=== PATIENT | female | born 1970 | race Caucasian/White ===

== ENCOUNTER 2018-12-03 08:07 | Outpatient (CLI) | payer MEDICAID, SELFPAY ==
[2018-12-03 08:45] LABS: Abs Immature Grans 0.01 k/cumm (0.0-0.09); Absolute Basophil Count 0.02 k/cumm (0.0-0.2); Absolute Eosinophil Count 0.15 k/cumm (0.0-0.7); Absolute Lymphocyte Count 1.22 k/cumm (1.2-3.4); Absolute Monocyte Count 0.31 k/cumm (0.11-0.7); Basophils % 0.5; Eosinophils % 3.8; HCT 41.6 % (36.0-46.0); HGB 13.4 g/dL (12.0-15.5); Immature Grans % 0.3; Lymphocytes % 30.5; Mean Corp. HGB Concentration 32.2 g/dL (32.0-36.0); Mean Corpuscular Hemoglobin 28.6 pg (27.0-33.0); Mean Corpuscular Volume 88.7 fL (80-95); Mean Platelet Volume 10.2 fL (8.0-11.0); Monocytes % 7.8; Neutrophils % 57.1; Platelet Count 193 x1000/uL (130-400); RBC 4.69 m/cumm (4.00-5.20); RBC Distribution Width 12.3 % (11.7-14.6)
[2018-12-03 08:47] LABS: Absolute Neutrophil Count 2.28 k/cumm (1.2-6.7)
[2018-12-03 09:58] LABS: Iron 59 ug/dL (50-175); Total Iron Binding Capacity 349 ug/dL (250-450); Transferrin Sat 17 % (15-50)
[2018-12-03 10:24] LABS: Vitamin D 25 Total 14.1 ng/ml (30-100)
[2018-12-03 10:34] LABS: ALT 23 U/L (12-78); AST 21 U/L (15-37); Albumin 3.4 g/dL (3.4-5.0); Alkaline Phosphatase 92 U/L (46-116); Anion Gap 9.9 mmol/L (3-11); BUN 10 mg/dL (7-18); Bilirubin, Total 0.4 mg/dL (0.2-1.0); CO2 28.1 mmol/L (21.0-32.0); CREATININE 0.84 mg/dL (0.55-1.02); Calcium 8.9 mg/dL (8.5-10.1); Chloride 103 mmol/L (98-107); Cholesterol 125 mg/dL (50-200); Ferritin 31 ng/mL (8-388); Folate 18.7 ng/mL (8.6-20.0); Glucose 95 mg/dL (70-100); HDL Cholesterol 38 mg/dL (40-60); LDL CHOLESTEROL 75 mg/dL (<100); Potassium 3.7 mmol/L (3.5-5.1); Sodium 141 mmol/L (136-145); TSH (W/Ref FT4) 5.68 uIU/mL (0.358-3.74); Total Protein 7.6 g/dL (6.4-8.2); Triglyceride 63 mg/dL (30-150); Vitamin B12 271 pg/mL (193-986)
[2018-12-03 10:52] LABS: FREE T4 1.04 ng/dL (0.76-1.46)
[2018-12-04 10:04] LABS: Parathyroid Hormone,Intact 129 pg/ml (19-88)
[2018-12-07 10:19] LABS: Thiamine (Vitamin B1), WB 113 nmol/L (70-180)
[2018-12-08 08:56] LABS: Free Retinol (Vitamin A) 25.3 mcg/dL (32.5-78.0)
== END 2018-12-03 08:27 ==
PROVIDERS: PCP Nurse Practitioner Family; Visit Provider Nurse Practitioner Family
DX: Z98.84 Bariatric surgery status (principal); K90.9 Intestinal malabsorption, unspecified; Z00.00 Encounter for general adult medical examination without abnormal findings
CPT/HCPCS: 36415; 80053; 80061; 82306; 83721; 82607; 82728; 82746; 83540; 83550; 83970; 84425; 84439; 84443; 84590; 85025

== ENCOUNTER 2019-04-16 02:50 | Outpatient (CLI) | payer MEDICAID, SELFPAY ==
--- NOTE | 2019-04-16 | PFT_ITS ---
PULMONARY FUNCTION TEST REPORT Patient - Betzaida Clement DATE OF SERVICE April 16, 2019 REQUESTING PROVIDER Hardeep Oropeza NP INTERPRETATION OF STUDY Spirometry shows no evidence of obstructive airways disease. There is some, but not significant bronchodilator response. LUNG VOLUMES Incomplete testing, the patient decline plethysmography maneuver. DIFFUSION CAPACITY- Normal. AIRWAY RESISTANCE - Not measured. IMPRESSION No evidence of obstructive airways disease, underlying restrictive pattern cannot be excluded without total lung capacity measurement. Clinical correlation recommended. China Duvall M.D. WALTER/ T- 04/22/2019
[2019-04-16] MEDS: Inhaler, Assist Device 1 EACH MC (15:32)
[2019-04-16] MEDS: Albuterol HFA 18 GM 200 PUFF INH IH (15:32)
== END 2019-04-16 03:10 ==
PROVIDERS: PCP Nurse Practitioner Family; Visit Provider Nurse Practitioner Family
DX: J45.901 Unspecified asthma with (acute) exacerbation (principal); F17.200 Nicotine dependence, unspecified, uncomplicated
CPT/HCPCS: 94060; 94729

== ENCOUNTER 2019-05-06 11:33 | Emergency (ER) | payer MEDICAID, SELFPAY ==
[2019-05-06 11:35] VITALS: BP 133/70; PULSE 94; RESP 20; TEMP 37; O2SAT 97
--- NOTE | 2019-05-06 11:55 | ED.GENADUL_ITS ---
Discharge Plan Discharge Details Chief Complaint: RespSymp Primary Care Provider: Hardeep Oropeza ED Provider: Tomás Reynolds Medical Decision Making 49-year-old female smoker with history of reactive airway disease presents with cough, congestion, production of green sputum over days time with associated mi ld sinus discomfort. She is well-appearing and oxygenating normally. She has a persistent cough with scant end expiratory wheeze on exam. Given DuoNeb updraft, oral prednisone. As she is oxygenating normally, do not feel that she requires chest x-ray. Consistent with acute bronchitis, will treat with doxycycline as well as a burst of prednisone for her bronchospasm. HPI General Mode of arrival: ambulatory . Date/Time Provider Initiated Documentation: 05/06/19 11:41 . Limitations to Documentation: no limitations . Information obtained by: patient . History of Present Illness 49 year old F presents to the emergency department with the chief complaint of Cough and congestion worsening over 1 week's time with production of sputum, described as moderate and similar to prior episodes, Quality is described as dull, and is localized to the chest. Patient reports no radiation. Patient started experiencing this day(s) and it has been constant. No relieving factors improve symptom(s), No exacerbating factors reported . Patient notes fever/chills; denies chest pain, nausea/vomiting and shortness of breath. Patient did receive the following treatments prior to arrival, none General Stated Complaint: RespSymp RUTH ANN: 3 Review of Systems Review of Systems Narrative: 6 systems reviewed and otherwise negative Exam Narrative Exam Narrative: GEN: awake, alert, oriented 3. Pleasant, well groomed, interactive. HEAD: Normocephalic, atraumatic ENT: Mucous membranes moist, oropharynx unremarkable, External ear exam unremarkable EYES: PERRL, EOMI NECK: Full ROM, no EDWIN, no menigismus CHEST/RESP: Nontender, predominantly clear to auscultation bilateral, with persistent cough and scant end expiratory wheeze CARDIOVASCULAR: RRR, no murmur, rub harshal. 2+ Rad pulse bilateral ABDOMEN: Soft, nontender, no mass. +Bowel sounds EXT: Full ROM, no edema, no rash Neuro: Grossly normal neurologic exam, conversant, interactive. Psych: Speech fluent, thoughts congruent, affect normal Course Vital Signs Vital signs: Vital Signs Temperature 37 C 05/06/19 11:35 Pulse 94 H 05/06/19 11:35 Respiratory Rate 20 09/19/19 11:35 Blood Pressure 133/70 05/06/19 11:35 Pulse Oximetry 97 05/06/19 11:35 Temperature 37 C 05/06/19 11:35 Temperature Source Skin 05/06/19 11:35 Pulse 94 H 05/06/19 11:35 Respiratory Rate 20 05/06/19 11:35 Blood Pressure 133/70 05/06/19 11:35 Blood Pressure Position Sitting 05/06/19 11:35 Pulse Oximetry 97 05/06/19 11:35 Oxygen Delivery Method Room Air 05/06/19 11:35 Oxygen Flow Rate 0 05/06/19 11:35 Pain Level 4 05/06/19 11:35
[2019-05-06 12:01] VITALS: PULSE 94; RESP 20; O2SAT 97
[2019-05-06] MEDS: predniSONE 40 MG, predniSONE 10 MG 50 MG PO (12:01)
[2019-05-06] MEDS: Doxycycline Hyclate 100 MG CAP PO (12:01)
[2019-05-06] MEDS: Albuterol/Ipratropium 3 ML UPD VIAL UPD (12:01)
== END 2019-05-06 13:30 | disposition home or self-care (01) ==
PROVIDERS: Emergency Provider Emergency Medicine; PCP Nurse Practitioner Family
DX: J44.0 Chronic obstructive pulmonary disease with (acute) lower respiratory infection (principal); J20.9 Acute bronchitis, unspecified; J45.901 Unspecified asthma with (acute) exacerbation
CPT/HCPCS: 94640; 99283; J7512; J7620

== ENCOUNTER 2019-05-14 13:40 | Outpatient (REF) | payer MEDICAID, SELFPAY ==
--- NOTE | 2019-05-14 13:15 | PAPFT_PTH ---
PATIENT: Betzaida Clement LOC: [facility] U#:[id number] AGE/SX: 49/F ROOM: RE05/14/[address]: Hardeep Oropeza : 1970 BED: DIS: 05/14/2019 SPEC #: [id number] RECD: 05/17/19 13:06 STATUS: [place] REQ #: [id number] MEHNAZ: 05/14/19 13:[address]: Hardeep Oropeza DEPT: [facility] Cytology RECD BY: Lisbeth Aguilar Tissues: 1 - CX/ENDOCX FOR PAP SMEARS Procedures: PAP THIN PREP/[facility] Screening HPV DNA PROBE Comments: [id number]
== END 2019-05-14 14:00 ==
LOC: NCHCN 13:40
PROVIDERS: PCP Nurse Practitioner Family; Visit Provider Nurse Practitioner Family
DX: Z12.4 Encounter for screening for malignant neoplasm of cervix (principal); Z11.51 Encounter for screening for human papillomavirus (HPV)
CPT/HCPCS: 88142; 87624

== ENCOUNTER 2019-05-24 15:17 | Outpatient (CLI) | payer MEDICAID, SELFPAY ==
--- NOTE | 2019-05-24 15:15 | DI.RAD_ITS ---
EXAM: XR CHEST 2V PA LATERAL INDICATION: FEVER, COUGH, DYSPNEA, R50.9, R05, R06.00. COMPARISON: No exams were available for comparison TECHNIQUE: 2D digital imaging was performed. FINDINGS: Two views of the chest were obtained. The heart is not enlarged. There are diffuse bilateral pulmon nakita interstitial infiltrates. No focal consolidation seen. No pleural effusion seen. The findings as described are nonspecific and could represent infectious versus inflammatory process. Alternatively the findings could all be due to pulmonary fibrosis, clinical correlation requested r egarding history of fibrotic changes in the lungs. No prior studies available for comparison. IMPRESSION: Bilateral interstitial pulmonary infiltrates of uncertain etiology. Infectious versus inflammatory process, fibrotic change also possible. Clinical correlation requested. Appropriate follow-up chest radiographs requested and chest CT may be considered for further evaluation.
== END 2019-05-24 15:37 ==
PROVIDERS: PCP Nurse Practitioner Family; Visit Provider Nurse Practitioner Family
DX: R50.9 Fever, unspecified (principal); R05 Cough; R06.00 Dyspnea, unspecified; R91.8 Other nonspecific abnormal finding of lung field
CPT/HCPCS: 71046

== ENCOUNTER 2020-03-23 07:22 | Outpatient (CLI) | payer MEDICAID, SELFPAY ==
--- NOTE | 2020-03-23 12:03 | DI.MAMMO_ITS ---
EXAM: MAMMO SCREENING CLINICAL HISTORY: SCREENING, [facility],Z00.00,Z12.39 TECHNIQUE: Mammograms were interpreted according to the usual protocol including computer analysis w amcure CAD system, tomosynthesis and C-view imaging. COMPARISON: 2017 from [facility] in [place] FINDINGS: The breasts are composed of heterogeneously dense fibroglandular densities, Breast Density category C . No suspicious masses or suspicious microcalcifications are seen. Previously noted bilateral areas of nodularity are less prominent the current exam. No skin thickening or abnormal axillary lymph nodes are seen. IMPRESSION: BI-RADS Category 1: Negative mammogram Yearly screening mammography is recommended. Breast Density - Category C, heterogeneously dense tissue which decreases the sensitivity of the mamm ogram. The mammogram demonstrates the patient's breast tissue is dense. Dense breast tissue is very common a nd is not abnormal but dense breast tissue can make it harder to find cancer on a mammogram. Also, de nse breast tissue may increase breast cancer risk. This information about the result of the mammogram report was provided to the patient to raise their awareness. Use this report when you speak with the patient about their risks for breast cancer, which includes their family history. At that time, you may recommend additional screening tests (Ultrasound or MRI) as they might be useful based on their r isk. A negative radiographic report should not delay biopsy if a dominant or clinically suspicious mass is present. Up to ten percent of cancers are not identified on mammography. A negative report may reinforce clinical impression. Adenosis and dense breasts may obscure an underlying neoplasm. False positive reports average 6 to 10%.
== END 2020-03-23 07:42 ==
PROVIDERS: PCP Nurse Practitioner Family; Visit Provider Nurse Practitioner Family
DX: Z12.31 Encounter for screening mammogram for malignant neoplasm of breast (principal); R92.2 Inconclusive mammogram; Z00.00 Encounter for general adult medical examination without abnormal findings
CPT/HCPCS: 77063; 77067

== ENCOUNTER 2020-08-15 19:10 | Outpatient (REF) | payer MEDICAID, SELFPAY ==
[2020-08-15 18:10] LABS: Abs Immature Grans 0.01 10^3/uL (0.0-0.06); Absolute Basophil Count 0.04 10^3/uL (0.0-0.2); Absolute Eosinophil Count 0.13 10^3/uL (0.0-0.7); Absolute Lymphocyte Count 1.19 10^3/uL (1.2-3.4); Absolute Monocyte Count 0.31 10^3/uL (0.1-0.8); Absolute Neutrophil Count 2.67 10^3/uL (1.2-6.7); Basophils % 0.9; HGB 14.3 g/dL (11.2-15.7); Immature Grans % 0.2; Lymphocytes % 27.4; MCH 30.4 pg (27.0-33.0); MCHC 33.3 % (32.0-36.0); MCV 91.3 fL (80-95); MPV 10.2 fL (8.0-11.0); Monocytes % 7.1; Neutrophils % 61.4; Nucleated RBC 0 %; Platelet Count 219 10^3/uL (130-400); RBC 4.71 10^6/uL (3.93-5.22); RDW 14.1 % (11.7-14.6); RDW-SD 47.1 fL; WBC 4.35 10^3/uL (4.4-10.8)
[2020-08-15 18:19] LABS: Iron 51 ug/dL (50-170); Total Iron Binding Capacity 358 ug/dL (250-450); Transferrin Sat 14 % (15-50)
[2020-08-15 18:46] LABS: Calculated LDL 81 mg/dL (<100); Cholesterol 161 mg/dL (<200); Ferritin 55 ng/mL (8-252); Folate 10.7 ng/mL (8.6-20.0); HDL Cholesterol 64 mg/dL (40-60); Triglyceride 81 mg/dL (<150); Vitamin B12 268 pg/mL (193-986)
[2020-08-15 19:00] LABS: ALT 88 U/L (14-59); AST 108 U/L (15-37); Albumin 3.2 g/dL (3.4-5.0); Alkaline Phosphatase 104 U/L (46-116); Anion Gap 7.4 mmol/L (3-11); BUN 7 mg/dL (7-18); Bilirubin, Total 0.3 mg/dL (0.2-1.0); CO2 27.6 mmol/L (21.0-32.0); CREATININE 0.81 mg/dL (0.55-1.02); Calcium 8.9 mg/dL (8.5-10.1); Chloride 104 mmol/L (98-107); Glucose 93 mg/dL (74-106); Potassium 4.5 mmol/L (3.5-5.1); Sodium 139 mmol/L (136-145); Total Protein 7.7 g/dL (6.4-8.2)
[2020-08-17 04:46] LABS: Vitamin D 25 Total 18.8 ng/ml (30-100)
[2020-08-17 11:52] LABS: Parathyroid Hormone,Intact 117 pg/mL (19-88)
[2020-08-18 12:18] LABS: Free Retinol (Vitamin A) 28.8 mcg/dL (32.5-78.0)
[2020-08-22 07:17] LABS: Thiamine (Vitamin B1), WB 112 nmol/L (70-180)
== END 2020-08-15 19:30 ==
LOC: NCHCN 19:10
PROVIDERS: PCP Nurse Practitioner Family; Visit Provider Nurse Practitioner Family
DX: E03.9 Hypothyroidism, unspecified (principal); E21.3 Hyperparathyroidism, unspecified; K90.9 Intestinal malabsorption, unspecified; Z98.84 Bariatric surgery status
CPT/HCPCS: 80053; 80061; 82306; 82607; 82728; 82746; 83540; 83550; 83970; 84425; 84590; 85025

== ENCOUNTER 2020-10-04 19:17 | Outpatient (CLI) | payer MEDICAID, SELFPAY ==
--- NOTE | 2020-09-29 | DI.RAD_ITS ---
EXAM: XR HAND RT COMPLETE CLINICAL HISTORY: RT HAND PAIN, M79.641. TECHNIQUE: 2D digital imaging was performed. COMPARISON: No exams were available for comparison FINDINGS: BONES: No acute fracture is present. No bony destructive lesion is seen. JOINTS: No dislocation present. There are mild degenerative changes at the 1st carpal metacarpal ramakrishna nt and interphalangeal joints of the fingers. SOFT TISSUE: Normal. IMPRESSION: Minimal degenerative changes. DATA REPOSITORY: RADIATION DOSE DELIVERED:
== END 2020-10-04 19:18 ==
PROVIDERS: PCP Nurse Practitioner Family; Visit Provider Nurse Practitioner Family
DX: M79.641 Pain in right hand (principal); M18.11 Unilateral primary osteoarthritis of first carpometacarpal joint, right hand
CPT/HCPCS: 73130

== ENCOUNTER 2020-11-14 01:58 | Outpatient (CLI) | payer MEDICAID, SELFPAY ==
--- NOTE | 2020-11-14 13:00 | DI.CT_ITS ---
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 TECHNIQUE: Imaging protocol: Axial computed tomography images were obtained and coronal and sagittal reformatted images were created and reviewed. 1 millimeter heart really resolution images were perf ormed in inspiration and expiration. COMPARISON: CR XR CHEST 2V PA LATERAL from 05/24/2019 FINDINGS: Tracheobronchial tree: Patent where visualized. Mediastinum and Juliana: No dominant adenopathy or fluid collection. Pulmonary parenchyma: No consolidation or dominant measurable mass. There are abnormal interstitial c hanges with honeycomb appearance in both upper lobes, greater anteriorly. Similar findings are also seen at the right middle lobe and lingula as well as left lower lobe.. Pleura: No effusion or pneumothorax. Heart: The heart is not dilated. Minimal coronary artery calcifications. Aorta: Thoracic aorta non-dilated. No calcification. Upper abdomen: Gastric bypass. Cholecystectomy. Lymph nodes: Within normal limits. Bones: Mild degenerative disc changes in the mid thoracic spine. IMPRESSION: Bilateral interstitial changes, with honeycombing, greatest in both upper lobes. RADIATION DOSE DELIVERED: 738.61mGy.cm Total DLP DATA REPOSITORY: All CT scans at this facility are submitted to the National Radiology Data Registry (NRDR) Dose Index Registry (DIR) with the [employer] ([employer]). RADIATION OPTIMIZATION: All CT scans at this facility use at least one of these dose optimization te chniques: automated exposure control; mA and/or kV adjustment per patient size (includes targeted exa ms where dose is matched to clinical indication); or iterative reconstruction.
== END 2020-11-14 02:18 ==
PROVIDERS: PCP Nurse Practitioner Family; Visit Provider Nurse Practitioner Family
DX: J84.9 Interstitial pulmonary disease, unspecified (principal); J98.4 Other disorders of lung
CPT/HCPCS: 71250

== ENCOUNTER 2021-01-31 16:46 | Inpatient (IN) | payer MEDICAID, SELFPAY ==
[2021-01-31] VITALS (70 sets, daily range): BP systolic 135–169; BP diastolic 55–147; PULSE 93–126; RESP 4–39; TEMP 31–36.6; O2SAT 78–100
--- NOTE | 2021-01-31 16:30 | RT.EKG_ITS ---
APPROVED REPORT Exam: Resting ECG Reason for Exam: shortness of breath Patient Location: E HR:113 bpm ECG Measurements Heart Rate 113 AXIS HI 187 P 30 QRSd 87 QRS 15 QT 344 T 9 QTc 472 Conclusion Sinus tachycardia...rate> 99 Probable left atrial enlargement...P >50mS, <-0.10mV V1 Nonspecific T abnrm, anterolateral leads...T <-0.10mV, I aVL V2-V6. No STEMI. I have reviewed and interpreted ECG and agree with software generated interpretation.
--- NOTE | 2021-01-31 16:51 | W.ED.GENAD ---
Discharge Plan Discharge Details Chief Complaint: SOB Primary Care Provider: Hardeep Oropeza ED Provider: Kaylene Stevens Home Meds and New Rx's Prescriptions: No Action levothyroxine 25 mcg capsule 25 mcg PO DAILY RF: 0 doxycycline hyclate 100 mg capsule 100 mg PO BID RF: 0 nicotine [Nicoderm CQ] 21 mg/24 hr patch 24 hour 1 patch TD DAILY RF: 0 cholecalciferol (vitamin D3) [Vitamin D3] 1,000 unit Capsule 1,000 unit PO DAILY RF: 0 Supervitamin 1 ea PO DAILY RF: 0 Flovent HFA 110 mcg/actuation Hfa Aerosol Inhaler 2 puff INHALATION DAILY RF: 0 hydrochlorothiazide 12.5 mg Tablet 12.5 mg PO DAILY RF: 0 amitriptyline 50 mg Tablet 50 mg PO HS RF: 0 albuterol sulfate [ProAir HFA] 90 mcg/actuation Hfa Aerosol Inhaler 2 puff INHALATION PRN PRNRF: 0 HPI General Date/Time Provider Initiated Documentation: 01/31/21 16:51. Related Data Home Medications Medication Instructions Recorded Confirmed Supervitamin 1 ea PO DAILY 05/06/19 06/21/19 albuterol sulfate [ProAir HFA] 2 puff INHALATION PRN PRN 05/06/19 01/31/21 amitriptyline 50 mg PO HS 05/06/19 06/21/19 cholecalciferol (vitamin D3) 1,000 unit PO DAILY 05/06/19 06/21/19 [Vitamin D3] fluticasone propionate [Flovent 2 puff INHALATION DAILY 05/06/19 01/31/21 HFA] hydrochlorothiazide 12.5 mg PO DAILY 05/06/19 01/31/21 doxycycline hyclate 100 mg capsule 100 mg PO BID 06/21/19 06/21/19 levothyroxine 25 mcg capsule 25 mcg PO DAILY 06/21/19 06/21/19 nicotine 21 mg/24 hr daily 1 patch TD DAILY 06/21/19 06/21/19 transdermal patch Allergies Allergy/AdvReac Type Severity Reaction Status Date / Time environmental AdvReac Mild Uncoded 01/31/21 17:02 PENDING SALE TO [facility] Medical History (Updated 06/21/19 @ 09:12 by Radha Smith RN) Cervical cancer Surgical History (Updated 06/21/19 @ 09:12 by Radha Smith RN) History of gastric bypass Social History Smoking/Tobacco Use Status: Current every day Smoking risk assessment performed?: Yes Alcohol Intake: current Alcohol Intake frequency: a few times a week Drug use: Never Do you feel safe at home: Yes Do you feel safe in your relationship?: Yes
--- NOTE | 2021-01-31 17:06 | ED.GENADUL_ITS ---
Discharge Plan Disposition Patient Disposition: [facility] INPATIENT Condition: Poor Discharge Details Chief Complaint: SOB Clinical Impression: Pneumonia, Hypoxemia, Asthma, Elevated troponin Primary Care Provider: Hardeep Oropeza ED Provider: Kaylene Stevens Home Meds and New Rx's Prescriptions: No Action levothyroxine 25 mcg capsule 25 mcg PO DAILY RF: 0 nicotine [Nicoderm CQ] 21 mg/24 hr patch 24 hour 1 patch TD DAILY RF: 0 cholecalciferol (vitamin D3) [Vitamin D3] 1,000 unit Capsule 1,000 unit PO DAILY RF: 0 Supervitamin 1 ea PO DAILY RF: 0 Flovent HFA 110 mcg/actuation Hfa Aerosol Inhaler 2 puff INHALATION DAILY RF: 0 hydrochlorothiazide 12.5 mg Tablet 12.5 mg PO DAILY RF: 0 amitriptyline 50 mg Tablet 50 mg PO HS RF: 0 albuterol sulfate [ProAir HFA] 90 mcg/actuation Hfa Aerosol Inhaler 2 puff INHALATION PRN PRNRF: 0 fluticasone propion-salmeterol [Advair Diskus] 250-50 mcg/dose blister with device 1 inh INHALATION BID RF: 0 albuterol sulfate 2.5 mg /3 mL (0.083 %) solution for nebulization 2.5 mg inhalation Q4H PRN PRNRF: 0 lorazepam 1 mg tablet 2 mg PO DIRECTED RF: 0 pantoprazole 40 mg tablet,delayed release (DR/EC) 40 mg PO DAILY RF: 0 ondansetron 4 mg tablet,disintegrating 4 mg PO Q6H PRNRF: 0 Chantix Continuing Month Box 1 mg tablet 1 mg PO BID RF: 0 citalopram 20 mg tablet 20 mg PO DAILY RF: 0 Medical Decision Making Patient is a pleasant 50-year-old female presenting today with chief complaint of shortness of breath. Patient was initially seen in urgent care and found to be hypoxic. Brought in via EMS. She reports that 3 days ago, she began noting shortness of breath, difficulty breathing and cough. States that she has been bringing up green sputum since then. Denies any fevers or chills. Denies any chest pain. However, she states difficulty with exertion she can experience tightness. However, she feels that this is similar to when she had asthma historically. She denies any pain in her back. No nausea or vomiting. Patient does have a history of asthma. States that she stopped smoking 1 day prior to the onset of symptoms. Prior to that, she has been smoking 1 pack/day x 30 years. On exam, patient appears acutely ill. She is on 4 L nasal cannula and appears to be responding well to this. Is in a tripoding position and speaking in shortened sentences. Patient sounds very tight and has a high-pitched bruit inspiratory wheeze. Patient is tachycardic. No lower extremity edema or calf tenderness. Patient denies any recent travel. She denies any history either personal or familial of DVT. No personal history of ACS. Mother has a history of ACS. However, she does not know her father's medical history. Primarily concern at this time for the patient's hypoxia. Based on exam, this appears to be primarily driven from the asthma exacerbation, possible COPD. Patient also has history concerning for infection with green sputum production and cough. Respiratory therapy is at bedside. Will give the patient 3 duo n ebulizers, methylprednisolone and magnesium. Patient remains on nasal cannula. Patient maintaining oxygen. However, she does appear to have unusual breathing pattern is holding her breath. Does appear more fatigued. Patient was started on high flow nasal cannula and did respond well to this. Patient accidentally removed from while oxygen dropped down to 78%. Came back as well once on nasal cannula once again. EKG was reviewed by Dr. Felipe. Patient is in a sinus tach with a rate of 113. Nonspecific T wave abnormality, no STEMI or acute ischemic changes noted. FINDINGS: There is cardiomegaly. Mediastinum not widened. Bilateral interstitial disease is increased when compared to May 2019 although please note that we are comparing a portable AP film to prior non portable upright PA view. Nevertheless, in addition to chronic interstitial disease (as also seen on CT scan October 2020) there are now appears to be some confluent infiltrate in the lower right lung field. No pleural effusions. IMPRESSION: Increasing interstitial disease. There is a chronic component but probably superimposed additional disease and possible also some developing confluent infiltrate in the right lung base.No pleural effusions. lactate returned at 3.3. We will begin the patient on ceftriaxone and azithromycin. We will begin hydrating the patient. Patient currently on high flow nasal cannula, respiratory therapy at bedside. Remaining labs are returning. White count within normal limits. Patient not anemic. D-dimer is elevated 2104. Coags are normal. Patient does have an elevated creatinine at 1.1. This does appear to be new for the patient. AST elevated at 76, this is chronic for the patient. Alk phos 284, this is apparently new. Patient's troponin is elevated at 1.71. Patient appears to be demand ischemia or strain associate with pulmonary embolism. Will give aspirin and plan to follow-up with the the PE protocol. Discussed this plan with the patient and her . Patient much, more comfortable with the high flow nasal cannula in place. FINDINGS: Pulmonary arteries: The pulmonary arteries enhance appropriately with no evidence of pulmonary embolism. Mild dilatation of the central pulmonary arteries suggesting an element of pulmonary arterial hypertension. Aorta: The aorta enhances appropriately without evidence dissection. Borderline mild aneurysmal dilatation of the ascending aortic segment measuring 4.0 cm diameter, unchanged. No mediastinal hematoma. Thyroid: The visualized thyroid gland demonstrates no gross abnormality. Lungs: No acute tracheobronchial abnormalities. The previously identified moderate peripheral interstitial fibrosis is again noted. There is superimposed new generalized ground-glass alveolar attenuation present throughout both lungs. The question of focal airspace disease in the right basilar distribution seen on the recent x-ray is not confirmed on the CT, and the pattern is more generalized in nature. The appearance could be related to generalized pulmonary edema, bilateral pulmonary infection/pneumonia, or possibly non infectious alveolitis related to the chronic interstitial lung disease. No pulmonary mass lesions are identified. Pleural spaces: No pleural effusion. No pneumothorax. Heart: Mild cardiomegaly. No pericardial effusion. Mediastinal space: Mediastinal chelsey enlargement in the pretracheal retrocaval distribution measuring up to 13 mm short axis, prevascular distribution measuring up to 9 mm short axis, precarinal distribution measuring 10 mm short axis, subcarinal distribution measuring 12 mm short axis, and bilateral hilar distributions measuring up to 6 mm short axis on the right and 12 mm on the left. This is increased from 11/14/2020. Small hiatal hernia. Postsurgical changes in the stomach suggesting prior gastric bypass without gross anastomotic complication within the scan range. Lymph nodes: No supraclavicular or axillary adenopathy. Bones/joints: No acute osseous abnormalities are identified. Soft tissues: The soft tissues of the chest wall demonstrate no acute abnormality. Other findings: Visualized upper abdominal structures are otherwise unremarkable. IMPRESSION: 1. No evidence of pulmonary embolism or aortic dissection. 2. Chronic interstitial lung disease with superimposed new generalized bilateral ground-glass alveolar densities which may relate to edema, non infectious alveolitis, or pulmonary infection/pneumonia. 3. Borderline mild aneurysmal dilatation of the ascending aorta at 4 cm diameter is unchanged. 4. Mild dilatation of the central pulmonary arteries suggesting an element of chronic pulmonary arterial hypertension unchanged. 5. Nonspecific enlarged mediastinal and bilateral hilar nodes, moderately increased in size since 11/14/2020. 6. Additional non-emergent findings detailed above. Discussed these findings with the patient and her . She was not aware of her aortic aneurysm. Patient is much more comfortable. Moving air much better although she does have crackles no noted at the bilateral bases, more pronounced on the right than the left. She continues to deny any chest pain. States that the tightness that she has been experiencing has resolved with her shortness of breath has been improving. Repeat troponin is downtrending at 1.47. I discussed this with the patient. Her COVID-19 testing was negative. Concern at this time patient had demand ischemia associated with the tachycardia from her hypoxia and shortness of breath. Plan to admit the patient for continued monitoring. Consulted with Dr. Alatorre who agrees to admit to ICU for continued monitoring and treatment. At the time of admission, patient in stable condition, resting comfortably. HPI General Mode of arrival: EMS . Date/Time Provider Initiated Documentation: 01/31/21 16:51 . Limitations to Documentation: no limitations . Information obtained by: patient, EMS and RN notes reviewed . History of Present Illness 50 year old F presents to the emergency department with the chief complaint of SOB, described as moderate, Quality is described as other (tight), and is localized to the chest. Patient reports no radiation. Patient started experiencing this day(s) (3) and it has been constant. No relieving factors improve symptom(s), Movement worsens symptoms . Patient notes chest pain (tight), cough (bringing up green gunk) and shortness of breath; denies diaphoresis, fever/chills, loss of appetite, nausea/vomiting and syncope. Patient did receive the following treatments prior to arrival, other (albuterol inhaler and nebulizer) Related Data Home Medications Medication Instructions Recorded Confirmed Supervitamin 1 ea PO DAILY 05/06/19 01/31/21 albuterol sulfate [ProAir HFA] 2 puff INHALATION PRN PRN 05/06/19 01/31/21 amitriptyline 50 mg PO HS 05/06/19 01/31/21 cholecalciferol (vitamin D3) 1,000 unit PO DAILY 05/06/19 01/31/21 [Vitamin D3] fluticasone propionate [Flovent 2 puff INHALATION DAILY 05/06/19 01/31/21 HFA] hydrochlorothiazide 12.5 mg PO DAILY 05/06/19 01/31/21 levothyroxine 25 mcg capsule 25 mcg PO DAILY 06/21/19 06/21/19 nicotine 21 mg/24 hr daily 1 patch TD DAILY 06/21/19 06/21/19 transdermal patch albuterol sulfate 2.5 mg INHALATION Q4H PRN PRN 01/31/21 01/31/21 citalopram 20 mg PO DAILY 01/31/21 01/31/21 fluticasone propion-salmeterol 1 inh INHALATION BID 01/31/21 01/31/21 [Advair Diskus] lorazepam 2 mg PO DIRECTED 01/31/21 01/31/21 ondansetron 4 mg PO Q6H PRN 01/31/21 01/31/21 pantoprazole 40 mg PO DAILY 01/31/21 01/31/21 varenicline [Chantix Continuing 1 mg PO BID 01/31/21 01/31/21 Month Box] Allergies Allergy/AdvReac Type Severity Reaction Status Date / Time environmental AdvReac Mild Uncoded 01/31/21 17:02 General Stated Complaint: SOB RUTH ANN: 2 Review of Systems Constitutional Constitutional: Reports as per HPI, Denies chills, Denies fever(s) and Denies headache(s) Eyes Eyes: Denies change in vision ENT Ears, Nose, Mouth, and Throat: Denies dizziness and Denies headache(s) Cardiovascular Cardiovascular: Reports as per HPI, Reports dyspnea and Reports dyspnea on exertion Respiratory Respiratory: Reports as per HPI, Reports chest congestion, Reports cough, Denies hemoptysis, Reports excessive phlegm production, Denies pain on inspiration, Denies pain with cough, Reports dyspnea, Reports dyspnea on exertion and Reports wheezing Gastrointestinal Gastrointestinal: Reports as per HPI, Denies abdominal pain, Denies diarrhea, Denies nausea and Denies vomiting Musculoskeletal Musculoskeletal: Reports as per HPI and Denies back pain Integumentary/Breasts Skin/Breast: Reports as per HPI and Denies rash Neurologic Neurologic: Reports as per HPI, Denies dizziness and Denies headache(s) Allergic/Immunologic Allergic/Immunologic: Reports wheezing FOR[facility], [facility] Medical History Cervical cancer Surgical History History of gastric bypass Social History Smoking/Tobacco Use Status: Former Tobacco Use Quit Date: 01/26/21 Smoking risk assessment performed?: Yes Alcohol Intake: current Alcohol Intake frequency: a few times a week Drug use: Never Do you feel safe at home: Yes Do you feel safe in your relationship?: Yes Exam Const General: cooperative, not healthy appearing, uncomfortable, no acute distress, well developed, acute distress moderate and respiratory, anxious and ill appearing acutely Nutritional Appearance: well nourished and overweight Orientation: alert, awake and oriented x3 HENMT Head: normal to inspection Ears: hearing grossly normal bilaterally Mouth: moist mucous membranes Chest Chest: normal inspection of the chest, normal palpation of entire chest wall and no crepitus Resp Effort & Inspection: abnormal respiratory effort, not able to speak in complete sentences, cough, no nasal flaring, no stridor, tachypneic, no tracheal deviation and tripod positioning Auscultation: clear to auscultation bilaterally, no rales, no rhonchi and wheezes (high pitched end inspiratory wheeze) Cardio Rate: tachycardic Rhythm: regular rhythm Heart Sounds: S1 normal and S2 normal GI Inspection: normal to inspection, no edema and non-distended Palpation: soft, no hepatosplenomegaly, not firm, no guarding, not rigid and nontender Auscultation: normal bowel sounds Back/Spine/Pelvis Thoracic/Lumbar Spine: thoracic and lumbar spine normal to inspection Skin General skin exam: no rashes or lesions noted Trauma: no lacerations or abrasions Neuro General: patient alert, patient awake and patient oriented x3 Cognition: normal cognition Speech: speech abnormal (not able to speak in complete sentences secondary to SOB) Extrem General: normal to inspection, capillary refill normal, no pedal edema and no calf tenderness Psych Appearance: grossly normal and well kempt Mental Status: mental status grossly normal Speech and Movement: speech and movement normal Course Vital Signs Vital signs: Vital Signs Temperature 36.6 C 01/31/21 16:51 Pulse 114 H 01/31/21 16:51 Respiratory Rate 18 01/31/21 16:51 Blood Pressure 139/75 01/31/21 16:51 Pulse Oximetry 96 01/31/21 16:51 Temperature 36.6 C 01/31/21 16:51 Temperature Source Skin 01/31/21 16:51 Pulse 114 H 01/31/21 16:51 Respiratory Rate 18 01/31/21 16:51 Blood Pressure 139/75 01/31/21 16:51 Blood Pressure Position Sitting 01/31/21 16:51 Pulse Oximetry 96 01/31/21 16:51 Oxygen Delivery Method Nasal Cannula 01/31/21 16:51 Oxygen Flow Rate 4 01/31/21 16:51 Pain Level 0 01/31/21 16:51
[2021-01-31] MEDS: Albuterol/Ipratropium 3 ML UPD VIAL (17:20)
[2021-01-31] MEDS: methylPREDNISolone SUCC 125 MG VIAL IVP (17:37)
[2021-01-31 17:38] LABS: Source Nasal/Nares
[2021-01-31] MEDS: MAGNESIUM SULFATE 2 GM/50 ML BAG IVPB (17:38)
--- NOTE | 2021-01-31 17:42 | DI.RAD_ITS ---
Exam(s) XR PORTABLE CHEST AP EXAM: XR PORTABLE CHEST AP CLINICAL HISTORY: SOB. TECHNIQUE: 2D digital imaging was performed. COMPARISON: CR XR CHEST 2V PA LATERAL from 05/24/[address] CHEST HIGH RESOLUTION from 11/14/2020 FINDINGS: There is cardiomegaly. Mediastinum not widened. Bilateral interstitial disease is increased when compared to May 2019 although please note that w e are comparing a portable AP film to prior non portable upright PA view. Nevertheless, in addition to chronic interstitial disease (as also seen on CT scan October 2020) there are now appears to be some confluent infiltrate in the lower right lung field. No pleural effusions. IMPRESSION: Increasing interstitial disease. There is a chronic component but probably superimposed additional d isease and possible also some developing confluent infiltrate in the right lung base.No pleural effus ions. DATA REPOSITORY: RADIATION DOSE DELIVERED: All CT scans at this facility use at least one of these dose optimization techniques: automated exposure control; mA and/or kV adjustment per patient size (includes targeted e xams where dose is matched to clinical indication); or iterative reconstruction.
[2021-01-31 17:43] LABS: Abs Immature Grans 0.07 10^3/uL (0.0-0.06); Absolute Basophil Count 0.05 10^3/uL (0.0-0.2); Absolute Eosinophil Count 0.02 10^3/uL (0.0-0.7); Absolute Monocyte Count 0.41 10^3/uL (0.1-0.8); Absolute Neutrophil Count 8.08 10^3/uL (1.2-6.7); Basophils % 0.5; Eosinophils % 0.2; HCT 42.3 % (36.0-46.0); HGB 13.5 g/dL (11.2-15.7); Immature Grans % 0.7; Lymphocytes % 9.4; MCHC 31.9 % (32.0-36.0); MPV 9.4 fL (8.0-11.0); Monocytes % 4.3; Neutrophils % 84.9; Nucleated RBC 0 %; Platelet Count 343 10^3/uL (130-400); RBC 4.65 10^6/uL (3.93-5.22); RDW 13.8 % (11.7-14.6); RDW-SD 46.3 fL; WBC 9.53 10^3/uL (4.4-10.8)
[2021-01-31 18:09] LABS: Lactate 3.3 mmol/L (0.9-1.7)
[2021-01-31 18:11] LABS: PTT Activated 25.9 sec (21.0-27.5); Prothrombin Time 10.2 sec (9.3-11.0)
--- NOTE | 2021-01-31 18:17 | DI.VRAD_ITS ---
PROCEDURE INFORMATION: Exam: XR Chest Exam date and time: 01/31/2021 5:05 PM Age: 50 years old Clinical indication: Shortness of breath TECHNIQUE: Imaging protocol: XR of the chest. Views: 1 view. Total images: 1 COMPARISON: CT CHEST HIGH RESOLUTION 11/14/2020 1:00 PM FINDINGS: Lungs: Low lung volumes. Bilateral interstitial fibrosis again noted, with moderate reticular densities. There is new alveolar density in the right lung base concerning for superimposed pneumonia or edema. Pleural spaces: No pleural effusion. No pneumothorax. Heart/Mediastinum: Question mild cardiomegaly and vascular congestion although probably accentuated by AP portable technique and low lung volumes. Bones/joints: No acute osseous abnormalities are identified. IMPRESSION: 1. Chronic interstitial fibrosis with superimposed new alveolar density in the right lung base concerning for superimposed pneumonia or edema. 2. Question cardiomegaly and vascular congestive changes although likely accentuated by portable AP technique and low lung volumes. Dictated and Authenticated by: Max Horne MD. Ordering:KIM Maruice MD
[2021-01-31 18:24] LABS: ALT 49 U/L (14-59); AST 76 U/L (15-37); Albumin 2.8 g/dL (3.4-5.0); Alkaline Phosphatase 284 U/L (46-116); Anion Gap 11.5 mmol/L (3-11); BUN 13 mg/dL (7-18); Bilirubin, Total 0.4 mg/dL (0.2-1.0); CO2 25.5 mmol/L (21.0-32.0); CREATININE 1.1 mg/dL (0.55-1.02); Chloride 101 mmol/L (98-107); Estimated GFR 52.16 (mL/min/1.73m2); Glucose 119 mg/dL (74-106); Potassium 3.7 mmol/L (3.5-5.1); Sodium 138 mmol/L (136-145); Total Protein 8.7 g/dL (6.4-8.2)
[2021-01-31] MEDS: cefTRIAXone 1 GM/50 ML BAG IVPB (18:28)
[2021-01-31] MEDS: Normal Saline 1,000 ML 500 ML IV (18:28)
[2021-01-31 18:30] LABS: Troponin I 1.71 ng/mL (<0.06)
[2021-01-31 18:41] LABS: COVID-19 PCR Negative (Negative)
[2021-01-31 18:43] LABS: D-Dimer 2164 ng/mlFEU (<500)
--- NOTE | 2021-01-31 18:45 | DI.CT_ITS ---
Exam(s) CT CHEST PE CTA EXAM: CT CHEST PE CTA CLINICAL HISTORY: SOB, +d-dimer. TECHNIQUE: Imaging Protocol: CT angiography of the chest was performed using pulmonary embolus lilia col. Multi planar reconstructions were performed. CONTRAST MATERIAL: Intravenous: Omnipaque 350 Contrast volume: 84 cc COMPARISON: CT CT CHEST HIGH RESOLUTION from 11/14/2020 CR,XR XR PORTABLE CHEST AP from 01/31/2021 FINDINGS: CHEST: PULMONARY ARTERIES: There are no intraluminal filling defects to suggest acute pulmonary emboli.Promi nent pulmonary arteries indicate an element of pulmonary artery hypertension. LUNGS: Previously described bilateral interstitial fibrotic disease is again noted but in addition th ere are now extensive bilateral ground-glass infiltrates throughout both lung lo involving all lo bes, not previously present.. There are no pleural effusions. No distinct nodules in the lung field s. No focal findings in trachea and mainstem bronchi. MEDIASTINUM: There is bilateral hilar adenopathy noted as well as an element of subcarinal adenopathy , more evident than on the prior noninfused study. Slightly increased mediastinal nodes noted. Visu alized thyroid unremarkable.No axillary adenopathy. CARDIAC: Cardiomegaly. No pericardial effusion.Caliber of the thoracic aorta is minimally prominent measuring 3.9 cm. There is no significant shift of the interventricular septum. PARTIALLY VISUALIZED UPPERMOST ABDOMEN: Evidence of previous gastric surgery difficult to determine b ecause of the field of view but possibly bariatric. There is a hepatic steatosis. No obvious adrena l masses. OSSEOUS: No significant osseous lesions.. IMPRESSION: 1. Compared to the CT scan of 11/14/2020 there is again noted bilateral fibrotic interstitial disease ..However, the main new findings extensive bilateral grossman lobar ground-glass infiltrates which were no t evident 3 months ago and are not associated with pleural effusions. There is some hilar adenopathy bilaterally. Also some mediastinal adenopathy. First consideration is for infectious etiology incl uding Covid-19. Appropriate testing recommended. 2. No evidence of pulmonary emboli. Enlarged pulmonary arteries are noted indicating an element of p ulmonary hypertension in this patient has fibrotic pulmonary disease. 3. Other findings as above. RADIATION DOSE DELIVERED: 481.42mGy.cm Total DLP DATA REPOSITORY: All CT scans at this facility are submitted to the National Radiology Data Registry (NRDR) Dose Index Registry (DIR) with the [employer] ([employer]). RADIATION OPTIMIZATION: All CT scans at this facility use at least one of these dose optimization te chniques: automated exposure control; mA and/or kV adjustment per patient size (includes targeted exa ms where dose is matched to clinical indication); or iterative reconstruction.
[2021-01-31] MEDS: AZITHROMYCIN 500 MG in Normal Saline 250 ML 250 MG IVPB (19:01)
[2021-01-31] MEDS: Aspirin 81 MG CHEW 324 MG CH (19:01)
[2021-01-31] MEDS: LORazepam 2 MG/ML VIAL 0.5 MG IVP (19:23)
[2021-01-31] MEDS: Omnipaque 350 MG/ML 100 ML BTL IV (20:02)
--- NOTE | 2021-01-31 20:21 | DI.VRAD_ITS ---
PROCEDURE INFORMATION: Exam: CTA Chest With Contrast Exam date and time: 01/31/2021 6:48 PM Age: 50 years old Clinical indication: Other: SOB, + d dimer TECHNIQUE: Imaging protocol: Computed tomographic angiography of the chest with contrast. 3D rendering (Not supervised by radiologist): MIP and/or 3D reconstructed images were created by the technologist. Total images: 1462 Radiation optimization: All CT scans at this facility use at least one of these dose optimization techniques: automated exposure control; mA and/or kV adjustment per patient size (includes targeted exams where dose is matched to clinical indication); or iterative reconstruction. Contrast material: OMNIPAQUE 350; Contrast volume: 84 ml; Contrast route: INTRAVENOUS (IV); COMPARISON: CT CHEST HIGH RESOLUTION 11/14/2020 1:00 PM FINDINGS: Pulmonary arteries: The pulmonary arteries enhance appropriately with no evidence of pulmonary embolism. Mild dilatation of the central pulmonary arteries suggesting an element of pulmonary arterial hypertension. Aorta: The aorta enhances appropriately without evidence dissection. Borderline mild aneurysmal dilatation of the ascending aortic segment measuring 4.0 cm diameter, unchanged. No mediastinal hematoma. Thyroid: The visualized thyroid gland demonstrates no gross abnormality. Lungs: No acute tracheobronchial abnormalities. The previously identified moderate peripheral interstitial fibrosis is again noted. There is superimposed new generalized ground-glass alveolar attenuation present throughout both lungs. The question of focal airspace disease in the right basilar distribution seen on the recent x-ray is not confirmed on the CT, and the pattern is more generalized in nature. The appearance could be related to generalized pulmonary edema, bilateral pulmonary infection/pneumonia, or possibly non infectious alveolitis related to the chronic interstitial lung disease. No pulmonary mass lesions are identified. Pleural spaces: No pleural effusion. No pneumothorax. Heart: Mild cardiomegaly. No pericardial effusion. Mediastinal space: Mediastinal chelsey enlargement in the pretracheal retrocaval distribution measuring up to 13 mm short axis, prevascular distribution measuring up to 9 mm short axis, precarinal distribution measuring 10 mm short axis, subcarinal distribution measuring 12 mm short axis, and bilateral hilar distributions measuring up to 6 mm short axis on the right and 12 mm on the left. This is increased from 11/14/2020. Small hiatal hernia. Postsurgical changes in the stomach suggesting prior gastric bypass without gross anastomotic complication within the scan range. Lymph nodes: No supraclavicular or axillary adenopathy. Bones/joints: No acute osseous abnormalities are identified. Soft tissues: The soft tissues of the chest wall demonstrate no acute abnormality. Other findings: Visualized upper abdominal structures are otherwise unremarkable. IMPRESSION: 1. No evidence of pulmonary embolism or aortic dissection. 2. Chronic interstitial lung disease with superimposed new generalized bilateral ground-glass alveolar densities which may relate to edema, non infectious alveolitis, or pulmonary infection/pneumonia. 3. Borderline mild aneurysmal dilatation of the ascending aorta at 4 cm diameter is unchanged. 4. Mild dilatation of the central pulmonary arteries suggesting an element of chronic pulmonary arterial hypertension unchanged. 5. Nonspecific enlarged mediastinal and bilateral hilar nodes, moderately increased in size since 11/14/2020. 6. Additional non-emergent findings detailed above. Dictated and Authenticated by: Max Horne MD. Ordering:KIM Maurice MD
[2021-01-31 20:49] LABS: Troponin I 1.47 ng/mL (<0.06)
[2021-02-01] VITALS (39 sets, daily range): BP systolic 150–186; BP diastolic 76–109; PULSE 74–115; RESP 2–41; TEMP 31–36.6; O2SAT 86–100
--- NOTE | 2021-02-01 01:18 | HPE_ITS ---
Date of service: 02/01/21 Time of Service: 01:19 Assessment and Plan Assessment and plan (1) Pneumonia: Status: Suspected Assessment and plan: patient presents w/ acute dyspnea, cough productive of purulent sputum but w/out fever or rigors however she has had chest tightness along w/ the dyspnea. She has hx of asthma and long smoking hx. CT scan demonstrated diffuse bilateral ground glass opacifications c/w ILD. DDx includes diffuse interstitial pneumonitis, atypical pneumonia, either superimposed on chronic lung disease from her smoking. The rapid onset of her sx over the past week suggests an acute infection or pulmonary edema. Her RV appears enlarged on POCUS and her IV septum has D shaped deformity consistent w/ RV pressure overload and/or volume overload. Her LV function appears overall normal on multiple images on POCUS. A formal echo will be done tomorrow. She will have serial troponin levels. We will try to get sputum for culture and gram stain and for mycoplasma studies. I will request urine for Strep and will get Legionella studies. She will remain on Ceftriaxone but at high dose i.e. 2 gm daily along w/ Azithromycin 500 mg iv daily. She will receive iv steroids and aerosolized bronchodilators Qualifiers: Pneumonia type: due to unspecified organism Laterality: bilateral Lung location: unspecified part of lung Qualified Code(s): J18.9 - Pneumonia, unspecified organism (2) Elevated troponin: Status: Acute Assessment and plan: I suspect type 2 NSTEMI from her acute pulmonary process; will check formal echo in the a.m. and request cardiology consult. Will recheck EKG and monitor serial troponin I levels. Will begin on low dose ASA; patient will be placed on lovenox SC. I do not think this is an acute ACS and therefore I have not given systemic heparin as this is probably not a plaque rupture. (3) Asthma: Status: Chronic Assessment and plan: cont. aerosolized bronchodilators and iv corticosteroids, supplemental oxygen. History of Present Illness History of Present Illness Chief Complaint: dyspnea and chest tightness, cough Narrative: 50 yr old female smoker 1ppd x 30+ yrs, quit last Friday when she developed severe dyspnea, wheezing and cough. Patient recently dx w/ COPD. She has hx of asthma and tried her nebulizer at home and her Advair. No fevers but cough productive of greenish purulent sputum. Symptoms progressed over the past 5 days and she went to [facility] where she was found to be hypoxemic w/ SPO2 75% and EMS was called and she was put on oxygen. On arrival to the ER her SPO2 95%. She had been in acute respiratory distress on arrival to the ER w/ tripod position and accessory respiratory muscle use. She was given high flow nasal cannula at 30 LPM when her SPO2 had dropped to 78%. She was treated w/ solumedrol 125 mg IVP, DuoNeb updrafts, and magnesium sulfate 2 gm IVP. Blood cultures were obtained and patient was put on Ceftriaxone 1 gm and Azithromycin 500 mg IVPB. Workup in the ER included routine labs including: CBC (normal), CMP (AST 76, alk. phosphatase 284), troponin I (1.71 @ 17:03, 1.47 @ 20:23), d-dimer 2164. EKG sinus tachycardia @ 113 bpm w/ diffuse anterolateral ST-T abnormalities across precordial leads (T wave inversions V2-V6), CTA (no PE but diffuse bilateral ground glass abnormalities, mild 4 cm aneurysmal enlargement of ascending aorta, mild bilateral central pulmonary arteries enlargement c/w PHTN, and nonspecific mediastinal and hilar adenopathy). Patient states that she had her J&J Covid-19 vaccine 3 weeks prior and denies any exposure to COVID-19 patients. She lives w/ her whom she says is healthy. She has never been hospitalized for pneumonia nor for asthma nor COPD. Review of Systems Constitutional Constitutional: Denies chills, Reports excessive sweating, Denies fever(s), Reports headache(s) and Reports night sweats Eyes Eyes: Reports system reviewed and no additional complaints, except as documented ENT Ears, Nose, Mouth, and Throat: Reports system reviewed and no additional complaints, except as documented and Reports headache(s) Cardiovascular Cardiovascular: Reports chest pain at rest, Reports dyspnea, Reports dyspnea on exertion and Reports orthopnea Respiratory Respiratory: Reports as per HPI, Reports chest congestion, Reports cough, Denies hemoptysis, Reports excessive phlegm production, Reports dyspnea, Reports dyspnea on exertion and Reports wheezing Gastrointestinal Gastrointestinal: Reports system reviewed and no additional complaints, except as documented Genitourinary Genitourinary: Reports system reviewed and no additional complaints, except as documented Musculoskeletal Musculoskeletal: Reports system reviewed and no additional complaints, except as documented Integumentary/Breasts Skin/Breast: Reports system reviewed and no additional complaints, except as documented Neurologic Neurologic: Reports system reviewed and no additional complaints, except as documented and Reports headache(s) Psychiatric Psychiatric: Reports irritability and Reports mood swings Endocrine Endocrine: Reports system reviewed and no additional complaints, except as documented and Reports excessive sweating Hematologic/Lymphatic Hematologic/Lymphatic: Reports system reviewed and no additional complaints, exc ept as documented Allergic/Immunologic Allergic/Immunologic: Reports system reviewed and no additional complaints, except as documented and Reports wheezing PFSH Medical History (Updated 02/01/21 @ 02:53 by Don Coronado) Adjustment disorder Asthma Cervical cancer Hyperparathyroidism Hypothyroid Surgical History History of gastric bypass Social History Smoking/Tobacco Use Status: Former Tobacco Use Quit Date: 01/26/21 Smoking risk assessment performed?: Yes Alcohol Intake: current Alcohol Intake frequency: a few times a week Drug use: Never Do you feel safe at home: Yes Do you feel safe in your relationship?: Yes Meds Allergies and Home Medications Allergies Allergy/AdvReac Type Severity Reaction Status Date / Time environmental AdvReac Mild Uncoded 01/31/21 17:02 Home Medications Medication Instructions Recorded Confirmed Type Supervitamin 1 ea PO DAILY 05/06/19 01/31/21 History albuterol sulfate [ProAir HFA] 2 puff INHALATION PRN PRN 05/06/19 01/31/21 History amitriptyline 50 mg PO HS 05/06/19 01/31/21 History cholecalciferol (vitamin D3) 1,000 unit PO DAILY 05/06/19 01/31/21 History [Vitamin D3] fluticasone propionate [Flovent 2 puff INHALATION DAILY 05/06/19 01/31/21 History HFA] hydrochlorothiazide 12.5 mg PO DAILY 05/06/19 01/31/21 History levothyroxine 25 mcg capsule 25 mcg PO DAILY 06/21/19 06/21/19 History nicotine 21 mg/24 hr daily 1 patch TD DAILY 06/21/19 06/21/19 History transdermal patch albuterol sulfate 2.5 mg INHALATION Q4H PRN PRN 01/31/21 01/31/21 History citalopram 20 mg PO DAILY 01/31/21 01/31/21 History fluticasone propion-salmeterol 1 inh INHALATION BID 01/31/21 01/31/21 History [Advair Diskus] lorazepam 2 mg PO DIRECTED 01/31/21 01/31/21 History ondansetron 4 mg PO Q6H PRN 01/31/21 01/31/21 History pantoprazole 40 mg PO DAILY 01/31/21 01/31/21 History varenicline [Chantix Continuing 1 mg PO BID 01/31/21 01/31/21 History Month Box] Exam Const General: cooperative, acute distress mild and ill appearing Nutritional Appearance: obese Orientation: alert, awake and oriented x3 HENMT Head: normal to inspection and no palpable skull fracture Ears: hearing grossly normal bilaterally General nose exam: external nose normal Face and sinus: normal facial exam Mouth: oral mucosae normal Eyes General: appearance normal, both eyes and all related structures Alignment and Position: alignment normal Periorbital: periorbital findings normal Eyelids: eyelids normal Conjunctivae: conjunctivae normal Sclera: sclerae normal Cornea: corneas normal Pupils: PERRL EOM: EOM intact bilaterally Neck Neck: normal visual inspection, full ROM, no lymphadenopathy, no meningeal signs, trachea midline and supple Carotids: normal carotid upstroke Lymphatic: no lymphadenopathy noted Resp Effort & Inspection: able to speak in complete sentences, audible wheezes, cough and respiratory distress (dyspneic w/ prolonged conversation or when lying recumbent) Auscultation: rales bilaterally throughout and wheezes expiratory wheezes and scattered wheezes Percussion: percussion normal Cardio Palpation: normal PMI Rate: tachycardic Rhythm: regular rhythm Heart Sounds: S1 normal, S2 normal, no click, no gallops, no murmurs and no rubs Pulses: normal peripheral pulses GI Inspection: normal to inspection and obesity Palpation: soft and no hepatosplenomegaly Percussion: normal to percussion Auscultation: normal bowel sounds Back/Spine/Pelvis Back: no CVA tenderness Cervical Spine: normal cervical lordosis Thoracic/Lumbar Spine: thoracic and lumbar spine normal to inspection Skin General skin exam: no rashes or lesions noted, elasticity normal and turgor n ormal Neuro General: patient alert, patient awake and patient oriented x3 Cranial Nerves: CN's II-XI intact bilaterally Cognition: normal cognition Speech: speech normal Motor: muscle tone normal throughout Sensory Exam: no sensory deficits noted Extrem General: normal to inspection, full ROM and capillary refill normal Psych Appearance: grossly normal and well kempt Mental Status: mental status grossly normal Speech and Movement: speech and movement normal Mood: congruent mood Affect: normal affect Attitude: cooperative Thought Process: normal Thought Content: normal Insight: insight good Judgment: judgment good Results Labs Result diagrams: 01/31/21 17:03 01/31/21 17:03 Labs: Laboratory Results - last 24 hr 01/31/21 01/31/21 01/31/21 17:03 17:03 17:03 WBC 9.53 RBC 4.65 Hgb 13.5 Hct 42.3 MCV 91.0 MCH 29.0 MCHC 31.9 L RDW 13.8 Plt Count 343 MPV 9.4 Immature Gran % 0.7 Neutrophils % 84.9 Lymphocytes % 9.4 Monocytes % 4.3 Eosinophils % 0.2 Basophils % 0.5 Nucleated RBC % 0 Absolute Neutrophils 8.08 H Absolute Lymphocytes 0.90 L Absolute Monocytes 0.41 Absolute Eosinophils 0.02 Absolute Basophils 0.05 PT 10.2 INR 1.0 APTT 25.9 D-Dimer 2164 H VBG Lactate Sodium 138 Potassium 3.7 Chloride 101 Carbon Dioxide 25.5 Anion Gap 11.5 H BUN 13 Creatinine 1.1 H Estimated GFR/1.73 m2 52.16 Glucose 119 H Calcium 9.0 Magnesium 2.0 Total Bilirubin 0.4 AST 76 H ALT 49 Alkaline Phosphatase 284 H Troponin I 1.71 H* Total Protein 8.7 H Albumin 2.8 L COVID-19 Source SARS-CoV-2 (PCR) 01/31/21 01/31/21 01/31/21 17:05 17:07 17:50 WBC RBC Hgb Hct MCV MCH MCHC RDW Plt Count MPV Immature Gran % Neutrophils % Lymphocytes % Monocytes % Eosinophils % Basophils % Nucleated RBC % Absolute Neutrophils Absolute Lymphocytes Absolute Monocytes Absolute Eosinophils Absolute Basophils PT INR APTT D-Dimer VBG Lactate Cancelled 3.3 H* Sodium Potassium Chloride Carbon Dioxide Anion Gap BUN Creatinine Estimated GFR/1.73 m2 Glucose Calcium Magnesium Total Bilirubin AST ALT Alkaline Phosphatase Troponin I Total Protein Albumin COVID-19 Source Nasal/nares SARS-CoV-2 (PCR) Negative 01/31/21 20:23 WBC RBC Hgb Hct MCV MCH MCHC RDW Plt Count MPV Immature Gran % Neutrophils % Lymphocytes % Monocytes % Eosinophils % Basophils % Nucleated RBC % Absolute Neutrophils Absolute Lymphocytes Absolute Monocytes Absolute Eosinophils Absolute Basophils PT INR APTT D-Dimer VBG Lactate Sodium Potassium Chloride Carbon Dioxide Anion Gap BUN Creatinine Estimated GFR/1.73 m2 Glucose Calcium Magnesium Total Bilirubin AST ALT Alkaline Phosphatase Troponin I 1.47 H* Total Protein Albumin COVID-19 Source SARS-CoV-2 (PCR) Last Vital Signs Temp 36 C L 02/01/21 00:18 Pulse 100 H 02/01/21 00:01 Resp 19 02/01/21 00:10 BP 156/84 H 02/01/21 00:01 Pulse Ox 97 02/01/21 00:10
[2021-02-01] MEDS: Acetaminophen 325 MG TAB PO ×4 (01:57→18:04)
[2021-02-01] MEDS: Enoxaparin 40 MG/0.4 ML SYR SC (01:58)
[2021-02-01] MEDS: cefTRIAXone 1,000 MG in Normal Saline 50 ML 100 MG IVPB (01:58)
[2021-02-01] MEDS: Levalbuterol 0.63 MG/3 ML UPD VIAL UPD (02:16)
[2021-02-01] MEDS: Normal Saline Flush 10 ML SYR IVP ×4 (02:37→20:50)
[2021-02-01 03:05] LABS: NT-proBNP 8040 pg/mL (<300)
[2021-02-01] MEDS: Furosemide 40 MG/4 ML VIAL IVP ×3 (03:42→18:05)
[2021-02-01] MEDS: methylPREDNISolone SUCC 125 MG VIAL 80 MG IVP (05:18)
[2021-02-01] MEDS: Levothyroxine 25 MCG TAB PO (05:18)
[2021-02-01] MEDS: Ipratropium 0.5 MG/2.5 ML UPD VIAL UPD ×3 (05:18→18:01)
[2021-02-01 06:13] LABS: Lactate 1.5 mmol/L (0.6-1.4)
[2021-02-01 06:15] LABS: Abs Immature Grans 0.03 10^3/uL (0.0-0.06); Absolute Basophil Count 0.01 10^3/uL (0.0-0.2); Absolute Lymphocyte Count 0.59 10^3/uL (1.2-3.4); Absolute Monocyte Count 0.35 10^3/uL (0.1-0.8); Basophils % 0.1; HGB 12.4 g/dL (11.2-15.7); Immature Grans % 0.3; Lymphocytes % 6.9; MCH 29.4 pg (27.0-33.0); MCHC 32.6 % (32.0-36.0); MPV 9.4 fL (8.0-11.0); Monocytes % 4.1; Neutrophils % 88.6; Nucleated RBC 0 %; Platelet Count 287 10^3/uL (130-400); RBC 4.22 10^6/uL (3.93-5.22); RDW 13.6 % (11.7-14.6); RDW-SD 44.5 fL; WBC 8.58 10^3/uL (4.4-10.8)
[2021-02-01 06:30] LABS: Calculated LDL 77 mg/dL (<100); Cholesterol 133 mg/dL (<200); HDL Cholesterol 40 mg/dL (40-60); Triglyceride 84 mg/dL (<150)
[2021-02-01 06:31] LABS: ALT 36 U/L (14-59); AST 47 U/L (15-37); Albumin 2.6 g/dL (3.4-5.0); Alkaline Phosphatase 226 U/L (46-116); Anion Gap 11.7 mmol/L (3-11); BUN 11 mg/dL (7-18); Bilirubin, Total 0.2 mg/dL (0.2-1.0); CO2 24.3 mmol/L (21.0-32.0); CREATININE 0.8 mg/dL (0.55-1.02); Calcium 8.9 mg/dL (8.5-10.1); Chloride 100 mmol/L (98-107); Glucose 151 mg/dL (74-106); Potassium 3.9 mmol/L (3.5-5.1); Sodium 136 mmol/L (136-145); Total Protein 8.3 g/dL (6.4-8.2)
[2021-02-01 06:37] LABS: NT-proBNP 5970 pg/mL (<300)
[2021-02-01 06:38] LABS: Troponin I 0.91 ng/mL (<0.06)
--- NOTE | 2021-02-01 07:20 | PDOC.CMIN ---
- If Service Date Differs Date of service: 02/01/21 Time of Service: 07:20 Care Management Initial Assess REASON FOR HOSPITALIZATION:: Pneumonia PAST MEDICAL HISTORY/PAST SURGICAL HISTORY:: Medical History (Updated 02/01/21 @ 02:53 by Don Coronado). Adjustment disorder. Asthma. Cervical cancer. Hyperparathyroidism. Hypothyroid. Surgical History . History of gastric bypass PREVIOUS FUNCTIONAL STATUS/SOCIAL/FAMILY SUPPORTS:: Marian lives in an apartmernt in [place], [place] with her Veot Callahan. She has 3 children and 4 grandchildrenwho live in [facility]. Marian relocated from [place] to [place] 3 years ago when she remarried. She is currently employed at [employer] and is independent at baseline. CURRENT FUNCTIONAL STATUS:: Marian was sitting up in bed when CM met with her. She was pleasant and agreeable to conversation. Marian shared that she has only been living in [place] for a few years. She was admitted because of difficulty breathing from pneumonia and also had elevated troponins. Marian expressed that she would like to go home as soon as possible, but does want to get better first. ADVANCE DIRECTIVES:: none on file but was provided with a copy of the [place] AD forms at her request. Has patient been provided with info about the portal/API?: Yes Did the patient sign up for the portal?: No CODE STATUS:: Full Code INSURANCE COVERAGE / FINANCIAL ISSUES:: Medicaid CURRENT HOME/COMMUNITY SERVICES/EQUIPMENT:: none PRIMARY CARE PHYSICIAN:: Hardeep Oropeza POTENTIAL DISCHARGE NEEDS:: Follow up with PCP and plan of care PATIENT/FAMILY EDUCATION NEEDS:: Review of dischargte instructions, medications, activity, limitations, follow up plan, Ask Me Three. TRANSPORTATION:: via [employer] vehicle with family PLAN:: Tim will likely discharge home with no new services. She will follow up with her PCP and plan of care and transport with her . CM will continue to support Marian and assess for discharge planning concerns.
[2021-02-01] MEDS: Budesonide/Formoterol 160/4.5 6 GM 60 PUFF INH IH ×2 (07:55→20:47)
--- NOTE | 2021-02-01 08:00 | DI.US_ITS ---
APPROVED REPORT EXAM: Comprehensive 2D, Doppler, and color-flow Echocardiogram Patient Location: In-Patient Room/Bed: [id number] [place] Supervisor: Stacy Harrell RDCS (AE) Indications: NSTEMI, SOB, SMOKER, Chest pain Other Information Study Quality: Adequate Conclusion Normal left ventricular wall thickness and chamber size. Estimated ejection fraction is 55 to 60%. Wall motion is normal Normal right ventricular size and systolic function Both atria are normal in size Aortic valve is trileaflet and moderately sclerotic. There is no aortic stenosis. There is moderate aortic regurgitation Thickened mitral leaflets, trace to mild mitral regurgitation Normal tricuspid valve with moderate regurgitation. Estimated right ventricular systolic pressure is 42 mmHg Normal pulmonic valve, moderate pulmonic regurgitation Mildly dilated ascending aorta Wall motion Left Ventricle Left ventricle is mildly dilated. The left ventricular systolic function is normal. The left ventricu lar ejection fraction is within the normal range. There is normal left ventricular wall thickness. Th ere is normal LV segmental wall motion. There is no ventricular septal defect visualized. LVEF is 55- 60%. Right Ventricle Right ventricle is grossly normal in size. Right ventricular systolic function is grossly normal. The RVSP is 41.8mmHg. Atria The left atrium size is normal. The right atrium size is normal. The interatrial septum is intact wit h no evidence for an atrial septal defect. Aortic Valve The Aortic valve is sclerotic. Aortic valve is trileaflet. The aortic valve is not well visualized. A ortic valve is calcified. The Aortic valve is sclerotic. Aortic valve is thickened but has adequate e xcursion. Aortic valve is grossly normal in structure. There is no aortic valvular stenosis. Moderate aortic regurgitation. Mitral Valve Mitral valve leaflets are mildly thickened. No evidence of mitral valve stenosis. Trace to mild betzaida l regurgitation. Tricuspid Valve The tricuspid valve is normal in structure. There is no tricuspid valve stenosis. Moderate tricuspid regurgitation. RVSP 42 mmHg Pulmonic Valve The pulmonary valve is normal in structure. There is no pulmonic valvular stenosis. moderate pulmonic regurgitation. Great Vessels The aortic root is normal in size. The ascending aorta is mildly dilated. Aortic arch is not well vis ualized. The IVC collapses <50% with inspiration. Pericardium There is no pericardial effusion. 2D Dimensions IVSD d PLAX 1.03 cm F: 0.6-1.0 LV Vol A2C d MOD 122.1 mL LVPW d PLAX 1.03 cm F: 0.6 - 1.0 LV Vol A4C d MOD 114.9 mL LVID d PLAX 5.35 cm F: 3.8 - 5.2 LA vol/ BSA A2C s A-L 22.1 mL/m2 LVDs 3.90 cm F: 2.2 - 3.5 LA vol/ BSA A4C s A-L 22.1 mL/m2 Ao Root d 3.23 cm F: 2.7 - 3.3 LA Vol/ BSA Biplane s A-L 22.4 mL/m2 RA Area A4C 20.14 cm2 LA Area A4C s MOD 17.54 cm2 RA Vol/ BSA A4C s A-L 29.5 mL/m2 LA Area A2C s MOD 17.36 cm2 Ao Asc Diam d 3.76 cm F: 2.3 - 3.1 LV EF A4C MOD 55.7 % LV EF Teichholz 51.9 % LV EF A2C MOD 50.9 % LVEF (Kincaid's) 52.14 % F: 54 - 74 LV EF Biplane MOD 52.1 % LV Volume 88.24 mL F: 46 - 106 SV 62.31 mL LV Volume Index 42.22 mL/m2 F: 29 - 61 SV Index 29.70 mL/m2 LV Vol Biplane MOD 119.5 mL FS 26.80 % M-Mode TAPSE 1.57 cm (M/F) >1.7 LV Diastology MV E' medial 0.045 (>0.07 m/s) E/A Ratio 0.6 LV E/e MED 10.25 (<14) MV E Vmax 0.46 (0.4-1.3 m/s) MV E' lateral 0.082 (>0.1 m/s) MV A Vmax 0.80 (0.4-1.3 m/s) LV E/e LAT 5.65 (<14) MV E/A Ratio 0.58 MV E/E' medial 10.27 MV E/E' lateral 5.67 Aortic Valve LVOT Area 3.13 cm2 AoV Area Vmax 2.66 cm2 LVOT Vmax 1.42 m/s AoV Area/ BSA (Vmax) 1.27 cm2/m2 LVOT Mean Rafael. 0.89 m/s TEMI Mean Rafael. 2.32 cm2 LVOT Peak Grad 8.1 mmHg TEMI Mean Rafael. Index 1.11 cm2/m2 LVOT Mean Grad 3.8 mmHg AR DT 2027 msec LVOT VTI 0.255 m AR PHT 588 msec LVOT Diam s 1.95 cm AoV Vmax 1.67 m/s Velocity Ratio 0.85 AoV Mean Rafael. 1.20 m/s AoV Peak Grad 11.2 mmHg LVOT SV 79.74 mL AoV Mean Grad 6.3 mmHg AoV VTI 0.290 m AoV Area VTI 2.75 cm2 AoV Area/ BSA (VTI) 1.31 cm/m2 Mitral Valve MV DT 287 (160-240 msec) MV PHT 83 msec MV Area PHT 2.65 cm2 Pulmonary Valve PV Vmax 0.90 (0.5-1.5 m/s) RVOT Peak Gr. 0.98 mmHg PV Peak Grad 3.2 mmHg RVOT Mean Gr. 0.50 mmHg PV Mean Grad 1.3 mmHg RVOT VTI 0.099 m PV VTI 0.144 m RVOT Vmax 0.50 m/s Tricuspid Valve TR Peak Grad 33.8 mmHg TR Vmax 2.91 m/s RA Pressure 8.00 mmHg RVSP (TR) 41.8 mmHg
--- NOTE | 2021-02-01 08:00 | RT.EKG_ITS ---
APPROVED REPORT Exam: Resting ECG Reason for Exam: NSTEMI Patient Location: I HR:89 bpm ECG Measurements Heart Rate 89 AXIS ND 153 P 18 QRSd 95 QRS -7 QT 416 T -29 QTc 507 Conclusion Sinus rhythm...normal P axis, V-rate 60- 99 Probable left ventricular hypertrophy...(RaVL+SV3)xQRSd >300 Abnormal T, consider ischemia, anterior leads...T <-0.20mV, V2-V4
--- NOTE | 2021-02-01 08:55 | W.CARDCONSUL ---
Date of service: 02/01/21 Time of Service: 08:55 Assessment and Plan Assessment and plan (1) Elevated troponin: Status: Acute Assessment and plan: I believe the patient's elevated troponin is on the basis of demand ischemia due to her respiratory status. The patient has evidence of pre-existing lung disease dating back at least to 2019, as well as prior tobacco use. Her current presentation is primarily pulmonary I will interpret the planned echocardiogram when it becomes available After the patient's medical status has been optimized, she should have an ischemic evaluation. This may need to be a dobutamine stress echocardiogram given her lung issues I would not pursue the ischemic evaluation acutely unless new symptoms occur (2) Interstitial lung disease: Status: Acute History of Present Illness History of Present Illness Chief Complaint: difficulty breathing Narrative: Cardiac evaluation is requested in this 50-year-old woman who presented to the hospital with difficulty breathing. She reports that she was in her usual state of health until she received the [employer] Covid vaccine several weeks ago. A few days later she was wiped out and then she began to be short of breath. The shortness of breath progressed to the point where she could not even walk in her house to the bathroom so she sought medical attention. She has a history of asthma for which she has an inhaler, nebulizer rescue inhaler and Advair. She smokes cigarettes 1 pack daily until her current presentation. She was told recently that she had COPD and it is anticipated that she will have pulmonary evaluation at some point As part of routine admission studies, she was found to have a mildly elevated troponin which has gradually been downtrending. Initial EKG showed nondiagnostic ST-T abnormalities. More recent EKG shows more prominent anterior T inversions I reviewed some imaging studies dating back to 2018. At that time a chest x-ray was reported to show interstitial lung disease. A chest x-ray repeated at the time of this admission shows worsening interstitial infiltrates bilaterally. She had CT scans of the lungs done in late October and again on admission. The one from October described interstitial fibrosis. She now has superimposed worsening bilaterally with groundglass infiltrates Patient has no past history of cardiac disease. She denies hypertension or diabetes. She has a family history of coronary disease in her grandmother who is still alive at age 97 I was not able to elicit any symptoms of angina prior to her acute presentation, though I suspect overall she is not an active individual She is currently complaining of difficulty breathing and a sensation of tightness in her chest Consults Consult date: 02/01/21 Requesting physician: Don Coronado Review of Systems Cardiovascular Cardiovascular: Reports dyspnea, Reports dyspnea on exertion and Reports orthopnea Comments: Chest tightness, persistent, not worse with activity Respiratory Respiratory: Reports dyspnea and Reports dyspnea on exertion [facility] Medical History (Updated 02/01/21 @ 09:12 by Letty James MD) Adjustment disorder Asthma Cervical cancer Hyperparathyroidism Hypothyroid Interstitial lung disease Surgical History History of gastric bypass Social History Smoking/Tobacco Use Status: Former Tobacco Use Quit Date: 01/26/21 Smoking risk assessment performed?: Yes Alcohol Intake: current Alcohol Intake frequency: a few times a week Drug use: Never Do you feel safe at home: Yes Do you feel safe in your relationship?: Yes Exam Narrative Exam Narrative: Morbidly obese woman, appears stated age, mildly tachypneic Eyes EOM: EOM intact bilaterally Neck Other: Neck is relatively short and thick carotid pulsations are grossly normal I hear no bruits Resp Other: Markedly decreased breath sounds throughout no wheezes or crackles Cardio Other: Apical impulse nonpalpable. Unable to assess JVP heart is regular no murmur gallop appreciated Skin Other: Warm and dry Extrem Other: No significant edema Results Last Vital Signs Temp 36.2 C L 02/01/21 04:22 Pulse 89 02/01/21 06:01 Resp 31 H 02/01/21 06:01 BP 166/103 H 02/01/21 06:01 Pulse Ox 96 02/01/21 06:01 Labs Result diagrams: 02/01/21 06:03 02/01/21 06:03 Labs: Laboratory Results - last 24 hr 01/31/21 01/31/21 01/31/21 17:03 17:03 17:03 WBC 9.53 RBC 4.65 Hgb 13.5 Hct 42.3 MCV 91.0 MCH 29.0 MCHC 31.9 L RDW 13.8 Plt Count 343 MPV 9.4 Immature Gran % 0.7 Neutrophils % 84.9 Lymphocytes % 9.4 Monocytes % 4.3 Eosinophils % 0.2 Basophils % 0.5 Nucleated RBC % 0 Absolute Neutrophils 8.08 H Absolute Lymphocytes 0.90 L Absolute Monocytes 0.41 Absolute Eosinophils 0.02 Absolute Basophils 0.05 PT 10.2 INR 1.0 APTT 25.9 D-Dimer 2164 H VBG Lactate Sodium 138 Potassium 3.7 Chloride 101 Carbon Dioxide 25.5 Anion Gap 11.5 H BUN 13 Creatinine 1.1 H Estimated GFR/1.73 m2 52.16 Glucose 119 H Calcium 9.0 Magnesium 2.0 Total Bilirubin 0.4 AST 76 H ALT 49 Alkaline Phosphatase 284 H Troponin I 1.71 H* NT-Pro-B Natriuret Pep 8040 H Total Protein 8.7 H Albumin 2.8 L Triglycerides Total Cholesterol LDL Cholesterol, Calc HDL Cholesterol COVID-19 Source SARS-CoV-2 (PCR) 01/31/21 01/31/21 01/31/21 17:05 17:07 17:50 WBC RBC Hgb Hct MCV MCH MCHC RDW Plt Count MPV Immature Gran % Neutrophils % Lymphocytes % Monocytes % Eosinophils % Basophils % Nucleated RBC % Absolute Neutrophils Absolute Lymphocytes Absolute Monocytes Absolute Eosinophils Absolute Basophils PT INR APTT D-Dimer VBG Lactate Cancelled 3.3 H* Sodium Potassium Chloride Carbon Dioxide Anion Gap BUN Creatinine Estimated GFR/1.73 m2 Glucose Calcium Magnesium Total Bilirubin AST ALT Alkaline Phosphatase Troponin I NT-Pro-B Natriuret Pep Total Protein Albumin Triglycerides Total Cholesterol LDL Cholesterol, Calc HDL Cholesterol COVID-19 Source Nasal/nares SARS-CoV-2 (PCR) Negative 01/31/21 02/01/21 02/01/21 20:23 06:03 06:03 WBC RBC Hgb Hct MCV MCH MCHC RDW Plt Count MPV Immature Gran % Neutrophils % Lymphocytes % Monocytes % Eosinophils % Basophils % Nucleated RBC % Absolute Neutrophils Absolute Lymphocytes Absolute Monocytes Absolute Eosinophils Absolute Basophils PT INR APTT D-Dimer VBG Lactate Sodium 136 Potassium 3.9 Chloride 100 Carbon Dioxide 24.3 Anion Gap 11.7 H BUN 11 Creatinine 0.8 Estimated GFR/1.73 m2 >= 60.00 Glucose 151 H Calcium 8.9 Magnesium Total Bilirubin 0.2 AST 47 H ALT 36 Alkaline Phosphatase 226 H Troponin I 1.47 H* 0.91 H* NT-Pro-B Natriuret Pep 5970 H Total Protein 8.3 H Albumin 2.6 L Triglycerides Total Cholesterol LDL Cholesterol, Calc HDL Cholesterol COVID-19 Source SARS-CoV-2 (PCR) 02/01/21 02/01/21 02/01/21 06:03 06:03 06:03 WBC 8.58 RBC 4.22 Hgb 12.4 Hct 38.0 MCV 90.0 MCH 29.4 MCHC 32.6 RDW 13.6 Plt Count 287 MPV 9.4 Immature Gran % 0.3 Neutrophils % 88.6 Lymphocytes % 6.9 Monocytes % 4.1 Eosinophils % 0.0 Basophils % 0.1 Nucleated RBC % 0 Absolute Neutrophils 7.60 H Absolute Lymphocytes 0.59 L Absolute Monocytes 0.35 Absolute Eosinophils 0.00 Absolute Basophils 0.01 PT INR APTT D-Dimer VBG Lactate 1.5 H Sodium Potassium Chloride Carbon Dioxide Anion Gap BUN Creatinine Estimated GFR/1.73 m2 Glucose Calcium Magnesium Total Bilirubin AST ALT Alkaline Phosphatase Troponin I NT-Pro-B Natriuret Pep Total Protein Albumin Triglycerides 84 Total Cholesterol 133 LDL Cholesterol, Calc 77 HDL Cholesterol 40 COVID-19 Source SARS-CoV-2 (PCR)
[2021-02-01] MEDS: Pantoprazole 40 MG TABCR PO (09:33)
[2021-02-01] MEDS: predniSONE 20 MG TAB 60 MG PO (09:33)
[2021-02-01] MEDS: Citalopram 20 MG TAB PO (09:33)
[2021-02-01] MEDS: Cholecalciferol (Vitamin D3) 1,000 UNIT TAB 1000 UNITS PO (09:34)
[2021-02-01] MEDS: Azithromycin 250 MG TAB PO (09:34)
[2021-02-01] MEDS: Aspirin E.C. 81 MG TABEC PO (09:34)
--- NOTE | 2021-02-01 11:37 | PHA.REVIEW ---
Pharmacy Admission Review - Admission Clinical Review (Last Updated 02/01/21 @ 09:12 by Letty James MD) Interstitial lung disease (Acute) Hypoxemia (Acute) Elevated troponin (Acute) environmental Adverse Reaction (Mild, Uncoded 01/31/21 17:02) Resuscitation Status Full Code Height 5 ft 2 in Weight 113.2 kg - Renal Dosing Renal Dosing: BUN 11 mg/dL (7-18) 02/01/21 06:03 Creatinine 0.8 mg/dL (0.55-1.02) 02/01/21 06:03 Medications needing adjustments: Reviewed List of meds needing interventions: eCrCl using adjusted body weight is 97 ml/min - Anticoagulation Anticoagulation: Hgb 12.4 g/dL (11.2-15.7) 02/01/21 06:03 Hct 38.0 % (36.0-46.0) 02/01/21 06:03 Plt Count 287 10^3/uL (130-400) 02/01/21 06:03 INR 1.0 (0.9-1.1) 01/31/21 17:03 Creatinine 0.8 mg/dL (0.55-1.02) 02/01/21 06:03 DVT Prohphylaxis: Reviewed Medications: Enoxaparin Therapeutic Anticoagulation: Reviewed Medications: Aspirin - Opiate Usage Evaluate Pain Scale/Pains Meds: N/A Scheduled Bowel Reg ordered if on Opiates?: Yes (PRN) - Relevant Labs Sodium 136 mmol/L (136-145) 02/01/21 06:03 Potassium 3.9 mmol/L (3.5-5.1) 02/01/21 06:03 Chloride 100 mmol/L (98-107) 02/01/21 06:03 Magnesium 2.0 mg/dL (1.8-2.4) 01/31/21 17:03 Electrolytes, C-Reactive P, ESR: Reviewed - DM Control DM Control: Glucose 151 mg/dL (74-106) H 02/01/21 06:03 Insulin Dosing: Reviewed - Heart Failure/ME Heart Failure/ME: Troponin I 0.91 ng/mL (<0.06) H* 02/01/21 06:03 NT-Pro-B Natriuret Pep 5970 pg/mL (<300) H 02/01/21 06:03 EF%, KIM's, B-Blockers, Diuretics: Reviewed (lisinopril started today; HCTZ on home med list) - BP Control BP Control: Blood Pressure 176/90 Blood Pressure 186/94 Blood Pressure 177/94 Blood Pressure 166/103 Blood Pressure 169/88 Blood Pressure 178/99 Blood Pressure 168/98 Blood Pressure 158/88 Blood Pressure 166/97 Blood Pressure 156/84 Blood Pressure 156/93 If elevated: Reviewed List meds needing interventions: HCTZ on home med list (last rx fill was 08/16/20) - Qtc Review If Elevated: Reviewed List meds needing interventions: QTc 507 -- current orders with known risk of QT prolongation = citalopram, azithromycin; will monitor for addition of more QT prolonging meds - IV to PO Switch IV Medications: Reviewed - Home Meds Home Med List reviewed: Intervened Relevent Home Meds Not ordered & why?: Not ordered: hctz, varenicline; took flovent (ICS) off home med list as Advair (LABA+ICS) was recently filled x 90 day supply - Current meds Current Medication Order Review: Reviewed (azithromycin (250mg PO) and ceftriaxone (2gm IV) for PNA)
[2021-02-01] MEDS: Lisinopril 5 MG TAB 10 MG PO (13:18)
--- NOTE | 2021-02-01 15:50 | CHAPLAIN ---
Marian was sitting up in bed when I visited. Her was with her. She said she is feeling better. She was looking forward to her son and his fiance visiting from [place] this afternoon. Marian said she and her are born-again Christians. They are not connected to a yarsanism in this area, but her is part of the [employer] in the [facility].
--- NOTE | 2021-02-01 17:45 | NUR.NOTE ---
Nursing Note: 02/01/21 3045 Pt transferred from icu room 219 to ms room 225 via bed. BP 169/88, hr 85, spo2 92% on 2 l via nc rr 23. Patient has tight musical ls with wheezes. Hr is regular. BS present. Pt able to hold conversation. Pt denies chest pain/ nausea/ SOB at rest. Pulses x 4. Pt denies skin issues.
[2021-02-01] MEDS: Normal Saline 500 ML 30 ML IV (20:49)
[2021-02-01] MEDS: cefTRIAXone 2 GM/50 ML BAG IVPB (20:50)
[2021-02-01] MEDS: Amitriptyline 50 MG TAB PO (21:13)
[2021-02-01 21:14] LABS: Legionella Ag Detection Urine Negative (Negative)
[2021-02-02] MEDS: Enoxaparin 40 MG/0.4 ML SYR SC (01:17)
[2021-02-02] MEDS: Ipratropium 0.5 MG/2.5 ML UPD VIAL UPD ×4 (01:17→20:28)
[2021-02-02 01:31] VITALS: O2SAT 93
[2021-02-02] MEDS: Levothyroxine 25 MCG TAB PO (05:41)
[2021-02-02] MEDS: predniSONE 20 MG TAB 60 MG PO (07:42)
[2021-02-02] MEDS: Citalopram 20 MG TAB PO (07:42)
[2021-02-02] MEDS: Lisinopril 5 MG TAB PO (07:42)
[2021-02-02] MEDS: Cholecalciferol (Vitamin D3) 1,000 UNIT TAB 1000 UNITS PO (07:43)
[2021-02-02] MEDS: Acetaminophen 325 MG TAB PO ×2 (07:43→11:34)
[2021-02-02] MEDS: Pantoprazole 40 MG TABCR PO (07:43)
[2021-02-02] MEDS: Azithromycin 250 MG TAB PO (07:43)
[2021-02-02] MEDS: Aspirin E.C. 81 MG TABEC PO (07:43)
[2021-02-02 08:35] VITALS: BP 165/108; PULSE 90; RESP 18; TEMP 36.6; O2SAT 90
[2021-02-02] MEDS: Furosemide 40 MG/4 ML VIAL IVP (09:48)
[2021-02-02] MEDS: Budesonide/Formoterol 160/4.5 6 GM 60 PUFF INH IH ×2 (09:49→20:30)
[2021-02-02] MEDS: Normal Saline Flush 10 ML SYR IVP ×2 (09:49→20:29)
--- NOTE | 2021-02-02 12:00 | CMPROGNOTE_ITS ---
Care Management Progress Note S/O: Roseanne continues to be closely monitored and treated. She remains on scheduled updrafts and is currently utilizing 2L O2. She remains pleasant in interaction and hopeful she can return home soon. CM continues to follow. A: 50 year old female admitted to [facility] 01/31/21 for Pneumonia, Hypoxia, Elevated troponin P: Betzaida will return home when ready per MD. She will follow up with her PCP and plan of care as prescribed including outpatient follow up with cardiology. No additional services anticipated at this time, unless RT recommends home O2 upon discharge. She will transport via private vehicle
[2021-02-02 13:00] VITALS: PULSE 105; RESP 16; RESP 2; O2SAT 94
--- NOTE | 2021-02-02 14:47 | W.PM.PROGNOT ---
Date of Service Date of service: 02/02/21 Time of Service: 14:47 Assessment and Plan Assessment and plan (1) Pneumonia: Status: Suspected Assessment and plan: Presented with dyspnea, productive cough. No fevers. Cont ceftriaxone and oral azithromycin. Improving. Still has bibasilar rales but no wheezing heard today. WBC count is normal. Qualifiers: Pneumonia type: due to unspecified organism Laterality: bilateral Lung location: unspecified part of lung Qualified Code(s): J18.9 - Pneumonia, unspecified organism (2) Demand ischemia: Status: Acute Assessment and plan: Secondary to PNA, acute resp failure. Cardiology evaluation appreciated. ASA 81mg daily (3) Tobacco dependence: Status: Acute Assessment and plan: States she has stopped recently. Encourage cessation. Potentially has COPD; will recommend outpt PFTs which she had performed 2 yrs ago. (4) Asthma: Status: Chronic Assessment and plan: Cont bronchodilators. Now on oral prednisone. Requiring supplemental O2. Attempt to wean. Subjective Subjective Patient reports: no new complaints, tolerating a regular diet and afebrile Interval history since last seen: Continues to have ALVARADO + cough;improved. No CP or palpitations. Exam Const General: cooperative and no acute distress Nutritional Appearance: obese Orientation: alert and oriented to person Resp Effort & Inspection: normal respiratory effort Auscultation: diminished lung sounds, rales bilaterally at the base and no wheezes Cardio Rate: regular rate Rhythm: regular rhythm Heart Sounds: S1 normal and S2 normal GI Palpation: soft and nontender Auscultation: normal bowel sounds Extrem General: no pedal edema and no calf tenderness Psych Appearance: grossly normal Speech and Movement: speech and movement normal Mood: congruent mood Affect: normal affect Objective Last Vital Signs Temp 36.6 C 02/02/21 08:35 Pulse 90 02/02/21 08:35 Resp 18 02/02/21 08:35 BP 165/108 H 02/02/21 08:35 Pulse Ox 90 L 02/02/21 08:35 Laboratory Results - last 24 hr 02/01/21 09:55 Urine Legionella Ag Negative
[2021-02-02 15:00] LABS: Streptococcus Pneumoniae Ag, U Negative (Negative)
--- NOTE | 2021-02-02 15:09 | CHAPLAIN ---
I checked in with Marian today, after she was moved to Med/Surg from ICU. She said she is feeling better. Her son and his fiance drove up form [place] yesterday afternoon to visit her, but have already returned to [place] to work. Marian's visited her yesterday when she was in the ICU.
[2021-02-02 15:45] VITALS: BP 144/100; BP 152/100; PULSE 101; RESP 16; TEMP 36.3; O2SAT 95
[2021-02-02 17:00] VITALS: BP 163/94; PULSE 99
[2021-02-02] MEDS: Lisinopril 10 MG TAB PO (17:16)
[2021-02-02 20:28] VITALS: RESP 19; RESP 2; RESP 4
[2021-02-02] MEDS: cefTRIAXone 2 GM/50 ML BAG IVPB (20:28)
[2021-02-02] MEDS: Amitriptyline 50 MG TAB PO (21:45)
[2021-02-02 21:52] LABS: Mycoplasma Pneumoniae PCR Negative; Specimen source SPUTUM
[2021-02-03] VITALS (10 sets, daily range): BP systolic 150–158; BP diastolic 90–103; PULSE 87–126; RESP 2–26; TEMP 36.8–36.9; O2SAT 84–95
[2021-02-03] MEDS: Acetaminophen 325 MG TAB PO (00:44)
[2021-02-03] MEDS: Ipratropium 0.5 MG/2.5 ML UPD VIAL UPD ×4 (00:44→18:23)
[2021-02-03] MEDS: Enoxaparin 40 MG/0.4 ML SYR SC (01:44)
[2021-02-03] MEDS: Levothyroxine 25 MCG TAB PO (06:18)
[2021-02-03 07:47] LABS: Anion Gap 12.2 mmol/L (3-11); CO2 24.8 mmol/L (21.0-32.0); CREATININE 0.9 mg/dL (0.55-1.02); Chloride 104 mmol/L (98-107); Magnesium 2.2 mg/dL (1.8-2.4); Potassium 3.4 mmol/L (3.5-5.1); Sodium 141 mmol/L (136-145)
[2021-02-03 07:53] LABS: BUN 23 mg/dL (7-18); Glucose 87 mg/dL (74-106)
[2021-02-03] MEDS: Azithromycin 250 MG TAB PO (07:59)
[2021-02-03] MEDS: Cholecalciferol (Vitamin D3) 1,000 UNIT TAB 1000 UNITS PO (07:59)
[2021-02-03] MEDS: predniSONE 20 MG TAB 60 MG PO (07:59)
[2021-02-03] MEDS: Furosemide 40 MG TAB PO ×2 (08:00→16:00)
[2021-02-03] MEDS: Citalopram 20 MG TAB PO (08:00)
[2021-02-03] MEDS: Pantoprazole 40 MG TABCR PO (08:00)
[2021-02-03] MEDS: Aspirin E.C. 81 MG TABEC PO (08:00)
[2021-02-03] MEDS: Lisinopril 20 MG TAB PO (08:00)
[2021-02-03] MEDS: Furosemide 20 MG/2 ML VIAL IVP (10:04)
[2021-02-03] MEDS: Potassium Chloride 20 MEQ TABCR 40 MEQ PO (10:04)
[2021-02-03] MEDS: Normal Saline Flush 10 ML SYR IVP ×2 (10:04→18:30)
[2021-02-03] MEDS: Budesonide/Formoterol 160/4.5 6 GM 60 PUFF INH IH ×2 (10:12→20:15)
[2021-02-03] MEDS: Levalbuterol 0.63 MG/3 ML UPD VIAL UPD ×2 (14:00→18:25)
--- NOTE | 2021-02-03 18:04 | PGE_ITS ---
Date of Service Date of service: 02/03/21 Time of Service: 16:45 Assessment and Plan Assessment and plan (1) Acute respiratory failure with hypoxia: Status: Acute Assessment and plan: Due to pneumonia and acute asthma exacerbation as well as due to what appears to be underlying interstitial lung disease. The patient is requiring 6L of O2 on ambulation. PE ruled out. Covid-19 ruled out. Increase steroids, diuresis, and consider pulmonlogy consult. Wean O2 as tolerated. Add IS. Will need to follow up with [facility] as outpatient. (2) Pneumonia: Status: Suspected Assessment and plan: Interstitial. COVID-19 negative on this admission and the patient is vaccinated. Consider pulmonology consult. Obtain repeat CXR. Continue ceftriaxone and oral azithromycin. Increase steroids. Continue diuresis. Qualifiers: Pneumonia type: due to unspecified organism Laterality: bilateral Lung location: unspecified part of lung Qualified Code(s): J18.9 - Pneumonia, unspecified organism (3) Asthma: Status: Acute Assessment and plan: In acute exacerbation. The patient reports having allergic symptoms this time of year. Add antihistamines, fluticasone nasal spray, monteleukast. Continue bronchodilators, symbicort. INcrease dose of steroids. (4) Demand ischemia: Status: Acute Assessment and plan: In setting of pneumonia and acute respiratory failure. When better, the patient would benefit from an outpatient stress echo. Continue ASA 81mg daily (5) Tobacco dependence: Status: Resolved Assessment and plan: Continue to encourage cessation. Will need outpt PFTs (6) DVT prophylaxis: Status: Acute Assessment and plan: Sc enoxaparin (7) Discharge planning issues: Status: Acute Assessment and plan: Full code Continues to require hospitalization Subjective Subjective Interval history since last seen: Continues to feel short of breath. Coughing. Reports sx of allergies - nasal congestion, post-nasal drip. Denies n/v. With ambulatory pulse ox required 6 L of O2. Exam Narrative Exam Narrative: General: A&Ox3, NAD HEENT: EOMI, MMM Heart: RRR< no m/r/g Lungs: crackles at B bases, otherwise coarse breath sounds B Abdomen: soft, nontender, nondistended Extremities: Nonpitting BLE edema Objective Last Vital Signs Temp 36.9 C 02/03/21 16:00 Pulse 96 H 02/03/21 16:00 Resp 18 02/03/21 16:00 BP 155/103 H 02/03/21 16:00 Pulse Ox 93 02/03/21 16:00 Laboratory Results - last 24 hr 02/01/21 02/03/21 04:20 06:25 Sodium 141 Potassium 3.4 L Chloride 104 Carbon Dioxide 24.8 Anion Gap 12.2 H BUN 23 H D Creatinine 0.9 Estimated GFR/1.73 m2 >= 60.00 Glucose 87 D Calcium 9.0 Magnesium 2.2 M. pneumoniae Source Sputum M. pneumoniae (PCR) Negative
[2021-02-03] MEDS: methylPREDNISolone SUCC 125 MG VIAL IVP (18:25)
[2021-02-03] MEDS: Montelukast 10 MG TAB PO (20:14)
[2021-02-03] MEDS: cefTRIAXone 2 GM/50 ML BAG IVPB (20:14)
[2021-02-03] MEDS: Fluticasone NASAL SPRAY 16 GM BTL NS (20:15)
--- NOTE | 2021-02-03 20:46 | CMPROGNOTE_ITS ---
- If Service Date Differs Date of service: 02/03/21 Time of Service: 20:47 Care Management Progress Note S/O: Betzaida was in the shower when CM attempted to visit with her. Per report, she continues to require 6L O2 due to pneumonia and acute asthma exacerbation, and possible underlying lung disease. CM will continue to follow. A: 50 year old female admitted to [facility] 01/31/21 for Pneumonia, Hypoxia, Elevated troponin P: Betzaida will return home when ready per MD. She will follow up with her PCP and plan of care as prescribed including outpatient follow up with cardiology. No additional services anticipated at this time, unless RT recommends home O2 upon discharge. She will transport via private vehicle
[2021-02-03] MEDS: Amitriptyline 50 MG TAB PO (22:09)
[2021-02-03] MEDS: Cetirizine 10 MG TAB PO (22:09)
[2021-02-04] VITALS (7 sets, daily range): BP systolic 142–165; BP diastolic 97–108; PULSE 90–95; RESP 2–19; TEMP 36.4–36.8; O2SAT 91–98
[2021-02-04] MEDS: Ipratropium 0.5 MG/2.5 ML UPD VIAL UPD ×5 (00:33→23:52)
[2021-02-04] MEDS: methylPREDNISolone SUCC 125 MG VIAL 60 MG IVP ×3 (02:48→18:17)
[2021-02-04] MEDS: Enoxaparin 40 MG/0.4 ML SYR SC (02:48)
[2021-02-04] MEDS: Levothyroxine 25 MCG TAB PO (06:11)
[2021-02-04 07:36] LABS: Platelet Count 451 10^3/uL (130-400)
[2021-02-04 07:54] LABS: BUN 26 mg/dL (7-18); CREATININE 0.9 mg/dL (0.55-1.02); Calcium 9.3 mg/dL (8.5-10.1); Chloride 103 mmol/L (98-107); Glucose 169 mg/dL (74-106); Magnesium 2.3 mg/dL (1.8-2.4); Potassium 4.2 mmol/L (3.5-5.1); Sodium 139 mmol/L (136-145)
--- NOTE | 2021-02-04 08:00 | DI.RAD_ITS ---
Exam(s) XR CHEST 2V PA LATERAL EXAM: XR CHEST 2V PA LATERAL CLINICAL HISTORY: Follow up pneumonia. TECHNIQUE: 2D digital imaging was performed. COMPARISON: CR,XR XR PORTABLE CHEST AP from 01/31/2021 FINDINGS: Cardiomegaly again noted. Mediastinum not widened. Extensive interstitial disease throughout both lung lo is again noted less confluent is noted tow ards right lung base, as described on the study 4 days ago. No pleural effusions. No pneumothorax. IMPRESSION: Cardiomegaly. Extensive bilateral diffuse interstitial disease again noted. No associated pleural e ffusions. DATA REPOSITORY: RADIATION DOSE DELIVERED:
[2021-02-04] MEDS: Fluticasone NASAL SPRAY 16 GM BTL NS (08:01)
[2021-02-04] MEDS: Azithromycin 250 MG TAB PO (08:02)
[2021-02-04] MEDS: Pantoprazole 40 MG TABCR PO (08:02)
[2021-02-04] MEDS: Aspirin E.C. 81 MG TABEC PO (08:02)
[2021-02-04] MEDS: Citalopram 20 MG TAB PO (08:02)
[2021-02-04] MEDS: Cholecalciferol (Vitamin D3) 1,000 UNIT TAB 1000 UNITS PO (08:02)
[2021-02-04] MEDS: Furosemide 40 MG TAB PO (08:02)
[2021-02-04] MEDS: Lisinopril 20 MG TAB PO (08:02)
[2021-02-04] MEDS: Budesonide/Formoterol 160/4.5 6 GM 60 PUFF INH IH ×2 (08:33→21:11)
[2021-02-04] MEDS: Normal Saline Flush 10 ML SYR IVP ×4 (09:52→21:11)
[2021-02-04 10:01] LABS: Source Nasal/Nares
[2021-02-04 10:54] LABS: COVID-19 PCR Negative (Negative)
[2021-02-04] MEDS: Levalbuterol 0.63 MG/3 ML UPD VIAL UPD (12:24)
--- NOTE | 2021-02-04 13:23 | CMPROGNOTE_ITS ---
- If Service Date Differs Date of service: 02/04/21 Time of Service: 13:24 Care Management Progress Note S/O: Marian was sitting up in bed when CM met with her. She reported that she is not happy that she has to remain at [facility], although she is very happy with the care she is receiving. 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 Her and service dog arrived while CM was in the room. Marian remains oxygen dependent, and is currently on 3L O2. She may require oxygen at home upon discharge. CM will continue to follow. A: 50 year old female admitted to [facility] 01/31/21 for Pneumonia, Hypoxia, Elevated troponin P: Betzaida will return home when ready per MD. She will follow up with her PCP and plan of care as prescribed including outpatient follow up with cardiology. No additional services anticipated at this time, unless RT nikia mmends home O2 upon discharge. She will transport via private vehicle.
[2021-02-04 14:08] LABS: Abs Immature Grans 0.08 10^3/uL (0.0-0.06); Absolute Basophil Count 0.01 10^3/uL (0.0-0.2); Absolute Lymphocyte Count 0.68 10^3/uL (1.2-3.4); Absolute Monocyte Count 0.21 10^3/uL (0.1-0.8); Absolute Neutrophil Count 8.93 10^3/uL (1.2-6.7); Basophils % 0.1; HGB 14.1 g/dL (11.2-15.7); Immature Grans % 0.8; Lymphocytes % 6.9; MCH 28.8 pg (27.0-33.0); MCHC 31.3 % (32.0-36.0); MCV 91.8 fL (80-95); MPV 9.8 fL (8.0-11.0); Monocytes % 2.1; Neutrophils % 90.1; Nucleated RBC 0 %; Platelet Count 466 10^3/uL (130-400); RDW 13.4 % (11.7-14.6); RDW-SD 45.6 fL; WBC 9.91 10^3/uL (4.4-10.8)
[2021-02-04 14:16] LABS: NT-proBNP 2606 pg/mL (<300)
[2021-02-04] MEDS: Furosemide 40 MG/4 ML VIAL IVP (14:25)
[2021-02-04 14:40] LABS: Procalcitonin < 0.1 ng/mL
--- NOTE | 2021-02-04 14:44 | DI.VRAD_ITS ---
PROCEDURE INFORMATION: Exam: XR Chest Exam date and time: 02/04/2021 12:00 AM Age: 50 years old Clinical indication: Shortness of breath; Patient HX: SOB TECHNIQUE: Imaging protocol: XR of the chest. Views: 2 views. COMPARISON: 1. CR XR PORTABLE CHEST AP 01/31/2021 5:[address] CHEST PE CTA 01/31/2021 7:52:49 PM FINDINGS: Lungs: Diffuse bilateral interstitial reticular opacities are again seen with hazy opacification nearly throughout the lung lo. Pleural spaces: No pleural effusion. No pneumothorax. Heart/Mediastinum: Unchanged mild cardiomegaly. Likely vascular congestion persists. Bones/joints: Unchanged. IMPRESSION: Diffuse bilateral interstitial reticular opacities are again seen with hazy opacification nearly throughout the lung lo, not significantly changed in interval. Dictated and Authenticated by: Max Hassan MD. Ordering:MILAN Ruelas MD
--- NOTE | 2021-02-04 15:22 | W.PM.PROGNOT ---
Date of Service Date of service: 02/04/21 Time of Service: 15:22 Assessment and Plan Assessment and plan (1) Acute respiratory failure with hypoxia: Status: Acute Assessment and plan: Due to pneumonia and acute asthma exacerbation as well as due to what appears to be underlying interstitial lung disease, cor pulmonale, pulmonary hypertension. Not improving despite increase in steroid dose, addition of antihistamines, flonase, continuation of abx, nebs and initiation of lasix infusion. PE ruled out. Covid-19 ruled out for the 2nd time today. [place] [facility] [place]. Wean O2 as tolerated. Encourage IS. (2) Pneumonia: Status: Suspected Assessment and plan: Interstitial. COVID-19 negative x2 on this admission; the patient is vaccinated. Await pulmonary recommendations. Continue ceftriaxone and oral azithromycin. Continue current dose of steroids. Continue diuresis. Qualifiers: Pneumonia type: due to unspecified organism Laterality: bilateral Lung location: unspecified part of lung Qualified Code(s): J18.9 - Pneumonia, unspecified organism (3) Asthma: Status: Acute Assessment and plan: In acute exacerbation. The patient reports having allergic symptoms this time of year. Continue antihistamines, fluticasone nasal spray, monteleukast. Continue bronchodilators, symbicort, current dose of steroids (4) Demand ischemia: Status: Acute Assessment and plan: NSTEMI In setting of pneumonia and acute respiratory failure with hypoxia. When better, the patient would benefit from an outpatient stress echo. Continue ASA 81mg daily (5) Tobacco dependence: Status: Resolved Assessment and plan: Continue to encourage cessation. Will need outpt PFTs (6) DVT prophylaxis: Status: Acute Assessment and plan: Sc enoxaparin (7) Discharge planning issues: Status: Acute Assessment and plan: Full code Continues to require hospitalization and may require [place] [facility] [place]y recommendations Subjective Subjective Interval history since last seen: Feels better, but requires more O2 today at rest than she did yesterday (3L now vs 2L yesterday). Desats to low 80s when ambulating to commode which is two steps away from her bed. Denies dizziness, chest pain, shortness of breath, nausea. States flonase nasal spray was helpful. Initiated on lasix gtt. Exam Narrative Exam Narrative: General: A&Ox3, NAD HEENT: EOMI, MMM Heart: RRR, no m/r/g Lungs: rales at B bases with an expiratory squeek Abdomen: soft, nontender, nondistended Extremities: Nonpitting BLE edema, unchanged Objective Last Vital Signs Temp 36.8 C 02/04/21 14:30 Pulse 95 H 02/04/21 14:30 Resp 19 02/04/21 14:30 BP 142/97 H 02/04/21 14:30 Pulse Ox 93 02/04/21 14:30 Laboratory Results - last 24 hr 02/04/21 02/04/21 02/04/21 06:23 06:23 06:23 WBC RBC Hgb Hct MCV MCH MCHC RDW Plt Count 451 H MPV Immature Gran % Neutrophils % Lymphocytes % Monocytes % Eosinophils % Basophils % Nucleated RBC % Absolute Neutrophils Absolute Lymphocytes Absolute Monocytes Absolute Eosinophils Absolute Basophils Sodium 139 Potassium 4.2 D Chloride 103 Carbon Dioxide 26.0 Anion Gap 10.0 BUN 26 H Creatinine 0.9 Estimated GFR/1.73 m2 >= 60.00 Glucose 169 H D Calcium 9.3 Magnesium 2.3 NT-Pro-B Natriuret Pep Procalcitonin < 0.1 COVID-19 Source SARS-CoV-2 (PCR) 02/04/21 02/04/21 02/04/21 06:23 06:23 09:57 WBC 9.91 RBC 4.90 Hgb 14.1 Hct 45.0 MCV 91.8 MCH 28.8 MCHC 31.3 L RDW 13.4 Plt Count 466 H MPV 9.8 Immature Gran % 0.8 Neutrophils % 90.1 Lymphocytes % 6.9 Monocytes % 2.1 Eosinophils % 0.0 Basophils % 0.1 Nucleated RBC % 0 Absolute Neutrophils 8.93 H Absolute Lymphocytes 0.68 L Absolute Monocytes 0.21 Absolute Eosinophils 0.00 Absolute Basophils 0.01 Sodium Potassium Chloride Carbon Dioxide Anion Gap BUN Creatinine Estimated GFR/1.73 m2 Glucose Calcium Magnesium NT-Pro-B Natriuret Pep 2606 H Procalcitonin COVID-19 Source Nasal/nares SARS-CoV-2 (PCR) Negative
[2021-02-04] MEDS: Acetaminophen 325 MG TAB PO ×2 (16:45→21:12)
[2021-02-04 16:54] LABS: C-Reactive Protein 5.99 mg/dL (0.0-0.3); FREE T4 1.04 ng/dL (0.76-1.46); TSH 1.41 uIU/mL (0.36-3.74)
--- NOTE | 2021-02-04 19:02 | NUR.NOTE ---
Nursing Note: patient did not want adames catheter at the time it was ordered. patient stated she may want it during the night if she is unable to sleep.
[2021-02-04] MEDS: cefTRIAXone 2 GM/50 ML BAG IVPB (21:11)
[2021-02-04] MEDS: Montelukast 10 MG TAB PO (21:12)
[2021-02-04] MEDS: Normal Saline 500 ML 30 ML IV (21:12)
[2021-02-04] MEDS: Melatonin 3 MG TAB 9 MG PO (23:52)
[2021-02-04] MEDS: Cetirizine 10 MG TAB PO (23:52)
[2021-02-04] MEDS: Amitriptyline 50 MG TAB PO (23:52)
[2021-02-05] VITALS (7 sets, daily range): BP systolic 108–163; BP diastolic 73–89; PULSE 79–102; RESP 8–20; TEMP 35.9–36.6; O2SAT 92–100
[2021-02-05] MEDS: methylPREDNISolone SUCC 125 MG VIAL 60 MG IVP ×2 (02:28→09:59)
[2021-02-05] MEDS: Enoxaparin 40 MG/0.4 ML SYR SC (02:28)
[2021-02-05] MEDS: Normal Saline Flush 10 ML SYR IVP ×2 (02:29→20:08)
[2021-02-05] MEDS: Ipratropium 0.5 MG/2.5 ML UPD VIAL UPD ×4 (06:20→23:19)
[2021-02-05] MEDS: Levothyroxine 25 MCG TAB PO (06:20)
[2021-02-05 07:47] LABS: Abs Immature Grans 0.09 10^3/uL (0.0-0.06); Absolute Basophil Count 0.01 10^3/uL (0.0-0.2); Absolute Eosinophil Count 0.01 10^3/uL (0.0-0.7); Absolute Lymphocyte Count 0.54 10^3/uL (1.2-3.4); Absolute Monocyte Count 0.47 10^3/uL (0.1-0.8); Absolute Neutrophil Count 12.81 10^3/uL (1.2-6.7); Basophils % 0.1; Eosinophils % 0.1; HCT 44.7 % (36.0-46.0); HGB 14.4 g/dL (11.2-15.7); Immature Grans % 0.6; Lymphocytes % 3.9; MCH 28.8 pg (27.0-33.0); MCHC 32.2 % (32.0-36.0); MCV 89.4 fL (80-95); MPV 9.6 fL (8.0-11.0); Monocytes % 3.4; Neutrophils % 91.9; Nucleated RBC 0 %; Platelet Count 484 10^3/uL (130-400); RDW 13.5 % (11.7-14.6); RDW-SD 44.2 fL; WBC 13.94 10^3/uL (4.4-10.8)
[2021-02-05 08:00] LABS: Anion Gap 7.7 mmol/L (3-11); BUN 37 mg/dL (7-18); CO2 29.3 mmol/L (21.0-32.0); CREATININE 0.9 mg/dL (0.55-1.02); Calcium 9.2 mg/dL (8.5-10.1); Chloride 102 mmol/L (98-107); Glucose 133 mg/dL (74-106); Potassium 4.2 mmol/L (3.5-5.1); Sodium 139 mmol/L (136-145)
[2021-02-05] MEDS: Fluticasone NASAL SPRAY 16 GM BTL NS (08:05)
[2021-02-05 08:06] LABS: C-Reactive Protein 2.34 mg/dL (0.0-0.3); Creatine Kinase 19 U/L (26-192); Magnesium 2.2 mg/dL (1.8-2.4)
[2021-02-05] MEDS: Lisinopril 20 MG TAB PO (08:06)
[2021-02-05] MEDS: Citalopram 20 MG TAB PO (08:06)
[2021-02-05] MEDS: Pantoprazole 40 MG TABCR PO (08:06)
[2021-02-05] MEDS: Aspirin E.C. 81 MG TABEC PO (08:06)
[2021-02-05] MEDS: Azithromycin 250 MG TAB PO (08:07)
[2021-02-05] MEDS: Cholecalciferol (Vitamin D3) 1,000 UNIT TAB 1000 UNITS PO (08:07)
[2021-02-05] MEDS: Budesonide/Formoterol 160/4.5 6 GM 60 PUFF INH IH ×2 (08:09→20:08)
--- NOTE | 2021-02-05 13:59 | W.PM.PROGNOT ---
Date of Service Date of service: 02/05/21 Time of Service: 13:59 Assessment and Plan Assessment and plan (1) Acute respiratory failure with hypoxia: Status: Acute Assessment and plan: Due to underlying interstitial lung disease, cor pulmonale, pulmonary hypertension as well as possible pneumonia and acute asthma exacerbation. Much better today. Continue lasix drip. Start to taper steroids. Await auto-immune w/u and viral respiratory panel. PE ruled out. Covid-19 ruled out x2 on this admission. Will need follow up with [facility] [place] pul[place]ology. Wean O2 as tolerated. Encourage IS. (2) Pneumonia: Status: Suspected Assessment and plan: Interstitial lung disease +/- bacterial pneumonia. Sputum sample contaminated on this admission. COVID-19 negative x2 on this admission; the patient is vaccinated. Respiratory viral panel is pending. [facility] pulmnology recommends completing 5-7 days of abx (today is day 5/7) though procalcitonin on this admission was negative. The patient reports a transiently greenish sputum. Continue ceftriaxone and oral azithromycin. Start to taper steroids. Continue diuresis. Qualifiers: Pneumonia type: due to unspecified organism Laterality: bilateral Lung location: unspecified part of lung Qualified Code(s): J18.9 - Pneumonia, unspecified organism (3) Asthma: Status: Acute Assessment and plan: In acute exacerbation. The patient reports having allergic symptoms this time of year. Continue antihistamines, fluticasone nasal spray, monteleukast. Continue bronchodilators, symbicort, systemic steroids. (4) Demand ischemia: Status: Acute Assessment and plan: NSTEMI In setting of pneumonia and acute respiratory failure with hypoxia. When better, the patient would benefit from an outpatient stress echo. Continue ASA 81mg daily (5) Tobacco dependence: Status: Resolved Assessment and plan: Continue to encourage cessation. Will need outpt PFTs (6) DVT prophylaxis: Status: Acute Assessment and plan: Sc enoxaparin (7) Discharge planning issues: Status: Acute Assessment and plan: Full code Continues to require hospitalization. Anticipate discharge home in 48 hrs. Subjective Subjective Interval history since last seen: Ms Clement states she is feeling better. Cough is nonproductive and decreased. She feels less swollen. NO dizziness, chest pain, nausea. She is on 1L of O2, saturating 99%. She is excited. Exam Narrative Exam Narrative: General: A&Ox3, NAD HEENT: EOMI, MMM Heart: RRR, no m/r/g Lungs: crackles at B bases, slight expiratory squeek, no wheezing Abdomen: soft, nontender, nondistended Extremities: +1 pitting edema BLE's, different (less impressive) than yesterday. Objective Last Vital Signs Temp 36.6 C 02/05/21 11:25 Pulse 82 02/05/21 11:25 Resp 18 02/05/21 11:25 BP 163/82 H 02/05/21 11:25 Pulse Ox 99 02/05/21 11:25 Laboratory Results - last 24 hr 02/04/21 02/04/21 02/04/21 06:23 06:23 06:23 WBC 9.91 RBC 4.90 Hgb 14.1 Hct 45.0 MCV 91.8 MCH 28.8 MCHC 31.3 L RDW 13.4 Plt Count 466 H MPV 9.8 Immature Gran % 0.8 Neutrophils % 90.1 Lymphocytes % 6.9 Monocytes % 2.1 Eosinophils % 0.0 Basophils % 0.1 Nucleated RBC % 0 Absolute Neutrophils 8.93 H Absolute Lymphocytes 0.68 L Absolute Monocytes 0.21 Absolute Eosinophils 0.00 Absolute Basophils 0.01 Sodium Potassium Chloride Carbon Dioxide Anion Gap BUN Creatinine Estimated GFR/1.73 m2 Glucose Calcium Magnesium Creatine Kinase C-Reactive Protein NT-Pro-B Natriuret Pep 2606 H Procalcitonin < 0.1 TSH Free T4 02/04/21 02/05/21 02/05/21 06:23 07:00 07:00 WBC RBC Hgb Hct MCV MCH MCHC RDW Plt Count MPV Immature Gran % Neutrophils % Lymphocytes % Monocytes % Eosinophils % Basophils % Nucleated RBC % Absolute Neutrophils Absolute Lymphocytes Absolute Monocytes Absolute Eosinophils Absolute Basophils Sodium 139 Potassium 4.2 Chloride 102 Carbon Dioxide 29.3 Anion Gap 7.7 BUN 37 H D Creatinine 0.9 Estimated GFR/1.73 m2 >= 60.00 Glucose 133 H Calcium 9.2 Magnesium 2.2 Creatine Kinase 19 L C-Reactive Protein 5.99 H 2.34 H NT-Pro-B Natriuret Pep Procalcitonin TSH 1.41 Free T4 1.04 02/05/21 07:00 WBC 13.94 H D RBC 5.00 Hgb 14.4 Hct 44.7 MCV 89.4 MCH 28.8 MCHC 32.2 RDW 13.5 Plt Count 484 H MPV 9.6 Immature Gran % 0.6 Neutrophils % 91.9 Lymphocytes % 3.9 Monocytes % 3.4 Eosinophils % 0.1 Basophils % 0.1 Nucleated RBC % 0 Absolute Neutrophils 12.81 H Absolute Lymphocytes 0.54 L Absolute Monocytes 0.47 Absolute Eosinophils 0.01 Absolute Basophils 0.01 Sodium Potassium Chloride Carbon Dioxide Anion Gap BUN Creatinine Estimated GFR/1.73 m2 Glucose Calcium Magnesium Creatine Kinase C-Reactive Protein NT-Pro-B Natriuret Pep Procalcitonin TSH Free T4
--- NOTE | 2021-02-05 17:47 | CMPROGNOTE_ITS ---
Care Management Progress Note S/O: Marian continues to look forward to returning home as her stay continues to be extended due to acute status. 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 Marian remains oxygen dependent, and is currently on 3L O2, as well as lasix drip. Steroids are being tapered per MD. She may require oxygen at home upon discharge. CM will continue to follow. A: 50 year old female admitted to [facility] 01/31/21 for Pneumonia, Hypoxia, Elevated troponin P: Betzaida will return home when ready per MD. She will follow up with her PCP and plan of care as prescribed including outpatient follow up with cardiology and [facility] [place] pulmonology. Awaiting RT recommendations re: home O2 upon discharge. She will transport via private vehicle.
[2021-02-05] MEDS: methylPREDNISolone SUCC 40 MG VIAL IVP (18:04)
--- NOTE | 2021-02-05 18:51 | RESPIRATORY ---
Pt requiring 1L nc at rest. Spo2 dropped to 85 when she got up to go to walk to the door to 85%. Pt has acrylic nails and needs the ear probe used for accurate spo2
[2021-02-05] MEDS: Montelukast 10 MG TAB PO (20:06)
[2021-02-05] MEDS: Acetaminophen 325 MG TAB PO (20:07)
[2021-02-05] MEDS: cefTRIAXone 2 GM/50 ML BAG IVPB (20:07)
[2021-02-05] MEDS: Cetirizine 10 MG TAB PO (23:18)
[2021-02-05] MEDS: Amitriptyline 50 MG TAB PO (23:18)
[2021-02-05] MEDS: Melatonin 3 MG TAB 9 MG PO (23:19)
[2021-02-06] VITALS (8 sets, daily range): BP systolic 119–126; BP diastolic 77–88; PULSE 70–79; RESP 2–17; TEMP 36.3–36.7; O2SAT 91–96
[2021-02-06] MEDS: Enoxaparin 40 MG/0.4 ML SYR SC (02:35)
[2021-02-06] MEDS: methylPREDNISolone SUCC 40 MG VIAL IVP ×2 (02:35→10:42)
[2021-02-06] MEDS: Normal Saline Flush 10 ML SYR IVP ×3 (02:36→20:06)
[2021-02-06] MEDS: Ipratropium 0.5 MG/2.5 ML UPD VIAL UPD ×3 (06:16→17:53)
[2021-02-06] MEDS: Levothyroxine 25 MCG TAB PO (06:16)
[2021-02-06 07:06] LABS: Abs Immature Grans 0.07 10^3/uL (0.0-0.06); Absolute Monocyte Count 0.43 10^3/uL (0.1-0.8); Basophils % 0.1; HCT 47.3 % (36.0-46.0); HGB 14.8 g/dL (11.2-15.7); Immature Grans % 0.5; Lymphocytes % 4.4; MCH 28.3 pg (27.0-33.0); MCHC 31.3 % (32.0-36.0); MCV 90.4 fL (80-95); MPV 9.6 fL (8.0-11.0); Monocytes % 3.2; Neutrophils % 91.8; Nucleated RBC 0 %; Platelet Count 469 10^3/uL (130-400); RBC 5.23 10^6/uL (3.93-5.22); RDW 13.2 % (11.7-14.6); RDW-SD 43.6 fL; WBC 13.59 10^3/uL (4.4-10.8)
[2021-02-06 07:15] LABS: Absolute Basophil Count 0.01 10^3/uL (0.0-0.2); Absolute Neutrophil Count 12.48 10^3/uL (1.2-6.7)
[2021-02-06 07:20] LABS: BUN 41 mg/dL (7-18); Calcium 8.9 mg/dL (8.5-10.1); Chloride 102 mmol/L (98-107); Estimated GFR 58.22 (mL/min/1.73m2); Glucose 151 mg/dL (74-106); Magnesium 2.3 mg/dL (1.8-2.4); Potassium 4.1 mmol/L (3.5-5.1); Sodium 140 mmol/L (136-145)
[2021-02-06] MEDS: Pantoprazole 40 MG TABCR PO (07:45)
[2021-02-06] MEDS: Azithromycin 250 MG TAB PO (08:41)
[2021-02-06] MEDS: Lisinopril 20 MG TAB PO (08:41)
[2021-02-06] MEDS: Cholecalciferol (Vitamin D3) 1,000 UNIT TAB 1000 UNITS PO (08:41)
[2021-02-06] MEDS: Aspirin E.C. 81 MG TABEC PO (08:41)
[2021-02-06] MEDS: Citalopram 20 MG TAB PO (08:41)
[2021-02-06] MEDS: Fluticasone NASAL SPRAY 16 GM BTL NS (08:44)
[2021-02-06] MEDS: Budesonide/Formoterol 160/4.5 6 GM 60 PUFF INH IH ×2 (08:53→20:05)
[2021-02-06] MEDS: FUROSEMIDE 40 MG, FUROSEMIDE 20 MG 60 MG PO (10:41)
[2021-02-06 12:34] LABS: SS-A Antibody 56.6 Units (<20.0)
[2021-02-06 15:23] LABS: ANA Interpretation Positive (Negative); ANA Titer Pattern 1:640 Speckled
--- NOTE | 2021-02-06 15:29 | W.PM.PROGNOT ---
Date of Service Date of service: 02/06/21 Time of Service: 15:32 Assessment and Plan Assessment and plan (1) Acute respiratory failure with hypoxia: Status: Acute Assessment and plan: Due to underlying interstitial lung disease, cor pulmonale, pulmonary hypertension as well as possible pneumonia and acute asthma exacerbation. Continue to improve. Transition to PO lasix and steroids. Await auto-immune w/u and viral respiratory panel. PE ruled out. Covid-19 ruled out x2 on this admission. Will need follow up with [facility] [place] pul[place]. Wean O2 as tolerated - check exercise oximetry again tomorrow am. Encourage IS. (2) Pneumonia: Status: Suspected Assessment and plan: Interstitial lung disease +/- bacterial pneumonia. Sputum sample contaminated on this admission. COVID-19 negative x2 on this admission; the patient is vaccinated. Respiratory viral panel is pending. [facility] [place] pulmnology recommends completing 5-7 days of abx (today is day 6/7) though procalcitonin on this admission was negative. The patient reports a transiently greenish sputum. Continue ceftriaxone and oral azithromycin through tomorrow. Transition steroids to PO. Continue diuresis. Qualifiers: Pneumonia type: due to unspecified organism Laterality: bilateral Lung location: unspecified part of lung Qualified Code(s): J18.9 - Pneumonia, unspecified organism (3) Asthma: Status: Acute Assessment and plan: In acute exacerbation. The patient reports having allergic symptoms this time of year. Continue antihistamines, fluticasone nasal spray, monteleukast. Continue bronchodilators, symbicort, systemic steroids. (4) Demand ischemia: Status: Acute Assessment and plan: NSTEMI In setting of pneumonia and acute respiratory failure with hypoxia. When better, the patient would benefit from an outpatient stress echo. Continue ASA 81mg daily (5) Tobacco dependence: Status: Resolved Assessment and plan: Continue to encourage cessation. Will need outpt PFTs (6) DVT prophylaxis: Status: Acute Assessment and plan: Sc enoxaparin (7) Discharge planning issues: Status: Acute Assessment and plan: Full code Anticipate discharge home tomorrow. Subjective Subjective Interval history since last seen: I'm doing fantastic! Took a shower without oxygen on. Has been on 1L since. Denies dizziness, chest pain, shortness of breath, nausea. Excited about going home tomorrow. Exam Narrative Exam Narrative: General: A&Ox3, NAD HEENT: EOMI, MMM Heart: RRR, no m/r/g Lungs: crackles at B bases, slight expiratory squeek, no wheezing, overall sounds better than yesterday Abdomen: soft, nontender, nondistended Extremities: trace pitting edema BLE's, improved from yesterday. Objective Last Vital Signs Temp 36.4 C L 02/06/21 15:24 Pulse 75 02/06/21 15:24 Resp 16 02/06/21 15:24 BP 123/80 02/06/21 15:24 Pulse Ox 96 02/06/21 15:24 Laboratory Results - last 24 hr 02/05/21 02/05/21 02/06/21 07:00 07:00 06:30 WBC RBC Hgb Hct MCV MCH MCHC RDW Plt Count MPV Immature Gran % Neutrophils % Lymphocytes % Monocytes % Eosinophils % Basophils % Nucleated RBC % Absolute Neutrophils Absolute Lymphocytes Absolute Monocytes Absolute Eosinophils Absolute Basophils Sodium 140 Potassium 4.1 Chloride 102 Carbon Dioxide 31.0 Anion Gap 7.0 BUN 41 H Creatinine 1.0 Estimated GFR/1.73 m2 58.22 Glucose 151 H Calcium 8.9 Magnesium 2.3 JAISON Titer 1:640 Speckled JAISON Titer 2 Not Applicable JAISON Titer 3 Not Applicable JAISON Interpretation Positive A SS-A Antibody 56.6 H SS-B Antibody 7.0 Double Strand DNA Ab 30.0 H 02/06/21 06:30 WBC 13.59 H RBC 5.23 H Hgb 14.8 Hct 47.3 H MCV 90.4 MCH 28.3 MCHC 31.3 L RDW 13.2 Plt Count 469 H MPV 9.6 Immature Gran % 0.5 Neutrophils % 91.8 Lymphocytes % 4.4 Monocytes % 3.2 Eosinophils % 0.0 Basophils % 0.1 Nucleated RBC % 0 Absolute Neutrophils 12.48 H Absolute Lymphocytes 0.60 L Absolute Monocytes 0.43 Absolute Eosinophils 0.00 Absolute Basophils 0.01 Sodium Potassium Chloride Carbon Dioxide Anion Gap BUN Creatinine Estimated GFR/1.73 m2 Glucose Calcium Magnesium JAISON Titer JAISON Titer 2 JAISON Titer 3 JAISON Interpretation SS-A Antibody SS-B Antibody Double Strand DNA Ab
[2021-02-06] MEDS: FUROSEMIDE 20 MG, FUROSEMIDE 40 MG 60 MG PO (16:17)
--- NOTE | 2021-02-06 18:01 | PDOC.CMPRO ---
Care Management Progress Note S/O: Marian was sitting up on her bed, she shared excitement at being able to return home tomorrow. She was on room air, and reported being able to shower without feeling SOB. CM will continue to follow. A: 50 year old female admitted to [facility] 01/31/21 for Pneumonia, Hypoxia, Elevated troponin P: Betzaida will return home when ready per MD. She will follow up with her PCP and plan of care as prescribed including outpatient follow up with cardiology and [facility] [place] pul[place]ology. She has requested a commode; CM will attempt to support coordination on day of discharge tomorrow. She will transport via private vehicle.
[2021-02-06 18:26] LABS: Scl 70 Antibodies, IgG 0.3 U
[2021-02-06] MEDS: cefTRIAXone 2 GM/50 ML BAG IVPB (20:05)
[2021-02-06] MEDS: Normal Saline 500 ML 30 ML IV (20:05)
[2021-02-06] MEDS: predniSONE 20 MG TAB 40 MG PO (20:06)
[2021-02-06] MEDS: Montelukast 10 MG TAB PO (20:06)
[2021-02-06] MEDS: Acetaminophen 325 MG TAB PO (20:06)
[2021-02-06] MEDS: Melatonin 3 MG TAB 9 MG PO (22:51)
[2021-02-06] MEDS: Cetirizine 10 MG TAB PO (22:51)
[2021-02-06] MEDS: Amitriptyline 50 MG TAB PO (22:51)
[2021-02-07] MEDS: Enoxaparin 40 MG/0.4 ML SYR SC (01:01)
[2021-02-07] MEDS: Ipratropium 0.5 MG/2.5 ML UPD VIAL UPD ×3 (01:01→14:21)
[2021-02-07] MEDS: Levothyroxine 25 MCG TAB PO (06:13)
[2021-02-07 07:29] LABS: BUN 40 mg/dL (7-18); CREATININE 0.8 mg/dL (0.55-1.02); Calcium 9.2 mg/dL (8.5-10.1); Chloride 103 mmol/L (98-107); Glucose 121 mg/dL (74-106); Magnesium 2.6 mg/dL (1.8-2.4); Sodium 140 mmol/L (136-145)
[2021-02-07 08:04] VITALS: BP 117/79; PULSE 76; RESP 20; TEMP 36; O2SAT 94
[2021-02-07] MEDS: Fluticasone NASAL SPRAY 16 GM BTL NS (08:43)
[2021-02-07] MEDS: Citalopram 20 MG TAB PO (08:44)
[2021-02-07] MEDS: Azithromycin 250 MG TAB PO (08:44)
[2021-02-07] MEDS: Lisinopril 20 MG TAB PO (08:44)
[2021-02-07] MEDS: Aspirin E.C. 81 MG TABEC PO (08:44)
[2021-02-07] MEDS: predniSONE 20 MG TAB 40 MG PO (08:44)
[2021-02-07] MEDS: Cholecalciferol (Vitamin D3) 1,000 UNIT TAB 1000 UNITS PO (08:44)
[2021-02-07] MEDS: Acetaminophen 325 MG TAB PO (08:44)
[2021-02-07] MEDS: Pantoprazole 40 MG TABCR PO (08:44)
[2021-02-07] MEDS: Furosemide 80 MG TAB PO (09:02)
[2021-02-07] MEDS: Budesonide/Formoterol 160/4.5 6 GM 60 PUFF INH IH (09:43)
--- NOTE | 2021-02-07 13:28 | PDOC.CMDIS ---
- If Service Date Differs Date of service: 02/07/21 Time of Service: 16:45 LACE Index Scoring Tool - Questions: Length of Stay (in days): 7 - 13 Acuity (Admit via E.D.?): Yes Comorbidities: Chronic Pulmonary Disease E.D. Visits: 1 - Answers: Total Score: 11 Risk of Readmission: High Risk Care Management Discharge Reason for Hospitalization: Pneumonia Discharge Plan: Betzaida will return home when ready per MD. She will follow up with her PCP and plan of care as prescribed including outpatient follow up with cardiology and [facility] [place] pul[place]ology. Dayna recommended; [facility] faxed signed physician orders to [facility] and received confirmation that equipment will be covered-[facility] will outreach to Marian directly to coordinate pick-up. Marian will transport via private vehicle with family. Patient/Family Education Needs: Review discharge instructions, discuss Ask Me Three. Services Needed at Discharge: DME Agency ([employer])
--- NOTE | 2021-02-07 13:35 | PDOC.CMPRO ---
Care Management Progress Note [employer] is recommended due to Marian's oxygen needs and de-stating with activity. Her bathroom is upstairs, so a commode will help limit strenuous activity which could result in increased oxygen needs.
[2021-02-07 14:21] VITALS: RESP 2
--- NOTE | 2021-02-07 14:22 | DSE_ITS ---
Date of service: 02/07/21 Time of Service: 14:22 DS: Diagnosis Discharge Diagnosis (1) Acute respiratory failure with hypoxia: Status: Resolved Asessment and Plan: Ambulatory pulse ox 91% on RA. (2) NSTEMI (non-ST elevated myocardial infarction): Status: Acute Asessment and Plan: In setting of acute hypoxia, felt to be a type 2 NSTEMI. Outpatient stress echo ordered on discharge [place] Cardiology referral. (3) Cor pulmonale: Status: Acute (4) Pulmonary hypertension: Status: Chronic (5) Interstitial lung disease: Status: Chronic Asessment and Plan: [facility] pulmonology referral (6) Pneumonia: Status: Resolved (7) Asthma: Status: Suspected Asessment and Plan: Possible asthma exacerbation on this admission. (8) Tricuspid regurgitation: Status: Acute (9) Moderate aortic regurgitation: Status: Acute (10) Tobacco dependence: Status: Chronic (11) Hypokalemia: Status: Resolved (12) Obesity, morbid, BMI 40.0-49.9: Status: Chronic (13) COVID-19 ruled out by laboratory testing: Status: Ruled-out Discharge Plan Disposition Patient Disposition: HOME Condition: Improving Discharge Details Reason For Visit: Pneumonia,Hypoxia,Elevated Troponin Admit Date/Time: 01/31/21 22:38 Admit Provider: Don Coronado Attending Provider: Don Coronado Primary Care Provider: Hardeep Oropeza Hospital Course Hospital Course: Ms Clement is a 50 year old female with PMHx of interstitial lung disease of unknown etiology, not previously on oxygen, as well as asthma, GERD, tobacco abuse, who was admitted to [facility] ICU under hospitalist service on 02/01/21 for a Type 2 NSTEMI in setting of hypoxia due to acute exacerbation of her chronic interstitial lung disease complicated by cor pulmonale. COVID-19 was ruled out twice on this admission. PE was ruled out with a negative CTA. The patient was treated with diuretics, steroids, empiric antibiotics (7 days of ceftriaxone/azithromycin) though she was never proven to have a bacterial process, oxygen therapy, and updraft treatments. She was evaluated by cardiology who felt that the patient's type 2 NSTEMI was due to her hypoxia, but that she would necessitate outpatient stress echocardiogram to ensure that there is not also underlying coronary artery disease, though this is felt to be less likely. The patient was initiated on aspirin 81 mg PO daily. As far as her respiratory status, we did seek phone consultation with [facility] pulmonology. Aggressive diuresis was recommended, as long as higher dose steroids and further workup of her interstitial lung disease. Additionally, the patient's respiratory viral panel is still pending. Her JAISON and anti-SSA came back positive (JAISON titer 1:640). Her anti-DS DNA was borderline positive. Anti-SM and Anti-J[employer]ITOR[employer] MAINTENANCE WORKER as well as Rheumatoid factor are pending at the time of discharge and should be followed up. SLE is a strong possibility and need sto be ruled out. The patient is now off of Oxygen, including on ambulation, saturating 90-91% on room air. She was transitioned to PO lasix and steroids. She is going home with a lengthy steroid taper. She will need to follow up with [facility] pulmonology clinic as well as with cardiology. She needs an outpatient stress echo. She needs to see her PCP in 1-2 weeks. Care for patient as well as completion of her discharge summary on day of discharge took 80 minutes. Home Meds and New Rx's Prescriptions: New aspirin 81 mg Tablet,Delayed Release (Dr/Ec) 81 mg PO DAILY Qty: 30 RF: 0 cetirizine 10 mg Tablet 10 mg PO HS Qty: 30 RF: 0 fluticasone propionate 50 mcg/actuation [place],Suspension 1 spray NS DAILY Qty: 16 RF: 0 furosemide 80 mg Tablet 80 mg PO BID@0830,1600 Qty: 28 RF: 0 levalbuterol HCl 0.63 mg/3 mL Solution For Nebulization 0.63 mg UPD Q4H PRN PRN (Reason: dyspnea, wheezing) Qty: 90 RF: 2 lisinopril 20 mg Tablet 20 mg PO DAILY Qty: 30 RF: 0 montelukast 10 mg Tablet 10 mg PO QPM Qty: 30 RF: 0 Nicotrol 10 mg Cartridge 1 inh inhalation Q2H PRN PRNQty: 168 RF: 0 prednisone 20 mg Tablet See Rx Instructions .ROUTE .COMPLEX Qty: 26 RF: 0 melatonin 10 mg capsule 10 mg PO HS PRNQty: 30 RF: 0 Continued levothyroxine 25 mcg capsule 25 mcg PO DAILY RF: 0 nicotine [Nicoderm CQ] 21 mg/24 hr patch 24 hour 1 patch TD DAILY RF: 0 cholecalciferol (vitamin D3) [Vitamin D3] 1,000 unit Capsule 1,000 unit PO DAILY RF: 0 Supervitamin 1 ea PO DAILY RF: 0 amitriptyline 50 mg Tablet 50 mg PO HS RF: 0 fluticasone propion-salmeterol [Advair Diskus] 250-50 mcg/dose blister with device 1 inh INHALATION BID RF: 0 pantoprazole 40 mg tablet,delayed release (DR/EC) 40 mg PO DAILY RF: 0 ondansetron 4 mg tablet,disintegrating 4 mg PO Q6H PRNRF: 0 Chantix Continuing Month Box 1 mg tablet 1 mg PO BID RF: 0 citalopram 20 mg tablet 20 mg PO DAILY RF: 0 Discontinued hydrochlorothiazide 12.5 mg Tablet 12.5 mg PO DAILY RF: 0 albuterol sulfate [ProAir HFA] 90 mcg/actuation Hfa Aerosol Inhaler 2 puff INHALATION PRN PRNRF: 0 albuterol sulfate 2.5 mg /3 mL (0.083 %) solution for nebulization 2.5 mg inhalation Q4H PRN PRNRF: 0 lorazepam 1 mg tablet 2 mg PO DIRECTED RF: 0 Discharge Instructions Instructions: Furosemide (By mouth), Prednisone (By mouth), Cor Pulmonale (DC), How to Stop Smoking (DC), Lupus Erythematosus (DC), Pulmonary Arterial Hypertension (DC), How Your Lungs Work (DC) Additional Instructions: You must stop smoking! Follow a low sodium diet. Weigh yourself daily. Call your PCP if you are noticing that you have gained 3 or more lbs in 3 days - you will need an increased dose of lasix. Finish your prednisone taper as prescribed. Return to the hospital with any fever, bleeding, chest pain, shortness of breath. Follow up with your PCP, [facility] pulmonology as scheduled and with cardiology. follow up for stress echocardiogram at [facility]. Blood work in 1 week. Use your pulse oximeter (works best if you are do not have gel nails or nail zimbabwean) to monitor your oxygen saturation at home. Come to the ED if you are noticing O2 saturations of 88% or less. Stand Alone Forms: Nursing Discharge Form Referrals: Hardeep Oropeza NP [Primary Care Provider] - Lloyd Lilly MD [ CONSULTING PHYSICIAN] - 03/01/21 10:40 am Activity:: Activity as Tolerated Equipment/Supplies:: pulse oximeter Diet:: Low Sodium Discharge Orders Discharge Orders: Discharge Order (Routine); Ordered 02/07/21 Ordered By: Jessenia Keen Other Ambulatory Orders: Basic Metabolic Panel (Routine) Timeframe: 1 Week Facility: [facility] - Location: Laboratory Outpatient Ordered By: Jessenia Keen echocardiogram stress (Routine) Timeframe: 2 Weeks Location: [facility] Ordered By: Jessenia Keen DS: Summary Time Spent with Patient providing and/or coordinating discharge services: Greater than 30 minutes Status at Discharge Functional status at discharge: independent ambulation Overall status at discharge: patient is progressing back to baseline Mental Status: mental status grossly normal Speech and Movement: speech and movement normal Mood: congruent mood Affect: normal affect Exam Narrative Exam Narrative: General: A&Ox3, NAD HEENT: EOMI, MMM Heart: RRR, no m/r/g Lungs: crackles at B bases, slight expiratory squeek, no wheezing, overall sounds better than yesterday Abdomen: soft, nontender, nondistended Extremities: trace pitting edema BLE's, improved from yesterday. Psych Mental Status: mental status grossly normal Speech and Movement: speech and movement normal Mood: congruent mood Affect: normal affect DS: Data Vitals/I&O Vitals and I&O: Vital Signs Temperature 36.0 C L 02/07/21 08:04 Temperature Source Tympanic 02/07/21 08:04 Pulse 76 02/07/21 08:04 Pulse Rhythm Regular 02/07/21 08:42 Pulse 85 02/01/21 14:01 Respiratory Rate 20 02/07/21 08:04 Respiratory Effort Non-Labored 02/07/21 08:42 Respiratory Depth Normal 02/07/21 08:42 Respiratory Pattern Normal 02/07/21 08:42 Blood Pressure 117/79 02/07/21 08:04 Blood Pressure Mean 113 02/01/21 14:01 Blood Pressure Position Sitting 02/01/21 09:38 Pulse Oximetry 94 02/07/21 08:04 Oxygen Delivery Method Nasal Cannula 02/07/21 08:04 Oxygen Flow Rate 1 02/07/21 08:04 Fraction of Inspired Oxygen (FIO2) 35 02/01/21 15:05 Pain Level 0 02/07/21 12:15 Comment 02/07/21 12:15 Intake & Output 02/06/21 02/07/21 02/07/21 23:59 11:59 23:59 Intake Total 503.5 / 963.5 1030 / 1580 550 / 1580 Output Total 1500 / 2300 Balance -996.5 / -1336.5 1030 / 1580 550 / 1580 Weight 106.7 kg Intake: IV 133.5 / 233.5 Oral 370 / 730 1030 / 1580 550 / 1580 Output: Urine 1500 / 2300 Other: Urine Color Yellow Urine Appearance Clear Clear Urine Odor Normal Comment Per pt. report, void x1 in the toilet. Stool Size Large Voiding Methods Toilet Toilet Data Completed and Pending Completed studies during hospitalization [Text1]: CXR 01/31/21: Increasing interstitial disease. There is a chronic component but probably superimposed additional disease and possible also some developing confluent infiltrate in the right lung base.No pleural effusions. CTA chest 01/31/21:1. Compared to the CT scan of 11/14/2020 there is again noted bilateral fibrotic interstitial disease..However, the main new findings extensive bilateral grossman lobar ground-glass infiltrates which were not evident 3 months ago and are not associated with pleural effusions. There is some hilar adenopathy bilaterally. Also some mediastinal adenopathy. First consideration is for infectious etiology including Covid-19. Appropriate testing recommended. 2. No evidence of pulmonary emboli. Enlarged pulmonary arteries are noted indicating an element of pulmonary hypertension in this patient has fibrotic pulmonary disease. 3. Other findings as above. Echo: Normal left ventricular wall thickness and chamber size. Estimated ejection fraction is 55 to 60%. Wall motion is normal Normal right ventricular size and systolic function Both atria are normal in size Aortic valve is trileaflet and moderately sclerotic. There is no aortic stenosis. There is moderate aortic regurgitation Thickened mitral leaflets, trace to mild mitral regurgitation Normal tricuspid valve with moderate regurgitation. Estimated right ventricular systolic pressure is 42 mmHg Normal pulmonic valve, moderate pulmonic regurgitation Mildly dilated ascending aorta CXR: Cardiomegaly. Extensive bilateral diffuse interstitial disease again noted. No associated pleural effusions. Pending studies at discharge: Anti-SM, Anti-J[employer]IT[employer] MAINTENANCE WORKER, RA factor Labs on day of discharge: Labs from last 24 hours 02/07/21 02/05/21 02/05/21 06:45 07:00 07:00 Sodium 140 Potassium 4.0 Chloride 103 Carbon Dioxide 30.0 Anion Gap 7.0 BUN 40 H Creatinine 0.8 Estimated GFR/1.73 m2 >= 60.00 Glucose 121 H Calcium 9.2 Magnesium 2.6 H JAISON Titer 1:640 Speckled JAISON Titer 2 Not Applicable JAISON Titer 3 Not Applicable JAISON Interpretation Positive A Scl-70 IgG Ab 0.3 PFSH Medical History (Updated 02/07/21 @ 14:32 by Jessenia Keen MD) Adjustment disorder Asthma Cervical cancer Hyperparathyroidism Hypothyroid Interstitial lung disease Surgical History History of gastric bypass Social History Smoking/Tobacco Use Status: Former Tobacco Use Quit Date: 01/26/21 Smoking risk assessment performed?: Yes Alcohol Intake: current Alcohol Intake frequency: a few times a week Drug use: Never Do you feel safe at home: Yes Do you feel safe in your relationship?: Yes
[2021-02-07 14:55] VITALS: PULSE 115; PULSE 82; PULSE 87; RESP 20; RESP 24; O2SAT 90; O2SAT 94
[2021-02-07 15:30] VITALS: BP 109/72; PULSE 82; RESP 17; TEMP 36.5; O2SAT 91
[2021-02-07 21:26] LABS: Rheumatoid Factor <8.6 IU/mL (<12.0)
[2021-02-08 12:15] LABS: RNP Ab, IgG 35.7 Units (<20.0)
[2021-02-08 12:25] LABS: Sm (Smith) Ab, IgG 10.5 Units (<20.0)
== END 2021-02-07 16:37 | disposition home or self-care (01) | DRG 280 ==
LOC: ER 23:21 → ICU 23:57 → MS 02-01 17:41
PROVIDERS: Family Medicine; Internal Medicine; Admitting Provider Internal Medicine; Emergency Provider Physician Assistant; PCP Nurse Practitioner Family; Visit Provider Internal Medicine
DX: I21.A1 Myocardial infarction type 2 (principal); J18.9 Pneumonia, unspecified organism; J96.01 Acute respiratory failure with hypoxia; J84.9 Interstitial pulmonary disease, unspecified; J44.0 Chronic obstructive pulmonary disease with (acute) lower respiratory infection; J45.901 Unspecified asthma with (acute) exacerbation; Z68.41 Body mass index [BMI] 40.0-44.9, adult; F17.210 Nicotine dependence, cigarettes, uncomplicated; E03.9 Hypothyroidism, unspecified; E21.3 Hyperparathyroidism, unspecified; Z98.84 Bariatric surgery status; Z20.822 Contact with and (suspected) exposure to COVID-19; I27.29 Other secondary pulmonary hypertension; I08.2 Rheumatic disorders of both aortic and tricuspid valves; E87.6 Hypokalemia; E66.01 Morbid (severe) obesity due to excess calories; K21.9 Gastro-esophageal reflux disease without esophagitis
CPT/HCPCS: 36415; 71275; 80048; 80053; 80061; 82550; 84145; 87081; 87449; 87635; 93005; 94618; 94640; 96361; 96365; 96366; 96368; 96375; 99285; J1650; 71045; 71046; 83605; 83735; 83880; 84439; 84443; 84484; 85025; 85049; 85379; 85610; 85730; 86038; 86140; 86225; 86235; 86431; 87070; 87205; 87581; 87899; 93010; 93306; 99223; 99232; 99233; 99239; J0456; J0696; J1940; J1941; J2060; J2930; J3490; J7512; J7614; J7620; J7644

== ENCOUNTER 2021-02-13 12:33 | Outpatient (REF) | payer MEDICAID, SELFPAY ==
[2021-02-13 19:56] LABS: Anion Gap 9.3 mmol/L (3-11); BUN 26 mg/dL (7-18); CO2 30.7 mmol/L (21.0-32.0); CREATININE 1.1 mg/dL (0.55-1.02); Calcium 9.3 mg/dL (8.5-10.1); Chloride 102 mmol/L (98-107); Estimated GFR 52.16 (mL/min/1.73m2); Glucose 112 mg/dL (74-106); Sodium 142 mmol/L (136-145)
== END 2021-02-13 12:34 | disposition home or self-care (01) ==
LOC: NCHCN 12:33
PROVIDERS: PCP Nurse Practitioner Family; Visit Provider Nurse Practitioner Family
DX: Z51.81 Encounter for therapeutic drug level monitoring (principal)
CPT/HCPCS: 80048

== ENCOUNTER 2021-02-23 12:11 | Observation (INO) | payer MEDICAID, SELFPAY ==
[2021-02-23] VITALS (29 sets, daily range): BP systolic 103–129; BP diastolic 69–89; PULSE 71–123; RESP 1–38; TEMP 36–36.5; O2SAT 81–100
--- NOTE | 2021-02-23 12:00 | RT.EKG_ITS ---
APPROVED REPORT Exam: Resting ECG Reason for Exam: COPD Patient Location: E HR:93 bpm ECG Measurements Heart Rate 93 AXIS AK 136 P 33 QRSd 96 QRS -8 QT 334 T 9 QTc 415 Conclusion Sinus rhythm...normal P axis, V-rate 60- 99 Probable left ventricular hypertrophy...(RaVL+SV3)xQRSd >300
[2021-02-23] MEDS: Albuterol/Ipratropium 3 ML UPD VIAL (12:32)
[2021-02-23 12:44] LABS: Abs Immature Grans 0.05 10^3/uL (0.0-0.06); Absolute Basophil Count 0.02 10^3/uL (0.0-0.2); Absolute Eosinophil Count 0.34 10^3/uL (0.0-0.7); Absolute Monocyte Count 0.93 10^3/uL (0.1-0.8); Absolute Neutrophil Count 5.86 10^3/uL (1.2-6.7); Basophils % 0.2; Eosinophils % 3.8; HCT 40.8 % (36.0-46.0); HGB 13.2 g/dL (11.2-15.7); Immature Grans % 0.6; Lymphocytes % 19.1; MCH 29.1 pg (27.0-33.0); MCHC 32.4 % (32.0-36.0); MCV 89.9 fL (80-95); MPV 10.1 fL (8.0-11.0); Monocytes % 10.4; Neutrophils % 65.9; Nucleated RBC 0 %; RBC 4.54 10^6/uL (3.93-5.22); RDW-SD 42.7 fL
[2021-02-23 12:58] LABS: Diff Comment Diff Reviewed; RBC Morphology Normal
--- NOTE | 2021-02-23 13:00 | DI.RAD_ITS ---
Exam(s) XR CHEST 2V PA LATERAL EXAM: XR CHEST 2V PA LATERAL CLINICAL HISTORY: shortness of breath TECHNIQUE: 2D digital imaging was performed. COMPARISON: CT CT CHEST HIGH RESOLUTION from 11/14/[address] CHEST HIGH RESOLUTION from 11/14/2020 CR,XR XR PORTABLE CHEST AP from 01/31/2021 CR,XR XR PORTABLE CHEST AP from 01/31/2021 CR,XR XR CHEST 2V PA LATERAL from 02/04/2021 FINDINGS: There are low lung volumes. Extensive pulmonary fibrosis is noted. No superimposed infiltrate is vi sible. No effusion is present. The heart size is unchanged. There is no pneumothorax. IMPRESSION: Fibrotic changes. No acute abnormality. DATA REPOSITORY: RADIATION DOSE DELIVERED:
[2021-02-23 13:01] LABS: ALT 33 U/L (14-59); AST 16 U/L (15-37); Albumin 2.8 g/dL (3.4-5.0); Alkaline Phosphatase 84 U/L (46-116); Anion Gap 10.3 mmol/L (3-11); BUN 20 mg/dL (7-18); Bilirubin, Total 0.3 mg/dL (0.2-1.0); CO2 27.7 mmol/L (21.0-32.0); CREATININE 1.1 mg/dL (0.55-1.02); Calcium 8.8 mg/dL (8.5-10.1); Chloride 103 mmol/L (98-107); Estimated GFR 52.16 (mL/min/1.73m2); Glucose 102 mg/dL (74-106); Magnesium 1.9 mg/dL (1.8-2.4); NT-proBNP 85 pg/mL (<300); Potassium 4.3 mmol/L (3.5-5.1); Sodium 141 mmol/L (136-145); Total Protein 7.1 g/dL (6.4-8.2); Troponin I < 0.05 ng/mL (<0.06)
--- NOTE | 2021-02-23 14:48 | ED.GENADUL_ITS ---
Discharge Plan Disposition Condition: Improving Discharge Details Chief Complaint: SOB Admit Date/Time: 02/23/21 15:31 Admit Provider: Shola Hsieh Attending Provider: Shola Hsieh Primary Care Provider: Hardeep Oropeza ED Provider: Lisbeth Guadalupe Discharge Instructions Activity:: Activity as Tolerated Equipment/Supplies:: Oxygen (L/min Below) Diet:: Low Sodium Discharge Orders Discharge Orders: Discharge Order (Routine); Ordered 02/24/21 Ordered By: Shyla Ray Discharge Data Discharge Date/Time-TO BE ENTERED AT DEPARTURE: 02/23/21 16:01 Medical Decision Making <KEON Patterson - Last Filed: 02/24/21 20:33> Patient is tachypneic with crackles throughout although no evidence of infectious etiology of patient's symptoms on her chest x-ray She does exhibit mild improvement after DuoNeb EMS had a administer DuoNeb and Solu-Medrol prior to arrival with symptomatic improvement Unfortunately patient is markedly tachypneic?max with any sort of exertion I did ambulate her around the emergency room and she was very symptomatic She has been tachycardic in the 120s with exertion Patient is scheduled for pulmonology appointment, however not until 27 February and they are concerned that she is not able to ambulate around their home She became very symptomatic in terms of symptoms consistent with presyncope and think she benefit from admission and IV steroids and nebs Did order D-dimer which was still pending at this time given her persistent tachycardia, however this was secondary to breathing Respiratory did also evaluate the patient initially her presentation was likely more consistent with CHF, however she has a normal BNP without evidence of obvious volume overload on her chest x-ray and relatively benign echocardiogram with ejection fraction of 55 to 60% on 04 February She also had a CTA at this time it was negative for acute abnormality Should not needed oxygen therapy and at rest she actually have a oxygen saturation of 94% She was given two DuoNeb's in the emergency room She has received Solu-Medrol I did discuss with Sierra Escobedo, admitting hospitalist who is agreeable to admission at this time D-dimer was slightly elevated, 600, discussed with admitting hospitalist and will hold per Sierra on CTA at this time, later suspicion for pulmonary embolism clinically Covid pending and ddimer pending Chest x-ray today per radiology interpretations of pulmonary fibrosis without evidence of overt infectious etiology therefore no antibiotics were initiated time Medical Records Medical records reviewed: Yes I reviewed the patient's medical records. Lab Data Lab results reviewed: Yes I reviewed the patient's lab results. ECG Data Prior ECG tracings: available for review <Fabrice Parra MD - Last Filed: 02/25/21 10:38> Patient seen, examined, and discussed with KEON Gee. Chest x-ray concerning for pulmonary fibrosis. Plan to admit for further treatment. I agree with treatment plan as discussed/documented. HPI <KEON Patterson - Last Filed: 02/24/21 20:33> General Mode of arrival: ambulatory . Date/Time Provider Initiated Documentation: 02/23/21 12:17 . Limitations to Documentation: no limitations . Information obtained by: patient . HPI Narrative: 50-year-old female with history of COPD, non-ST elevation [place], pulmonary hypertension, cor pulmonale, tricuspid regurgitation, moderate aortic regurgitation presents with report of worsening shortness of breath. Patient states she had recent admission to the hospital with COPD. She states she been using Advair twice a day and her rescue inhaler as needed. She states that she became worse this week. Has been patient states she is unable to take 1-2 steps without being very short of breath. Been no fever or chills. Patient denies any new cough. She denies any known sick contacts. She is up-to-date on her Covid vaccine. She denies prior history of coagulopathy and is not anticoagulated. Her symptoms are exacerbated with any sort of exertion. She stopped smoking approximately a month ago. She denies any discomfort. She states that nebs are helping her symptoms. Related Data Home Medications Medication Instructions Recorded Confirmed amitriptyline 50 mg PO HS 05/06/19 02/23/21 cholecalciferol (vitamin D3) 1,000 unit PO DAILY 05/06/19 02/23/21 [Vitamin D3] levothyroxine 25 mcg capsule 25 mcg PO DAILY 06/21/19 06/21/19 nicotine 21 mg/24 hr daily 1 patch TD DAILY 06/21/19 06/21/19 transdermal patch Chantix Continuing Month Box 1 mg PO BID 01/31/21 01/31/21 citalopram 20 mg PO DAILY 01/31/21 02/23/21 ondansetron 4 mg PO Q6H PRN 01/31/21 01/31/21 pantoprazole 40 mg PO DAILY 01/31/21 02/23/21 Nicotrol 1 inh INHALATION Q2H PRN PRN #168 02/07/21 ea aspirin 81 mg PO DAILY #30 tab 02/07/21 cetirizine 10 mg PO HS #30 tab 02/07/21 furosemide 80 mg PO BID@0830,1600 #28 tab 02/07/21 02/23/21 levalbuterol HCl 0.63 mg UPD Q4H PRN PRN #90 ml 02/07/21 lisinopril 20 mg PO DAILY #30 tab 02/07/21 melatonin 10 mg PO HS PRN #30 cap 02/07/21 montelukast 10 mg PO QPM #30 tab 02/07/21 Bariatric Multivitamins 1 cap PO DAILY 02/23/21 02/23/21 albuterol sulfate [ProAir HFA] 2 inh INHALATION Q4-5H PRN 02/23/21 02/23/21 fluticasone propion-salmeterol 1 inh INHALATION BID 02/23/21 02/23/21 [Advair Diskus] fluticasone propionate 1 spray NS BID 02/23/21 02/23/21 levalbuterol HCl [Xopenex] 0.63 mg INHALATION Q4H PRN PRN #72 02/24/21 ml Previous Rx's Medication Instructions Recorded Nicotrol 1 inh INHALATION Q2H PRN PRN #168 02/07/21 ea aspirin 81 mg PO DAILY #30 tab 02/07/21 cetirizine 10 mg PO HS #30 tab 02/07/21 furosemide 80 mg PO BID@0830,1600 #28 tab 02/07/21 levalbuterol HCl 0.63 mg UPD Q4H PRN PRN #90 ml 02/07/21 lisinopril 20 mg PO DAILY #30 tab 02/07/21 melatonin 10 mg PO HS PRN #30 cap 02/07/21 montelukast 10 mg PO QPM #30 tab 02/07/21 levalbuterol HCl [Xopenex] 0.63 mg INHALATION Q4H PRN PRN #72 02/24/21 ml Allergies Allergy/AdvReac Type Severity Reaction Status Date / Time environmental AdvReac Mild Uncoded 02/23/21 12:17 General Stated Complaint: SOB RUTH ANN: 2 Review of Systems <KEON Patterson - Last Filed: 02/24/21 20:33> All systems reviewed & are unremarkable except as noted in HPI and below PFSH <KEON Patterson - Last Filed: 02/24/21 20:33> Medical History Adjustment disorder Asthma Cervical cancer Hyperparathyroidism Hypothyroid Interstitial lung disease Surgical History History of gastric bypass Social History Smoking/Tobacco Use Status: Former Tobacco Use Quit Date: 01/26/21 Smoking risk assessment performed?: Yes Alcohol Intake: current Alcohol Intake frequency: a few times a week Drug use: Never Substance use type: does not use Do you feel safe at home: Yes Do you feel safe in your relationship?: Yes Exam <KEON Patterson - Last Filed: 02/24/21 20:33> Const General: acute distress Eyes Sclera: sclerae normal Neck Neck: no JVD Chest Chest: normal inspection of the chest Resp Effort & Inspection: able to speak in complete sentences Auscultation: crackles Cardio Rate: regular rate Rhythm: regular rhythm Skin General skin exam: no rashes or lesions noted Neuro General: patient alert and patient oriented x3 Cranial Nerves: CN's II-XI intact bilaterally Extrem Other: no peripheral edema Distal pulses intact Course <KEON Patterson - Last Filed: 02/24/21 20:33> Vital Signs Vital signs: Vital Signs Temperature 36.4 C L 02/23/21 12:10 Pulse 101 H 02/23/21 12:10 Respiratory Rate 02/23/21 12:10 Blood Pressure 104/89 02/23/21 12:10 Pulse Oximetry 95 02/23/21 12:10 Temperature 36.4 C L 02/23/21 12:10 Temperature Source Skin 02/23/21 12:10 Pulse 107 H 02/23/21 13:04 Pulse 104 H 02/23/21 14:20 Respiratory Rate 22 02/23/21 14:20 Respiratory Effort Incrsd Work of Breathing 02/23/21 12:19 Respiratory Depth Normal 02/23/21 12:19 Respiratory Pattern Tachypnea 02/23/21 12:19 Blood Pressure 104/89 02/23/21 12:16 Blood Pressure Mean 25 02/23/21 13:04 Blood Pressure Position Sitting 02/23/21 12:10 Pulse Oximetry 93 02/23/21 14:20 Oxygen Delivery Method Room Air 02/23/21 12:32 Oxygen Flow Rate 0 02/23/21 12:32 Pain Level 0 02/23/21 12:10 Lab/Test Results Lab/Test Results: Laboratory Tests Range/Units 02/23/21 02/23/21 12:30 12:30 WBC (4.4-10.8) 10^3/uL 8.90 RBC (3.93-5.22) 10^6/uL 4.54 Hgb (11.2-15.7) g/dL 13.2 Hct (36.0-46.0) % 40.8 MCV (80-95) fL 89.9 MCH (27.0-33.0) pg 29.1 MCHC (32.0-36.0) % 32.4 RDW (11.7-14.6) % 13.0 Plt Count (130-400) 10^3/uL MPV (8.0-11.0) fL 10.1 Immature Gran % 0.6 Neutrophils % 65.9 Lymphocytes % 19.1 Monocytes % 10.4 Eosinophils % 3.8 Basophils % 0.2 Nucleated RBC % % 0 Absolute Neutrophils (1.2-6.7) 10^3/uL 5.86 Absolute Lymphocytes (1.2-3.4) 10^3/uL 1.70 Absolute Monocytes (0.1-0.8) 10^3/uL 0.93 H Absolute Eosinophils (0.0-0.7) 10^3/uL 0.34 Absolute Basophils (0.0-0.2) 10^3/uL 0.02 RBC Morphology Normal Sodium (136-145) mmol/L 141 Potassium (3.5-5.1) mmol/L 4.3 Chloride (98-107) mmol/L 103 Carbon Dioxide (21.0-32.0) mmol/L 27.7 Anion Gap (3-11) mmol/L 10.3 BUN (7-18) mg/dL 20 H Creatinine (0.55-1.02) mg/dL 1.1 H Estimated GFR/1.73 m2 (mL/min/1.73m2) 52.16 Glucose (74-106) mg/dL 102 Calcium (8.5-10.1) mg/dL 8.8 Magnesium (1.8-2.4) mg/dL 1.9 Total Bilirubin (0.2-1.0) mg/dL 0.3 AST (15-37) U/L 16 ALT (14-59) U/L 33 Alkaline Phosphatase (46-116) U/L 84 Troponin I (<0.06) ng/mL < 0.05 NT-Pro-B Natriuret Pep (<300) pg/mL 85 Total Protein (6.4-8.2) g/dL 7.1 Albumin (3.4-5.0) g/dL 2.8 L
[2021-02-23] MEDS: Albuterol/Ipratropium 3 ML UPD VIAL UPD (15:02)
--- NOTE | 2021-02-23 15:28 | HPE_ITS ---
Date of service: 02/23/21 Time of Service: 15:29 Assessment and Plan Assessment and plan (1) Cor pulmonale: Status: Acute Assessment and plan: admit to med/surg unit. continue diuretics bid. monitor I&O, daily weights. Her BNP 85, troponin negative, repeat pending. no evidence of failure on CXR last echo in January Conclusion Normal left ventricular wall thickness and chamber size. Estimated ejection fraction is 55 to 60%. Wall motion is normal Normal right ventricular size and systolic function Both atria are normal in size Aortic valve is trileaflet and moderately sclerotic. There is no aortic stenosis. There is moderate aortic regurgitation Thickened mitral leaflets, trace to mild mitral regurgitation Normal tricuspid valve with moderate regurgitation. Estimated right ventricular systolic pressure is 42 mmHg Normal pulmonic valve, moderate pulmonic regurgitation Mildly dilated ascending aorta (2) Interstitial lung disease: Status: Chronic Assessment and plan: continue high dose steroids. oxygen for comfort to keep sats 90-92% awaiting pulmonology consultation, has an appointment and PFT scheduled at [facility] on March 06, 2021 (3) Obesity, morbid, BMI 40.0-49.9: Status: Chronic Assessment and plan: heart healthy diet (4) TSH (thyroid-stimulating hormone deficiency): Status: Acute Assessment and plan: TSH in January 16. continue home synthroid (5) DVT prophylaxis: Status: Acute Assessment and plan: enoxaparin, teds scds (6) Discharge planning issues: Status: Acute Assessment and plan: home when medically stable case management will be following discussed with Dr Hsieh History of Present Illness History of Present Illness Chief Complaint: shortness of breath Narrative: patient states she has ongoing sob with activity, no worsened since discharge, just ongoing. she called 911 and was given updrafts and iv steroids en route. she had no oxygen requirements, labs and chest xray unremarkable. she and her refused discharge and stated they would return by 911 if discharged. on exam she is resting comfortably in bed, talking in full sentences, no dyspnea or tachypnea. she is admitted under hospitalist services for further management and monitoring. Review of Systems All systems reviewed & are unremarkable except as noted in HPI and below Cardiovascular Cardiovascular: Reports dyspnea on exertion Respiratory Respiratory: Reports cough and Reports dyspnea on exertion [facility] Medical History (Updated 02/23/21 @ 16:12 by Sierra Escobedo NP) Adjustment disorder Asthma Cervical cancer Hyperparathyroidism Hypothyroid Interstitial lung disease Surgical History History of gastric bypass Social History Smoking/Tobacco Use Status: Former Tobacco Use Quit Date: 01/26/21 Smoking risk assessment performed?: Yes Alcohol Intake: current Alcohol Intake frequency: a few times a week Drug use: Never Substance use type: does not use Do you feel safe at home: Yes Do you feel safe in your relationship?: Yes Meds Allergies and Home Medications Allergies Allergy/AdvReac Type Severity Reaction Status Date / Time environmental AdvReac Mild Uncoded 02/23/21 12:17 Home Medications Medication Instructions Recorded Confirmed Type amitriptyline 50 mg PO HS 05/06/19 02/23/21 History cholecalciferol (vitamin D3) 1,000 unit PO DAILY 05/06/19 02/23/21 History [Vitamin D3] levothyroxine 25 mcg capsule 25 mcg PO DAILY 06/21/19 06/21/19 History nicotine 21 mg/24 hr daily 1 patch TD DAILY 06/21/19 06/21/19 History transdermal patch Chantix Continuing Month Box 1 mg PO BID 01/31/21 01/31/21 History citalopram 20 mg PO DAILY 01/31/21 02/23/21 History ondansetron 4 mg PO Q6H PRN 01/31/21 01/31/21 History pantoprazole 40 mg PO DAILY 01/31/21 02/23/21 History aspirin 81 mg PO DAILY #30 tab 02/07/21 Rx cetirizine 10 mg PO HS #30 tab 02/07/21 Rx furosemide 80 mg PO BID@0830,1600 #28 tab 02/07/21 02/23/21 Rx levalbuterol HCl 0.63 mg UPD Q4H PRN PRN #90 ml 02/07/21 Rx lisinopril 20 mg PO DAILY #30 tab 02/07/21 Rx melatonin 10 mg PO HS PRN #30 cap 02/07/21 Rx montelukast 10 mg PO QPM #30 tab 02/07/21 Rx nicotine [Nicotrol] 1 inh INHALATION Q2H PRN PRN #168 02/07/21 Rx ea albuterol sulfate 2.5 mg INHALATION Q4-5H PRN 02/23/21 02/23/21 History albuterol sulfate [ProAir HFA] 2 inh INHALATION Q4-5H PRN 02/23/21 02/23/21 History fluticasone propion-salmeterol 1 inh INHALATION BID 02/23/21 02/23/21 History [Advair Diskus] fluticasone propionate 1 spray NS BID 02/23/21 02/23/21 History [id number]-FA-vit K 1 cap PO DAILY 02/23/21 02/23/21 History [Bariatric Multivitamins] Exam Const General: no acute distress, disheveled and ill appearing chronically Nutritional Appearance: obese Orientation: alert, awake and oriented x3 HENMT Head: normal to inspection, normocephalic and atraumatic Mouth: oral mucosae normal Teeth and gingiva: poor dentition (many missing teeth) Resp Effort & Inspection: normal respiratory effort and able to speak in complete sentences Auscultation: rales bilaterally at the base Cardio Rate: regular rate Rhythm: regular rhythm Skin General skin exam: no rashes or lesions noted Neuro General: patient alert, patient awake and patient oriented x3 Extrem General: normal to inspection and full ROM Psych Mood: irritable mood (easily agitated) Results Labs Result diagrams: 02/23/21 12:30 02/23/21 12:30 Labs: Laboratory Results - last 24 hr 02/23/21 02/23/21 12:30 12:30 WBC 8.90 RBC 4.54 Hgb 13.2 Hct 40.8 MCV 89.9 MCH 29.1 MCHC 32.4 RDW 13.0 Plt Count MPV 10.1 Immature Gran % 0.6 Neutrophils % 65.9 Lymphocytes % 19.1 Monocytes % 10.4 Eosinophils % 3.8 Basophils % 0.2 Nucleated RBC % 0 Absolute Neutrophils 5.86 Absolute Lymphocytes 1.70 Absolute Monocytes 0.93 H Absolute Eosinophils 0.34 Absolute Basophils 0.02 RBC Morphology Normal Sodium 141 Potassium 4.3 Chloride 103 Carbon Dioxide 27.7 Anion Gap 10.3 BUN 20 H Creatinine 1.1 H Estimated GFR/1.73 m2 52.16 Glucose 102 Calcium 8.8 Magnesium 1.9 Total Bilirubin 0.3 AST 16 ALT 33 Alkaline Phosphatase 84 Troponin I < 0.05 NT-Pro-B Natriuret Pep 85 Total Protein 7.1 Albumin 2.8 L Last Vital Signs Temp 36.4 C L 02/23/21 12:10 Pulse 107 H 02/23/21 13:04 Resp 17 02/23/21 15:20 BP 104/89 02/23/21 12:16 Pulse Ox 96 02/23/21 14:50
[2021-02-23 15:35] LABS: Source Nasal/Nares
[2021-02-23 15:49] LABS: D-Dimer 614 ng/mlFEU (<500)
[2021-02-23 16:09] LABS: Troponin I < 0.05 ng/mL (<0.06)
[2021-02-23 16:32] LABS: COVID-19 PCR Negative (Negative)
[2021-02-23] MEDS: methylPREDNISolone SUCC 125 MG VIAL 80 MG IVP ×2 (18:02→23:44)
[2021-02-23] MEDS: Melatonin 3 MG TAB 9 MG PO (21:33)
[2021-02-23] MEDS: Acetaminophen 325 MG TAB 650 MG PO (21:34)
[2021-02-23] MEDS: Amitriptyline 50 MG TAB PO (21:34)
[2021-02-23] MEDS: Cetirizine 10 MG TAB PO (21:34)
[2021-02-23] MEDS: Budesonide/Formoterol 160/4.5 6 GM 60 PUFF INH IH (21:37)
[2021-02-23] MEDS: Montelukast 10 MG TAB PO (21:37)
[2021-02-23] MEDS: Fluticasone NASAL SPRAY 16 GM BTL NS (21:37)
[2021-02-23] MEDS: Furosemide 80 MG TAB PO (23:44)
[2021-02-24] MEDS: Levalbuterol 0.63 MG/3 ML UPD VIAL UPD ×2 (05:07→09:05)
[2021-02-24] MEDS: Levothyroxine 25 MCG TAB PO (05:41)
[2021-02-24 07:00] LABS: Abs Immature Grans 0.07 10^3/uL (0.0-0.06); Absolute Basophil Count 0.01 10^3/uL (0.0-0.2); Absolute Lymphocyte Count 0.59 10^3/uL (1.2-3.4); Absolute Monocyte Count 0.14 10^3/uL (0.1-0.8); Absolute Neutrophil Count 8.75 10^3/uL (1.2-6.7); Basophils % 0.1; HCT 40.1 % (36.0-46.0); HGB 12.8 g/dL (11.2-15.7); Immature Grans % 0.7; Lymphocytes % 6.2; MCH 28.6 pg (27.0-33.0); MCHC 31.9 % (32.0-36.0); MCV 89.5 fL (80-95); MPV 10.1 fL (8.0-11.0); Monocytes % 1.5; Neutrophils % 91.5; Nucleated RBC 0 %; Platelet Count 192 10^3/uL (130-400); RBC 4.48 10^6/uL (3.93-5.22); RDW-SD 42.7 fL; WBC 9.56 10^3/uL (4.4-10.8)
[2021-02-24 07:18] LABS: Anion Gap 9.2 mmol/L (3-11); BUN 25 mg/dL (7-18); CO2 27.8 mmol/L (21.0-32.0); Calcium 9.6 mg/dL (8.5-10.1); Chloride 104 mmol/L (98-107); Estimated GFR 58.22 (mL/min/1.73m2); Glucose 163 mg/dL (74-106); Potassium 4.3 mmol/L (3.5-5.1); Sodium 141 mmol/L (136-145)
[2021-02-24 07:53] VITALS: BP 118/65; PULSE 67; RESP 17; TEMP 36.1; O2SAT 94
[2021-02-24] MEDS: Lisinopril 20 MG TAB PO (08:01)
[2021-02-24] MEDS: Multivitamin w/Minerals TAB 1 TAB PO (08:01)
[2021-02-24] MEDS: Furosemide 80 MG TAB PO (08:01)
[2021-02-24] MEDS: Acetaminophen 325 MG TAB 650 MG PO ×2 (08:01→12:39)
[2021-02-24] MEDS: Pantoprazole 40 MG TABCR PO (08:01)
[2021-02-24] MEDS: Cholecalciferol (Vitamin D3) 1,000 UNIT TAB 1000 UNITS PO (08:01)
[2021-02-24] MEDS: Aspirin E.C. 81 MG TABEC PO (08:01)
[2021-02-24] MEDS: Citalopram 20 MG TAB PO (08:01)
[2021-02-24] MEDS: methylPREDNISolone SUCC 125 MG VIAL 80 MG IVP (08:02)
[2021-02-24] MEDS: Normal Saline Flush 10 ML SYR IVP (08:02)
[2021-02-24] MEDS: Enoxaparin 40 MG/0.4 ML SYR SC (08:02)
[2021-02-24] MEDS: Fluticasone NASAL SPRAY 16 GM BTL NS (08:30)
[2021-02-24 09:05] VITALS: PULSE 68; RESP 1; RESP 18; RESP 8; O2SAT 94
[2021-02-24] MEDS: Budesonide/Formoterol 160/4.5 6 GM 60 PUFF INH IH (09:34)
[2021-02-24 10:39] VITALS: PULSE 110; PULSE 65; PULSE 70; PULSE 75; PULSE 95; RESP 16; RESP 18; RESP 20; O2SAT 84; O2SAT 89; O2SAT 90; O2SAT 92; O2SAT 94
--- NOTE | 2021-02-24 10:56 | W.PM.DS.N ---
Date of service: 02/24/21 Time of Service: 10:56 DS: Diagnosis Discharge Diagnosis (1) Cor pulmonale: Start date: 02/24/21 Start time: 11:01 Status: Chronic Asessment and Plan: Continue diuretics BID, she is requiring oxygen as ambulatory pulse ox reveals oxygen level of 85% on RA. She recovers with 2 L. She Should wear 2 Liters at all times when ambulating. Will have home oxygen set up through respiratory therapy. No evidence on failure this admission. (2) Interstitial lung disease: Start date: 02/24/21 Start time: 11:03 Status: Chronic Asessment and Plan: Just finished steroid taper. She does have nebulizer machine at home but dose prefer xoponex over albuterol, will switch her to this. Though her COPD is stable. She appears comfortable at rest, no change in sputum color, no wheezing or dyspnea Recommend f/u with Pulmonolgy (3) Obesity, morbid, BMI 40.0-49.9: Start date: 02/24/21 Start time: 11:06 Status: Chronic Asessment and Plan: With better breathing she will be able to work on trying to lose at least 10% her body wt. (4) TSH (thyroid-stimulating hormone deficiency): Start date: 02/24/21 Start time: 11:07 Status: Chronic Asessment and Plan: Continue home regimen above discussed with Dr. pardo. Discharge Plan Disposition Patient Disposition: HOME Condition: Improving Discharge Details Reason For Visit: Respiratory Failure Admit Date/Time: 02/23/21 15:31 Admit Provider: Shola Hsieh Attending Provider: Shola Hsieh Primary Care Provider: Hardeep Oropeza Hospital Course Hospital Course: 50 y.o female with PMH of TSH, Cor pulmonale, NSTEMI, Pulmonary HTN, ILD, COPD, asthma who presented to [facility] with c/o SOB with activity. Today ambulatory pulse ox revealed oxygen level of 85 when ambulating on RA. She required 2 L of oxygen getting her back up to 92%. She will require 2 L of oxygen at all times with ambulation. Recommend f/u with [employer]. Recommend f/u with PCP in 1-2 weeks. At this time she is stable. Her COPD is stable she has no wheezing, dyspnea or SOB with sitting still, no sputum changes. She is agreeable to discharge home with oxygen. She would like to be switched to xoponex from albuterol for her nebulizer. Home Meds and New Rx's Prescriptions: New levalbuterol HCl [Xopenex] 0.63 mg/3 mL solution for nebulization 0.63 mg inhalation Q4H PRN PRNQty: 72 RF: 0 Continued levothyroxine 25 mcg capsule 25 mcg PO DAILY RF: 0 nicotine [Nicoderm CQ] 21 mg/24 hr patch 24 hour 1 patch TD DAILY RF: 0 cholecalciferol (vitamin D3) [Vitamin D3] 1,000 unit Capsule 1,000 unit PO DAILY RF: 0 amitriptyline 50 mg Tablet 50 mg PO HS RF: 0 fluticasone propion-salmeterol [Advair Diskus] 250-50 mcg/dose blister with device 1 inh INHALATION BID RF: 0 albuterol sulfate [ProAir HFA] 90 mcg/actuation HFA aerosol inhaler 2 inh INHALATION Q4-5H PRNRF: 0 Bariatric Multivitamins 45 mg iron- 800 mcg-120 mcg Capsule 1 cap PO DAILY RF: 0 fluticasone propionate 50 mcg/actuation spray,suspension 1 spray NS BID RF: 0 pantoprazole 40 mg tablet,delayed release (DR/EC) 40 mg PO DAILY RF: 0 ondansetron 4 mg tablet,disintegrating 4 mg PO Q6H PRNRF: 0 citalopram 20 mg tablet 20 mg PO DAILY RF: 0 aspirin 81 mg Tablet,Delayed Release (Dr/Ec) 81 mg PO DAILY Qty: 30 RF: 0 cetirizine 10 mg Tablet 10 mg PO HS Qty: 30 RF: 0 furosemide 80 mg Tablet 80 mg PO BID@0830,1600 Qty: 28 RF: 0 levalbuterol HCl 0.63 mg/3 mL Solution For Nebulization 0.63 mg UPD Q4H PRN PRN (Reason: dyspnea, wheezing) Qty: 90 RF: 2 lisinopril 20 mg Tablet 20 mg PO DAILY Qty: 30 RF: 0 montelukast 10 mg Tablet 10 mg PO QPM Qty: 30 RF: 0 Nicotrol 10 mg Cartridge 1 inh inhalation Q2H PRN PRNQty: 168 RF: 0 melatonin 10 mg capsule 10 mg PO HS PRNQty: 30 RF: 0 Discontinued albuterol sulfate 2.5 mg /3 mL (0.083 %) solution for nebulization 2.5 mg inhalation Q4-5H PRNRF: 0 No Action Chantix Continuing Month Box 1 mg tablet 1 mg PO BID RF: 0 Discharge Instructions Instructions: Using Oxygen at Home (DC), Hypoxia (GEN) Additional Instructions: Use oxygen at all times when ambulating to keep oxygen level above 89% Follow up with your pcp in 1-2 weeks Recommend follow up with Pulmonology Activity:: Activity as Tolerated Equipment/Supplies:: Oxygen (L/min Below) Diet:: Low Sodium Discharge Orders Discharge Orders: Discharge Order (Routine); Ordered 02/24/21 Ordered By: Shyla Ray DS: Summary Time Spent with Patient providing and/or coordinating discharge services: Less than 30 minutes Status at Discharge Functional status at discharge: independent ambulation Overall status at discharge: patient is back to baseline Mental Status: mental status grossly normal Speech and Movement: speech and movement normal Mood: congruent mood Affect: normal affect Exam Const General: no acute distress, acute distress, disheveled and ill appearing chronically Nutritional Appearance: obese Orientation: alert, awake and oriented x3 HENMT Head: normal to inspection, normocephalic and atraumatic Mouth: oral mucosae normal Teeth and gingiva: poor dentition (many missing teeth) Eyes Sclera: sclerae normal Neck Neck: no JVD Chest Chest: normal inspection of the chest Resp Effort & Inspection: normal respiratory effort and able to speak in complete sentences Auscultation: crackles and rales bilaterally at the base Cardio Rate: regular rate Rhythm: regular rhythm Skin General skin exam: no rashes or lesions noted Neuro General: patient alert, patient awake and patient oriented x3 Cranial Nerves: CN's II-XI intact bilaterally Extrem General: normal to inspection and full ROM Psych Appearance: grossly normal Mental Status: mental status grossly normal Speech and Movement: speech and movement normal Mood: congruent mood Affect: normal affect DS: Data Vitals/I&O Vitals and I&O: Vital Signs Temperature 36.1 C L 02/24/21 07:53 Temperature Source Tympanic 02/24/21 07:53 Pulse 68 02/24/21 09:05 Pulse Rhythm Regular 02/24/21 06:27 Pulse 106 H 02/23/21 15:20 Respiratory Rate 18 02/24/21 09:05 Respiratory Effort Incrsd Work of Breathing 02/24/21 06:27 Respiratory Depth Normal 02/24/21 06:27 Respiratory Pattern Normal 02/24/21 06:27 Blood Pressure 118/65 02/24/21 07:53 Blood Pressure Mean 25 02/23/21 13:04 Blood Pressure Position Sitting 02/23/21 12:10 Pulse Oximetry 94 02/24/21 09:05 Oxygen Delivery Method Room Air 02/24/21 09:05 Oxygen Flow Rate 0 02/24/21 09:05 Pain Level 7 02/24/21 09:01 Intake & Output 02/23/21 02/23/21 02/24/21 11:59 23:59 11:59 Intake Total 620 / 620 Output Total 975 / 975 525 / 525 Balance -355 / -355 -525 / -525 Weight 107.048 kg 108.2 kg Intake: IV Oral 600 / 600 Output: Urine 975 / 975 525 / 525 Other: Urine Color Yellow Yellow Urine Appearance Clear Clear Urine Odor Normal Normal Comment Void x1 in the toilet. Voiding Methods Bedside Commode Toilet Data Completed and Pending Completed studies during hospitalization [Text1]: FINDINGS: There are low lung volumes. Extensive pulmonary fibrosis is noted. No superimposed infiltrate is visible. No effusion is present. The heart size is unchanged. There is no pneumothorax. IMPRESSION: Fibrotic changes. No acute abnormality. Labs on day of discharge: Labs from last 24 hours 02/24/21 02/24/21 02/23/21 06:20 06:20 15:45 WBC 9.56 RBC 4.48 Hgb 12.8 Hct 40.1 MCV 89.5 MCH 28.6 MCHC 31.9 L RDW 13.0 Plt Count 192 D MPV 10.1 Immature Gran % 0.7 Neutrophils % 91.5 Lymphocytes % 6.2 Monocytes % 1.5 Eosinophils % 0.0 Basophils % 0.1 Nucleated RBC % 0 Absolute Neutrophils 8.75 H Absolute Lymphocytes 0.59 L Absolute Monocytes 0.14 Absolute Eosinophils 0.00 Absolute Basophils 0.01 RBC Morphology D-Dimer Sodium 141 Potassium 4.3 Chloride 104 Carbon Dioxide 27.8 Anion Gap 9.2 BUN 25 H Creatinine 1.0 Estimated GFR/1.73 m2 58.22 Glucose 163 H Calcium 9.6 Magnesium Total Bilirubin AST ALT Alkaline Phosphatase Troponin I < 0.05 NT-Pro-B Natriuret Pep Total Protein Albumin COVID-19 Source SARS-CoV-2 (PCR) 02/23/21 02/23/21 02/23/21 15:30 15:00 12:30 WBC 8.90 RBC 4.54 Hgb 13.2 Hct 40.8 MCV 89.9 MCH 29.1 MCHC 32.4 RDW 13.0 Plt Count MPV 10.1 Immature Gran % 0.6 Neutrophils % 65.9 Lymphocytes % 19.1 Monocytes % 10.4 Eosinophils % 3.8 Basophils % 0.2 Nucleated RBC % 0 Absolute Neutrophils 5.86 Absolute Lymphocytes 1.70 Absolute Monocytes 0.93 H Absolute Eosinophils 0.34 Absolute Basophils 0.02 RBC Morphology Normal D-Dimer 614 H Sodium Potassium Chloride Carbon Dioxide Anion Gap BUN Creatinine Estimated GFR/1.73 m2 Glucose Calcium Magnesium Total Bilirubin AST ALT Alkaline Phosphatase Troponin I NT-Pro-B Natriuret Pep Total Protein Albumin COVID-19 Source Nasal/Nares SARS-CoV-2 (PCR) Negative 02/23/21 12:30 WBC RBC Hgb Hct MCV MCH MCHC RDW Plt Count MPV Immature Gran % Neutrophils % Lymphocytes % Monocytes % Eosinophils % Basophils % Nucleated RBC % Absolute Neutrophils Absolute Lymphocytes Absolute Monocytes Absolute Eosinophils Absolute Basophils RBC Morphology D-Dimer Sodium 141 Potassium 4.3 Chloride 103 Carbon Dioxide 27.7 Anion Gap 10.3 BUN 20 H Creatinine 1.1 H Estimated GFR/1.73 m2 52.16 Glucose 102 Calcium 8.8 Magnesium 1.9 Total Bilirubin 0.3 AST 16 ALT 33 Alkaline Phosphatase 84 Troponin I < 0.05 NT-Pro-B Natriuret Pep 85 Total Protein 7.1 Albumin 2.8 L COVID-19 Source SARS-CoV-2 (PCR) [facility] Medical History Adjustment disorder Asthma Cervical cancer Hyperparathyroidism Hypothyroid Interstitial lung disease Surgical History History of gastric bypass Social History Smoking/Tobacco Use Status: Former Tobacco Use Quit Date: 01/26/21 Smoking risk assessment performed?: Yes Alcohol Intake: current Alcohol Intake frequency: a few times a week Drug use: Never Substance use type: does not use Do you feel safe at home: Yes Do you feel safe in your relationship?: Yes
--- NOTE | 2021-02-25 07:32 | RESPIRATORY ---
Pt was set up with [facility] for home O2 and required 2L nc with ambulation.
== END 2021-02-24 14:41 | disposition home or self-care (01) | DRG 315 ==
LOC: ER 13:55 → MS 02-24 09:19
PROVIDERS: Nurse Practitioner Acute Care; Admitting Provider Family Medicine; Emergency Provider Physician Assistant; PCP Nurse Practitioner Family; Visit Provider Family Medicine
DX: I27.81 Cor pulmonale (chronic) (principal); J84.9 Interstitial pulmonary disease, unspecified; Z68.41 Body mass index [BMI] 40.0-44.9, adult; E66.01 Morbid (severe) obesity due to excess calories; E03.8 Other specified hypothyroidism; J45.909 Unspecified asthma, uncomplicated; Z87.891 Personal history of nicotine dependence; Z98.84 Bariatric surgery status; E21.3 Hyperparathyroidism, unspecified; F43.20 Adjustment disorder, unspecified; Z20.822 Contact with and (suspected) exposure to COVID-19
CPT/HCPCS: 36415; 80048; 80053; 87635; 93005; 94618; 94640; 99285; J1650; 71046; 83735; 83880; 84484; 85025; 85379; 93010; 99217; 99220; G0378; J2930; J7614; J7620

== ENCOUNTER 2021-02-28 20:49 | Observation (INO) | payer MEDICAID, SELFPAY ==
[2021-02-28] VITALS (12 sets, daily range): BP systolic 84–108; BP diastolic 39–58; PULSE 76–112; RESP 20–26; TEMP 36.7; O2SAT 90–100
--- NOTE | 2021-02-28 20:30 | RT.EKG_ITS ---
APPROVED REPORT Exam: Resting ECG Reason for Exam: chest tightness Patient Location: E HR:105 bpm ECG Measurements Heart Rate 105 AXIS TN 143 P 16 QRSd 99 QRS -12 QT 315 T -12 QTc 416 Conclusion Sinus tachycardia...rate> 99 Left ventricular hypertrophy...multiple voltage criteria Inferior infarct, old...Q >35mS, II III aVF Physician: Rate 105, sinus tachycardia, intervals unremarkable. Inverted T waves in V1, as well as l ead III and aVF. Q wave in lead III and aVF. No STEMI. Relatively unchanged from EKG on 02/23/2021
--- NOTE | 2021-02-28 20:45 | DI.CT_ITS ---
Exam(s) CT HEAD CERVICAL SPINE WO EXAM: CT HEAD CERVICAL SPINE WO CLINICAL HISTORY: syncope, hit head, midline c6 neck pain. TECHNIQUE: Imaging Protocol: Axial computed tomography images with coronal and sagittal reformatted images were created and reviewed COMPARISON: No exams were available for comparison FINDINGS: BRAIN: There are no skull fractures nor fluid in the visualized paranasal sinuses. However, there is some f ocal mucosal thickening posteriorly in the right maxillary sinus. There is no evidence of intracranial hemorrhage, mass effect, or shift of midline structures. There are no extra-axial fluid collections. The ventricles are not enlarged or shifted and there is no blo od within the ventricular system nor within the basal cisterns. CERVICAL SPINE: There is no evidence of fracture nor listhesis. No significant prevertebral soft tissue swelling. There is evidence of degenerative disc disease at multiple levels with moderate disc space narrowing evident multiple levels. Also bilateral Luschka joint osteophytes evident at C5-6 level. There is no significant facet joint malalignment. No significant osseous lesions evident. IMPRESSION: No acute intracranial findings on this noninfused CT scan of the brain. No evidence of cervical spine fracture, malalignment, nor acute compromise of the cervical spinal can al. RADIATION DOSE DELIVERED: 1,946.62mGy.cm Total DLP DATA REPOSITORY: All CT scans at this facility are submitted to the National Radiology Data Registry (NRDR) Dose Index Registry (DIR) with the [employer] ([employer]). RADIATION OPTIMIZATION: All CT scans at this facility use at least one of these dose optimization te chniques: automated exposure control; mA and/or kV adjustment per patient size (includes targeted exa ms where dose is matched to clinical indication); or iterative reconstruction.
--- NOTE | 2021-02-28 20:55 | ED.GENADUL_ITS ---
Discharge Plan Disposition Patient Disposition: [facility] INPATIENT Condition: Improving Discharge Details Clinical Impression: Syncope and collapse, ANNALISE (acute kidney injury) Admit Date/Time: 03/01/21 00:01 Admit Provider: Jessenia Keen Attending Provider: Jessenia Keen Primary Care Provider: Hardeep Oropeza ED Provider: Tomás Reynolds Discharge Data Discharge Date/Time-TO BE ENTERED AT DEPARTURE: 03/01/21 00:47 Medical Decision Making <Willy Dimas DO - Last Filed: 02/28/21 23:25> This is a 50-year-old female with a past medical history of Cor pulmonale, previous NSTEMI, lupus, pulmonary HTN, interstitial lung disease, COPD, obesity, who presents today for evaluation of syncope. Patient was recently admitted about 4 or 5 days ago for mild shortness of breath. She was maintained on home oxygen 2 L. Tonight she presents for passing out when standing. She states that for the past month she has passed out about 4 or 5 times. Sometimes it is when she stands up quickly, sometimes it is when she is just ambulating. This evening she was sitting and had just finished eating dinner when she stood up and immediately passed out. She did not have any presyncopal symptoms. She does not recall the event. When she fell back she hit her head and neck on the cast iron stove. She did wake up a few minutes later. No seizure activity per EMS. Patient denies any vision changes, numbness or tingling. She admits to a small amount of chest pain, and mild shortness of breath, both of which she states is slightly worse than normal. She denies any long trips surgeries or procedures. She denies any history of blood clots. She does have a history of a mild aortic aneurysm. Currently she denies any other complaints. She exertional chest pain. No other complaints at this time. No other modifying factors. Physical exam demonstrates mild tachycardia, mild hypotension. She does admit to mild chest pain. Differential is broad, but includes PE, less likely dissection or ACS. Review of her recent echo from a month ago demonstrates normal ejection fractions, mild elevated RVSP. Additionally the patient does have midline cervical spine pain and thoracic pain from her fall. We will get a CT scan of the affected areas, get a CT scan of the head and evaluate for PE. Will monitor closely gently rehydrate and reassess. 10:16 PM Laboratory work-up is returned, CBC unremarkable. Chemistries demonstrate notably elevated BUN at 59, creatinine of 2.5 and a GFR of 20, these are markedly worsened compared to 4 days ago when she was discharged. Patient states that she has not changed her furosemide dose for the last month, or taken any extra at all. She denies any medication changes since she was discharged. She denies any dietary changes since discharge. Unfortunately this certainly makes getting a CTA out of the question at this time. Review of her previous records and last ED visit did demonstrate that she had a D-dimer of 614, however her CTA was held at that time as PE was unlikely. We will get a D-dimer again as comparison. 11:[address] scans have returned, no acute process of the head neck chest abdomen pelvis. There is evidence of notable pulmonary fibrosis, moderate multichamber cardiomegaly, appears to be relatively unchanged. C-collar was removed, patient states her neck pain is notably improved/resolved. Minimal achiness/tenderness. No neurologic deficits. Troponin normal, proBNP unremarkable. Thyroid function normal. Bedside limited echo demonstrates no pericardial effusion, ejection fraction actually appears to be reasonable although there appears to be generalized dilatation throughout. With the patient's acute kidney injury, I do feel that admission is indicated for continued observation and gentle rehydration. Uncertain as to why she has the sudden acute kidney injury even though her labs are very unremarkable just 4 days ago. She reiterates that she has not changed the dose at all. Perhaps there is just a mild to moderate dehydration component that is causing both her syncope and the acute kidney injury. I did discuss the case with Dr. Keen, she will come to evaluate the patient the patient. We will give an additional 500 cc bolus and reassess blood pressure. Of note orthostatics were performed, patient's blood pressure seated and standing remained in the 90s systolic. Heart rate is unchanged. Case will be signed out to my colleague Dr. Tomás Reynolds for reassessment and final disposition in conjunction with the hospitalist after repeat 500 cc fluid bolus. EKG 20: 57 Rate 105, sinus tachycardia, intervals unremarkable. Inverted T waves in V1, as well as lead III and aVF. Q wave in lead III and aVF. No STEMI. Relatively unchanged from EKG on 02/23/2021 FINDINGS: Brain: Normal. No hemorrhage. Unremarkable white matter. No mass effect. Cerebral ventricles: No ventriculomegaly. Paranasal sinuses: There is a 1 cm mucous retention cyst in the right maxillary antrum. The remainder of the visualized paranasal sinuses are clear. Mastoid air cells: Visualized mastoid air cells are well aerated. Bones/joints: Unremarkable. No acute fracture. Soft tissues: Unremarkable. IMPRESSION: No acute intracranial abnormality. FINDINGS: Bones/joints: No acute fracture. Normal alignment. Discs/Spinal canal/Neural foramina: No significant disc protrusion. No severe spinal canal stenosis. No significant neural foraminal narrowing. Lungs: Lung apices are normal. Soft tissues: Unremarkable. IMPRESSION: No acute finding FINDINGS: Lungs: There is mild bronchiectasis with peripheral honeycombing and coarse interstitial lung markings suggesting pulmonary fibrosis. The central airway is grossly clear and I do not see endobronchial lesions. Pleural spaces: Unremarkable. No pneumothorax. No pleural effusion. Heart: The cardiac chambers are moderately enlarged but there is no overt failure. Aorta: No aortic aneurysm. Lymph nodes: No pathologic lymphadenopathy identified. Gallbladder and bile ducts: Cholecystectomy clips are incidentally noted. Stomach and bowel: There is a moderate hiatal hernia and there are postoperative findings consistent with a gastric bypass procedure. Bones/joints: Osseous structures are demineralized with mild spondylosis of the thoracic spine. No acute osseous abnormality is seen. Soft tissues: The paraspinous and extracorporeal soft tissues are unremarkable. IMPRESSION: 1. Moderate multichamber cardiomegaly. 2. Bronchiectasis with peripheral honeycombing and coarse interstitial lung markings suggesting pulmonary fibrosis. 3. Moderate hiatal hernia. 4. Status post gastric bypass procedure and cholecystectomy. Thank you for allowing us to participate in the care of your patient. Dictated and Authenticated by: Jake Mares MD 02/28/2021 10:49 PM Eastern Time ([place] & [place]) IMPRESSION: 1. No acute fracture or dislocation of the thoracic spine identified. 2. Pulmonary fibrosis. 3. Moderate multichamber cardiomegaly. 4. Moderate hiatal hernia status post gastric bypass procedure. 5. Status post cholecystectomy. Thank you for allowing us to participate in the care of your patient. Dictated and Authenticated by: Jake Mares MD 02/28/2021 10:46 PM Eastern Time ([place] & [place]) HPI <Willy Dimas DO - Last Filed: 02/28/21 23:25> General Date/Time Provider Initiated Documentation: 02/28/21 20:57 . HPI Narrative: This is a 50-year-old female with a past medical history of Cor pulmonale, previous NSTEMI, lupus, pulmonary HTN, interstitial lung disease, COPD, obesity, who presents today for evaluation of syncope. Patient was recently admitted about 4 or 5 days ago for mild shortness of breath. She was maintained on home oxygen 2 L. Tonight she presents for passing out when standing. She states that for the past month she has passed out about 4 or 5 times. Sometimes it is when she stands up quickly, sometimes it is when she is just ambulating. This evening she was sitting and had just finished eating dinner when she stood up and immediately passed out. She did not have any presyncopal symptoms. She does not recall the event. When she fell back she hit her head and neck on the cast iron stove. She did wake up a few minutes later. No seizure activity per EMS. Patient denies any vision changes, numbness or tingling. She admits to a small amount of chest pain, and mild shortness of breath, both of which she states is slightly worse than normal. She denies any long trips surgeries or procedures. She denies any history of blood clots. She does have a history of a mild aortic aneurysm. Currently she denies any other complaints. She exertional chest pain. No other complaints at this time. No other modifying factors. Related Data Home Medications Medication Instructions Recorded Confirmed amitriptyline 50 mg PO HS 05/06/19 02/28/21 cholecalciferol (vitamin D3) 1,000 unit PO DAILY 05/06/19 02/28/21 [Vitamin D3] levothyroxine 25 mcg capsule 25 mcg PO DAILY 06/21/19 02/28/21 nicotine 21 mg/24 hr daily 1 patch TD DAILY 06/21/19 06/21/19 transdermal patch Chantix Continuing Month Box 1 mg PO BID 01/31/21 01/31/21 citalopram 20 mg PO DAILY 01/31/21 02/28/21 ondansetron 4 mg PO Q6H PRN 01/31/21 01/31/21 pantoprazole 40 mg PO DAILY 01/31/21 02/28/21 Nicotrol 1 inh INHALATION Q2H PRN PRN #168 02/07/21 02/28/21 ea aspirin 81 mg PO DAILY #30 tab 02/07/21 02/28/21 cetirizine 10 mg PO HS #30 tab 02/07/21 02/28/21 levalbuterol HCl 0.63 mg UPD Q4H PRN PRN #90 ml 02/07/21 02/28/21 melatonin 10 mg PO HS PRN #30 cap 02/07/21 02/28/21 montelukast 10 mg PO QPM #30 tab 02/07/21 Bariatric Multivitamins 1 cap PO DAILY 02/23/21 02/28/21 albuterol sulfate [ProAir HFA] 2 inh INHALATION Q4-5H PRN 02/23/21 02/28/21 fluticasone propion-salmeterol 1 inh INHALATION BID 02/23/21 02/28/21 [Advair Diskus] fluticasone propionate 1 spray NS BID 02/23/21 02/23/21 levalbuterol HCl [Xopenex] 0.63 mg INHALATION Q4H PRN PRN #72 02/24/21 ml amlodipine 5 mg PO DAILY #30 tab 03/02/21 prednisone 20 mg PO DAILY #30 tab 03/02/21 sulfamethoxazole-trimethoprim 1 tab PO DAILY #30 tab 03/02/21 Previous Rx's Medication Instructions Recorded Nicotrol 1 inh INHALATION Q2H PRN PRN #168 02/07/21 ea aspirin 81 mg PO DAILY #30 tab 02/07/21 cetirizine 10 mg PO HS #30 tab 02/07/21 levalbuterol HCl 0.63 mg UPD Q4H PRN PRN #90 ml 02/07/21 melatonin 10 mg PO HS PRN #30 cap 02/07/21 montelukast 10 mg PO QPM #30 tab 02/07/21 levalbuterol HCl [Xopenex] 0.63 mg INHALATION Q4H PRN PRN #72 02/24/21 ml amlodipine 5 mg PO DAILY #30 tab 03/02/21 prednisone 20 mg PO DAILY #30 tab 03/02/21 sulfamethoxazole-trimethoprim 1 tab PO DAILY #30 tab 03/02/21 Allergies Allergy/AdvReac Type Severity Reaction Status Date / Time environmental AdvReac Mild Uncoded 02/23/21 12:17 General Stated Complaint: Dizzy/Sync RUTH ANN: 3 Review of Systems <Willy Dimas DO - Last Filed: 02/28/21 23:25> All systems reviewed & are unremarkable except as noted in HPI and below PFSH <Willy Dimas - Last Filed: 02/28/21 23:25> Medical History Adjustment disorder Asthma Cervical cancer Hyperparathyroidism Hypothyroid Interstitial lung disease Surgical History History of gastric bypass Social History Smoking/Tobacco Use Status: Former Tobacco Use Quit Date: 01/26/21 Smoking risk assessment performed?: Yes Alcohol Intake: current Alcohol Intake frequency: a few times a week Drug use: Rarely Substance use type: marijuana Do you feel safe at home: Yes Do you feel safe in your relationship?: Yes Exam <Willy Dimas DO - Last Filed: 02/28/21 23:25> Narrative Exam Narrative: 1.Const: Well-nourished, Well-developed, appearing stated age 2.Eyes: PERRL, no conjunctival injection, and symmetrical lids. 3.ENT: Atraumatic external nose and ears. Moist MM. Neck: Symmetric, trachea midline, No thyromegaly. There is no evidence of raccoon eyes, chahal sign, CSF rhinorrhea, mastoid tenderness, cranial crepitus, hemotympanum, exophthalmos, or hyphema. Patient demonstrates intact dentition with no signs of tooth avulsion or fracture, no signs of jaw deformity, no evidence of a LeFort's fracture, with an intact palate, nose and orbital region. There is no evidence of a nasal septal hematoma. No proptosis. Jaw closes symmetrically. Airway is clear. 4.CVS: +S1/S2, No murmurs or gallops. Peripheral pulses 2+ and equal in all extremities. Brisk capillary refill in all extremities. 5.RESP: Unlabored respiratory effort. Clear to auscultation bilaterally. No wheezes rales or rhonchi 6.GI: Soft, Nontender/Nondistended, No hepatosplenomegaly. No guarding or rebound. 7.MSK: Normocephalic/Atraumatic, Extremities w/o deformity or ttp No cyanosis or clubbing, Normal movement of all extremities. No calf tenderness. No pitting edema. 8.Skin: Warm, Dry. No rashes or lesions. 9.Neuro: voice writing reporter II-XII grossly intact. Sensation grossly intact, no focal neurologic deficits. All 6 cardinal planes of vision are fully intact. No evidence of rotatory or vertical nystagmus. The patient demonstrated a normal sgrqka-zptq-rhipyn, good dexterity. There was no evidence of dysdiadochokinesia. Patient was able to ambulate without difficulty. There was no wide-based gait. Cazw-op-yzac testing was normal. Sensation was intact bilaterally as well as muscle strength bilaterally for all extremities. Patient was able to verbalize butter cup with no slurring, or miss pronunciation. 10.Psych: (AAO) x3. Appropriate mood and affect Course <Willy Dimas, DO - Last Filed: 02/28/21 23:25> Vital Signs Vital signs: Vital Signs Temperature 36.7 C 02/28/21 20:41 Pulse 112 H 02/28/21 20:41 Respiratory Rate 22 02/28/21 20:41 Blood Pressure 84/53 L 02/28/21 20:41 Pulse Oximetry 90 L 02/28/21 20:41 Temperature 36.7 C 02/28/21 20:41 Temperature Source Temporal Artery Scan 02/28/21 20:41 Pulse 112 H 02/28/21 20:41 Respiratory Rate 22 02/28/21 20:41 Respiratory Effort Short of Breath 02/28/21 20:49 Blood Pressure 84/53 L 02/28/21 20:41 Pulse Oximetry 90 L 02/28/21 20:41 Oxygen Delivery Method Nasal Cannula 02/28/21 20:41 Oxygen Flow Rate 2 02/28/21 20:41 Pain Level 8 02/28/21 20:41 Sign Out <Willy Dimas DO - Last Filed: 02/28/21 23:25> Sign Out Data: Sign Out Comment: Pending repeat assessment after 500 cc fluid bolus Last updated by Willy Dimas DO at 02/28/21 23:41
--- NOTE | 2021-02-28 20:56 | DI.CT_ITS ---
Exam(s) CT THORACIC SPINE RECONS EXAM: CT THORACIC SPINE RECONS CLINICAL HISTORY: midline t 6 pain after fall on cast-iron stove. TECHNIQUE: Imaging Protocol: Axial computed tomography images with coronal and sagittal reformatted images were created and reviewed. CONTRAST MATERIAL: Intravenous: Omnipaque 350 Contrast volume:structured data in ml Contrast route:I V - Oral: yes / no COMPARISON: CT CT CHEST PE CTA from 01/31/2021 FINDINGS: OSSEOUS: There are no fractures of the thoracic vertebral bodies. No listhesis. No facet malalignme nt evident. SOFT TISSUES: As discussed on other dictations from this patient today. No large disk herniations ar e identified. IMPRESSION: No evidence of fracture of the thoracic vertebrae. RADIATION DOSE DELIVERED: Total DLP DATA REPOSITORY: All CT scans at this facility are submitted to the National Radiology Data Registry (NRDR) Dose Index Registry (DIR) with the [employer] (ACR). RADIATION OPTIMIZATION: All CT scans at this facility use at least one of these dose optimization te chniques: automated exposure control; mA and/or kV adjustment per patient size (includes targeted exa ms where dose is matched to clinical indication); or iterative reconstruction.
[2021-02-28 21:02] LABS: Abs Immature Grans 0.29 10^3/uL (0.0-0.06); Absolute Basophil Count 0.04 10^3/uL (0.0-0.2); Absolute Eosinophil Count 0.15 10^3/uL (0.0-0.7); Absolute Lymphocyte Count 1.26 10^3/uL (1.2-3.4); Absolute Neutrophil Count 6.17 10^3/uL (1.2-6.7); Basophils % 0.5; Eosinophils % 1.8; HCT 38.6 % (36.0-46.0); HGB 12.3 g/dL (11.2-15.7); Immature Grans % 3.4; MCH 28.7 pg (27.0-33.0); MCHC 31.9 % (32.0-36.0); MCV 90.2 fL (80-95); MPV 9.7 fL (8.0-11.0); Monocytes % 5.9; Neutrophils % 73.4; Nucleated RBC 0 %; Platelet Count 210 10^3/uL (130-400); RBC 4.28 10^6/uL (3.93-5.22); WBC 8.41 10^3/uL (4.4-10.8)
[2021-02-28 21:25] LABS: ALT 26 U/L (14-59); AST 20 U/L (15-37); Albumin 2.6 g/dL (3.4-5.0); Alkaline Phosphatase 81 U/L (46-116); Anion Gap 12.6 mmol/L (3-11); BUN 59 mg/dL (7-18); Bilirubin, Total 0.2 mg/dL (0.2-1.0); CO2 20.4 mmol/L (21.0-32.0); CREATININE 2.5 mg/dL (0.55-1.02); Calcium 8.5 mg/dL (8.5-10.1); Chloride 98 mmol/L (98-107); Estimated GFR 20.22 (mL/min/1.73m2); Glucose 104 mg/dL (74-106); NT-proBNP 98 pg/mL (<300); Potassium 3.8 mmol/L (3.5-5.1); Sodium 131 mmol/L (136-145); TSH (W/Ref FT4) 2.51 uIU/mL (0.36-3.74); Total Protein 6.8 g/dL (6.4-8.2)
[2021-02-28 21:26] LABS: Troponin I < 0.05 ng/mL (<0.06)
--- NOTE | 2021-02-28 21:30 | DI.CT_ITS ---
Exam(s) CT CHEST WO EXAM: CT CHEST WO CLINICAL HISTORY: CP, SOB, syncope 3 days, acute renal failure. TECHNIQUE: Multi planar reconstructions were performed. CONTRAST MATERIAL: None COMPARISON: CT CT CHEST PE CTA from 01/31/2021 FINDINGS: CHEST: LUNGS: There is extensive bilateral chronic appearing interstitial disease, probably interstitial pul monary fibrosis. There are presently no distinct confluent infiltrates nor pleural effusions. No ob vious ominous pulmonary nodules. No significant focal findings in the trachea and mainstem bronchi. MEDIASTINUM: There is no obvious hilar nor mediastinal adenopathy. Visualized thyroid unremarkable.No obvious axillary adenopathy CARDIAC: Cardiomegaly. Minimal pericardial thickening. No large pericardial effusion. Caliber of t he thoracic aorta is upper normal. There is prominence of the pulmonary arteries consistent with pul monary artery hypertension. VISUALIZED UPPER ABDOMEN:There is evidence prior bariatric surgery. The visualized pre colic Joseph li mb is not dilated. The excluded [place] stomach is not distended, however, there is prominence of the gastric pouch and this has position of and hiatal hernia measuring 4.5 x 4 cm. The gallbladder is n oted to be surgically absent. No significant adrenal masses. No splenomegaly. OSSEOUS: No significant osseous lesions.. IMPRESSION: 1. Extensive bilateral pulmonary fibrosis, however, the previously present extensive bilateral ground -glass infiltrates seen on the CT scan of 01/31/2021 appear to have mostly resolved. There are no pl eural effusions. It is difficult to delineate presence of hilar adenopathy in the absence of IV cont rast. The prior contrast infused study did reveal some adenopathy. 2. Enlarged pulmonary arteries, most probably consistent with pulmonary artery hypertension and comme nsurate with the bilateral lung findings of interstitial fibrosis. 3. Previous bariatric surgery as described above. However, on the present study the gastric pouch is in position as a hiatal hernia measuring 4.5 x 4 cm, this not previously the case on the prior 01/31 CT scan. RADIATION DOSE DELIVERED: Total DLP DATA REPOSITORY: All CT scans at this facility are submitted to the National Radiology Data Registry (NRDR) Dose Index Registry (DIR) with the [employer] (ACR). RADIATION OPTIMIZATION: All CT scans at this facility use at least one of these dose optimization te chniques: automated exposure control; mA and/or kV adjustment per patient size (includes targeted exa ms where dose is matched to clinical indication); or iterative reconstruction.
[2021-02-28] MEDS: ACETAMINOPHEN 1,000 MG/100 ML BTL 400 MG IVPB (22:16)
[2021-02-28] MEDS: Normal Saline 1,000 ML 1000 ML IV (22:21)
--- NOTE | 2021-02-28 22:46 | DI.VRAD_ITS ---
PROCEDURE INFORMATION: Exam: CT Thoracic Spine Without Contrast Exam date and time: 02/28/2021 10:06 PM Age: 50 years old Clinical indication: Other: Midline t 6 pain after fall on cast-iron stove TECHNIQUE: Imaging protocol: Computed tomography images of the thoracic spine without contrast. Radiation optimization: All CT scans at this facility use at least one of these dose optimization techniques: automated exposure control; mA and/or kV adjustment per patient size (includes targeted exams where dose is matched to clinical indication); or iterative reconstruction. COMPARISON: CT HEAD CERVICAL SPINE WO 02/28/2021 10:00 PM FINDINGS: Vertebrae: The thoracic spinal alignment, vertebral body heights and posterior elements appear intact without an acute fracture or dislocation. Discs/Spinal canal/Neural foramina: No significant disc protrusion. No severe spinal canal stenosis. No significant neural foraminal narrowing. There is mild spondylosis of the mid and lower thoracic spine Epidural space: There is no definite paraspinous swelling or epidural hematoma. Other bones/joints: The visualized ribs are intact as well. Soft tissues: Unremarkable. Lungs: There is bronchiectasis, peripheral honeycombing and coarse interstitial lung markings within both lungs suggesting pulmonary fibrosis. Heart: The cardiac chambers are moderately enlarged. Gallbladder and bile ducts: Cholecystectomy clips are incidentally noted. Stomach and bowel: There is a moderate hiatal hernia and there are postoperative findings consistent with a gastric bypass procedure. IMPRESSION: 1. No acute fracture or dislocation of the thoracic spine identified. 2. Pulmonary fibrosis. 3. Moderate multichamber cardiomegaly. 4. Moderate hiatal hernia status post gastric bypass procedure. 5. Status post cholecystectomy. Dictated and Authenticated by: Jake Mares MD. Ordering:ALEXANDR Aguilera MD
--- NOTE | 2021-02-28 22:48 | DI.VRAD_ITS ---
PROCEDURE INFORMATION: Exam: CT Head Without Contrast Exam date and time: 02/28/2021 8:52 PM Age: 50 years old Clinical indication: Other: Syncope, hit head, midline c6 neck pain TECHNIQUE: Imaging protocol: Computed tomography of the head without contrast. Total images: 2019 Radiation optimization: All CT scans at this facility use at least one of these dose optimization techniques: automated exposure control; mA and/or kV adjustment per patient size (includes targeted exams where dose is matched to clinical indication); or iterative reconstruction. COMPARISON: No relevant prior studies available. FINDINGS: Brain: Normal. No hemorrhage. Unremarkable white matter. No mass effect. Cerebral ventricles: No ventriculomegaly. Paranasal sinuses: There is a 1 cm mucous retention cyst in the right maxillary antrum. The remainder of the visualized paranasal sinuses are clear. Mastoid air cells: Visualized mastoid air cells are well aerated. Bones/joints: Unremarkable. No acute fracture. Soft tissues: Unremarkable. IMPRESSION: No acute intracranial abnormality. PROCEDURE INFORMATION: Exam: CT Cervical Spine Without Contrast Exam date and time: 02/28/2021 8:52 PM Age: 50 years old Clinical indication: Other: Syncope, hit head, midline c6 neck pain TECHNIQUE: Imaging protocol: Computed tomography images of the cervical spine without contrast. Radiation optimization: All CT scans at this facility use at least one of these dose optimization techniques: automated exposure control; mA and/or kV adjustment per patient size (includes targeted exams where dose is matched to clinical indication); or iterative reconstruction. COMPARISON: No relevant prior studies available. FINDINGS: Bones/joints: No acute fracture. Normal alignment. Discs/Spinal canal/Neural foramina: No significant disc protrusion. No severe spinal canal stenosis. No significant neural foraminal narrowing. Lungs: Lung apices are normal. Soft tissues: Unremarkable. IMPRESSION: No acute findings. Dictated and Authenticated by: Chinyere Sanz MD. Ordering:ALEXANDR Aguilera MD
--- NOTE | 2021-02-28 22:49 | DI.VRAD_ITS ---
PROCEDURE INFORMATION: Exam: CT Chest Without Contrast; Diagnostic Exam date and time: 02/28/2021 10:06 PM Age: 50 years old Clinical indication: Other: Cp, SOB, syncope 3 days, acute renal failure TECHNIQUE: Imaging protocol: Diagnostic computed tomography of the chest without contrast. 3D rendering (Not supervised by radiologist): MIP and/or 3D reconstructed images were created by the technologist. Radiation optimization: All CT scans at this facility use at least one of these dose optimization techniques: automated exposure control; mA and/or kV adjustment per patient size (includes targeted exams where dose is matched to clinical indication); or iterative reconstruction. COMPARISON: CT CHEST HIGH RESOLUTION 11/14/2020 1:00 PM FINDINGS: Lungs: There is mild bronchiectasis with peripheral honeycombing and coarse interstitial lung markings suggesting pulmonary fibrosis. The central airway is grossly clear and I do not see endobronchial lesions. Pleural spaces: Unremarkable. No pneumothorax. No pleural effusion. Heart: The cardiac chambers are moderately enlarged but there is no overt failure. Aorta: No aortic aneurysm. Lymph nodes: No pathologic lymphadenopathy identified. Gallbladder and bile ducts: Cholecystectomy clips are incidentally noted. Stomach and bowel: There is a moderate hiatal hernia and there are postoperative findings consistent with a gastric bypass procedure. Bones/joints: Osseous structures are demineralized with mild spondylosis of the thoracic spine. No acute osseous abnormality is seen. Soft tissues: The paraspinous and extracorporeal soft tissues are unremarkable. IMPRESSION: 1. Moderate multichamber cardiomegaly. 2. Bronchiectasis with peripheral honeycombing and coarse interstitial lung markings suggesting pulmonary fibrosis. 3. Moderate hiatal hernia. 4. Status post gastric bypass procedure and cholecystectomy. Dictated and Authenticated by: Jake Mares MD. Ordering:ALEXANDR Aguilera MD
[2021-02-28 23:01] LABS: D-Dimer 502 ng/mlFEU (<500)
[2021-03-01] VITALS (12 sets, daily range): BP systolic 78–122; BP diastolic 48–78; PULSE 60–86; RESP 18–26; TEMP 36–36.8; O2SAT 95–100
--- NOTE | 2021-03-01 00:05 | HPE_ITS ---
Date of service: 03/01/21 Time of Service: 00:05 Assessment and Plan Assessment and plan (1) Syncope and collapse: Status: Acute Assessment and plan: In setting of dehydration and hypotension, likely al so component of orthostasis. The patient admits to decreased PO fluid intake in the last few days. However, she is also on an SSRI and has a h/o gastric bypass, both of which are associated with possible autonomic dysfunction. We will gently hydrate and assess orthostatic VS. Monitor on tele. Trend troponins. Repeat EKG in am. The patient had an echo on 02/01/21 - I do not think she needs a repeat. The study in January showed LVEF of 55-60%, nml wall motion, nml RV and systolic function, moderate aortic regurgitation, mild mitral regurgitation, moderate tricuspid regurgitation and pulmonary hypertension with RVSP of 42 mmHg. She does still need a stress echocardiogram and has a cardiology appointment today which may have to be made on inpatient basis. (2) Closed head injury: Status: Acute Assessment and plan: Due to above. Monitor vitals, neurochecks. CT head/neck negative. Avoid chemical DVT ppx at this time. (3) Hypotension: Status: Acute Assessment and plan: As above, most likely due to dehydration, though autonomic dysfunction is a possibility. Gently hydrate and monitor manual BP's - machine BPs have been inaccurate in this patient. (4) ANNALISE (acute kidney injury): Status: Acute Assessment and plan: Likely due to overdiuresis/dehydration - however, the patient was also on an davy-i, which we will hold. (5) Dehydration: Status: Acute Assessment and plan: As above (6) Pulmonary hypertension: Status: Chronic Assessment and plan: Hold lasix. gentle IVF (NS @ 75 cc/hr x 1 L). Needs follow up with [facility] pulmonology. Monitor respiratory status as the patient can get fluid overloaded quite quickly. (7) Interstitial lung disease: Status: Chronic Assessment and plan: Appears to be at baseline. As above - has a follow up appointment with [facility] pulmonology on 03/06. (8) DVT prophylaxis: Status: Acute Assessment and plan: TEDs/SCDs. (9) Discharge planning issues: Status: Acute Assessment and plan: Full code Place is observation status. History of Present Illness History of Present Illness Chief Complaint: fainting and hitting her head Narrative: Ms Clement is a 50 year old female with PMHx of prior episodes of syncope, interstitial lung disease, pulmonary hypertension, chronic hypoxic respiratory failure on 2L of O2 by ND who had a syncopal episode when getting up from the table after dinner. The patient had hit the back of her head and neck on a cast iron stove. She does not recall any warning signs, but does recall feeling chest tightness (from the breathing) in the course of the night. She did not have any witnessed convulsive activity and is back to her baseline mental status. She does report head and neck pain post fall. She was taken to [facility] ED by EMS, who noted her SBPs to be in the 80s and HRs in 110s. The patient is responding to IVF with latest manual BP being 108/58 and HR 84. Marian states that over the last few days she has not been drinking as much water as she should have been and has noticed her UOP decrease. She is did not see any changes on her scale as she does weigh herself daily. She denies CP now. This is her 2nd or 3rd episode of syncope in the last month. She also states she had probably two of these episodes prior to ever been started on lasix. Her legs have been more swollen than her normal, she states. She does endorse discomfort laying flat but not orthopnea - this is more musculoskeletal. She has been wearing 2L of O2 at all times. In the ED, her blood work revealed an ANNALISE with Cr of 2.5, up from baseline of 1.0 checked just 4 days prior. Because of this, CTA of the chest could not be obtained to r/o a PE on this admission, but her d-dimer was normal. Observation on hospitalist service for continued hydration was requested. The patient has an outpatient cardiology appointment tomorrow. She has not yet had her stress echo (and it does not appear that the referral has been received by [facility] cardiology). Review of Systems All systems reviewed & are unremarkable except as noted in HPI and below PFSH Medical History Adjustment disorder Asthma Cervical cancer Hyperparathyroidism Hypothyroid Interstitial lung disease Surgical History History of gastric bypass Social History (Reviewed 07/14/21 @ 21:08 by BIRGIT Muro Smoking/Tobacco Use Status: Former Tobacco Use Quit Date: 01/26/21 Smoking risk assessment performed?: Yes Alcohol Intake: current Alcohol Intake frequency: a few times a week Drug use: Rarely Substance use type: marijuana Do you feel safe at home: Yes Do you feel safe in your relationship?: Yes Meds Allergies and Home Medications Allergies Allergy/AdvReac Type Severity Reaction Status Date / Time environmental AdvReac Mild Uncoded 02/23/21 12:17 Home Medications Medication Instructions Recorded Confirmed Type amitriptyline 50 mg PO HS 05/06/19 02/28/21 History cholecalciferol (vitamin D3) 1,000 unit PO DAILY 05/06/19 02/28/21 History [Vitamin D3] levothyroxine 25 mcg capsule 25 mcg PO DAILY 06/21/19 02/28/21 History nicotine 21 mg/24 hr daily 1 patch TD DAILY 06/21/19 06/21/19 History transdermal patch Chantix Continuing Month Box 1 mg PO BID 01/31/21 01/31/21 History citalopram 20 mg PO DAILY 01/31/21 02/28/21 History ondansetron 4 mg PO Q6H PRN 01/31/21 01/31/21 History pantoprazole 40 mg PO DAILY 01/31/21 02/28/21 History Nicotrol 1 inh INHALATION Q2H PRN PRN #168 02/07/21 02/28/21 Rx ea aspirin 81 mg PO DAILY #30 tab 02/07/21 02/28/21 Rx cetirizine 10 mg PO HS #30 tab 02/07/21 02/28/21 Rx furosemide 80 mg PO BID@0830,1600 #28 tab 02/07/21 02/28/21 Rx levalbuterol HCl 0.63 mg UPD Q4H PRN PRN #90 ml 02/07/21 02/28/21 Rx lisinopril 20 mg PO DAILY #30 tab 02/07/21 02/28/21 Rx melatonin 10 mg PO HS PRN #30 cap 02/07/21 02/28/21 Rx montelukast 10 mg PO QPM #30 tab 02/07/21 Rx Bariatric Multivitamins 1 cap PO DAILY 02/23/21 02/28/21 History albuterol sulfate [ProAir HFA] 2 inh INHALATION Q4-5H PRN 02/23/21 02/28/21 History fluticasone propion-salmeterol 1 inh INHALATION BID 02/23/21 02/28/21 History [Advair Diskus] fluticasone propionate 1 spray NS BID 02/23/21 02/23/21 History levalbuterol HCl [Xopenex] 0.63 mg INHALATION Q4H PRN PRN #72 02/24/21 Rx ml Exam Narrative Exam Narrative: General: Pleasant middle-aged female who is not short of breath and not in acute distress, speaking in full sentences Neurological: A&Ox3, no focal deficits Psychiatric: Appropriate speech pattern/content Skin: Visible skin intact HEENT: Normocephalic, EOMI, dry MM, clear oropharynx, no submandibular or cervical lymphadenopathy, no goiter or JVD Cardiovascular: RRR, no m/r/g Lungs: Crackles at B bases Gastrointestinal: soft, nontender, nondistended Genitourinary: deferred Extremities: nonpitting edema BLE's Results Imaging Additional studies: CT head w/o contrast :No acute intracranial abnormality. CT c-spine: No acute findings. CT thoracic spine: 1. No acute fracture or dislocation of the thoracic spine identified. 2. Pulmonary fibrosis. 3. Moderate multichamber cardiomegaly. 4. Moderate hiatal hernia status post gastric bypass procedure. 5. Status post cholecystectomy. CT chest w/o contrast: 1. Moderate multichamber cardiomegaly. 2. Bronchiectasis with peripheral honeycombing and coarse interstitial lung markings suggesting pulmonary fibrosis. 3. Moderate hiatal hernia. 4. Status post gastric bypass procedure and cholecystectomy. EKG: Sinus tach, HR 105, nonspecific ST-T changes in addition to q waves in inferior lead, LVH, unchanged Labs Result diagrams: 02/28/21 20:57 02/28/21 20:57 Labs: Laboratory Results - last 24 hr 02/28/21 02/28/21 02/28/21 20:57 20:57 22:25 WBC 8.41 RBC 4.28 Hgb 12.3 Hct 38.6 MCV 90.2 MCH 28.7 MCHC 31.9 L RDW 13.0 Plt Count 210 MPV 9.7 Immature Gran % 3.4 Neutrophils % 73.4 Lymphocytes % 15.0 Monocytes % 5.9 Eosinophils % 1.8 Basophils % 0.5 Nucleated RBC % 0 Absolute Neutrophils 6.17 Absolute Lymphocytes 1.26 Absolute Monocytes 0.50 Absolute Eosinophils 0.15 Absolute Basophils 0.04 D-Dimer 502 H Sodium 131 L Potassium 3.8 Chloride 98 Carbon Dioxide 20.4 L Anion Gap 12.6 H BUN 59 H Creatinine 2.5 H Estimated GFR/1.73 m2 20.22 Glucose 104 Calcium 8.5 Total Bilirubin 0.2 AST 20 ALT 26 Alkaline Phosphatase 81 Troponin I < 0.05 NT-Pro-B Natriuret Pep 98 Total Protein 6.8 Albumin 2.6 L TSH 2.51 Last Vital Signs Temp 36.7 C 02/28/21 20:41 Pulse 84 02/28/21 23:54 Resp 26 H 02/28/21 23:54 BP 108/58 L 02/28/21 23:54 Pulse Ox 100 02/28/21 23:54
[2021-03-01 00:20] LABS: Source Nasal/Nares
[2021-03-01 00:40] LABS: Troponin I < 0.05 ng/mL (<0.06)
[2021-03-01 01:06] LABS: COVID-19 PCR Negative (Negative)
[2021-03-01] MEDS: Normal Saline 1,000 ML 75 ML IV (01:50)
[2021-03-01] MEDS: Levothyroxine 25 MCG TAB PO (05:55)
[2021-03-01] MEDS: Acetaminophen 325 MG TAB PO (06:08)
[2021-03-01 07:35] LABS: Anion Gap 6.7 mmol/L (3-11); BUN 50 mg/dL (7-18); CO2 25.3 mmol/L (21.0-32.0); CREATININE 1.5 mg/dL (0.55-1.02); Calcium 8.6 mg/dL (8.5-10.1); Chloride 107 mmol/L (98-107); Estimated GFR 36.47 (mL/min/1.73m2); Glucose 105 mg/dL (74-106); Magnesium 2.4 mg/dL (1.8-2.4); Potassium 3.9 mmol/L (3.5-5.1); Sodium 139 mmol/L (136-145)
[2021-03-01 07:37] LABS: Troponin I < 0.05 ng/mL (<0.06)
[2021-03-01] MEDS: Fluticasone NASAL SPRAY 16 GM BTL NS ×2 (08:41→20:26)
[2021-03-01] MEDS: Pantoprazole 40 MG TABCR PO (08:41)
[2021-03-01] MEDS: Multivitamin w/Minerals TAB 1 TAB PO (08:41)
[2021-03-01] MEDS: Normal Saline Flush 10 ML SYR IVP (08:41)
[2021-03-01] MEDS: Cholecalciferol (Vitamin D3) 1,000 UNIT TAB 1000 UNITS PO (08:41)
[2021-03-01] MEDS: Aspirin E.C. 81 MG TABEC PO (08:41)
[2021-03-01] MEDS: Budesonide/Formoterol 160/4.5 6 GM 60 PUFF INH IH ×2 (08:49→20:26)
--- NOTE | 2021-03-01 10:29 | PDOC.CMIN ---
- If Service Date Differs Date of service: 03/01/21 Time of Service: 10:31 Care Management Initial Assess REASON FOR HOSPITALIZATION:: Syncope, dehydration, ANNALISE PAST MEDICAL HISTORY/PAST SURGICAL HISTORY:: Adjustment disorder. Asthma. Cervical cancer. Hyperparathyroidism. Hypothyroid. Interstitial lung disease. History of gastric bypass PREVIOUS FUNCTIONAL STATUS/SOCIAL/FAMILY SUPPORTS:: Marian lives in an apartmernt in [place], [place] with her Veto Callahan. She has 3 children and 4 grandchildren who live in [place]. Marian relocated from [place] to [place] 3 years ago when she remarried. She is currently employed at [employer] and is independent at baseline. CURRENT FUNCTIONAL STATUS:: Betzaida was sitting up in bed when CM met with her, she was pleasant and engaged in conversation. She verbalized that she is feeling much better, her appetite is good and her fluid intake is much better. She is anticipating being discharged home tomorrow. ADVANCE DIRECTIVES:: None on file Has patient been provided with info about the portal/API?: Yes Did the patient sign up for the portal?: No CODE STATUS:: Full Code INSURANCE COVERAGE / FINANCIAL ISSUES:: Medicaid CURRENT HOME/COMMUNITY SERVICES/EQUIPMENT:: Has a commode at home and uses home oxygen, 2L [place] which she gets through [facility] [place]. PRIMARY CARE PHYSICIAN:: Hardeep Oropeza POTENTIAL DISCHARGE NEEDS:: Follow up with PCP, [facility] pulmonology, [facility] cardiology (plus needs a dobutamine echo) and plan of care. PATIENT/FAMILY EDUCATION NEEDS:: Review of discharge instructions, medications, activity, limitations, follow up plan, Ask Me Three. TRANSPORTATION:: via private vehicle with her PLAN:: Betzaida will likely be discharged home tomorrow with no new services. She will follow up with [facility] pulmonology, has PFT appointment on 03/06/21 arrival time 0915, directly followed by appointment with pulmonology at 0945. She will also follow up with Cardiology and have an echo, has appointment at [facility] in March. CM will continue to support discharge needs.
--- NOTE | 2021-03-01 12:05 | W.PM.PROGNOT ---
Date of Service Date of service: 03/01/21 Time of Service: 12:05 Assessment and Plan Assessment and plan (1) Syncope and collapse: Status: Acute Assessment and plan: In setting of dehydration and hypotension, likely also component of orthostasis. Monitor on tele, Trend troponins. Repeat EKG unremarkable The patient had an echo on 02/01/21 - no repeat needed at this time The study in January showed LVEF of 55-60%, nml wall motion, nml RV and systolic function, moderate aortic regurgitation, mild mitral regurgitation, moderate tricuspid regurgitation and pulmonary hypertension with RVSP of 42 mmHg. She still needs stress echocardiogram and cardiology appointment that is now rescheduled to the end of march. (2) Closed head injury: Status: Acute Assessment and plan: Due to above. Monitor vitals, neurochecks. CT head/neck negative. Avoid chemical DVT ppx at this time. can use acetaminophen or ibuprofen if needed for pain (3) Hypotension: Status: Acute Assessment and plan: As above, most likely due to dehydration, though autonomic dysfunction is a possibility. Gently hydrate and monitor manual BP's - machine BPs have been inaccurate in this patient. (4) ANNALISE (acute kidney injury): Status: Acute Assessment and plan: Likely due to overdiuresis/dehydration - however, the patient was also on an davy-i, which we will hold. (5) Dehydration: Status: Acute Assessment and plan: As above (6) Pulmonary hypertension: Status: Chronic Assessment and plan: Hold lasix. continue gentle IVF (NS @ 75 cc/hr x 1 L). Follow up with [facility] pulmonology scheduled on March 06, 2021 Monitor respiratory status as the patient can get fluid overloaded quite quickly. (7) Interstitial lung disease: Status: Chronic Assessment and plan: Appears to be at baseline. As above - has a follow up appointment with [facility] pulmonology on 03/06. (8) DVT prophylaxis: Status: Acute Assessment and plan: TEDs/SCDs. (9) Discharge planning issues: Status: Acute Assessment and plan: Full code Place is observation status. discussed with Dr Coronado Subjective Subjective Patient reports: tolerating liquids well, tolerating a regular diet and afebrile Interval history since last seen: c/o headache. no visual disturbances, nausea or vomiting. area tender where she struck her head. Exam Const General: cooperative, no acute distress, disheveled (older appearing than stated age) and ill appearing chronically Nutritional Appearance: obese Orientation: alert, awake and oriented x3 HENMT Head: hematoma left occipital Face and sinus: normal facial exam Mouth: oral mucosae normal Teeth and gingiva: poor dentition (missing teeth) Chest Chest: normal inspection of the chest Resp Effort & Inspection: normal respiratory effort Auscultation: clear to auscultation bilaterally Cardio Rate: regular rate Rhythm: regular rhythm GI Inspection: normal to inspection Palpation: soft Auscultation: normal bowel sounds Skin General skin exam: no rashes or lesions noted Extrem General: normal to inspection and full ROM Psych Appearance: grossly normal Mental Status: mental status grossly normal Speech and Movement: speech and movement normal Mood: congruent mood Affect: normal affect Attitude: cooperative Objective Last Vital Signs Temp 36.2 C L 03/01/21 11:26 Pulse 63 03/01/21 11:26 Resp 20 03/01/21 11:26 BP 78/48 L 03/01/21 11:26 Pulse Ox 99 03/01/21 11:26 Laboratory Results - last 24 hr 02/28/21 02/28/21 02/28/21 20:57 20:57 22:25 WBC 8.41 RBC 4.28 Hgb 12.3 Hct 38.6 MCV 90.2 MCH 28.7 MCHC 31.9 L RDW 13.0 Plt Count 210 MPV 9.7 Immature Gran % 3.4 Neutrophils % 73.4 Lymphocytes % 15.0 Monocytes % 5.9 Eosinophils % 1.8 Basophils % 0.5 Nucleated RBC % 0 Absolute Neutrophils 6.17 Absolute Lymphocytes 1.26 Absolute Monocytes 0.50 Absolute Eosinophils 0.15 Absolute Basophils 0.04 D-Dimer 502 H Sodium 131 L Potassium 3.8 Chloride 98 Carbon Dioxide 20.4 L Anion Gap 12.6 H BUN 59 H Creatinine 2.5 H Estimated GFR/1.73 m2 20.22 Glucose 104 Calcium 8.5 Magnesium Total Bilirubin 0.2 AST 20 ALT 26 Alkaline Phosphatase 81 Troponin I < 0.05 NT-Pro-B Natriuret Pep 98 Total Protein 6.8 Albumin 2.6 L TSH 2.51 COVID-19 Source SARS-CoV-2 (PCR) 02/28/21 02/28/21 03/01/21 23:45 23:59 06:55 WBC RBC Hgb Hct MCV MCH MCHC RDW Plt Count MPV Immature Gran % Neutrophils % Lymphocytes % Monocytes % Eosinophils % Basophils % Nucleated RBC % Absolute Neutrophils Absolute Lymphocytes Absolute Monocytes Absolute Eosinophils Absolute Basophils D-Dimer Sodium 139 Potassium 3.9 Chloride 107 Carbon Dioxide 25.3 Anion Gap 6.7 BUN 50 H D Creatinine 1.5 H D Estimated GFR/1.73 m2 36.47 Glucose 105 Calcium 8.6 Magnesium 2.4 Total Bilirubin AST ALT Alkaline Phosphatase Troponin I < 0.05 < 0.05 NT-Pro-B Natriuret Pep Total Protein Albumin TSH COVID-19 Source Nasal/Nares SARS-CoV-2 (PCR) Negative
[2021-03-01] MEDS: Ibuprofen 600 MG TAB PO ×2 (12:23→15:41)
[2021-03-01] MEDS: Normal Saline 1,000 ML 100 ML IV (15:41)
[2021-03-01] MEDS: Cetirizine 10 MG TAB PO (21:09)
[2021-03-01] MEDS: Amitriptyline 50 MG TAB PO (21:09)
[2021-03-02 03:30] VITALS: BP 123/64; PULSE 69; RESP 18; TEMP 35.9; O2SAT 100
[2021-03-02] MEDS: Levothyroxine 25 MCG TAB PO (05:23)
[2021-03-02] MEDS: Ibuprofen 600 MG TAB PO (05:24)
[2021-03-02 06:49] LABS: HCT 38.3 % (36.0-46.0); HGB 12.1 g/dL (11.2-15.7); MCH 28.6 pg (27.0-33.0); MCHC 31.6 % (32.0-36.0); MCV 90.5 fL (80-95); MPV 9.3 fL (8.0-11.0); Platelet Count 200 10^3/uL (130-400); RBC 4.23 10^6/uL (3.93-5.22); RDW 12.9 % (11.7-14.6); RDW-SD 42.6 fL; WBC 4.12 10^3/uL (4.4-10.8)
[2021-03-02 07:00] VITALS: PULSE 56
[2021-03-02 07:10] LABS: Anion Gap 7.1 mmol/L (3-11); BUN 24 mg/dL (7-18); CO2 25.9 mmol/L (21.0-32.0); CREATININE 0.8 mg/dL (0.55-1.02); Calcium 8.9 mg/dL (8.5-10.1); Chloride 111 mmol/L (98-107); Glucose 99 mg/dL (74-106); Potassium 4.5 mmol/L (3.5-5.1); Sodium 144 mmol/L (136-145)
[2021-03-02] MEDS: Budesonide/Formoterol 160/4.5 6 GM 60 PUFF INH IH (07:38)
[2021-03-02 07:40] VITALS: BP 140/80; PULSE 63; RESP 18; TEMP 36.4; O2SAT 99
[2021-03-02] MEDS: Pantoprazole 40 MG TABCR PO (08:00)
[2021-03-02] MEDS: Multivitamin w/Minerals TAB 1 TAB PO (08:00)
[2021-03-02] MEDS: Aspirin E.C. 81 MG TABEC PO (08:00)
[2021-03-02] MEDS: Cholecalciferol (Vitamin D3) 1,000 UNIT TAB 1000 UNITS PO (08:00)
[2021-03-02] MEDS: Fluticasone NASAL SPRAY 16 GM BTL NS (08:01)
--- NOTE | 2021-03-02 08:34 | DSE_ITS ---
Documented by User: Sierra Escobedo NP 03/02/21 09:15 Date of service: 03/02/21 Time of Service: 08:34 DS: Diagnosis Discharge Diagnosis (1) Syncope and collapse: Status: Acute (2) Closed head injury: Status: Acute (3) Hypotension: Status: Acute (4) ANNALISE (acute kidney injury): Status: Acute (5) Dehydration: Status: Acute (6) Pulmonary hypertension: Status: Chronic (7) Interstitial lung disease: Status: Chronic Discharge Plan Disposition Patient Disposition: HOME Condition: Improving Discharge Details Reason For Visit: Syncope,Dehydration, ANNALISE Admit Date/Time: 03/01/21 00:01 Admit Provider: Jessenia Keen Attending Provider: Jessenia Keen Primary Care Provider: Hardeep Oropeza Hospital Course Hospital Course: This is a 50 year old with interstitial lung disease, recently admitted here for pneumonia, hospital course complicated with demand ischemia, who was discharged home with outpatient follow up with cardiology for stress echo and pulmonology for further work up, who presented to the ED after a syncopal episode getting up from a chair. she fell back striking her head. She was transported to the ED where she was found to be in acute kidney injury, likely dehydrated. the rest of her work up was unremarkable. and she was admitted to hospitalist services for IV hydration and further management. Her respiratory status remained stable. Her lisinopril and lasix discontinued. Her blood pressure improved with IV hydration off the medication. Her kidney function returned to normal. she was eating and drinking and now hemodynamically stable. she had no c/o lightheadedness or dizziness with ambulation and position changes. orthostatic vital signs stable. We were able to consult pulmonology inpatient and medication recommendations given. she will be discharged to home on prednisone 20 mg daily and bactrim DS 1 tab daily. Her lasix and lisinopril discontinued and she will be started on amlodipine 5 mg daily for hypertension. further adjustment of blood pressure medication per outpatient team. she will follow up with pulmonology next week and cardiology in march as scheduled. she will return sooner for new or worsening symptoms. discharge discussed with Dr Coronado. Home Meds and New Rx's Prescriptions: New amlodipine 5 mg Tablet 5 mg PO DAILY Qty: 30 RF: 0 sulfamethoxazole-trimethoprim 800-160 mg Tablet 1 tab PO DAILY Qty: 30 RF: 0 prednisone 20 mg Tablet 20 mg PO DAILY Qty: 30 RF: 0 Continued levothyroxine 25 mcg capsule 25 mcg PO DAILY RF: 0 nicotine [Nicoderm CQ] 21 mg/24 hr patch 24 hour 1 patch TD DAILY RF: 0 cholecalciferol (vitamin D3) [Vitamin D3] 1,000 unit Capsule 1,000 unit PO DAILY RF: 0 amitriptyline 50 mg Tablet 50 mg PO HS RF: 0 fluticasone propion-salmeterol [Advair Diskus] 250-50 mcg/dose blister with device 1 inh INHALATION BID RF: 0 albuterol sulfate [ProAir HFA] 90 mcg/actuation HFA aerosol inhaler 2 inh INHALATION Q4-5H PRNRF: 0 Bariatric Multivitamins 45 mg iron- 800 mcg-120 mcg Capsule 1 cap PO DAILY RF: 0 fluticasone propionate 50 mcg/actuation spray,suspension 1 spray NS BID RF: 0 levalbuterol HCl [Xopenex] 0.63 mg/3 mL solution for nebulization 0.63 mg inhalation Q4H PRN PRNQty: 72 RF: 0 pantoprazole 40 mg tablet,delayed release (DR/EC) 40 mg PO DAILY RF: 0 ondansetron 4 mg tablet,disintegrating 4 mg PO Q6H PRNRF: 0 Chantix Continuing Month Box 1 mg tablet 1 mg PO BID RF: 0 citalopram 20 mg tablet 20 mg PO DAILY RF: 0 aspirin 81 mg Tablet,Delayed Release (Dr/Ec) 81 mg PO DAILY Qty: 30 RF: 0 cetirizine 10 mg Tablet 10 mg PO HS Qty: 30 RF: 0 levalbuterol HCl 0.63 mg/3 mL Solution For Nebulization 0.63 mg UPD Q4H PRN PRN (Reason: dyspnea, wheezing) Qty: 90 RF: 2 montelukast 10 mg Tablet 10 mg PO QPM Qty: 30 RF: 0 Nicotrol 10 mg Cartridge 1 inh inhalation Q2H PRN PRNQty: 168 RF: 0 melatonin 10 mg capsule 10 mg PO HS PRNQty: 30 RF: 0 Discontinued furosemide 80 mg Tablet 80 mg PO BID@0830,1600 Qty: 28 RF: 0 lisinopril 20 mg Tablet 20 mg PO DAILY Qty: 30 RF: 0 Discharge Instructions Instructions: Acute Kidney Injury (DC) Additional Instructions: take medications as prescribed. your kidney function has returned to normal please change positions slowly to avoid lightheadedness. drink 6-8 glasses of water daily to stay well hydrated. Stand Alone Forms: Nursing Discharge Form Referrals: Jena Saunders MD [ [facility] STAFF PHYSICIAN] - 03/07/21 2:40 pm Lloyd Lilly MD [ CONSULTING PHYSICIAN] - 04/17/21 1:00 pm Activity:: Activity as Tolerated Equipment/Supplies:: No Equipment Needed Diet:: As Tolerated Discharge Orders Discharge Orders: Discharge Order (Routine); Ordered 03/02/21 Ordered By: Sierra Escobedo Discharge Data Discharge Date/Time-TO BE ENTERED AT DEPARTURE: 03/02/21 11:12 DS: Summary Time Spent with Patient providing and/or coordinating discharge services: Less than 30 minutes Status at Discharge Functional status at discharge: independent ambulation Overall status at discharge: patient is back to baseline Mental Status: mental status grossly normal Speech and Movement: speech and movement normal Mood: congruent mood Affect: normal affect Exam Const General: cooperative, no acute distress, disheveled (older appearing than stated age) and ill appearing chronically Nutritional Appearance: obese Orientation: alert, awake and oriented x3 HENMT Head: hematoma left occipital Face and sinus: normal facial exam Mouth: oral mucosae normal Teeth and gingiva: poor dentition (missing teeth) Chest Chest: normal inspection of the chest Resp Effort & Inspection: normal respiratory effort Auscultation: clear to auscultation bilaterally Cardio Rate: regular rate Rhythm: regular rhythm GI Inspection: normal to inspection Palpation: soft Auscultation: normal bowel sounds Skin General skin exam: no rashes or lesions noted Extrem General: normal to inspection and full ROM Psych Appearance: grossly normal Mental Status: mental status grossly normal Speech and Movement: speech and movement normal Mood: congruent mood Affect: normal affect Attitude: cooperative DS: Data Vitals/I&O Vitals and I&O: Vital Signs Temperature 36.4 C L 03/02/21 07:40 Temperature Source Temporal Artery Scan 03/02/21 07:40 Pulse 63 03/02/21 07:40 Pulse Rhythm Regular 03/02/21 05:01 Pulse 90 02/28/21 23:01 Respiratory Rate 18 03/02/21 07:40 Respiratory Effort Non-Labored 03/02/21 05:01 Respiratory Depth Normal 03/02/21 05:01 Respiratory Pattern Normal 03/02/21 05:01 Blood Pressure 140/80 03/02/21 07:40 Blood Pressure Mean 60 02/28/21 23:01 Pulse Oximetry 99 03/02/21 07:40 Oxygen Delivery Method Nasal Cannula 03/02/21 07:40 Oxygen Flow Rate 2 03/02/21 07:40 Pain Level 0 03/02/21 07:40 Intake & Output 03/01/21 03/01/21 03/02/21 11:59 23:59 11:59 Intake Total 240 / 680 440 / 680 Output Total 1200 / 1950 750 / 1950 1900 / 1900 Balance -960 / -1270 -310 / -1270 -1900 / -1900 Weight 109.2 kg 109.8 kg Intake: Oral 240 / 680 440 / 680 Output: Urine 1200 / 1950 750 / 1950 1900 / 1900 Other: Urine Color Yellow Yellow Yellow Urine Appearance Clear Clear Clear Urine Odor Normal None None Comment Unable to measure Voiding Methods Toilet Toilet Toilet Data Completed and Pending Labs on day of discharge: Labs from last 24 hours 03/02/21 03/02/21 06:39 06:39 WBC 4.12 L RBC 4.23 Hgb 12.1 Hct 38.3 MCV 90.5 MCH 28.6 MCHC 31.6 L RDW 12.9 Plt Count 200 MPV 9.3 Sodium 144 Potassium 4.5 Chloride 111 H Carbon Dioxide 25.9 Anion Gap 7.1 BUN 24 H D Creatinine 0.8 D Estimated GFR/1.73 m2 >= 60.00 Glucose 99 Calcium 8.9 PFSH Medical History Adjustment disorder Asthma Cervical cancer Hyperparathyroidism Hypothyroid Interstitial lung disease Surgical History History of gastric bypass Social History Smoking/Tobacco Use Status: Former Tobacco Use Quit Date: 01/26/21 Smoking risk assessment performed?: Yes Alcohol Intake: current Alcohol Intake frequency: a few times a week Drug use: Rarely Substance use type: marijuana Do you feel safe at home: Yes Do you feel safe in your relationship?: Yes Documented by User: Don Coronado 03/02/21 14:27 Discharge Plan Disposition Patient Disposition: HOME Condition: Improving Discharge Details Reason For Visit: Syncope,Dehydration, ANNALISE Admit Date/Time: 03/01/21 00:01 Admit Provider: Jessenia Keen Attending Provider: Jessenia Keen Primary Care Provider: Hardeep Oropeza Hospital Course Hospital Course: This is a 50 year old with interstitial lung disease, recently admitted here for pneumonia, hospital course complicated with demand ischemia, who was discharged home with outpatient follow up with cardiology for stress echo and pulmonology for further work up, who presented to the ED after a syncopal episode getting up from a chair. she fell back striking her head. She was transported to the ED where she was found to be in acute kidney injury, likely dehydrated. the rest of her work up was unremarkable. and she was admitted to hospitalist services for IV hydration and further management. Her respiratory status remained stable. Her lisinopril and lasix discontinued. Her blood pressure improved with IV hydration off the medication. Her kidney function returned to normal. she was eating and drinking and now hemodynamically stable. she had no c/o lightheadedness or dizziness with ambulation and position changes. orthostatic vital signs stable. We were able to consult pulmonology inpatient and medication recommendations given. she will be discharged to home on prednisone 20 mg daily and bactrim DS 1 tab daily. Her lasix and lisinopril discontinued and she will be started on amlodipine 5 mg daily for hypertension. further adjustment of blood pressure medication per outpatient team. she will follow up with pulmonology next week and cardiology in march as scheduled. she will return sooner for new or worsening symptoms. discharge discussed with Dr Coronado. Home Meds and New Rx's Prescriptions: New amlodipine 5 mg Tablet 5 mg PO DAILY Qty: 30 RF: 0 sulfamethoxazole-trimethoprim 800-160 mg Tablet 1 tab PO DAILY Qty: 30 RF: 0 prednisone 20 mg Tablet 20 mg PO DAILY Qty: 30 RF: 0 Continued levothyroxine 25 mcg capsule 25 mcg PO DAILY RF: 0 nicotine [Nicoderm CQ] 21 mg/24 hr patch 24 hour 1 patch TD DAILY RF: 0 cholecalciferol (vitamin D3) [Vitamin D3] 1,000 unit Capsule 1,000 unit PO DAILY RF: 0 amitriptyline 50 mg Tablet 50 mg PO HS RF: 0 fluticasone propion-salmeterol [Advair Diskus] 250-50 mcg/dose blister with device 1 inh INHALATION BID RF: 0 albuterol sulfate [ProAir HFA] 90 mcg/actuation HFA aerosol inhaler 2 inh INHALATION Q4-5H PRNRF: 0 Bariatric Multivitamins 45 mg iron- 800 mcg-120 mcg Capsule 1 cap PO DAILY RF: 0 fluticasone propionate 50 mcg/actuation spray,suspension 1 spray NS BID RF: 0 levalbuterol HCl [Xopenex] 0.63 mg/3 mL solution for nebulization 0.63 mg inhalation Q4H PRN PRNQty: 72 RF: 0 pantoprazole 40 mg tablet,delayed release (DR/EC) 40 mg PO DAILY RF: 0 ondansetron 4 mg tablet,disintegrating 4 mg PO Q6H PRNRF: 0 Chantix Continuing Month Box 1 mg tablet 1 mg PO BID RF: 0 citalopram 20 mg tablet 20 mg PO DAILY RF: 0 aspirin 81 mg Tablet,Delayed Release (Dr/Ec) 81 mg PO DAILY Qty: 30 RF: 0 cetirizine 10 mg Tablet 10 mg PO HS Qty: 30 RF: 0 levalbuterol HCl 0.63 mg/3 mL Solution For Nebulization 0.63 mg UPD Q4H PRN PRN (Reason: dyspnea, wheezing) Qty: 90 RF: 2 montelukast 10 mg Tablet 10 mg PO QPM Qty: 30 RF: 0 Nicotrol 10 mg Cartridge 1 inh inhalation Q2H PRN PRNQty: 168 RF: 0 melatonin 10 mg capsule 10 mg PO HS PRNQty: 30 RF: 0 Discontinued furosemide 80 mg Tablet 80 mg PO BID@0830,1600 Qty: 28 RF: 0 lisinopril 20 mg Tablet 20 mg PO DAILY Qty: 30 RF: 0 Discharge Instructions Instructions: Acute Kidney Injury (DC) Additional Instructions: take medications as prescribed. your kidney function has returned to normal please change positions slowly to avoid lightheadedness. drink 6-8 glasses of water daily to stay well hydrated. Stand Alone Forms: Nursing Discharge Form Referrals: Jena Saunders MD [ [facility] STAFF PHYSICIAN] - 03/07/21 2:40 pm Lloyd Lilly MD [ CONSULTING PHYSICIAN] - 04/17/21 1:00 pm Activity:: Activity as Tolerated Equipment/Supplies:: No Equipment Needed Diet:: As Tolerated Discharge Orders Discharge Orders: Discharge Order (Routine); Ordered 03/02/21 Ordered By: Sierra Escobedo Discharge Data Discharge Date/Time-TO BE ENTERED AT DEPARTURE: 03/02/21 11:12 [facility] Medical History Adjustment disorder Asthma Cervical cancer Hyperparathyroidism Hypothyroid Interstitial lung disease Surgical History History of gastric bypass Social History Smoking/Tobacco Use Status: Former Tobacco Use Quit Date: 01/26/21 Smoking risk assessment performed?: Yes Alcohol Intake: current Alcohol Intake frequency: a few times a week Drug use: Rarely Substance use type: marijuana Do you feel safe at home: Yes Do you feel safe in your relationship?: Yes
[2021-03-02 09:00] VITALS: PULSE 56
[2021-03-02] MEDS: Sulfameth/Trimeth DS TAB 1 TAB PO (09:51)
[2021-03-02] MEDS: amLODIPine 5 MG TAB PO (09:51)
[2021-03-02] MEDS: predniSONE 20 MG TAB PO (09:51)
--- NOTE | 2021-03-02 09:52 | PDOC.CMDIS ---
- If Service Date Differs Date of service: 03/02/21 Time of Service: 09:52 LACE Index Scoring Tool - Questions: Length of Stay (in days): 2 Acuity (Admit via E.D.?): Yes Comorbidities: Previous M.I., Chronic Pulmonary Disease, Mild Liver/Renal Disease E.D. Visits: 3 - Answers: Total Score: 13 Risk of Readmission: High Risk Care Management Discharge Reason for Hospitalization: Syncope, dehydration, ANNALISE Discharge Plan: Betzaida will discharge home via private vehicle with , with no new services at this time/ She will need to cancel her [facility] pulmonology appointment as she has decided to schedule with [facility] pulmonolgy instead. She will also have outpatient follow up with her PCP, Cardiology and have an echo, currently her cardiology appointment is at [facility] in March. Patient/Family Education Needs: Review discharge instructions and plan to follow up with pulmonology and cardiology. Ask Me Three.
--- NOTE | 2021-03-02 11:27 | PUCON_ITS ---
General Date Of Service Date of service: 03/02/21 Time of Service: 08:30 Requesting physician: Sierra Escobedo Reason for Consult: Pulmonary Fibrosis Assessment and Plan Assessment and plan (1) Interstitial lung disease: Status: Chronic (2) Pulmonary hypertension: Status: Chronic (3) Asthma: Status: Suspected Assessment and plan: This is a 50-year-old female with past medical history of asthma and smoking who was admitted for the third time in 2 months for shortness of breath. She has radiologic evidence of ILD since May 2019 with 3 more recent chest CTs this year demonstrating subpleural predominance reticular infiltrates with traction bronchiectasis and honeycombing predominantly in bilateral upper lobes. The general appearance seems consistent with UIP with the exception of the apical predominance. Upper lobe predominant pulmonary fibrosis is associated with a number of pathologies including sarcoidosis, Langerhans' cell histiocytosis, certain pneumoconioses, chronic HP, histoplasmosis etc, however in most of these cases there is not such severe fibrosis as to cause the degree of honeycomb abnormality is that she has on her CAT scan. She has had a relatively thorough immunologic work-up thus far with a positive JAISON, slightly positive dsDNA, positive SSA and positive JEWELRY JOBBER. Clinically she did not appear to me as to have a rheumatologic diagnosis, although this would certainly change our treatment strategy for her pulmonary fibrosis. At this moment the main to differential diagnoses for her ILD are idiopathic pulmonary fibrosis or a connective tissue disease associated ILD. In either case she needs further work-up to determine the etiology as well as pulmonary follow-up. Interstitial Lung Disease -I have added on an anti-CCP, urine blasto and histo antigens, and a myomarker 3 panel -Would recommend discharging the patient on 20 mg of prednisone daily until she sees me in clinic -She is already on a PPI -Recommend starting Bactrim prophylaxis given the dose of prednisone -Have set her up to be seen in my clinic on Sunday March 07, 2021 at which point we will do basic spirometry (patient had issues previously when attempting to get in the body box for lung volumes) -She may require bronchoscopy in the future with transbronchial biopsies in order to make her diagnosis -She may also require rheumatology consultation given the array of positive lab findings, however this will be reassessed during her clinic visit next week. Pulmonary Hypertension, likely group 3 -We will work on optimizing her pulmonary disease Asthma -Continue with home inhaler regimen History of Present Illness History of Present Illness Chief Complaint: Pulmonary Fibrosis Narrative: Is a 50-year-old female with prior medical history of asthma who has been admitted to the medical service 3 times since the beginning of January. On February 01 she was admitted to the medical service with a primary diagnosis of pneumonia. At that time she received oxygen antibiotics and steroids and ultimately improved and was discharged home. She then returned to the hospital February 23 with primary complaint of shortness of breath was treated again with oxygen and steroids and the addition of a diuretic. She improved and was discharged home on home oxygen. She returns on March 01 after having a syncopal episode in addition to shortness of breath. She states that each time she got steroids her breathing did improve as did her cough however she noticed that when she completed her steroid taper her breathing began to worsen. The earliest chest imaging I can see is a chest x-ray from May 2019 that does show abnormalities consistent with an interstitial process. Her high- resolution CT scan from October 2020 shows a subpleural predominance of reticular infiltrates with traction bronchiectasis and honeycombing present in predominantly bilateral upper lobes. She tells me she believes her breathing started worsening approximately a year ago however did not seek medical attention at that time as it was during the pandemic and since she did not have any fevers she did not think she had Covid or pneumonia. She does have a [id number] smoking history however has not smoked since prior to her admission in January. 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 She does state that her workplace does contain a significant amount of dust. At her home there is no mold or specialist present she has not noticed anything at her house that makes her breathing worse. She does have a cat as a pet however has had the animal for 19 years and has never had an issue and does not believe the cat makes her breathing worse. There is no drug use. She believes her grandparents on her mother side did have a lung issue however she is unsure of what it is. There is no family history of autoimmune disease in herself or her family. She does s cohen that she has joint pains specifically in her hands that she believes is due to overuse with her job as well as some ankle and knee pains. She denies any muscle aches or muscle weakness. She denies any rash. Labs: 02/07/21 RF <8.6 Anti-Cunningham AB 10.5 (neg) Anti-JEWELRY JOBBER 35.7 (neg) 02/05/21 JAISON 1:640, speckled dsDNA 30 (<30) SS-A: 56.6 (<20) SS-B: 7.0 (<20) Scl-70: 0.3 (neg) Imaging: Chest CT 02/28/21 IMPRESSION: 1. Extensive bilateral pulmonary fibrosis, however, the previously present extensive bilateral ground-glass infiltrates seen on the CT scan of 01/31/2021 appear to have mostly resolved. There are no pleural effusions. It is diffic ult to delineate presence of hilar adenopathy in the absence of IV contrast. The prior contrast infused study did reveal some adenopathy. 2. Enlarged pulmonary arteries, most probably consistent with pulmonary artery hypertension and commensurate with the bilateral lung findings of interstitial fibrosis. 3. Previous bariatric surgery as described above. However, on the present study the gastric pouch is in position as a hiatal hernia measuring 4.5 x 4 cm, this not previously the case on the prior 01/31/2021 CT scan. TTE 02/01/21 Conclusion Normal left ventricular wall thickness and chamber size. Estimated ejection fraction is 55 to 60%. Wall motion is normal Normal right ventricular size and systolic function Both atria are normal in size Aortic valve is trileaflet and moderately sclerotic. There is no aortic stenosis. There is moderate aortic regurgitation Thickened mitral leaflets, trace to mild mitral regurgitation Normal tricuspid valve with moderate regurgitation. Estimated right ventricular systolic pressure is 42 mmHg Normal pulmonic valve, moderate pulmonic regurgitation Mildly dilated ascending aorta CTPE 01/31/21 IMPRESSION: 1. Compared to the CT scan of 11/14/2020 there is again noted bilateral fibrotic interstitial disease..However, the main new findings extensive bilateral grossman lobar ground-glass infiltrates which were not evident 3 months ago and are not associated with pleural effusions. There is some hilar adenopathy bilaterally. Also some mediastinal adenopathy. First consideration is for infectious etiology including Covid-19. Appropriate testing recommended. 2. No evidence of pulmonary emboli. Enlarged pulmonary arteries are noted indicating an element of pulmonary hypertension in this patient has fibrotic pulmonary disease. 3. Other findings as above. Chest CT 11/14/20 IMPRESSION: Bilateral interstitial changes, with honeycombing, greatest in both upper lobes. Chest Xray 05/24/19 IMPRESSION: Bilateral interstitial pulmonary infiltrates of uncertain etiology. Infectious versus inflammatory process, fibrotic change also possible. Clinical correlation requested. Appropriate follow-up chest radiographs requested and chest CT may be considered for further evaluation. Consults Consult date: 03/02/21 Review of Systems All systems reviewed & are unremarkable except as noted in HPI and below Constitutional Constitutional: Reports as per HPI Eyes Eyes: Reports as per HPI ENT Ears, Nose, Mouth, and Throat: Reports system reviewed and no additional complaints, except as documented Cardiovascular Cardiovascular: Reports syncope, Reports dyspnea and Reports dyspnea on exertion Respiratory Respiratory: Reports cough (Improved with prednisone), Reports dyspnea and Reports dyspnea on exertion Gastrointestinal Gastrointestinal: Reports as per HPI Integumentary/Breasts Skin/Breast: Denies rash Neurologic Neurologic: Reports syncope Psychiatric Psychiatric: Reports as per HPI Endocrine Endocrine: Reports as per HPI Hematologic/Lymphatic Hematologic/Lymphatic: Reports as per HPI Allergic/Immunologic Allergic/Immunologic: Reports as per HPI [facility] Medical History Adjustment disorder Asthma Cervical cancer Hyperparathyroidism Hypothyroid Interstitial lung disease Surgical History History of gastric bypass Social History Smoking/Tobacco Use Status: Former Tobacco Use Quit Date: 01/26/21 Smoking risk assessment performed?: Yes Alcohol Intake: current Alcohol Intake frequency: a few times a week Drug use: Rarely Substance use type: marijuana Do you feel safe at home: Yes Do you feel safe in your relationship?: Yes Visit Medication and Allergies Allergies environmental Adverse Reaction (Mild, Uncoded 02/23/21 12:17) Exam Const General: no acute distress Nutritional Appearance: well nourished [facility] Head: normocephalic Ears: external ears normal and no periauricular adenopathy General nose exam: nasal mucous membranes and turbinates normal Face and sinus: sinuses nontender Mouth: oropharynx normal and moist mucous membranes Teeth and gingiva: other (Teeth missing) Eyes General: appearance normal, both eyes and all related structures Pupils: PERRL Neck Neck: normal visual inspection and no lymphadenopathy Chest Chest: normal inspection of the chest Resp Effort & Inspection: normal respiratory effort and other (On nasal cannula) Auscultation: rales (Present throughout all lung lo) bilaterally, no rhonchi and no wheezes Cardio Rate: regular rate Rhythm: regular rhythm Heart Sounds: S1 normal, S2 normal and no murmurs Pulses: radial pulses present bilaterally GI Inspection: normal to inspection Palpation: soft Skin General skin exam: no rashes or lesions noted Neuro General: patient alert, patient awake and patient oriented x3 Extrem General: no clubbing, cyanosis or edema Psych Mental Status: mental status grossly normal Affect: normal affect Attitude: cooperative Results Last Vital Signs Temp 36.4 C L 03/02/21 07:40 Pulse 63 03/02/21 07:40 Resp 18 03/02/21 07:40 BP 140/80 03/02/21 07:40 Pulse Ox 99 03/02/21 07:40 Labs Result diagrams: 03/02/21 06:39 03/02/21 06:39 Labs: Laboratory Results - last 24 hr 03/02/21 03/02/21 06:39 06:39 WBC 4.12 L RBC 4.23 Hgb 12.1 Hct 38.3 MCV 90.5 MCH 28.6 MCHC 31.6 L RDW 12.9 Plt Count 200 MPV 9.3 Sodium 144 Potassium 4.5 Chloride 111 H Carbon Dioxide 25.9 Anion Gap 7.1 BUN 24 H D Creatinine 0.8 D Estimated GFR/1.73 m2 >= 60.00 Glucose 99 Calcium 8.9
[2021-03-05 09:15] LABS: Cyclic Citrullinated Peptide <2.5 U/mL (<5.0)
[2021-03-07 16:22] LABS: Blastomyces Ag Result Not Detected
[2021-03-19 12:22] LABS: Anti-Jo-1 Ab <20 Units (<20); Anti-PL-7 Ab Negative (Negative)
[2021-03-19 12:23] LABS: Anti-EJ Ab Negative (Negative); Anti-MDA-5 Ab (CADM-140) <20 Units (<20); Anti-Mi-2-Ab Negative (Negative); Anti-OJ Ab Negative (Negative); Anti-PL-12 Ab Negative (Negative); Anti-SRP Ab Negative (Negative); Anti-TIF-1gamma Ab <20 Units (<20)
[2021-03-19 12:24] LABS: Anti-Ku Ab Negative (Negative); Anti-NXP-2 (P140) Ab <20 Units (<20); Anti-PM/Scl-100 Ab <20 Units (<20); Anti-SS-A 52kD Ab, IgG <20 Units (<20); Anti-U1 RNP Ab <20 Units (<20); Anti-U2 RNP Ab Weak Positive (Negative)
[2021-03-19 12:27] LABS: Anti-U3 RNP (Fibrillarin) Negative (Negative)
== END 2021-03-02 11:12 | disposition home or self-care (01) ==
LOC: ER 03-01 00:23 → MS 03-01 00:59
PROVIDERS: Nurse Practitioner Acute Care; Student in an Organized Health Care Education/Training Program; Admitting Provider Internal Medicine; Emergency Provider Emergency Medicine; PCP Nurse Practitioner Family; Visit Provider Internal Medicine
DX: R55 Syncope and collapse (principal); J84.10 Pulmonary fibrosis, unspecified; J45.909 Unspecified asthma, uncomplicated; J96.11 Chronic respiratory failure with hypoxia; E03.9 Hypothyroidism, unspecified; E21.3 Hyperparathyroidism, unspecified; F43.20 Adjustment disorder, unspecified; Z98.84 Bariatric surgery status; E86.0 Dehydration; I95.9 Hypotension, unspecified; S09.8XXA Other specified injuries of head, initial encounter; N17.9 Acute kidney failure, unspecified; I27.20 Pulmonary hypertension, unspecified; W18.39XA Other fall on same level, initial encounter; W22.09XA Striking against other stationary object, initial encounter
CPT/HCPCS: 36415; 71250; 80048; 80053; 83516; 85027; 86200; 86235; 87449; 87635; 93005; 94640; 99285; 70450; 72125; 83735; 83880; 84443; 84484; 85025; 85379; 87385; 93010; 99217; 99220; G0378; J0131; J7512

== ENCOUNTER 2021-03-13 04:15 | Outpatient (CLI) | payer MEDICAID, SELFPAY ==
[2021-03-13] MEDS: Albuterol HFA 18 GM 200 PUFF INH IH (15:49)
[2021-03-13] MEDS: Inhaler, Assist Device 1 EACH MC (15:50)
--- NOTE | 2021-03-14 12:41 | W.PFT ---
Date of service: 03/13/21 Time of Service: 02:48 Pulmonary Function Test Result Interpretation Spirometry: There is no airflow limitation. There is no significant bronchodilator change. Primary may reflect restriction, poor effort, or obesity. Lung Volumes: Patient declined due to claustrophobia Diffusion Capacity: Significantly reduced diffusion Impression Restrictive pattern spirometry with a diminished diffusion capacity may reflect restrictive lung disease, however lung volumes would be necessary to confirm this diagnosis. Clinical Correlation therefore is recommended.
== END 2021-03-13 04:16 | disposition home or self-care (01) ==
LOC: RT 04:15
PROVIDERS: PCP Nurse Practitioner Family; Visit Provider Student in an Organized Health Care Education/Training Program
DX: J84.114 Acute interstitial pneumonitis (principal)
CPT/HCPCS: 94060; 94726; 94729

== ENCOUNTER 2021-04-02 11:41 | Outpatient (CLI) | payer MEDICAID, SELFPAY ==
[2021-04-02 12:30] LABS: Source Nasal/Nares
[2021-04-02 13:30] LABS: COVID-19 PCR Negative (Negative)
== END 2021-04-02 11:42 | disposition home or self-care (01) ==
LOC: LBO 11:41
PROVIDERS: PCP Nurse Practitioner Family; Visit Provider Student in an Organized Health Care Education/Training Program
DX: I27.20 Pulmonary hypertension, unspecified (principal); Z20.822 Contact with and (suspected) exposure to COVID-19
CPT/HCPCS: 87635

== ENCOUNTER 2021-05-28 13:49 | Outpatient (CLI) | payer MEDICAID, SELFPAY ==
[2021-05-28 15:01] LABS: Procalcitonin < 0.1 ng/mL
[2021-05-28 15:21] LABS: Anion Gap 9.5 mmol/L (3-11); BUN 22 mg/dL (7-18); CO2 28.5 mmol/L (21.0-32.0); CREATININE 1.4 mg/dL (0.55-1.02); Calcium 8.7 mg/dL (8.5-10.1); Chloride 105 mmol/L (98-107); Estimated GFR 39.34 (mL/min/1.73m2); Glucose 167 mg/dL (74-106); Potassium 3.6 mmol/L (3.5-5.1); Sodium 143 mmol/L (136-145)
== END 2021-05-28 13:50 | disposition home or self-care (01) ==
LOC: LBO 13:51
PROVIDERS: Internal Medicine; PCP Nurse Practitioner Family; Visit Provider Student in an Organized Health Care Education/Training Program
DX: J84.9 Interstitial pulmonary disease, unspecified (principal); I27.81 Cor pulmonale (chronic); E87.6 Hypokalemia
CPT/HCPCS: 36415; 80048; 84145; 86480

== ENCOUNTER 2021-06-01 02:23 | Outpatient (CLI) | payer MEDICAID, SELFPAY ==
[2021-06-04 13:52] LABS: TB Interpretation Negative (Negative); TB1 Ag minus Nil 0.01 IU/ml; TB2 Ag minus Nil 0.01 IU/mL
== END 2021-06-01 02:24 | disposition home or self-care (01) ==
LOC: LBO 02:23
PROVIDERS: PCP Nurse Practitioner Family; Visit Provider Student in an Organized Health Care Education/Training Program
DX: J84.89 Other specified interstitial pulmonary diseases (principal)
CPT/HCPCS: 86480

== ENCOUNTER 2021-06-05 14:55 | Outpatient (REF) | payer MEDICAID, SELFPAY ==
[2021-06-05 14:41] LABS: Abs Immature Grans 0.04 10^3/uL (0.0-0.06); Absolute Basophil Count 0.05 10^3/uL (0.0-0.2); Absolute Lymphocyte Count 1.65 10^3/uL (1.2-3.4); Absolute Monocyte Count 0.57 10^3/uL (0.1-0.8); Absolute Neutrophil Count 7.02 10^3/uL (1.2-6.7); Basophils % 0.5; Eosinophils % 1.1; HCT 38.7 % (36.0-46.0); HGB 12.3 g/dL (11.2-15.7); Immature Grans % 0.4; Lymphocytes % 17.5; MCH 27.6 pg (27.0-33.0); MCHC 31.8 % (32.0-36.0); MCV 86.8 fL (80-95); MPV 10.4 fL (8.0-11.0); Neutrophils % 74.5; Nucleated RBC 0 %; Platelet Count 321 10^3/uL (130-400); RBC 4.46 10^6/uL (3.93-5.22); RDW 12.6 % (11.7-14.6); RDW-SD 40.1 fL; WBC 9.43 10^3/uL (4.4-10.8)
[2021-06-05 15:06] LABS: ALT 44 U/L (14-59); AST 24 U/L (15-37); Albumin 3.6 g/dL (3.4-5.0); Alkaline Phosphatase 194 U/L (46-116); Anion Gap 9.5 mmol/L (3-11); BUN 22 mg/dL (7-18); Bilirubin, Total 0.2 mg/dL (0.2-1.0); CO2 28.5 mmol/L (21.0-32.0); CREATININE 1.1 mg/dL (0.55-1.02); Calcium 9.4 mg/dL (8.5-10.1); Chloride 101 mmol/L (98-107); Estimated GFR 51.96 (mL/min/1.73m2); Glucose 98 mg/dL (74-106); Sodium 139 mmol/L (136-145); Total Protein 8.1 g/dL (6.4-8.2)
[2021-06-06 10:44] LABS: HBs Antibody, Qual Positive (See Note); HBs Antibody, Quant >1000.0 mIU/mL (See Note); Hepatitis B Core Antibody Negative (Negative); Hepatitis B surface Ag Negative (Negative); Hepatitis C Ab w Rflx HCV PCR Negative (Negative)
[2021-06-06 10:46] LABS: Hepatitis A Antibody IgM Negative (Negative); Hepatitis B Core Antibody Negative (Negative); Hepatitis B surface Ag Negative (Negative); Hepatitis C Ab w Rflx HCV PCR Negative (Negative)
== END 2021-06-05 14:56 | disposition home or self-care (01) ==
LOC: LBN 14:55
PROVIDERS: PCP Nurse Practitioner Family; Visit Provider Student in an Organized Health Care Education/Training Program
DX: J84.89 Other specified interstitial pulmonary diseases (principal)
CPT/HCPCS: 80053; 86704; 86706; 86709; 86803; 87340; 85025

== ENCOUNTER 2021-06-25 14:16 | Outpatient (REF) | payer MEDICAID, SELFPAY ==
[2021-06-25 16:06] LABS: Abs Immature Grans 0.13 10^3/uL (0.0-0.06); Absolute Eosinophil Count 0.03 10^3/uL (0.0-0.7); Absolute Monocyte Count 0.54 10^3/uL (0.1-0.8); Basophils % 0.2; Eosinophils % 0.2; HCT 39.6 % (36.0-46.0); HGB 12.5 g/dL (11.2-15.7); Immature Grans % 0.8; Lymphocytes % 7.4; MCH 26.9 pg (27.0-33.0); MCHC 31.6 % (32.0-36.0); MCV 85.2 fL (80-95); MPV 10.3 fL (8.0-11.0); Monocytes % 3.3; Neutrophils % 88.1; Nucleated RBC 0 %; Platelet Count 361 10^3/uL (130-400); RBC 4.65 10^6/uL (3.93-5.22); RDW 13.2 % (11.7-14.6); RDW-SD 40.2 fL; WBC 16.27 10^3/uL (4.4-10.8)
[2021-06-25 16:17] LABS: Absolute Basophil Count 0.03 10^3/uL (0.0-0.2); Absolute Neutrophil Count 14.33 10^3/uL (1.2-6.7)
== END 2021-06-25 14:17 | disposition home or self-care (01) ==
LOC: LBN 14:16
PROVIDERS: PCP Nurse Practitioner Family; Visit Provider Student in an Organized Health Care Education/Training Program
DX: J84.89 Other specified interstitial pulmonary diseases (principal)
CPT/HCPCS: 85025

== ENCOUNTER 2021-07-06 15:10 | Outpatient (REF) | payer MEDICAID, SELFPAY ==
[2021-07-06 16:22] LABS: Abs Immature Grans 0.22 10^3/uL (0.0-0.06); Absolute Lymphocyte Count 1.37 10^3/uL (1.2-3.4); Absolute Monocyte Count 0.49 10^3/uL (0.1-0.8); Basophils % 0.2; Eosinophils % 0.1; HCT 41.7 % (36.0-46.0); HGB 13.7 g/dL (11.2-15.7); Immature Grans % 1.3; Lymphocytes % 7.9; MCHC 32.9 % (32.0-36.0); MCV 85.1 fL (80-95); MPV 9.7 fL (8.0-11.0); Monocytes % 2.8; Neutrophils % 87.7; Nucleated RBC 0 %; Platelet Count 297 10^3/uL (130-400); RDW 13.8 % (11.7-14.6); RDW-SD 42.5 fL; WBC 17.38 10^3/uL (4.4-10.8)
[2021-07-06 16:25] LABS: Absolute Basophil Count 0.03 10^3/uL (0.0-0.2); Absolute Eosinophil Count 0.02 10^3/uL (0.0-0.7); Absolute Neutrophil Count 15.24 10^3/uL (1.2-6.7)
== END 2021-07-06 15:11 | disposition home or self-care (01) ==
LOC: LBN 15:10
PROVIDERS: PCP Family Medicine; Visit Provider Student in an Organized Health Care Education/Training Program
DX: J84.9 Interstitial pulmonary disease, unspecified (principal)
CPT/HCPCS: 85025

== ENCOUNTER 2021-07-17 11:12 | Outpatient (REF) | payer MEDICAID, SELFPAY ==
[2021-07-17 17:20] LABS: Absolute Basophil Count 0.04 10^3/uL (0.0-0.2); Absolute Lymphocyte Count 1.36 10^3/uL (1.2-3.4); Absolute Monocyte Count 0.57 10^3/uL (0.1-0.8); Absolute Neutrophil Count 7.46 10^3/uL (1.2-6.7); Basophils % 0.4; HCT 42.5 % (36.0-46.0); HGB 13.2 g/dL (11.2-15.7); Lymphocytes % 14.1; MCH 27.4 pg (27.0-33.0); MCHC 31.1 % (32.0-36.0); MCV 88.4 fL (80-95); MPV 9.8 fL (8.0-11.0); Monocytes % 5.9; Neutrophils % 77.6; Nucleated RBC 0 %; Platelet Count 331 10^3/uL (130-400); RBC 4.81 10^6/uL (3.93-5.22); RDW 14.2 % (11.7-14.6); RDW-SD 45.4 fL; WBC 9.63 10^3/uL (4.4-10.8)
[2021-07-17 17:55] LABS: ALT 25 U/L (14-59); AST 16 U/L (15-37); Albumin 3.5 g/dL (3.4-5.0); Alkaline Phosphatase 97 U/L (46-116); Anion Gap 12.1 mmol/L (3-11); BUN 15 mg/dL (7-18); Bilirubin, Total 0.4 mg/dL (0.2-1.0); CO2 26.9 mmol/L (21.0-32.0); CREATININE 1.2 mg/dL (0.55-1.02); Calcium 9.6 mg/dL (8.5-10.1); Chloride 102 mmol/L (98-107); Estimated GFR 46.99 (mL/min/1.73m2); Glucose 112 mg/dL (74-106); Potassium 4.2 mmol/L (3.5-5.1); Sodium 141 mmol/L (136-145); Total Protein 7.4 g/dL (6.4-8.2)
== END 2021-07-17 11:13 | disposition home or self-care (01) ==
LOC: LBN 11:12
PROVIDERS: PCP Family Medicine; Visit Provider Student in an Organized Health Care Education/Training Program
DX: J84.9 Interstitial pulmonary disease, unspecified (principal)
CPT/HCPCS: 80053; 85025

== ENCOUNTER 2021-07-24 17:46 | Outpatient (REF) | payer MEDICAID, SELFPAY ==
[2021-07-24 17:52] LABS: Abs Immature Grans 0.04 10^3/uL (0.0-0.06); Absolute Basophil Count 0.03 10^3/uL (0.0-0.2); Absolute Eosinophil Count 0.07 10^3/uL (0.0-0.7); Absolute Lymphocyte Count 1.58 10^3/uL (1.2-3.4); Absolute Monocyte Count 0.41 10^3/uL (0.1-0.8); Absolute Neutrophil Count 5.26 10^3/uL (1.2-6.7); Basophils % 0.4; Eosinophils % 0.9; HCT 40.9 % (36.0-46.0); HGB 12.9 g/dL (11.2-15.7); Immature Grans % 0.5; Lymphocytes % 21.4; MCH 27.4 pg (27.0-33.0); MCHC 31.5 % (32.0-36.0); MPV 10.1 fL (8.0-11.0); Monocytes % 5.5; Neutrophils % 71.3; Nucleated RBC 0 %; Platelet Count 269 10^3/uL (130-400); RDW 14.4 % (11.7-14.6); RDW-SD 45.9 fL; WBC 7.39 10^3/uL (4.4-10.8)
== END 2021-07-24 17:47 | disposition home or self-care (01) ==
LOC: LBN 17:46
PROVIDERS: PCP Family Medicine; Visit Provider Student in an Organized Health Care Education/Training Program
DX: J84.9 Interstitial pulmonary disease, unspecified (principal)
CPT/HCPCS: 85025

== ENCOUNTER 2021-08-13 15:17 | Outpatient (REF) | payer MEDICAID, SELFPAY ==
[2021-08-13 13:59] LABS: Abs Immature Grans 0.02 10^3/uL (0.0-0.06); Absolute Basophil Count 0.05 10^3/uL (0.0-0.2); Absolute Eosinophil Count 0.13 10^3/uL (0.0-0.7); Absolute Lymphocyte Count 2.25 10^3/uL (1.2-3.4); Absolute Monocyte Count 0.53 10^3/uL (0.1-0.8); Absolute Neutrophil Count 4.82 10^3/uL (1.2-6.7); Basophils % 0.6; Eosinophils % 1.7; HCT 41.5 % (36.0-46.0); HGB 12.7 g/dL (11.2-15.7); Immature Grans % 0.3; Lymphocytes % 28.8; MCH 26.8 pg (27.0-33.0); MCHC 30.6 % (32.0-36.0); MCV 87.6 fL (80-95); MPV 10.5 fL (8.0-11.0); Monocytes % 6.8; Neutrophils % 61.8; Nucleated RBC 0 %; Platelet Count 348 10^3/uL (130-400); RBC 4.74 10^6/uL (3.93-5.22); RDW 14.4 % (11.7-14.6); RDW-SD 46.5 fL
[2021-08-13 14:17] LABS: ALT 14 U/L (14-59); AST 18 U/L (15-37); Albumin 3.2 g/dL (3.4-5.0); Alkaline Phosphatase 77 U/L (46-116); Bilirubin, Direct 0.1 mg/dL (0.0-0.2); Bilirubin, Total 0.3 mg/dL (0.2-1.0); Total Protein 7.4 g/dL (6.4-8.2)
== END 2021-08-13 15:18 | disposition home or self-care (01) ==
LOC: LBN 15:17
PROVIDERS: PCP Family Medicine; Visit Provider Student in an Organized Health Care Education/Training Program
DX: J84.89 Other specified interstitial pulmonary diseases (principal)
CPT/HCPCS: 80076; 85025

== ENCOUNTER 2021-08-27 17:37 | Outpatient (REF) | payer MEDICAID, SELFPAY ==
[2021-08-27 17:41] LABS: Abs Immature Grans 0.03 10^3/uL (0.0-0.06); Absolute Basophil Count 0.03 10^3/uL (0.0-0.2); Absolute Eosinophil Count 0.09 10^3/uL (0.0-0.7); Absolute Lymphocyte Count 1.66 10^3/uL (1.2-3.4); Absolute Neutrophil Count 7.94 10^3/uL (1.2-6.7); Basophils % 0.3; Eosinophils % 0.9; HCT 39.8 % (36.0-46.0); HGB 12.4 g/dL (11.2-15.7); Immature Grans % 0.3; MCH 26.2 pg (27.0-33.0); MCHC 31.2 % (32.0-36.0); MPV 11.6 fL (8.0-11.0); Monocytes % 5.8; Neutrophils % 76.7; Nucleated RBC 0 %; Platelet Count 327 10^3/uL (130-400); RBC 4.74 10^6/uL (3.93-5.22); RDW 13.9 % (11.7-14.6); RDW-SD 42.7 fL; WBC 10.35 10^3/uL (4.4-10.8)
[2021-08-27 18:16] LABS: ALT 18 U/L (14-59); AST 19 U/L (15-37); Albumin 3.4 g/dL (3.4-5.0); Alkaline Phosphatase 83 U/L (46-116); BUN 14 mg/dL (7-18); Bilirubin, Total 0.4 mg/dL (0.2-1.0); CREATININE 1.1 mg/dL (0.55-1.02); Calcium 9.1 mg/dL (8.5-10.1); Chloride 99 mmol/L (98-107); Estimated GFR 51.96 (mL/min/1.73m2); Glucose 101 mg/dL (74-106); Sodium 137 mmol/L (136-145); Total Protein 7.4 g/dL (6.4-8.2)
[2021-08-27 19:45] LABS: Potassium 2.5 mmol/L (3.5-5.1)
== END 2021-08-27 17:38 | disposition home or self-care (01) ==
LOC: LBN 17:37
PROVIDERS: PCP Family Medicine; Visit Provider Student in an Organized Health Care Education/Training Program
DX: J84.89 Other specified interstitial pulmonary diseases (principal)
CPT/HCPCS: 80053; 85025

== ENCOUNTER 2021-09-04 19:42 | Outpatient (REF) | payer MEDICAID, SELFPAY ==
[2021-09-04 16:05] LABS: Anion Gap 12.8 mmol/L (3-11); BUN 11 mg/dL (7-18); CO2 23.2 mmol/L (21.0-32.0); CREATININE 1.1 mg/dL (0.55-1.02); Calcium 9.3 mg/dL (8.5-10.1); Chloride 101 mmol/L (98-107); Estimated GFR 51.96 (mL/min/1.73m2); Glucose 104 mg/dL (74-106); Sodium 137 mmol/L (136-145)
== END 2021-09-04 19:43 | disposition home or self-care (01) ==
LOC: LBN 19:42
PROVIDERS: PCP Family Medicine; Visit Provider Student in an Organized Health Care Education/Training Program
DX: E87.6 Hypokalemia (principal)
CPT/HCPCS: 80048

== ENCOUNTER 2021-09-10 13:03 | Emergency (ER) | payer MEDICAID, SELFPAY ==
[2021-09-10] VITALS (14 sets, daily range): BP systolic 89–98; BP diastolic 61–75; PULSE 75–99; RESP 18–27; TEMP 35.6–36.2; O2SAT 100
--- NOTE | 2021-09-10 13:15 | RT.EKG_ITS ---
APPROVED REPORT Exam: Resting ECG Reason for Exam: recent elctrolyte abnormalities Patient Location: E HR:89 bpm ECG Measurements Heart Rate 89 AXIS VA 157 P 29 QRSd 98 QRS -9 QT 361 T 42 QTc 440 Conclusion Sinus rhythm...normal P axis, V-rate 60- 99 Inferior infarct, old...Q >35mS, II III aVF no STEMI, non-diagnostic EKG
--- NOTE | 2021-09-10 13:40 | ED.GENADUL_ITS ---
Discharge Plan Disposition Patient Disposition: HOME Condition: Stable Discharge Details Clinical Impression: Hypokalemia, Diarrhea Primary Care Provider: Max Hart ED Provider: Kaylene Stevens Home Meds and New Rx's Prescriptions: New potassium chloride 20 mEq tablet extended release 20 meq PO DAILY Qty: 7 RF: 0 Continued lisinopril 10 mg tablet 10 mg PO DAILY RF: 0 furosemide 80 mg tablet 80 mg PO DAILY RF: 0 montelukast 10 mg tablet 10 mg PO DAILY RF: 0 sumatriptan succinate 50 mg tablet See Rx Instructions PO .COMPLEX RF: 0 albuterol sulfate 90 mcg/actuation aerosol powdr breath activated 2 inh inhalation Q4H PRN (Reason: shortness of breath or wheezing) Qty: 1 RF: 8 azithromycin 250 mg tablet 250 mg PO DAILY Qty: 36 RF: 6 Trelegy Ellipta 200-62.5-25 mcg blister with device 1 inh inhalation DAILY Qty: 60 RF: 5 lorazepam 0.5 mg tablet 0.5 mg PO PRN RF: 0 rizatriptan 5 mg tablet See Rx Instructions PO .COMPLEX RF: 0 cyclobenzaprine 10 mg tablet 10 mg PO PRN RF: 0 sertraline 100 mg tablet 150 mg PO HS RF: 0 topiramate 25 mg tablet See Rx Instructions .ROUTE .COMPLEX RF: 0 alprazolam [Xanax] 1 mg tablet 1 mg PO DAILY Qty: 1 RF: 0 potassium chloride 20 mEq tablet extended release 20 meq PO DAILY Qty: 7 RF: 0 potassium chloride 20 mEq tablet extended release 20 meq PO DAILY Qty: 3 RF: 0 cholecalciferol (vitamin D3) [Vitamin D3] 1,000 unit Capsule 1,000 unit PO DAILY RF: 0 amitriptyline 50 mg Tablet 50 mg PO HS RF: 0 levalbuterol HCl [Xopenex] 0.63 mg/3 mL solution for nebulization 0.63 mg inhalation Q4H PRN PRNQty: 72 RF: 0 aspirin 81 mg Tablet,Delayed Release (Dr/Ec) 81 mg PO DAILY Qty: 30 RF: 0 melatonin 10 mg capsule 10 mg PO HS PRNQty: 30 RF: 0 pantoprazole 40 mg tablet,delayed release (DR/EC) 40 mg PO BID RF: 0 Discontinued Ofev 150 mg capsule 150 mg PO Q12H Qty: 60 RF: 0 mycophenolate mofetil [CellCept] 500 mg tablet 500 mg PO BID Qty: 120 RF: 5 Discharge Instructions Instructions: Hypokalemia (ED), Acute Diarrhea (ED) Additional Instructions: Your labs are concerning for low magnesium and potassium. You have been supplemented here today. I would like for you to continue with oral potassium as you have previously been on. Another weeks worth of dosing has been sent to your pharmacy of choice. Dr. Saunders did discuss the findings and imaging with you, plan will be for you to be referred to a specialist at [facility] to discuss potential biopsy. As discussed, please follow up with Dr. Saunders in one week. Please hold your Cellcept and Ofev for the time being. If you develop other new/worsening symptoms please seek care urgently once again. Referrals: Jena Saunders MD [ [facility] STAFF PHYSICIAN] - Max Hart [Primary Care Provider] - Discharge Data Discharge Date/Time-TO BE ENTERED AT DEPARTURE: 09/10/21 17:04 Medical Decision Making Patient is a pleasant 58-year-old female, presenting with her significant other, with chief complaint of diarrhea. Patient's pulmonary physician, Dr. Russell, his office bedside. Patient presents today with diarrhea for the past month. Patient with started on Ofev 8 weeks ago and reports that she was doing quite well with this. However, 1 month ago began on CellCept and symptoms have been having significant diarrhea. She reports she did hold this for 1 day and noted improvement. After noticing the swelling improvement, she did speak with her blindmaker who recommended cutting her dosing in half. Despite this, because she continued to have significant diarrhea. She reports having 5 watery bowel movements today. She has had some blood but feels this is likely associated with her hemorrhoids which has been flaring. States that she is intermittently had some cramping. However, has not had any abdominal pain. Past surgical history is pertinent for gastric bypass 17 years ago as well C- section. She denies change in her appetite. No change in urinary habits. Parveen es any vaginal discharge. Denies any fevers or chills. Regarding her pulmonary status, patient reports that she continues to have intermittent shortness of breath particularly with activity but that is not acute. Dr. Russell reports overall her oxygen use has decreased. The patient also expressed concern that patient still hypokalemic but that she has not slept scrunching her orally has been, from 2.5-3.0. Has been monitoring her since starting the medications. She would like the patient to stop both the Ofev and the CellCept for the time being. On exam, patient appears quite anxious. She is currently using 3 L nasal cannula which she reports she needs when she has increased. Of anxiety. Patient is questioning her perspective. She initially did have some expiratory wheezes to be cleared with cough. Normal bowel sounds, abdomen benign and nontender with no peritoneal findings. Will obtain baseline labs. In particular, concern for potential electrolyte abnormality. I do not see evidence to suggest surgical process. Also concern for C. difficile. Patient with treated with Levaquin x2 over a month ago. Patient denies any history of C. difficile historically. Labs reviewed and reassuring. No anemia. No leukocytosis. Her K+ and mag low here and replenished. this is likely d/t her diarrhea. Discussed with patient. She received IV replacement and IV hydration. No BM while here, will send home with collection kits. I would expect leukocytosis with c.diff so this is reassuring but I do feel that confirmatory testing would be appropriate. Patients blindmaker at bed side. She agreed to have patient conitnue with K+ supplement. Encouraged hydration. We will have patient hold offending agents, she has f/u scheduled. Strict return precautions discussed. All of her quesiotns and concerns were addressed, she is in [facility] this plan. HPI General Mode of arrival: ambulatory . Date/Time Provider Initiated Documentation: 09/10/21 13:04 . Limitations to Documentation: no limitations . Information obtained by: patient, family, RN/MD and RN notes reviewed . History of Present Illness 51 year old F presents to the emergency department with the chief complaint of diarrhea, described as moderate, Quality is described as other (is not endorsing pain currently), and is localized to the abdomen. Patient reports no radiation. Patient started experiencing this month(s) (1) and it has been constant. Medication improves symptom(s), (stopping medication) Medication worsens symptoms (starting medication) . Patient notes shortness of breath (chronic, slightly improved from baseline); denies chest pain, cough, fever/chills, headaches, loss of appetite and nausea/vomiting. Patient did receive the following treatments prior to arrival, none Related Data Home Medications Medication Instructions Recorded Confirmed amitriptyline 50 mg PO HS 05/06/19 08/27/21 cholecalciferol (vitamin D3) 1,000 unit PO DAILY 05/06/19 08/27/21 [Vitamin D3] aspirin 81 mg PO DAILY #30 tab 02/07/21 08/27/21 melatonin 10 mg PO HS PRN #30 cap 02/07/21 08/27/21 levalbuterol HCl [Xopenex] 0.63 mg INHALATION Q4H PRN PRN #72 02/24/21 08/27/21 ml albuterol sulfate 90 mcg/actuation 2 inh INHALATION Q4H PRN #1 ea 03/07/21 08/27/21 breath activated powder inhaler pantoprazole 40 mg tablet,delayed 40 mg PO BID tab 03/07/21 08/27/21 release furosemide 80 mg tablet 80 mg PO DAILY 04/09/21 08/27/21 lisinopril 10 mg tablet 10 mg PO DAILY 04/09/21 08/27/21 montelukast 10 mg tablet 10 mg PO DAILY 04/09/21 08/27/21 sumatriptan succinate 50 mg tablet See Rx Instructions PO .COMPLEX 04/09/21 08/27/21 azithromycin 250 mg tablet 250 mg PO DAILY #36 tab 07/09/21 08/27/21 fluticasone fur. 200 mcg-umeclid 1 inh INHALATION DAILY #60 ea 07/17/21 08/27/21 62.5 mcg-vilant 25 mcg inhalat.powder alprazolam 1 mg tablet 1 mg PO DAILY #1 tab 08/27/21 08/27/21 cyclobenzaprine 10 mg tablet 10 mg PO PRN tab 08/27/21 08/27/21 lorazepam 0.5 mg tablet 0.5 mg PO PRN tab 08/27/21 08/27/21 rizatriptan 5 mg tablet See Rx Instructions PO .COMPLEX 08/27/21 08/27/21 sertraline 100 mg tablet 150 mg PO HS tab 08/27/21 topiramate 25 mg tablet See Rx Instructions .ROUTE 08/27/21 .COMPLEX tab potassium chloride 20 mEq 20 meq PO DAILY #7 tab 08/28/21 tablet,extended release potassium chloride 20 mEq 20 meq PO DAILY #3 tab 09/05/21 tablet,extended release potassium chloride 20 meq PO DAILY #7 tab 09/10/21 Previous Rx's Medication Instructions Recorded aspirin 81 mg PO DAILY #30 tab 02/07/21 melatonin 10 mg PO HS PRN #30 cap 02/07/21 levalbuterol HCl [Xopenex] 0.63 mg INHALATION Q4H PRN PRN #72 02/24/21 ml albuterol sulfate 90 mcg/actuation 2 inh INHALATION Q4H PRN #1 ea 03/07/21 breath activated powder inhaler azithromycin 250 mg tablet 250 mg PO DAILY #36 tab 07/09/21 fluticasone fur. 200 mcg-umeclid 1 inh INHALATION DAILY #60 ea 07/17/21 62.5 mcg-vilant 25 mcg inhalat.powder alprazolam 1 mg tablet 1 mg PO DAILY #1 tab 08/27/21 potassium chloride 20 mEq 20 meq PO DAILY #7 tab 08/28/21 tablet,extended release potassium chloride 20 mEq 20 meq PO DAILY #3 tab 09/05/21 tablet,extended release potassium chloride 20 meq PO DAILY #7 tab 09/10/21 Allergies Allergy/AdvReac Type Severity Reaction Status Date / Time mycophenolate mofetil AdvReac Intermediate Diarrhea Verified 09/16/21 17:49 [From CellCept] with hypokalemia environmental AdvReac Mild Uncoded 08/27/21 14:35 General Stated Complaint: Nausea/Vomit/Diar RUTH ANN: 4 Review of Systems Constitutional Constitutional: Reports as per HPI, Denies chills, Denies fatigue, Denies fever(s) and Denies headache(s) ENT Ears, Nose, Mouth, and Throat: Denies headache(s) Cardiovascular Cardiovascular: Reports as per HPI and Denies chest pain Respiratory Respiratory: Reports as per HPI and Denies cough Gastrointestinal Gastrointestinal: Reports as per HPI Musculoskeletal Musculoskeletal: Reports as per HPI and Denies back pain Integumentary/Breasts Skin/Breast: Reports as per HPI and Denies rash Neurologic Neurologic: Reports as per HPI and Denies headache(s) Endocrine Endocrine: Denies fatigue PFSH All Active Problems (Updated 09/10/21 @ 16:26 by KEON Max) Diarrhea (Acute) Hypokalemia (Acute) Chronic respiratory failure with hypoxia (Acute) Claustrophobia (Acute) Current smoker (Acute) Interstitial pneumonia with autoimmune features (Acute) Hypotension (Acute) Dehydration (Acute) Closed head injury (Acute) Syncope and collapse (Acute) ANNALISE (acute kidney injury) (Acute) TSH (thyroid-stimulating hormone deficiency) (Chronic) Obesity, morbid, BMI 40.0-49.9 (Chronic) Moderate aortic regurgitation (Acute) Tricuspid regurgitation (Acute) Cor pulmonale (Chronic) Pulmonary hypertension (Chronic) NSTEMI (non-ST elevated myocardial infarction) (Acute) Discharge planning issues (Acute) DVT prophylaxis (Acute) Demand ischemia (Acute) Interstitial lung disease (Chronic) Hyperparathyroidism (Acute) Adjustment disorder (Acute) Hypothyroid (Chronic) Hypoxemia (Acute) Elevated troponin (Acute) Migraine (Chronic) Intermittent asthma (Acute) Pedal edema (Acute) Malabsorption (Acute) Heartburn (Acute) Medical History (Updated 09/10/21 @ 16:26 by KEON Max) Acute respiratory failure with hypoxia Cervical cancer Hypokalemia Tobacco dependence Surgical History History of gastric bypass Family History Other Current smoker Social History Smoking/Tobacco Use Status: Former Tobacco Use Quit Date: 01/26/21 Smoking risk assessment performed?: Yes Alcohol Intake: current Alcohol Intake frequency: a few times a week Drug use: Rarely Substance use type: marijuana Do you feel safe at home: Yes Do you feel safe in your relationship?: Yes Exam Const General: cooperative, healthy appearing, comfortable, no acute distress, well developed and anxious Nutritional Appearance: well nourished and obese Orientation: alert and awake [facility] Head: normal to inspection Mouth: moist mucous membranes Resp Effort & Inspection: normal respiratory effort, able to speak in complete sentences and no respiratory distress Auscultation: clear to auscultation bilaterally, no rales, no rhonchi and no wheezes Cardio Rate: regular rate Rhythm: regular rhythm Heart Sounds: S1 normal and S2 normal GI Inspection: normal to inspection Palpation: soft, no hepatosplenomegaly, no guarding, no hepatosplenomegaly, no masses, not rigid and nontender Percussion: normal to percussion Auscultation: normal bowel sounds Back/Spine/Pelvis Back: no CVA tenderness Skin General skin exam: no rashes or lesions noted Trauma: no lacerations or abrasions Neuro General: patient alert and patient awake Cognition: normal cognition Speech: speech normal Gait: normal gait Psych Appearance: grossly normal and well kempt Mental Status: mental status grossly normal Speech and Movement: speech and movement normal Course Vital Signs Vital signs: Vital Signs Pulse 99 H 09/10/21 13:12 Respiratory Rate 24 09/10/21 13:12 Blood Pressure 95/61 L 09/10/21 13:12 Pulse Oximetry 100 09/10/21 13:12 Pulse 99 H 09/10/21 13:12 Respiratory Rate 24 09/10/21 13:12 Respiratory Effort 09/10/21 13:22 Respiratory Depth Normal 09/10/21 13:22 Respiratory Pattern Normal 09/10/21 13:22 Blood Pressure 95/61 L 09/10/21 13:12 Blood Pressure Position Sitting 09/10/21 13:12 Pulse Oximetry 100 09/10/21 13:12 Oxygen Delivery Method Nasal Cannula 09/10/21 13:12 Oxygen Flow Rate 3 09/10/21 13:12
[2021-09-10] MEDS: Normal Saline 1,000 ML 1000 ML IV (13:45)
[2021-09-10 13:57] LABS: Abs Immature Grans 0.03 10^3/uL (0.0-0.06); Absolute Basophil Count 0.04 10^3/uL (0.0-0.2); Absolute Eosinophil Count 0.09 10^3/uL (0.0-0.7); Absolute Lymphocyte Count 1.43 10^3/uL (1.2-3.4); Absolute Monocyte Count 0.45 10^3/uL (0.1-0.8); Absolute Neutrophil Count 6.79 10^3/uL (1.2-6.7); Basophils % 0.5; HCT 41.4 % (36.0-46.0); Immature Grans % 0.3; Lymphocytes % 16.2; MCH 26.4 pg (27.0-33.0); MCHC 31.4 % (32.0-36.0); MPV 10.7 fL (8.0-11.0); Monocytes % 5.1; Neutrophils % 76.9; Nucleated RBC 0 %; Platelet Count 299 10^3/uL (130-400); RBC 4.93 10^6/uL (3.93-5.22); RDW 13.7 % (11.7-14.6); RDW-SD 42.2 fL; WBC 8.83 10^3/uL (4.4-10.8)
[2021-09-10 14:09] LABS: ALT 17 U/L (14-59); AST 21 U/L (15-37); Albumin 3.3 g/dL (3.4-5.0); Alkaline Phosphatase 81 U/L (46-116); Anion Gap 11.3 mmol/L (3-11); BUN 10 mg/dL (7-18); Bilirubin, Total 0.4 mg/dL (0.2-1.0); CO2 25.7 mmol/L (21.0-32.0); CREATININE 1.1 mg/dL (0.55-1.02); Chloride 101 mmol/L (98-107); Estimated GFR 51.96 (mL/min/1.73m2); Glucose 114 mg/dL (74-106); Magnesium 1.3 mg/dL (1.8-2.4); Sodium 138 mmol/L (136-145); Total Protein 8.1 g/dL (6.4-8.2)
--- NOTE | 2021-09-10 14:15 | DI.CT_ITS ---
Exam(s) CT CHEST WO EXAM: CT CHEST WO CLINICAL HISTORY: f/u on recent medication changes. TECHNIQUE: Multi planar reconstructions were performed. CONTRAST MATERIAL: None COMPARISON: CT CT CHEST WO from 02/28/2021 FINDINGS: CHEST: LUNGS: Extensive bilateral chronic appearing interstitial disease again noted, consistent with pulmon nakita fibrosis. This appears advanced but relatively stable. No new confluent infiltrates nor pleural effusions. No new ominous pulmonary nodules. No new findings in the trachea and mainstem bronchi MEDIASTINUM: There is no obvious hilar nor mediastinal adenopathy. Visualized thyroid unremarkable.No obvious axillary adenopathy CARDIAC: Cardiomegaly. No pericardial effusion.Caliber of the thoracic aorta is upper normal. Promi nent pulmonary arteries consistent with pulmonary artery hypertension, this commensurate with the alicia earance of the lung lo (see above). VISUALIZED UPPER ABDOMEN: Again noted is evidence of prior bariatric surgery. The visualized Joseph li mb is not dilated. OSSEOUS: No significant osseous lesions.. IMPRESSION: 1. Extensive bilateral pulmonary fibrosis again noted but without obvious new infiltrates nor pleural effusions.. Enlarged pulmonary arteries consistent with an element of pulmonary artery hypertension . 2. Previous bariatric surgery again noted. Gastric pouch again noted appearing as an hiatal hernia. 3. Branch that RADIATION DOSE DELIVERED: 622.34mGy.cm Total DLP DATA REPOSITORY: All CT scans at this facility are submitted to the National Radiology Data Registry (NRDR) Dose Index Registry (DIR) with the [employer] ([employer]). RADIATION OPTIMIZATION: All CT scans at this facility use at least one of these dose optimization te chniques: automated exposure control; mA and/or kV adjustment per patient size (includes targeted exa ms where dose is matched to clinical indication); or iterative reconstruction.
[2021-09-10] MEDS: Potassium Chloride 20 MEQ TABCR 40 MEQ PO (14:44)
[2021-09-10] MEDS: MAGNESIUM SULFATE 2 GM/50 ML BAG IVPB (14:53)
[2021-09-10] MEDS: POTASSIUM CHLORIDE 10 MEQ/100 ML BAG 100 MEQ IVPB (14:53)
[2021-09-10 18:29] LABS: C Diff PCR Negative (Negative)
[2021-09-11 10:16] LABS: Potassium 2.7 mmol/L (3.5-5.1)
== END 2021-09-10 17:04 | disposition home or self-care (01) ==
PROVIDERS: Emergency Provider Physician Assistant; PCP Family Medicine
DX: E87.6 Hypokalemia (principal); R19.7 Diarrhea, unspecified; R06.02 Shortness of breath; Z99.81 Dependence on supplemental oxygen
CPT/HCPCS: 71250; 80053; 87493; 93005; 96361; 96365; 96366; 96368; 99284; 83630; 83735; 85025; 93010; J3480

== ENCOUNTER 2021-09-22 14:46 | Inpatient (IN) | payer MEDICAID, SELFPAY ==
[2021-09-22] VITALS (97 sets, daily range): BP systolic 47–109; BP diastolic 0–70; PULSE 54–105; RESP 2–46; TEMP 36.2–36.3; O2SAT 76–100
--- NOTE | 2021-09-22 14:30 | RT.EKG_ITS ---
APPROVED REPORT Exam: Resting ECG Reason for Exam: low b/p Patient Location: E HR:91 bpm ECG Measurements Heart Rate 91 AXIS [place] 158 P 27 QRSd 99 QRS 13 QT 373 T 193 QTc 459 Conclusion Sinus rhythm Nonspecific T abnormalities, lateral leads
--- NOTE | 2021-09-22 14:45 | DI.RAD_ITS ---
Exam(s) XR PORTABLE CHEST AP EXAM: XR PORTABLE CHEST AP CLINICAL HISTORY: Cough, congestion. TECHNIQUE: 2D digital imaging was performed. COMPARISON: CR XR CHEST 2V PA LATERAL from 02/23/[address] CHEST WO from 09/10/2021 FINDINGS: Heart size is enlarged. Chest leads noted. Extensive symmetrical bilateral interstitial and markings throughout both lung lo. This patient has known history of pulmonary fibrosis. Appears worse than previous although this may be partially exaggerated by portable lordotic technique. No obvious pleural effusions. IMPRESSION: As above. Recommend nonportable PA and lateral views when clinically possible. DATA REPOSITORY: RADIATION DOSE DELIVERED: All CT scans at this facility use at least one of these dose optimization techniques: automated exposure control; mA and/or kV adjustment per patient size (includes targeted e xams where dose is matched to clinical indication); or iterative reconstruction.
--- NOTE | 2021-09-22 15:11 | ED.GENADUL_ITS ---
Discharge Plan Disposition Patient Disposition: [facility] INPATIENT Condition: Stable Discharge Details Clinical Impression: CHF (congestive heart failure), Cor pulmonale Primary Care Provider: Max Hart ED Provider: Tomás Reynolds Home Meds and New Rx's Prescriptions: No Action lisinopril 10 mg tablet 10 mg PO DAILY RF: 0 furosemide 80 mg tablet 80 mg PO DAILY RF: 0 montelukast 10 mg tablet 10 mg PO DAILY RF: 0 sumatriptan succinate 50 mg tablet See Rx Instructions PO .COMPLEX RF: 0 albuterol sulfate 90 mcg/actuation aerosol powdr breath activated 2 inh inhalation Q4H PRN (Reason: shortness of breath or wheezing) Qty: 1 RF: 8 Trelegy Ellipta 200-62.5-25 mcg blister with device 1 inh inhalation DAILY Qty: 60 RF: 5 lorazepam 0.5 mg tablet 0.5 mg PO PRN RF: 0 rizatriptan 5 mg tablet See Rx Instructions PO .COMPLEX RF: 0 cyclobenzaprine 10 mg tablet 10 mg PO PRN RF: 0 sertraline 100 mg tablet 150 mg PO HS RF: 0 topiramate 25 mg tablet See Rx Instructions .ROUTE .COMPLEX RF: 0 alprazolam [Xanax] 1 mg tablet 1 mg PO DAILY Qty: 1 RF: 0 cholecalciferol (vitamin D3) [Vitamin D3] 1,000 unit Capsule 1,000 unit PO DAILY RF: 0 amitriptyline 50 mg Tablet 50 mg PO HS RF: 0 levalbuterol HCl [Xopenex] 0.63 mg/3 mL solution for nebulization 0.63 mg inhalation Q4H PRN PRNQty: 72 RF: 0 aspirin 81 mg Tablet,Delayed Release (Dr/Ec) 81 mg PO DAILY Qty: 30 RF: 0 melatonin 10 mg capsule 10 mg PO HS PRNQty: 30 RF: 0 pantoprazole 40 mg tablet,delayed release (DR/EC) 40 mg PO BID RF: 0 citalopram 20 mg tablet 20 mg PO DAILY AM RF: 0 Medical Decision Making 51-year-old female with a history of COPD on 2 to 3 L home oxygen, tobacco use, interstitial pneumonia presents with 3 to 4 days of progress cough, congestion now production of green sputum. She was short of breath and hypoxic to 80 percentile 1 evaluated by EMS in her home. They administered a DuoNeb, increase her oxygen to 5 L and brought her to the ER. Patient notes she did not take her furosemide today. Patient arrives to the emergency department with a pulse of 95, blood pressure 100/45 temp 36 and 96% on 4 L oxygen. Differential does include COPD exacerbation, pneumonia, pneumonitis, must consider CHF in this patient. Patient had IV established, maintenance fluids initiated, she is referred for laboratory testing. Chest x-ray with 'consolidative-like opacities throughout both lungs concerning for pneumonia. Some degree of superimposed pulmonary edema may also be present.' Lactic acid elevated at 2.3. White blood cell count is 7, hematocrit 35, platelet 381. Chemistries note hypokalemia with a Potassium of 2.9. BUN is 58, creatinine 2.8. BNP significantly elevated at 21,639. Most consistent with cor pulmonale with demand ischemia. Will initiate diuresis, administer aspirin and heparin. Case discussed with Dr. Amos, will add procalcitonin. HPI General Mode of arrival: EMS . Date/Time Provider Initiated Documentation: 09/22/21 14:46 . Limitations to Documentation: no limitations . Information obtained by: patient and EMS . History of Present Illness 51 year old F presents to the emergency department with the chief complaint of Cough and shortness of breath, described as moderate, and is localized to the chest. Patient reports no radiation. Patient started experiencing this hour(s) and it has been constant. No relieving factors improve symptom(s), No exacerbating factors reported . Patient notes cough and shortness of breath; denies chest pain and syncope. Patient did receive the following treatments prior to arrival, none Related Data Home Medications Medication Instructions Recorded Confirmed amitriptyline 50 mg PO HS 05/06/19 09/22/21 cholecalciferol (vitamin D3) 1,000 unit PO DAILY 05/06/19 09/22/21 [Vitamin D3] aspirin 81 mg PO DAILY #30 tab 02/07/21 09/22/21 melatonin 10 mg PO HS PRN #30 cap 02/07/21 09/22/21 levalbuterol HCl [Xopenex] 0.63 mg INHALATION Q4H PRN PRN #72 02/24/21 09/22/21 ml albuterol sulfate 90 mcg/actuation 2 inh INHALATION Q4H PRN #1 ea 03/07/21 09/22/21 breath activated powder inhaler pantoprazole 40 mg tablet,delayed 40 mg PO BID tab 03/07/21 09/22/21 release furosemide 80 mg tablet 80 mg PO DAILY 04/09/21 09/22/21 lisinopril 10 mg tablet 10 mg PO DAILY 04/09/21 09/22/21 montelukast 10 mg tablet 10 mg PO DAILY 04/09/21 08/27/21 sumatriptan succinate 50 mg tablet See Rx Instructions PO .COMPLEX 04/09/21 08/27/21 fluticasone fur. 200 mcg-umeclid 1 inh INHALATION DAILY #60 ea 07/17/21 09/22/21 62.5 mcg-vilant 25 mcg inhalat.powder alprazolam 1 mg tablet 1 mg PO DAILY #1 tab 08/27/21 09/22/21 cyclobenzaprine 10 mg tablet 10 mg PO PRN tab 08/27/21 09/22/21 lorazepam 0.5 mg tablet 0.5 mg PO PRN tab 08/27/21 09/22/21 rizatriptan 5 mg tablet See Rx Instructions PO .COMPLEX 08/27/21 08/27/21 sertraline 100 mg tablet 150 mg PO HS tab 08/27/21 09/22/21 topiramate 25 mg tablet See Rx Instructions .ROUTE 08/27/21 .COMPLEX tab citalopram 20 mg PO DAILY AM 09/22/21 09/22/21 Previous Rx's Medication Instructions Recorded aspirin 81 mg PO DAILY #30 tab 02/07/21 melatonin 10 mg PO HS PRN #30 cap 02/07/21 levalbuterol HCl [Xopenex] 0.63 mg INHALATION Q4H PRN PRN #72 02/24/21 ml albuterol sulfate 90 mcg/actuation 2 inh INHALATION Q4H PRN #1 ea 03/07/21 breath activated powder inhaler fluticasone fur. 200 mcg-umeclid 1 inh INHALATION DAILY #60 ea 07/17/21 62.5 mcg-vilant 25 mcg inhalat.powder alprazolam 1 mg tablet 1 mg PO DAILY #1 tab 08/27/21 Allergies Allergy/AdvReac Type Severity Reaction Status Date / Time mycophenolate mofetil AdvReac Intermediate Diarrhea Verified 09/22/21 15:01 [From CellCept] with hypokalemia environmental AdvReac Mild Uncoded 09/22/21 15:01 General Stated Complaint: SOB RUTH ANN: 2 Review of Systems Narrative: Frequent and recurrent pneumonia. No recent antibiotics. No current prednisone. Had some loose stools which is improved. See HPI. 8 systems were reviewed and otherwise [facility] All Active Problems (Updated 09/22/21 @ 15:59 by Tomás Reynolds MD) Diarrhea (Acute) CHF (congestive heart failure) (Chronic) Hypokalemia (Acute) Chronic respiratory failure with hypoxia (Acute) Claustrophobia (Acute) Current smoker (Acute) Interstitial pneumonia with autoimmune features (Acute) Hypotension (Acute) Dehydration (Acute) Closed head injury (Acute) Syncope and collapse (Acute) ANNALISE (acute kidney injury) (Acute) TSH (thyroid-stimulating hormone deficiency) (Chronic) Obesity, morbid, BMI 40.0-49.9 (Chronic) Moderate aortic regurgitation (Acute) Tricuspid regurgitation (Acute) Cor pulmonale (Chronic) Pulmonary hypertension (Chronic) NSTEMI (non-ST elevated myocardial infarction) (Acute) Discharge planning issues (Acute) DVT prophylaxis (Acute) Demand ischemia (Acute) Interstitial lung disease (Chronic) Hyperparathyroidism (Acute) Adjustment disorder (Acute) Hypothyroid (Chronic) Hypoxemia (Acute) Elevated troponin (Acute) Migraine (Chronic) Intermittent asthma (Acute) Pedal edema (Acute) Malabsorption (Acute) Heartburn (Acute) Medical History Acute respiratory failure with hypoxia Cervical cancer Hypokalemia Tobacco dependence Surgical History History of gastric bypass Family History Other Current smoker Social History Smoking/Tobacco Use Status: Former Tobacco Use Quit Date: 01/26/21 Smoking risk assessment performed?: Yes Alcohol Intake: current Alcohol Intake frequency: a few times a week Drug use: Rarely Substance use type: marijuana Do you feel safe at home: Yes Do you feel safe in your relationship?: Yes Exam Narrative Exam Narrative: GEN: awake, alert, oriented 3. Pleasant, well groomed, interactive. HEAD: Normocephalic, atraumatic ENT: Mucous membranes moist, oropharynx unremarkable, External ear exam unremarkable EYES: PERRL, EOMI NECK: Full ROM, no EDWIN, no menigismus CHEST/RESP: Bilateral end expiratory wheeze and coarse breath sounds present CARDIOVASCULAR: RRR, no murmur, rub harshal. 2+ Rad pulse bilateral ABDOMEN: Soft, nontender, no mass. +Bowel sounds EXT: Full ROM, no edema, no rash Neuro: Grossly normal neurologic exam, conversant, interactive. Psych: Speech fluent, thoughts congruent, affect normal Course Vital Signs Vital signs: Vital Signs Temperature 36.3 C L 09/22/21 14:46 Pulse 95 H 09/22/21 14:46 Respiratory Rate 18 09/22/21 14:46 Blood Pressure 98/45 L 09/22/21 14:46 Pulse Oximetry 96 09/22/21 14:46 Temperature 36.3 C L 09/22/21 14:46 Temperature Source Tympanic 09/22/21 14:46 Pulse 95 H 09/22/21 14:46 Respiratory Rate 18 09/22/21 14:46 Blood Pressure 98/45 L 09/22/21 14:46 Blood Pressure Position Supine 09/22/21 14:46 Pulse Oximetry 96 09/22/21 14:46 Oxygen Delivery Method Nasal Cannula 09/22/21 14:46 Oxygen Flow Rate 4 09/22/21 14:46
[2021-09-22 15:15] LABS: Source Nasopharynx
[2021-09-22 15:20] LABS: Abs Immature Grans 0.04 10^3/uL (0.0-0.06); Absolute Basophil Count 0.04 10^3/uL (0.0-0.2); Absolute Eosinophil Count 0.32 10^3/uL (0.0-0.7); Absolute Monocyte Count 0.38 10^3/uL (0.1-0.8); Absolute Neutrophil Count 5.99 10^3/uL (1.2-6.7); Basophils % 0.5; Eosinophils % 4.1; HCT 35.8 % (36.0-46.0); HGB 10.9 g/dL (11.2-15.7); Immature Grans % 0.5; MCH 26.2 pg (27.0-33.0); MCHC 30.4 % (32.0-36.0); MCV 86.1 fL (80-95); MPV 10.3 fL (8.0-11.0); Monocytes % 4.8; Neutrophils % 76.1; Nucleated RBC 0 %; Platelet Count 381 10^3/uL (130-400); RBC 4.16 10^6/uL (3.93-5.22); RDW 14.5 % (11.7-14.6); RDW-SD 45.5 fL; WBC 7.87 10^3/uL (4.4-10.8)
--- NOTE | 2021-09-22 15:25 | NUR.NOTE ---
Nursing Note: Portable CXR done
[2021-09-22 15:28] LABS: Lactate 2.3 mmol/L (0.6-1.4)
[2021-09-22] MEDS: Albuterol/Ipratropium 3 ML UPD VIAL UPD ×2 (15:31→20:24)
--- NOTE | 2021-09-22 15:31 | DI.VRAD_ITS ---
PROCEDURE INFORMATION: Exam: XR Chest Exam date and time: 09/22/2021 2:55 PM Age: 51 years old Clinical indication: Shortness of breath TECHNIQUE: Imaging protocol: XR of the chest. Views: 1 view. COMPARISON: CT CHEST WO 09/10/2021 3:30 PM FINDINGS: Lungs: Consolidative like opacities throughout both lungs. Pleural spaces: No pneumothorax. Possible small bilateral pleural effusions. Heart/Mediastinum: Cardiac silhouette enlarged. Bones/joints: No acute displaced fracture. IMPRESSION: Consolidative like opacities throughout both lungs concerning for pneumonia. Some degree of superimposed pulmonary edema may also be present. Dictated and Authenticated by: Veto Avila MD. Ordering:ENOCH England MD
[2021-09-22 15:41] LABS: ALT 13 U/L (14-59); AST 26 U/L (15-37); Albumin 2.2 g/dL (3.4-5.0); Alkaline Phosphatase 69 U/L (46-116); Anion Gap 9.7 mmol/L (3-11); BUN 58 mg/dL (7-18); Bilirubin, Total 0.3 mg/dL (0.2-1.0); CO2 30.3 mmol/L (21.0-32.0); CREATININE 2.8 mg/dL (0.55-1.02); Calcium 8.5 mg/dL (8.5-10.1); Chloride 101 mmol/L (98-107); Estimated GFR 17.68 (mL/min/1.73m2); Glucose 104 mg/dL (74-106); Magnesium 2.2 mg/dL (1.8-2.4); NT-proBNP 21639 pg/mL (<300); Sodium 141 mmol/L (136-145); Total Protein 7.4 g/dL (6.4-8.2)
[2021-09-22 15:45] LABS: Potassium 2.9 mmol/L (3.5-5.1); Troponin I 315 ng/L (<or=60)
[2021-09-22] MEDS: Normal Saline 250 ML IV (15:45)
[2021-09-22 16:00] LABS: COVID-19 PCR Negative (Negative); Influenza A PCR Negative (Negative); Influenza B PCR Negative (Negative); RSV PCR Negative (Negative)
[2021-09-22] MEDS: Potassium Chloride Liquid 20 MEQ PKT PO (16:10)
[2021-09-22] MEDS: Aspirin 325 MG TAB PO (16:10)
[2021-09-22] MEDS: Furosemide 100 MG/10 ML VIAL 80 MG IVP (16:11)
[2021-09-22] MEDS: Normal Saline 1,000 ML 100 ML IV (16:12)
[2021-09-22] MEDS: POTASSIUM CHLORIDE 20 MEQ/100 ML BAG 50 MEQ IVPB (16:14)
[2021-09-22] MEDS: Acetaminophen 500 MG TAB 1000 MG PO (16:37)
--- NOTE | 2021-09-22 16:39 | HPE_ITS ---
Date of service: 09/22/21 Time of Service: 16:40 Assessment and Plan Assessment and plan (1) CHF (congestive heart failure): Status: Chronic Assessment and plan: Secondary to demand ischemia likely brought on by acute bronchitis. CT chest w/o evidence of consolidation. Showed her chronic ILD. Rocephin and doxycycline initiated. Plan 3 days of Rocephin and a longer course of doxycycline. Serial troponins. Lasix 80mg IV given in ED; repeat in AM. (2) Hypokalemia: Status: Acute Assessment and plan: Replace and monitor. (3) Acute and chronic respiratory failure: Status: Acute Assessment and plan: Chronically on 3L supplemental O2 for ILD. Now stable on 4L and could likely soon titrate back to baseline demands. (4) ANNALISE (acute kidney injury): Status: Acute Assessment and plan: Likely cardop-renal syndrome. Should see improvement with diuresis and improved cardiac function as a result. Avoid hypotension and dehydration. Monitor. (5) Pulmonary hypertension: Status: Chronic Assessment and plan: Chronic. An echocardiogram has been ordered. (6) Demand ischemia: Status: Acute Assessment and plan: See above. (7) Interstitial lung disease: Status: Chronic Assessment and plan: Followed by pulmonary medicine. Was fairly recently taken off Cellcept d/t diarrhead/hypokalemia. Prednisone initiated. Pulmonary consult. (8) Asthma: Status: Suspected Assessment and plan: Duonebs. PRN levalbuterol. Methylprednisolone 125mg IV given in the ED. Oral prednisone 60mg daily. Trelegy; home med to be continued. Qualifiers: Asthma severity: mild Asthma persistence: persistent Asthma comp lication type: uncomplicated Qualified Code(s): J45.30 - Mild persistent asthma, uncomplicated History of Present Illness History of Present Illness Chief Complaint: Shortness of breath Narrative: This is a 51 yo female with a PMH of asthma, ILD, CHF, NSTEMI, chronic hypoxic resp failure, Pulmonary hypertension. She presented to the ED with c/o 3-4 days of progressively worsening cough, productive of green sputum, shortness of air. She denied CP/palpitations, F/C, N/V/abd pain. EMS was called and her O2 saturation was reportedly 80% on her usual 3L O2 per NC. Her supplemental O2 was increased to 5L and a Duoneb tx was given. Upon arrival in the ED her BP was 100/45. Her O2 saturation was 96% on 4L. Evaluation included a CXR that was read as consolidative-like opacities throughout both lungs. Pt with known significant ILD. Her WBC count was normal. Procalcitonin 0.1. Lactic acid 2.3. NTProBNP elevated at 21,639. BUN 58. Creatinine 2.8. Troponin I 315. She was given 80mg IV lasix in the ED and admitted. Review of Systems All systems reviewed & are unremarkable except as noted in HPI and below PFSH All Active Problems (Updated 09/23/21 @ 10:13 by Joe Amos MD) Acute and chronic respiratory failure (Acute) Diarrhea (Acute) CHF (congestive heart failure) (Chronic) Hypokalemia (Acute) Chronic respiratory failure with hypoxia (Acute) Claustrophobia (Acute) Current smoker (Acute) Interstitial pneumonia with autoimmune features (Acute) Hypotension (Acute) Dehydration (Acute) Closed head injury (Acute) Syncope and collapse (Acute) ANNALISE (acute kidney injury) (Acute) TSH (thyroid-stimulating hormone deficiency) (Chronic) Obesity, morbid, BMI 40.0-49.9 (Chronic) Moderate aortic regurgitation (Acute) Tricuspid regurgitation (Acute) Cor pulmonale (Chronic) Pulmonary hypertension (Chronic) NSTEMI (non-ST elevated myocardial infarction) (Acute) Discharge planning issues (Acute) DVT prophylaxis (Acute) Demand ischemia (Acute) Interstitial lung disease (Chronic) Hyperparathyroidism (Acute) Adjustment disorder (Acute) Hypothyroid (Chronic) Hypoxemia (Acute) Elevated troponin (Acute) Migraine (Chronic) Intermittent asthma (Acute) Pedal edema (Acute) Malabsorption (Acute) Heartburn (Acute) Medical History Acute respiratory failure with hypoxia Cervical cancer Hypokalemia Tobacco dependence Surgical History History of gastric bypass Family History Other Current smoker Social History Smoking/Tobacco Use Status: Former Tobacco Use Quit Date: 01/26/21 Smoking risk assessment performed?: Yes Alcohol Intake: current Alcohol Intake frequency: a few times a week Drug use: Rarely Substance use type: marijuana Do you feel safe at home: Yes Do you feel safe in your relationship?: Yes Meds Allergies and Home Medications Allergies Allergy/AdvReac Type Severity Reaction Status Date / Time mycophenolate mofetil AdvReac Intermediate Diarrhea Verified 09/22/21 15:01 [From CellCept] with hypokalemia environmental AdvReac Mild Uncoded 09/22/21 15:01 Home Medications Medication Instructions Recorded Confirmed Type amitriptyline 50 mg PO HS 05/06/19 09/22/21 History cholecalciferol (vitamin D3) 1,000 unit PO DAILY 05/06/19 09/22/21 History [Vitamin D3] aspirin 81 mg PO DAILY #30 tab 02/07/21 09/22/21 Rx melatonin 10 mg PO HS PRN #30 cap 02/07/21 09/22/21 Rx levalbuterol HCl [Xopenex] 0.63 mg INHALATION Q4H PRN PRN #72 02/24/21 09/22/21 Rx ml albuterol sulfate 90 mcg/actuation 2 inh INHALATION Q4H PRN #1 ea 03/07/21 09/22/21 Rx breath activated powder inhaler pantoprazole 40 mg tablet,delayed 40 mg PO BID tab 03/07/21 09/22/21 History release furosemide 80 mg tablet 80 mg PO DAILY 04/09/21 09/22/21 History lisinopril 10 mg tablet 10 mg PO DAILY 04/09/21 09/22/21 History montelukast 10 mg tablet 10 mg PO DAILY 04/09/21 08/27/21 History sumatriptan succinate 50 mg tablet See Rx Instructions PO .COMPLEX 04/09/21 08/27/21 History fluticasone fur. 200 mcg-umeclid 1 inh INHALATION DAILY #60 ea 07/17/21 09/22/21 Rx 62.5 mcg-vilant 25 mcg inhalat.powder alprazolam 1 mg tablet 1 mg PO DAILY #1 tab 08/27/21 09/22/21 Rx cyclobenzaprine 10 mg tablet 10 mg PO PRN tab 08/27/21 09/22/21 History lorazepam 0.5 mg tablet 0.5 mg PO PRN tab 08/27/21 09/22/21 History rizatriptan 5 mg tablet See Rx Instructions PO .COMPLEX 08/27/21 08/27/21 History sertraline 100 mg tablet 150 mg PO HS tab 08/27/21 09/22/21 History topiramate 25 mg tablet See Rx Instructions .ROUTE 08/27/21 History .COMPLEX tab citalopram 20 mg PO DAILY AM 09/22/21 09/22/21 History Exam Narrative Exam Narrative: Lying supine. Conversant. Const General: cooperative and no acute distress Nutritional Appearance: obese Orientation: alert and oriented x3 Eyes General: appearance normal, both eyes and all related structures Sclera: sclerae normal Neck Neck: full ROM and no JVD Resp Effort & Inspection: normal respiratory effort Auscultation: diminished lung sounds and other (crackles throughout. ) Cardio Rate: regular rate Rhythm: regular rhythm Heart Sounds: S1 normal and S2 normal GI Inspection: obesity Palpation: soft and nontender Skin General skin exam: no rashes or lesions noted Neuro Cranial Nerves: facial strength normal Cognition: normal cognition Speech: speech normal Extrem General: no pedal edema and no calf tenderness Psych Mood: congruent mood Affect: normal affect Results Labs Result diagrams: 09/23/21 06:20 09/23/21 06:20 Labs: Laboratory Results - last 24 hr 09/22/21 09/22/21 09/22/21 15:00 15:00 15:00 WBC 7.87 RBC 4.16 Hgb 10.9 L Hct 35.8 L MCV 86.1 MCH 26.2 L MCHC 30.4 L RDW 14.5 Plt Count 381 MPV 10.3 Immature Gran % 0.5 Neutrophils % 76.1 Lymphocytes % 14.0 Monocytes % 4.8 Eosinophils % 4.1 Basophils % 0.5 Nucleated RBC % 0 Absolute Neutrophils 5.99 Absolute Lymphocytes 1.10 L Absolute Monocytes 0.38 Absolute Eosinophils 0.32 Absolute Basophils 0.04 VBG Lactate 2.3 H* Sodium 141 Potassium 2.9 L Chloride 101 Carbon Dioxide 30.3 Anion Gap 9.7 BUN 58 H Creatinine 2.8 H Estimated GFR/1.73 m2 17.68 Glucose 104 Calcium 8.5 Magnesium 2.2 Total Bilirubin 0.3 AST 26 ALT 13 L Alkaline Phosphatase 69 Troponin I 315 H* NT-Pro-B Natriuret Pep 16579 H Total Protein 7.4 Albumin 2.2 L COVID-19 Source SARS-CoV-2 (PCR) Influenza Type A (PCR) Influenza Type B (PCR) RSV (PCR) 09/22/21 15:05 WBC RBC Hgb Hct MCV MCH MCHC RDW Plt Count MPV Immature Gran % Neutrophils % Lymphocytes % Monocytes % Eosinophils % Basophils % Nucleated RBC % Absolute Neutrophils Absolute Lymphocytes Absolute Monocytes Absolute Eosinophils Absolute Basophils VBG Lactate Sodium Potassium Chloride Carbon Dioxide Anion Gap BUN Creatinine Estimated GFR/1.73 m2 Glucose Calcium Magnesium Total Bilirubin AST ALT Alkaline Phosphatase Troponin I NT-Pro-B Natriuret Pep Total Protein Albumin COVID-19 Source Nasopharynx SARS-CoV-2 (PCR) Negative Influenza Type A (PCR) Negative Influenza Type B (PCR) Negative RSV (PCR) Negative Last Vital Signs Temp 36.3 C L 09/22/21 14:46 Pulse 87 09/22/21 16:30 Resp 27 H 09/22/21 16:31 BP 89/60 L 09/22/21 16:30 Pulse Ox 99 09/22/21 16:29
[2021-09-22 17:36] LABS: Procalcitonin 0.1 ng/mL
[2021-09-22 18:05] LABS: PTT Activated 25.9 sec (21.0-27.5)
[2021-09-22] MEDS: Lactated Ringers 500 ML IV (18:45)
[2021-09-22] MEDS: Lactated Ringers 250 ML IV (19:00)
[2021-09-22] MEDS: Normal Saline Flush 10 ML SYR IVP (19:15)
[2021-09-22] MEDS: Potassium Chloride 20 MEQ TABCR PO (20:24)
[2021-09-22] MEDS: Pantoprazole 40 MG TABCR PO (20:24)
[2021-09-22 20:37] LABS: Troponin I 295 ng/L (<or=60)
[2021-09-22] MEDS: DOXYCYCLINE 100 MG in Normal Saline 100 ML IVPB (20:46)
[2021-09-22] MEDS: Sertraline 50 MG TAB 150 MG PO (21:05)
[2021-09-22] MEDS: Amitriptyline 50 MG TAB PO (21:06)
[2021-09-22] MEDS: Topiramate 50 MG TAB PO (21:06)
--- NOTE | 2021-09-22 21:15 | RT.EKG_ITS ---
APPROVED REPORT Exam: Resting ECG Reason for Exam: follow up elevated troponin Patient Location: I HR:80 bpm ECG Measurements Heart Rate 80 AXIS KS 165 P 34 QRSd 101 QRS 11 QT 472 T 179 QTc 545 Conclusion Sinus rhythm...normal P axis, V-rate 50- 99 Probable left atrial enlargement...P >50mS, <-0.10mV V1 Abnormal R-wave progression, late transition...QRS area<0 in V5/V6 Nonspecific T abnormalities, diffuse leads...T <-0.10mV, ant/lat/inf Prolonged QT interval...QTc >510mS
[2021-09-22] MEDS: Lidocaine 2% Jelly 6 ML SYR (21:16)
[2021-09-22] MEDS: methylPREDNISolone SUCC 125 MG VIAL IVP (21:26)
--- NOTE | 2021-09-22 22:00 | SCONE_ITS ---
Date of service: 09/22/21 Time of Service: 22:01 Assessment and Plan Assessment and plan (1) Hypotension: Status: Acute Assessment and plan: -Informed consent was obtained for placement of arterial line -Both right and left radial artery appeared normal without significant calcifications -Arterial line placed in left radial artery as patient is right hand dominant, ultrasound guidance used, dong test performed in both hands prior to procedure -Patient with MAP ~60-65, will hold off on central line placement unless necessary, otherwise maintain arterial line for accurate hemodynamic monitoring Qualifiers: Hypotension type: unspecified hypotension type Qualified Code(s): I95.9 - Hypotension, unspecified (2) Acute and chronic respiratory failure: Status: Acute Qualifiers: Respiratory failure complication: unspecified whether with hypoxia or hypercapnia Qualified Code(s): J96.20 - Acute and chronic respiratory failure, unspecified whether with hypoxia or hypercapnia (3) Chronic respiratory failure with hypoxia: Status: Acute (4) CHF (congestive heart failure): Status: Chronic Qualifiers: Heart failure type: unspecified Heart failure chronicity: chronic Qualified Code(s): I50.9 - Heart failure, unspecified (5) Pulmonary hypertension: Status: Chronic (6) NSTEMI (non-ST elevated myocardial infarction): Status: Acute History of Present Illness Narrative: 51 year old female with complex medical history who is currently admitted for exacerbation of her intersistial lung disease. CHF and worsening hypoxic respiratory failure. Apparently diffuclt to obtain any blood pressure readings despite multiple attempts, cuff size adjustments and location adjustments. Patient's readings were severely hypotensive with concern for need to initiate pressors. I was asked to see the patient for arterial line placement to determine need for pressors as well as potential central line placement. PFSH All Active Problems (Updated 09/23/21 @ 20:49 by Ramonita Mendoza DO) Hypotension (Acute) Acute and chronic respiratory failure (Acute) Diarrhea (Acute) CHF (congestive heart failure) (Chronic) Hypokalemia (Acute) Chronic respiratory failure with hypoxia (Acute) Claustrophobia (Acute) Current smoker (Acute) Interstitial pneumonia with autoimmune features (Acute) Hypotension (Acute) Dehydration (Acute) Closed head injury (Acute) Syncope and collapse (Acute) ANNALISE (acute kidney injury) (Acute) TSH (thyroid-stimulating hormone deficiency) (Chronic) Obesity, morbid, BMI 40.0-49.9 (Chronic) Moderate aortic regurgitation (Acute) Tricuspid regurgitation (Acute) Cor pulmonale (Chronic) Pulmonary hypertension (Chronic) NSTEMI (non-ST elevated myocardial infarction) (Acute) Discharge planning issues (Acute) DVT prophylaxis (Acute) Demand ischemia (Acute) Interstitial lung disease (Chronic) Hyperparathyroidism (Acute) Adjustment disorder (Acute) Hypothyroid (Chronic) Hypoxemia (Acute) Elevated troponin (Acute) Migraine (Chronic) Intermittent asthma (Acute) Pedal edema (Acute) Malabsorption (Acute) Heartburn (Acute) Medical History Acute respiratory failure with hypoxia Cervical cancer Hypokalemia Tobacco dependence Surgical History History of gastric bypass Family History Other Current smoker Social History Smoking/Tobacco Use Status: Former Tobacco Use Quit Date: 01/26/21 Smoking risk assessment performed?: Yes Alcohol Intake: current Alcohol Intake frequency: a few times a week Drug use: Rarely Substance use type: marijuana Do you feel safe at home: Yes Do you feel safe in your relationship?: Yes Exam Const General: cooperative, acute distress (respiratory) moderate and anxious Nutritional Appearance: obese morbidly obese [facility] Head: normal to inspection, normocephalic and atraumatic Resp Effort & Inspection: labored, respiratory distress, uses accessory muscles and prolonged expiratory phase Auscultation: wheezes Cardio Rate: regular rate Rhythm: regular rhythm Skin General skin exam: no rashes or lesions noted Neuro General: patient alert, patient awake and patient oriented x3 Results Last Vital Signs Temp 97.2 F L 09/22/21 18:27 Pulse 84 09/22/21 21:01 Resp 24 09/22/21 21:10 BP 84/47 L 09/22/21 21:01 Pulse Ox 96 09/22/21 21:10 Labs Result diagrams: 09/23/21 06:20 09/23/21 06:20 Labs: Laboratory Results - last 24 hr 09/22/21 09/22/21 09/22/21 15:00 15:00 15:00 WBC 7.87 RBC 4.16 Hgb 10.9 L Hct 35.8 L MCV 86.1 MCH 26.2 L MCHC 30.4 L RDW 14.5 Plt Count 381 MPV 10.3 Immature Gran % 0.5 Neutrophils % 76.1 Lymphocytes % 14.0 Monocytes % 4.8 Eosinophils % 4.1 Basophils % 0.5 Nucleated RBC % 0 Absolute Neutrophils 5.99 Absolute Lymphocytes 1.10 L Absolute Monocytes 0.38 Absolute Eosinophils 0.32 Absolute Basophils 0.04 APTT VBG Lactate 2.3 H* Sodium 141 Potassium 2.9 L Chloride 101 Carbon Dioxide 30.3 Anion Gap 9.7 BUN 58 H Creatinine 2.8 H Estimated GFR/1.73 m2 17.68 Glucose 104 Calcium 8.5 Magnesium 2.2 Total Bilirubin 0.3 AST 26 ALT 13 L Alkaline Phosphatase 69 Troponin I 315 H* NT-Pro-B Natriuret Pep 46061 H Total Protein 7.4 Albumin 2.2 L Procalcitonin COVID-19 Source SARS-CoV-2 (PCR) Influenza Type A (PCR) Influenza Type B (PCR) RSV (PCR) 09/22/21 09/22/21 09/22/21 15:05 15:57 17:30 WBC RBC Hgb Hct MCV MCH MCHC RDW Plt Count MPV Immature Gran % Neutrophils % Lymphocytes % Monocytes % Eosinophils % Basophils % Nucleated RBC % Absolute Neutrophils Absolute Lymphocytes Absolute Monocytes Absolute Eosinophils Absolute Basophils APTT 25.9 VBG Lactate Sodium Potassium Chloride Carbon Dioxide Anion Gap BUN Creatinine Estimated GFR/1.73 m2 Glucose Calcium Magnesium Total Bilirubin AST ALT Alkaline Phosphatase Troponin I NT-Pro-B Natriuret Pep Total Protein Albumin Procalcitonin 0.1 COVID-19 Source Nasopharynx SARS-CoV-2 (PCR) Negative Influenza Type A (PCR) Negative Influenza Type B (PCR) Negative RSV (PCR) Negative 09/22/21 20:07 WBC RBC Hgb Hct MCV MCH MCHC RDW Plt Count MPV Immature Gran % Neutrophils % Lymphocytes % Monocytes % Eosinophils % Basophils % Nucleated RBC % Absolute Neutrophils Absolute Lymphocytes Absolute Monocytes Absolute Eosinophils Absolute Basophils APTT VBG Lactate Sodium Potassium Chloride Carbon Dioxide Anion Gap BUN Creatinine Estimated GFR/1.73 m2 Glucose Calcium Magnesium Total Bilirubin AST ALT Alkaline Phosphatase Troponin I 295 H* NT-Pro-B Natriuret Pep Total Protein Albumin Procalcitonin COVID-19 Source SARS-CoV-2 (PCR) Influenza Type A (PCR) Influenza Type B (PCR) RSV (PCR)
[2021-09-22 22:46] LABS: Lactate 1.1 mmol/L (0.6-1.4)
[2021-09-22 23:07] LABS: Troponin I 270 ng/L (<or=60)
[2021-09-22] MEDS: MORPHine 2 MG/ML SYR IVP (23:15)
[2021-09-23] VITALS (118 sets, daily range): BP systolic 93–127; BP diastolic 52–80; PULSE 68–100; RESP 1–44; TEMP 36–37.4; O2SAT 85–100
--- NOTE | 2021-09-23 03:32 | W.PM.PROGNOT ---
Date of Service Date of service: 09/22/21 Time of Service: 22:00 Subjective Subjective Interval history since last seen: Informed by nursing that the BPs have been inconsistent and frequently low - both manually and by machine cuff, with SBPs varying between 60s and 90s, independent of cuff position and size. In the same position with the same cuff, BPs were inconsistent. Because based on MAPs vasopressors would have technically been indicated and the patient did not clinically act hypotensive to this degree, I requested a surgical consult for an [place], which revealed SBPs in low 100s. At this point, the patient is very hemodynamically stable, and there is no role for vasopressors. Objective Last Vital Signs Temp 36.5 C 09/23/21 00:07 Pulse 87 09/22/21 21:17 Resp 21 09/22/21 23:00 BP 106/61 09/23/21 02:47 Pulse Ox 97 09/22/21 23:00 Laboratory Results - last 24 hr 09/22/21 09/22/21 09/22/21 15:00 15:00 15:00 WBC 7.87 RBC 4.16 Hgb 10.9 L Hct 35.8 L MCV 86.1 MCH 26.2 L MCHC 30.4 L RDW 14.5 Plt Count 381 MPV 10.3 Immature Gran % 0.5 Neutrophils % 76.1 Lymphocytes % 14.0 Monocytes % 4.8 Eosinophils % 4.1 Basophils % 0.5 Nucleated RBC % 0 Absolute Neutrophils 5.99 Absolute Lymphocytes 1.10 L Absolute Monocytes 0.38 Absolute Eosinophils 0.32 Absolute Basophils 0.04 APTT VBG Lactate 2.3 H* Sodium 141 Potassium 2.9 L Chloride 101 Carbon Dioxide 30.3 Anion Gap 9.7 BUN 58 H Creatinine 2.8 H Estimated GFR/1.73 m2 17.68 Glucose 104 Calcium 8.5 Magnesium 2.2 Total Bilirubin 0.3 AST 26 ALT 13 L Alkaline Phosphatase 69 Troponin I 315 H* NT-Pro-B Natriuret Pep 20909 H Total Protein 7.4 Albumin 2.2 L Procalcitonin COVID-19 Source SARS-CoV-2 (PCR) Influenza Type A (PCR) Influenza Type B (PCR) RSV (PCR) 09/22/21 09/22/21 09/22/21 15:05 15:57 17:30 WBC RBC Hgb Hct MCV MCH MCHC RDW Plt Count MPV Immature Gran % Neutrophils % Lymphocytes % Monocytes % Eosinophils % Basophils % Nucleated RBC % Absolute Neutrophils Absolute Lymphocytes Absolute Monocytes Absolute Eosinophils Absolute Basophils APTT 25.9 VBG Lactate Sodium Potassium Chloride Carbon Dioxide Anion Gap BUN Creatinine Estimated GFR/1.73 m2 Glucose Calcium Magnesium Total Bilirubin AST ALT Alkaline Phosphatase Troponin I NT-Pro-B Natriuret Pep Total Protein Albumin Procalcitonin 0.1 COVID-19 Source Nasopharynx SARS-CoV-2 (PCR) Negative Influenza Type A (PCR) Negative Influenza Type B (PCR) Negative RSV (PCR) Negative 09/22/21 09/22/21 09/22/21 19:17 20:07 22:40 WBC RBC Hgb Hct MCV MCH MCHC RDW Plt Count MPV Immature Gran % Neutrophils % Lymphocytes % Monocytes % Eosinophils % Basophils % Nucleated RBC % Absolute Neutrophils Absolute Lymphocytes Absolute Monocytes Absolute Eosinophils Absolute Basophils APTT VBG Lactate Sodium Potassium Chloride Carbon Dioxide Anion Gap BUN Creatinine Estimated GFR/1.73 m2 Glucose Calcium Magnesium Total Bilirubin AST ALT Alkaline Phosphatase Troponin I Cancelled 295 H* 270 H* NT-Pro-B Natriuret Pep Total Protein Albumin Procalcitonin COVID-19 Source SARS-CoV-2 (PCR) Influenza Type A (PCR) Influenza Type B (PCR) RSV (PCR) 09/22/21 22:40 WBC RBC Hgb Hct MCV MCH MCHC RDW Plt Count MPV Immature Gran % Neutrophils % Lymphocytes % Monocytes % Eosinophils % Basophils % Nucleated RBC % Absolute Neutrophils Absolute Lymphocytes Absolute Monocytes Absolute Eosinophils Absolute Basophils APTT VBG Lactate 1.1 Sodium Potassium Chloride Carbon Dioxide Anion Gap BUN Creatinine Estimated GFR/1.73 m2 Glucose Calcium Magnesium Total Bilirubin AST ALT Alkaline Phosphatase Troponin I NT-Pro-B Natriuret Pep Total Protein Albumin Procalcitonin COVID-19 Source SARS-CoV-2 (PCR) Influenza Type A (PCR) Influenza Type B (PCR) RSV (PCR)
[2021-09-23] MEDS: Albuterol/Ipratropium 3 ML UPD VIAL UPD ×4 (03:55→20:21)
[2021-09-23 06:32] LABS: Lactate 0.5 mmol/L (0.6-1.4)
[2021-09-23 06:35] LABS: HCT 32.8 % (36.0-46.0); HGB 9.8 g/dL (11.2-15.7); MCH 26.1 pg (27.0-33.0); MCHC 29.9 % (32.0-36.0); MCV 87.5 fL (80-95); Nucleated RBC 0 %; Platelet Count 311 10^3/uL (130-400); RBC 3.75 10^6/uL (3.93-5.22); RDW 14.6 % (11.7-14.6); RDW-SD 46.5 fL
[2021-09-23] MEDS: MORPHine 2 MG/ML SYR IVP ×2 (06:40→15:16)
[2021-09-23 06:45] LABS: Anion Gap 10.1 mmol/L (3-11); BUN 47 mg/dL (7-18); CO2 26.9 mmol/L (21.0-32.0); CREATININE 1.7 mg/dL (0.55-1.02); Calcium 8.6 mg/dL (8.5-10.1); Chloride 105 mmol/L (98-107); Estimated GFR 31.44 (mL/min/1.73m2); Glucose 148 mg/dL (74-106); Potassium 3.8 mmol/L (3.5-5.1); Sodium 142 mmol/L (136-145)
[2021-09-23 07:03] LABS: Absolute Monocyte Count 0.11 10^3/uL (0.1-0.8); Absolute Neutrophil Count 4.98 10^3/uL (1.2-6.7); Bands % 4
[2021-09-23 07:04] LABS: Diff Comment Manual Differential; RBC Morphology Normal
[2021-09-23] MEDS: Furosemide 100 MG/10 ML VIAL 80 MG IVP (07:57)
[2021-09-23] MEDS: Normal Saline 50 ML (08:10)
[2021-09-23] MEDS: Normal Saline Flush 10 ML SYR IVP (08:19)
[2021-09-23] MEDS: Pantoprazole 40 MG TABCR PO ×2 (08:19→20:22)
[2021-09-23] MEDS: Citalopram 20 MG TAB PO (08:20)
[2021-09-23] MEDS: Aspirin E.C. 81 MG TABEC PO (08:21)
[2021-09-23] MEDS: Cholecalciferol (Vitamin D3) 1,000 UNIT TAB 1000 UNITS PO (08:21)
[2021-09-23] MEDS: Heparin 5,000 UNITS/ML VIAL 5000 UNITS SC ×3 (08:21→21:48)
[2021-09-23] MEDS: predniSONE 20 MG TAB 60 MG PO (08:21)
[2021-09-23] MEDS: Potassium Chloride 20 MEQ TABCR PO ×2 (08:22→20:21)
[2021-09-23] MEDS: DOXYCYCLINE 100 MG in Normal Saline 100 ML IVPB ×2 (09:08→20:21)
[2021-09-23] MEDS: guaiFENesin 600 MG TABCR PO ×2 (09:26→20:21)
--- NOTE | 2021-09-23 11:01 | NUR.NOTE ---
RN offers to walk with patient, but patient says she is comfortable in bed.Nursing Note:
--- NOTE | 2021-09-23 11:03 | INITIAL_ITS ---
- If Service Date Differs Date of service: 09/23/21 Time of Service: 11:03 Care Management Initial Assess REASON FOR HOSPITALIZATION:: Congestive Heart Failure. PAST MEDICAL HISTORY/PAST SURGICAL HISTORY:: All Active Problems: Acute and chronic respiratory failure (Acute), Diarrhea (Acute), CHF (congestive heart failure) (Chronic), Hypokalemia (Acute),. Chronic respiratory failure with hypoxia (Acute), Claustrophobia (Acute),. Current smoker (Acute), Interstitial pneumonia with autoimmune features (Acute), Hypotension (Acute), Dehydration (Acute), Closed head injury (Acute), Syncope and collapse (Acute), ANNALISE (acute kidney injury) (Acute),. TSH (thyroid-stimulating hormone deficiency) (Chronic), Obesity, morbid, BMI 40.0-49.9 (Chronic), Moderate aortic regurgitation (Acute), Tricuspid regurgitation (Acute), Cor pulmonale (Chronic), Pulmonary hypertension (Chronic), NSTEMI (non-ST elevated myocardial infarction) (Acute),. Discharge planning issues (Acute), DVT prophylaxis (Acute), Demand ischemia (Acute), Interstitial lung disease (Chronic), Hyperparathyroidism (Acute), Adjustment disorder (Acute), Hypothyroid (Chronic), Hypoxemia (Acute), Elevated troponin (Acute), Migraine (Chronic), Intermittent asthma (Acute), Pedal edema (Acute), Malabsorption (Acute), and Heartburn (Acute). Medical History: Acute respiratory failure with hypoxia, Cervical cancer,. Hypokalemia, and Tobacco dependence. Surgical History: History of gastric bypass. PREVIOUS FUNCTIONAL STATUS/SOCIAL/FAMILY SUPPORTS:: Marian lives in a mobile home in [facility] with her , Veto Callahan. She has 3 adult children and 4 grandchildren, all of whom reside in [place]. Marian works part- time at [employer]. She enjoys spending time with her sister, who lives next door to her, and enjoys going on walks with her dog. She states both her sister and are supportive of her. She is independent with her ADLs at baseline. CURRENT FUNCTIONAL STATUS:: Marian is sitting in a chair when CM comes to meet with her. She is pleasant and easily engages in conversation, though appears out of breath. Marian shares she is on 3L of O2 at baseline. She states she is looking forward to returning home as she misses her dog and cat. ADVANCE DIRECTIVES:: None on file; accepts an Advance Directives from CM for completion at a later time. Has patient been provided with info about the portal/API?: Yes Did the patient sign up for the portal?: Yes (Previously enrolled.) CODE STATUS:: Full Code INSURANCE COVERAGE / FINANCIAL ISSUES:: Medicaid. CURRENT HOME/COMMUNITY SERVICES/EQUIPMENT:: Marian is on 3L of O2 at baseline. She obtains her oxygen through [employer] and owns a commode. She has no other home/community services. PRIMARY CARE PHYSICIAN:: Max Hart MD ([facility]). POTENTIAL DISCHARGE NEEDS:: Follow up appointments with PCP, pulmonology, and plan of care. PATIENT/FAMILY EDUCATION NEEDS:: Review discharge instructions including limitations, medication, and follow up plan of care; discuss Ask Me Three and self management needs. ANTICIPATED BARRIERS TO DISCHARGE:: No anticipated barriers at this time. TRANSPORTATION:: Via private vehicle with . PLAN:: Marian will likely be discharged home with no new services when medically cleared by provider. She will follow up with her PCP and discharge plan of care as directed. She will be transported home by her via private vehicle when ready. CM will continue to follow.
--- NOTE | 2021-09-23 11:34 | PHACLINREV_ITS ---
Pharmacy Admission Review - Admission Clinical Review mycophenolate mofetil [From CellCept] Adverse Reaction (Intermediate, Verified 09/22/21 15:01) Diarrhea with hypokalemia environmental Adverse Reaction (Mild, Uncoded 09/22/21 15:01) Resuscitation Status Full Code Height 5 ft 2 in Weight 107.6 kg - Renal Dosing Renal Dosing: BUN 47 mg/dL (7-18) H D 09/23/21 06:20 Creatinine 1.7 mg/dL (0.55-1.02) H D 09/23/21 06:20 Medications needing adjustments: Reviewed List of meds needing interventions: eCrCl is 44 ml/min using adj bw - Anticoagulation Anticoagulation: Hgb 9.8 g/dL (11.2-15.7) L 09/23/21 06:20 Hct 32.8 % (36.0-46.0) L 09/23/21 06:20 Plt Count 311 10^3/uL (130-400) 09/23/21 06:20 Creatinine 1.7 mg/dL (0.55-1.02) H D 09/23/21 06:20 DVT Prophylaxis: Reviewed Medications: Heparin - Opiate Usage Evaluate Pain Scale/Pains Meds: N/A - Relevant Labs Sodium 142 mmol/L (136-145) 09/23/21 06:20 Potassium 3.8 mmol/L (3.5-5.1) D 09/23/21 06:20 Chloride 105 mmol/L (98-107) 09/23/21 06:20 Magnesium 2.2 mg/dL (1.8-2.4) 09/22/21 15:00 Electrolytes, C-Reactive P, ESR: Reviewed - DM Control DM Control: Glucose 148 mg/dL (74-106) H 09/23/21 06:20 Insulin Dosing: N/A - Heart Failure/OR Heart Failure/OR: Troponin I 270 ng/L (<or=60) H* 09/22/21 22:40 NT-Pro-B Natriuret Pep 46212 pg/mL (<300) H 09/22/21 15:00 EF%, KIM's, B-Blockers, Diuretics: Reviewed - BP Control BP Control: Blood Pressure [Right Calf] 122/57 Blood Pressure [Right Calf] 114/80 Blood Pressure [Right Arm] 105/52 Blood Pressure [Right Arm] 97/60 Blood Pressure [Right Arm] 105/55 Blood Pressure 109/57 Blood Pressure 114/80 Blood Pressure 114/80 Blood Pressure 109/57 Blood Pressure 110/63 Blood Pressure 102/52 Blood Pressure 106/61 Blood Pressure 99/53 If elevated: Reviewed - Qtc Review List meds needing interventions: QTc 459 on admission - IV to PO Switch IV Medications: Reviewed - Home Meds Home Med List reviewed: Intervened Relevent Home Meds Not ordered & why?: Not ordered: cetirizine, cyclobenzaprine, montelukast, lisinopril, mycophenolate, ofev, rizatriptan, bactrim; several changes made based on pharmacy fill history and recent clinic notes -- mychophenolate dose was definitely lowered recentely but I cannot confirm it was actually dc'd, furosemide rx has a sig of BID but based on fill hx it is possible she's only taking it once a day and from clinic notes it looks like pt should be on chronic AZITHROMYCIN therapy and not bactrim but pt has been filling bactrim more recently than quirinoithro...will follow up with patient's power project manager on Friday. - Current meds Current Medication Order Review: Reviewed (Rocephin and doxy for bronchitis)
[2021-09-23] MEDS: Albuterol 2.5 MG/3 ML INH SOLN VIAL UPD (11:58)
--- NOTE | 2021-09-23 11:59 | NUR.NOTE ---
RN gives patient an albuterol breathing treatment.Nursing Note:
--- NOTE | 2021-09-23 12:09 | PGE_ITS ---
Date of Service Date of service: 09/23/21 Time of Service: 12:10 Assessment and Plan Assessment and plan (1) CHF (congestive heart failure): Status: Chronic Assessment and plan: Secondary to demand ischemia likely brought on by acute bronchitis. CT chest w/o evidence of consolidation. Showed her chronic ILD. Rocephin and doxycycline initiated. Plan 3 days of Rocephin and a longer course of doxycycline. Serial troponins. Lasix 80mg IV given in ED; repeated this AM. Plan to change back to home dose of 80mg po daily tomorrow. (2) Hypokalemia: Status: Acute Assessment and plan: Replace and monitor. Now normal. (3) Acute and chronic respiratory failure: Status: Acute Assessment and plan: Chronically on 3L supplemental O2 for ILD. Initially required 1-2 L more O2 than baseline, but now back to 3L NC. (4) ANNALISE (acute kidney injury): Status: Acute Assessment and plan: Likely cardop-renal syndrome. Creatinine improved to 1.7 (2.8 on presentation). Avoid hypotension and dehydration. Monitor. (5) Pulmonary hypertension: Status: Chronic Assessment and plan: Chronic. An echocardiogram has been ordered. (6) Demand ischemia: Status: Acute Assessment and plan: See above. (7) Interstitial lung disease: Status: Chronic Assessment and plan: Followed by pulmonary medicine. Was fairly recently taken off Cellcept d/t diarrhead/hypokalemia. Prednisone initiated. Pulmonary consult. (8) Asthma: Status: Suspected Assessment and plan: Duonebs. PRN levalbuterol. Methylprednisolone 125mg IV given in the ED. Oral prednisone 60mg daily. Trelegy; home med to be continued. Qualifiers: Asthma severity: mild Asthma persistence: persistent Asthma complicati on type: uncomplicated Qualified Code(s): J45.30 - Mild persistent asthma, uncomplicated Subjective Subjective Patient reports: no new complaints, feels better, tolerating a regular diet and afebrile; denies nausea and vomiting Exam Narrative Exam Narrative: Lying supine. Conversant. Const General: cooperative and no acute distress Nutritional Appearance: obese Orientation: alert and oriented x3 Eyes General: appearance normal, both eyes and all related structures Sclera: sclerae normal Neck Neck: full ROM and no JVD Resp Effort & Inspection: normal respiratory effort Auscultation: diminished lung sounds and other (crackles throughout. ) Cardio Rate: regular rate Rhythm: regular rhythm Heart Sounds: S1 normal and S2 normal GI Inspection: obesity Palpation: soft and nontender Skin General skin exam: no rashes or lesions noted Neuro Cranial Nerves: facial strength normal Cognition: normal cognition Speech: speech normal Extrem General: no pedal edema and no calf tenderness Psych Mood: congruent mood Affect: normal affect Objective Last Vital Signs Temp 36.1 C L 09/23/21 10:13 Pulse 83 09/23/21 10:13 Resp 23 09/23/21 10:13 BP 109/57 L 09/23/21 10:13 Pulse Ox 96 09/23/21 10:13 Laboratory Results - last 24 hr 09/22/21 09/22/21 09/22/21 15:00 15:00 15:00 WBC 7.87 RBC 4.16 Hgb 10.9 L Hct 35.8 L MCV 86.1 MCH 26.2 L MCHC 30.4 L RDW 14.5 Plt Count 381 MPV 10.3 Immature Gran % 0.5 Neutrophils % 76.1 Band Neutrophils % Lymphocytes % 14.0 Monocytes % 4.8 Eosinophils % 4.1 Basophils % 0.5 Nucleated RBC % 0 Absolute Neutrophils 5.99 Absolute Lymphocytes 1.10 L Absolute Monocytes 0.38 Absolute Eosinophils 0.32 Absolute Basophils 0.04 RBC Morphology APTT VBG Lactate 2.3 H* Sodium 141 Potassium 2.9 L Chloride 101 Carbon Dioxide 30.3 Anion Gap 9.7 BUN 58 H Creatinine 2.8 H Estimated GFR/1.73 m2 17.68 Glucose 104 Calcium 8.5 Magnesium 2.2 Total Bilirubin 0.3 AST 26 ALT 13 L Alkaline Phosphatase 69 Troponin I 315 H* NT-Pro-B Natriuret Pep 88336 H Total Protein 7.4 Albumin 2.2 L Procalcitonin COVID-19 Source SARS-CoV-2 (PCR) Influenza Type A (PCR) Influenza Type B (PCR) RSV (PCR) 09/22/21 09/22/21 09/22/21 15:05 15:57 17:30 WBC RBC Hgb Hct MCV MCH MCHC RDW Plt Count MPV Immature Gran % Neutrophils % Band Neutrophils % Lymphocytes % Monocytes % Eosinophils % Basophils % Nucleated RBC % Absolute Neutrophils Absolute Lymphocytes Absolute Monocytes Absolute Eosinophils Absolute Basophils RBC Morphology APTT 25.9 VBG Lactate Sodium Potassium Chloride Carbon Dioxide Anion Gap BUN Creatinine Estimated GFR/1.73 m2 Glucose Calcium Magnesium Total Bilirubin AST ALT Alkaline Phosphatase Troponin I NT-Pro-B Natriuret Pep Total Protein Albumin Procalcitonin 0.1 COVID-19 Source Nasopharynx SARS-CoV-2 (PCR) Negative Influenza Type A (PCR) Negative Influenza Type B (PCR) Negative RSV (PCR) Negative 09/22/21 09/22/21 09/22/21 19:17 20:07 22:40 WBC RBC Hgb Hct MCV MCH MCHC RDW Plt Count MPV Immature Gran % Neutrophils % Band Neutrophils % Lymphocytes % Monocytes % Eosinophils % Basophils % Nucleated RBC % Absolute Neutrophils Absolute Lymphocytes Absolute Monocytes Absolute Eosinophils Absolute Basophils RBC Morphology APTT VBG Lactate Sodium Potassium Chloride Carbon Dioxide Anion Gap BUN Creatinine Estimated GFR/1.73 m2 Glucose Calcium Magnesium Total Bilirubin AST ALT Alkaline Phosphatase Troponin I Cancelled 295 H* 270 H* NT-Pro-B Natriuret Pep Total Protein Albumin Procalcitonin COVID- Source SARS-CoV-2 (PCR) Influenza Type A (PCR) Influenza Type B (PCR) RSV (PCR) 09/22/21 09/23/21 09/23/21 22:40 06:20 06:20 WBC 5.60 RBC 3.75 L Hgb 9.8 L Hct 32.8 L MCV 87.5 MCH 26.1 L MCHC 29.9 L RDW 14.6 Plt Count 311 MPV 10.0 Immature Gran % 0.0 Neutrophils % 85.0 Band Neutrophils % 4 Lymphocytes % 9.0 Monocytes % 2.0 Eosinophils % 0.0 Basophils % 0.0 Nucleated RBC % 0 Absolute Neutrophils 4.98 Absolute Lymphocytes 0.50 L Absolute Monocytes 0.11 Absolute Eosinophils 0.00 Absolute Basophils 0.00 RBC Morphology Normal APTT VBG Lactate 1.1 Sodium 142 Potassium 3.8 D Chloride 105 Carbon Dioxide 26.9 Anion Gap 10.1 BUN 47 H D Creatinine 1.7 H D Estimated GFR/1.73 m2 31.44 Glucose 148 H Calcium 8.6 Magnesium Total Bilirubin AST ALT Alkaline Phosphatase Troponin I NT-Pro-B Natriuret Pep Total Protein Albumin Procalcitonin COVID-19 Source SARS-CoV-2 (PCR) Influenza Type A (PCR) Influenza Type B (PCR) RSV (PCR) 09/23/21 06:20 WBC RBC Hgb Hct MCV MCH MCHC RDW Plt Count MPV Immature Gran % Neutrophils % Band Neutrophils % Lymphocytes % Monocytes % Eosinophils % Basophils % Nucleated RBC % Absolute Neutrophils Absolute Lymphocytes Absolute Monocytes Absolute Eosinophils Absolute Basophils RBC Morphology APTT VBG Lactate 0.5 L Sodium Potassium Chloride Carbon Dioxide Anion Gap BUN Creatinine Estimated GFR/1.73 m2 Glucose Calcium Magnesium Total Bilirubin AST ALT Alkaline Phosphatase Troponin I NT-Pro-B Natriuret Pep Total Protein Albumin Procalcitonin COVID-19 Source SARS-CoV-2 (PCR) Influenza Type A (PCR) Influenza Type B (PCR) RSV (PCR)
--- NOTE | 2021-09-23 13:27 | NUR.NOTE ---
assurance senior manager meets with patient.Nursing Note:
[2021-09-23] MEDS: Acetaminophen 325 MG TAB PO (14:02)
--- NOTE | 2021-09-23 14:04 | NUR.NOTE ---
Patient given 650mg of Acetaminophen for headache. Patient reports feeling better up in chair. Patient ius up in chair on 3 liters of 02 sating 96%.Nursing Note:
[2021-09-23] MEDS: cefTRIAXone 1 GM/50 ML BAG IVPB (15:17)
--- NOTE | 2021-09-23 16:18 | RESPIRATORY ---
up draft given. rt unable to adjust not given status 1600.
[2021-09-23] MEDS: Topiramate 50 MG TAB PO (21:48)
[2021-09-23] MEDS: Amitriptyline 50 MG TAB PO (21:48)
[2021-09-23] MEDS: Sertraline 50 MG TAB 150 MG PO (21:48)
[2021-09-24] VITALS (16 sets, daily range): BP systolic 108–138; BP diastolic 57–67; PULSE 71–92; RESP 4–40; TEMP 36.4–36.6; O2SAT 91–99
--- NOTE | 2021-09-24 | DI.US_ITS ---
APPROVED REPORT EXAM: Comprehensive 2D, Doppler, and color-flow Echocardiogram Patient Location: In-Patient Room/Bed: [id number] [place]zol Operator: Stacy Harrell RDCS (AE) Indications: MSTEMI. CHF, PUL HTN Other Information Study Quality: Adequate. Technically limited study due to inability to position patient, exam done si upine bedside. Conclusion Normal left ventricular wall thickness and chamber size. Estimated ejection fraction is 60%. Diasto lic septal flattening suggests right ventricular pressure overload The right ventricle is mildly dilated, with normal systolic function The left atrium is borderline dilated. The right atrium is mildly dilated Trileaflet sclerotic aortic valve with moderate regurgitation Mild mitral annular calcification. Trace to mild atrial regurgitation Normal tricuspid valve with moderate regurgitation. Estimated right ventricular systolic pressure is 45 mmHg Normal pulmonic valve with moderate regurgitation Dilated ascending aorta measuring 3.72 cm Wall motion Left Ventricle The left ventricle is normal size. The left ventricular systolic function is normal. The left ventric ular ejection fraction is within the normal range. There is normal left ventricular wall thickness. T here is normal LV segmental wall motion. Flattened septum consistent with right ventricular pressure overload. There is no ventricular septal defect visualized. LVEF is 60%. Right Ventricle Right ventricle is mildly dilated. The right ventricular systolic function is normal. Atria Left atrium is borderline dilated. Right atrium is mildly dilated. The interatrial septum is intact w ith no evidence for an atrial septal defect. Aortic Valve The Aortic valve is sclerotic. There is no aortic valvular stenosis. Moderate aortic regurgitation. Mitral Valve Mild mitral annular calcification. No evidence of mitral valve stenosis. Trace to mild mitral regurgi tation. Tricuspid Valve The tricuspid valve is normal in structure. There is no tricuspid valve stenosis. moderate tricuspid regurgitation. Pulmonic Valve The pulmonary valve is normal in structure. There is no pulmonic valvular stenosis. Moderate pulmonic regurgitation. Great Vessels The aortic root is normal in size. The ascending aorta is dilated.3.72 cm Aortic arch is not well vis ualized. IVC is normal in size and collapses >50% with inspiration. Pericardium There is no pericardial effusion. 2D Dimensions IVSD d PLAX 1.01 cm F: 0.6-1.0 LV Vol A2C d MOD 79.3 mL LVPW d PLAX 1.00 cm F: 0.6 - 1.0 LV Vol A4C d MOD 96.3 mL LVID d PLAX 4.82 cm F: 3.8 - 5.2 LA vol/ BSA A2C s A-L 14.5 mL/m2 LVDs 3.25 cm F: 2.2 - 3.5 LA vol/ BSA A4C s A-L 36.6 mL/m2 Ao Root d 3.12 cm F: 2.7 - 3.3 LA Vol/ BSA Biplane s A-L 25.4 mL/m2 RA Area A4C 21.60 cm2 LA Area A4C s MOD 23.59 cm2 RA Vol/ BSA A4C s A-L 32.4 mL/m2 LA Area A2C s MOD 13.48 cm2 Ao Asc Diam d 3.72 cm F: 2.3 - 3.1 LV EF A4C MOD 60.3 % LV EF Teichholz 60.7 % LV EF A2C MOD 61.5 % LVEF (Kincaid's) 58.36 % F: 54 - 74 LV EF Biplane MOD 58.4 % LV Volume 65.88 mL F: 46 - 106 SV 51.72 mL LV Volume Index 32.13 mL/m2 F: 29 - 61 SV Index 25.17 mL/m2 LV Vol Biplane MOD 88.6 mL FS 32.45 % M-Mode TAPSE 2.13 cm (M/F) >1.7 LV Diastology MV E' medial 0.120 (>0.07 m/s) E/A Ratio 1.7 LV E/e MED 7.75 (<14) MV E Vmax 0.93 (0.4-1.3 m/s) MV E' lateral 0.120 (>0.1 m/s) MV A Vmax 0.55 (0.4-1.3 m/s) LV E/e LAT 7.75 (<14) MV E/A Ratio 1.56 MV E/E' medial 7.76 MV E/E' lateral 7.76 Aortic Valve LVOT Area 3.08 cm2 AoV Area Vmax 2.66 cm2 LVOT Vmax 1.65 m/s AoV Area/ BSA (Vmax) 1.29 cm2/m2 LVOT Mean Rafael. 1.09 m/s TEMI Mean Rafael. 2.57 cm2 LVOT Peak Grad 10.9 mmHg TEMI Mean Rafael. Index 1.25 cm2/m2 LVOT Mean Grad 5.6 mmHg AR DT 1903 msec LVOT VTI 0.302 m AR PHT 552 msec LVOT Diam s 1.95 cm AoV Vmax 1.91 m/s Velocity Ratio 0.86 AoV Mean Rafael. 1.31 m/s AoV Peak Grad 14.7 mmHg LVOT SV 93.19 mL AoV Mean Grad 7.8 mmHg AoV VTI 0.332 m AoV Area VTI 2.81 cm2 AoV Area/ BSA (VTI) 1.37 cm/m2 Mitral Valve MV DT 164 (160-240 msec) MV PHT 48 msec MV Area PHT 4.62 cm2 MV VTI 0.214 m MV Area VTI 4.35 (4.0-6.0 cm2) Pulmonary Valve PV Vmax 1.28 (0.5-1.5 m/s) RVOT Peak Gr. 3.66 mmHg PV Peak Grad 6.6 mmHg RVOT Mean Gr. 1.70 mmHg PV Mean Grad 3.1 mmHg RVOT VTI 0.176 m PV VTI 0.218 m RVOT Vmax 0.96 m/s Tricuspid Valve TR Peak Grad 41.8 mmHg TR Vmax 3.23 m/s RA Pressure 3.00 mmHg RVSP (TR) 44.9 mmHg
[2021-09-24] MEDS: Albuterol/Ipratropium 3 ML UPD VIAL UPD ×2 (01:31→07:34)
[2021-09-24] MEDS: Levalbuterol 0.63 MG/3 ML UPD VIAL UPD (04:10)
[2021-09-24] MEDS: Heparin 5,000 UNITS/ML VIAL 5000 UNITS SC (06:19)
[2021-09-24 06:37] LABS: HCT 31.5 % (36.0-46.0); HGB 9.6 g/dL (11.2-15.7); MCH 26.2 pg (27.0-33.0); MCHC 30.5 % (32.0-36.0); MCV 85.8 fL (80-95); MPV 10.1 fL (8.0-11.0); Platelet Count 370 10^3/uL (130-400); RBC 3.67 10^6/uL (3.93-5.22); RDW 14.9 % (11.7-14.6); RDW-SD 46.2 fL; WBC 8.94 10^3/uL (4.4-10.8)
[2021-09-24 06:47] LABS: Anion Gap 9.4 mmol/L (3-11); BUN 43 mg/dL (7-18); CO2 26.6 mmol/L (21.0-32.0); CREATININE 1.3 mg/dL (0.55-1.02); Calcium 9.2 mg/dL (8.5-10.1); Chloride 102 mmol/L (98-107); Estimated GFR 42.85 (mL/min/1.73m2); Glucose 93 mg/dL (74-106); Potassium 3.3 mmol/L (3.5-5.1); Sodium 138 mmol/L (136-145)
[2021-09-24 07:23] LABS: Procalcitonin < 0.1 ng/mL
[2021-09-24] MEDS: DOXYCYCLINE 100 MG in Normal Saline 100 ML IVPB (07:34)
[2021-09-24] MEDS: Pantoprazole 40 MG TABCR PO (07:34)
[2021-09-24] MEDS: Citalopram 20 MG TAB PO (07:35)
[2021-09-24] MEDS: Aspirin E.C. 81 MG TABEC PO (07:35)
[2021-09-24] MEDS: Cholecalciferol (Vitamin D3) 1,000 UNIT TAB 1000 UNITS PO (07:35)
[2021-09-24] MEDS: guaiFENesin 600 MG TABCR PO (07:36)
[2021-09-24] MEDS: Furosemide 80 MG TAB PO (07:36)
[2021-09-24] MEDS: Potassium Chloride 20 MEQ TABCR PO (07:37)
[2021-09-24] MEDS: predniSONE 20 MG TAB 60 MG PO (07:37)
[2021-09-24] MEDS: Acetaminophen 325 MG TAB PO (07:45)
--- NOTE | 2021-09-24 08:32 | W.PULMCON ---
General Date Of Service Date of service: 09/24/21 Time of Service: 08:00 Reason for Consult: Respiratory failure Assessment and Plan Assessment and plan (1) Acute and chronic respiratory failure: Status: Acute Qualifiers: Respiratory failure complication: unspecified whether with hypoxia or hypercapnia Qualified Code(s): J96.20 - Acute and chronic respiratory failure, unspecified whether with hypoxia or hypercapnia (2) Interstitial pneumonia with autoimmune features: Status: Acute (3) Pulmonary hypertension: Status: Chronic (4) Demand ischemia: Status: Acute (5) Asthma: Status: Suspected Qualifiers: Asthma complication type: uncomplicated Asthma persistence: persistent Asthma severity: mild Qualified Code(s): J45.30 - Mild persistent asthma, uncomplicated (6) Pneumonia: Status: Resolved Assessment and plan: This is a 51 yo female with ILD with autoimmune features who has failed Cellcept treatment and who is maintained on OFEV. She has a pulmonary infection of some sort that has caused an ILD flare. I agree with steroid treatment and will have do completed a prolonged taper. I had held her OFEV given the diarrhea issues with Cellcept to give her GI tract a break, but now that she is diarrhea free her OFEV can be restarted at home on discharge. I do think she needs a course of antibiotics and would recommend Augmentin for 10 days. She is improved and already has home O2 that she can use and is safe to be discharged home from a pulmonary standpoint. Acute on Chronic Hypoxic Respiratory Failure - continue supplemental home O2 for sats >90% - continue VibraPEP - continue prn albuterol at home Pneumonia - recommend Augmentin with total antibiotic days of 10 - agree with Mucinex, cough syrup ILD with autoimmune features - can restart OFEV once home - Prednisone 60mg for 7 days, 50mg for 7 days, 40mg for 7 days, 30mg for 7 days, 20mg for 7 days, 10mg for 7 days, 5mg for 7 days - she will need to be on Bactrim ppx until on 10mg prednisone and less - she has follow up with me scheduled already for 10/01/21 - I will discuss Evushield infusion prophylaxis with her at our next outpatient appointment - she [place] [facility] Asthma - continue Trelegy - continue as needed albuterol - continue Singulair Qualifiers: Laterality: bilateral Lung location: unspecified part of lung Pneumonia type: due to unspecified organism Qualified Code(s): J18.9 - Pneumonia, unspecified organism History of Present Illness Narrative: This is a 51 yo female I know very well from my clinic who has asthma and ILD with autoimmune features. She has had a difficult course thus far with prolonged steroid treatments, failure of CellCept (diarrhea with hypokalemia) and OFEV therapy. It has been a challenge to monitor her progress as she has not repeated PFT's/imaging as directed. I was able to obtain a chest CT when I sent her to the ED for electrolyte replacement due to her diarrhea from the Cellcept. It showed extremely significant fibrotic lung disease. She was scheduled to come see me last week, however she did not come in. She presented to the ED with shortness of breath and cough. She was admitted for worsening hypoxia and treated with antibiotics, prednisone and lasix. There was concern about her lower blood pressures (although this is her baseline) and had an art line and folery placed. She tells me that she is feeling better since being admitted and is anxious to go home. She is still coughing significantly and has been having a hard time sleeping. She is using the VibraPEP and is getting rid of some of the secretions. She is not having diarrhea. Review of Systems All systems reviewed & are unremarkable except as noted in HPI and below PFSH All Active Problems (Updated 09/24/21 @ 08:41 by Jena Saunders MD) Acute and chronic respiratory failure (Acute) Hypokalemia (Acute) Chronic respiratory failure with hypoxia (Acute) Claustrophobia (Acute) Interstitial pneumonia with autoimmune features (Acute) ANNALISE (acute kidney injury) (Acute) TSH (thyroid-stimulating hormone deficiency) (Chronic) Obesity, morbid, BMI 40.0-49.9 (Chronic) Moderate aortic regurgitation (Acute) Tricuspid regurgitation (Acute) Pulmonary hypertension (Chronic) NSTEMI (non-ST elevated myocardial infarction) (Acute) Discharge planning issues (Acute) DVT prophylaxis (Acute) Demand ischemia (Acute) Hyperparathyroidism (Acute) Adjustment disorder (Acute) Hypothyroid (Chronic) Hypoxemia (Acute) Elevated troponin (Acute) Migraine (Chronic) Pedal edema (Acute) Malabsorption (Acute) Heartburn (Acute) Medical History (Updated 09/24/21 @ 08:41 by Jena Saunders MD) Acute respiratory failure with hypoxia Cervical cancer Closed head injury Current smoker Dehydration Diarrhea Hypokalemia Hypotension Hypotension Intermittent asthma Interstitial lung disease Syncope and collapse Tobacco dependence Surgical History History of gastric bypass Family History Other Current smoker Social History Smoking/Tobacco Use Status: Former Tobacco Use Quit Date: 01/26/21 Smoking risk assessment performed?: Yes Alcohol Intake: current Alcohol Intake frequency: a few times a week Drug use: Rarely Substance use type: marijuana Do you feel safe at home: Yes Do you feel safe in your relationship?: Yes Visit Medication and Allergies Active Medications Generic Name Dose Route Start Last Admin Trade Name Freq PRN Reason Stop Dose Admin Acetaminophen 0 mg 09/22/21 16:11 09/24/21 07:45 Acetaminophen 325 Mg Tab PO 650 mg Q4H PRN PRN Administration Albuterol Sulfate 2.5 mg 09/22/21 18:30 09/23/21 11:58 Albuterol 2.5 Mg/3 Ml Inh Soln Vial UPD 2.5 mg Q2H PRN PRN Administration Albuterol/Ipratropium 3 ml 09/22/21 20:00 09/24/21 07:34 Albuterol/Ipratropium 3 Ml Upd Vial UPD 3 ml Q6H ANASTASIA Administration Amitriptyline HCl 50 mg 09/22/21 22:00 09/23/21 21:48 Amitriptyline 50 Mg Tab PO 50 mg HS ANASTASIA Administration Aspirin 81 mg 09/23/21 08:30 09/24/21 07:35 Aspirin E.C. 81 Mg Tabec PO 81 mg DAILY ANASTASIA Administration Cholecalciferol 1,000 units 09/23/21 08:30 09/24/21 07:35 Cholecalciferol (Vitamin D3) 1,000 Unit Tab PO 1,000 units DAILY ANASTASIA Administration Citalopram Hydrobromide 20 mg 09/23/21 08:30 09/24/21 07:35 Citalopram 20 Mg Tab PO 20 mg DAILY ANASTASIA Administration Dimethicone/Zinc Oxide 0 gm 09/22/21 16:06 Malik Protect Cream 142 Gm Tube TP PRN PRN Furosemide 80 mg 09/24/21 08:30 09/24/21 07:36 Furosemide 80 Mg Tab PO 80 mg DAILY ANASTASIA Administration Guaifenesin 600 mg 09/23/21 09:00 09/24/21 07:36 Guaifenesin 600 Mg Tabcr PO 600 mg BID ANASTASIA Administration Heparin Sodium (Porcine) 5,000 units 09/23/21 14:00 09/24/21 06:19 Heparin 5,000 Units/Ml Vial SC 5,000 units Q8H ANASTASIA Administration Doxycycline Hyclate 100 mg/ 100 mls @ 100 mls/hr 09/22/21 20:00 09/24/21 07:34 Sodium Chloride IVPB 100 mls/hr Q12H ANASTASIA Administration Ceftriaxone Sodium/Dextrose 1 gm in 50 mls @ 100 mls/hr 09/23/21 16:00 09/23/21 17:40 Rocephin IVPB Infused DAILY@1600 ON LICENSE OF [facility] Infusion IV Miscellaneous Supplies 1 each 09/22/21 15:00 Iv Access IV DIRECTED ON LICENSE OF [facility] Levalbuterol HCl 0.63 mg 09/22/21 16:20 09/24/21 04:10 Levalbuterol 0.63 Mg/3 Ml Upd Vial UPD 0.63 mg Q2H PRN PRN Administration Lorazepam 0.5 mg 09/22/21 16:19 Lorazepam 0.5 Mg Tab PO BID PRN PRN Melatonin 9 mg 09/22/21 16:19 Melatonin 3 Mg Tab PO HS PRN PRN Morphine Sulfate 2 mg 09/22/21 23:00 09/23/21 15:16 Morphine 2 Mg/Ml Syr IVP 2 mg Q4H PRN PRN Administration Pantoprazole Sodium 40 mg 09/23/21 20:00 09/24/21 07:34 Pantoprazole 40 Mg Tabcr PO 40 mg BID@0730,2000 ON LICENSE OF [facility] Administration Patient's Own 1 each 09/24/21 08:30 09/24/21 07:37 Medication ( IH Not Given Fluticasone- DAILY ON LICENSE OF [facility] Umeclidin-Vilanter [ Trelegy Ellipta] 200 ) Polyethylene Glycol 17 gm 09/22/21 16:11 Polyethylene Glycol 3350 17 Gm Packet PO DAILY PRN PRN Constipation Potassium Chloride 20 meq 09/22/21 20:00 09/24/21 07:37 Potassium Chloride 20 Meq Tabcr PO 20 meq BID ANASTASIA Administration Prednisone 60 mg 09/23/21 08:30 09/24/21 07:37 Prednisone 20 Mg Tab PO 60 mg DAILY ANASTASIA Administration Promethazine HCl/Codeine 5 ml 09/24/21 07:50 Promethazine W/Cod 5 Ml PO Q6H PRN PRN Sertraline HCl 150 mg 09/22/21 22:00 09/23/21 21:48 Sertraline 50 Mg Tab PO 150 mg HS ANASTASIA Administration Sodium Chloride 0 ml 09/22/21 14:54 09/23/21 08:19 Normal Saline Flush 10 Ml Syr IVP 10 ml PRN PRN Administration Topiramate 50 mg 09/22/21 22:00 09/23/21 21:48 Topiramate 50 Mg Tab PO 50 mg HS ANASTASIA Administration Allergies mycophenolate mofetil [From CellCept] Adverse Reaction (Intermediate, Verified 09/22/21 15:01) Diarrhea with hypokalemia environmental Adverse Reaction (Mild, Uncoded 09/22/21 15:01) Exam Const General: no acute distress Nutritional Appearance: well nourished [facility] Head: normocephalic Ears: external ears normal and no periauricular adenopathy General nose exam: nasal mucous membranes and turbinates normal Face and sinus: sinuses nontender Mouth: oropharynx normal and moist mucous membranes Teeth and gingiva: other (Teeth missing) Eyes General: appearance normal, both eyes and all related structures Pupils: PERRL Neck Neck: normal visual inspection and no lymphadenopathy Chest Chest: normal inspection of the chest Resp Effort & Inspection: normal respiratory effort and other (On nasal cannula) Auscultation: rales (Present throughout all lung lo) bilaterally, rhonchi and wheezes Cardio Rate: regular rate Rhythm: regular rhythm Heart Sounds: S1 normal, S2 normal and no murmurs Pulses: radial pulses present bilaterally GI Inspection: normal to inspection Palpation: soft Skin General skin exam: no rashes or lesions noted Neuro General: patient alert, patient awake and patient oriented x3 Extrem General: no clubbing, no cyanosis and edema Laterality: bilateral (1+ ankles) Psych Mental Status: mental status grossly normal Affect: normal affect Attitude: cooperative Results Last Vital Signs Temp 36.6 C 09/24/21 08:18 Pulse 92 H 09/24/21 08:18 Resp 27 H 09/24/21 08:18 BP 138/57 L 09/24/21 08:18 Pulse Ox 96 09/24/21 08:18 Labs Result diagrams: 09/24/21 06:20 09/24/21 06:20 Labs: Laboratory Results - last 24 hr 09/24/21 09/24/21 09/24/21 06:20 06:20 06:20 WBC 8.94 D RBC 3.67 L Hgb 9.6 L Hct 31.5 L MCV 85.8 MCH 26.2 L MCHC 30.5 L RDW 14.9 H Plt Count 370 MPV 10.1 Sodium 138 Potassium 3.3 L Chloride 102 Carbon Dioxide 26.6 Anion Gap 9.4 BUN 43 H Creatinine 1.3 H Estimated GFR/1.73 m2 42.85 Glucose 93 D Calcium 9.2 Procalcitonin < 0.1
--- NOTE | 2021-09-24 10:27 | PDOC.CMPRO ---
- If Service Date Differs Date of service: 09/24/21 Time of Service: 10:27 Care Management Progress Note S/O: A: P:
--- NOTE | 2021-09-24 10:39 | DSE_ITS ---
Date of service: 09/24/21 Time of Service: 10:40 DS: Diagnosis Discharge Diagnosis (1) Acute and chronic respiratory failure: Status: Acute (2) Interstitial pneumonia with autoimmune features: Status: Acute (3) Pulmonary hypertension: Status: Chronic (4) Demand ischemia: Status: Acute (5) Asthma: Status: Suspected (6) Pneumonia: Status: Resolved Discharge Plan Disposition Patient Disposition: HOME Condition: Fair Discharge Details Reason For Visit: Congestive Heart Failure Admit Date/Time: 09/22/21 16:07 Admit Provider: Joe Amos Attending Provider: Joe Amos [facility] Course: This is a 51 yo female with a PMH of asthma, ILD with rheumatologic features, CHF, NSTEMI, chronic hypoxic resp failure, Pulmonary hypertension. She presented to the ED with c/o 3-4 days of progressively worsening cough, productive of green sputum, shortness of air. She denied CP/palpitations, F/C, N/V/abd pain. EMS was called and her O2 saturation was reportedly 80% on her usual 3L O2 per NC. Her supplemental O2 was increased to 5L and a Duoneb tx was given. Upon arrival in the ED her BP was 100/45. Her O2 saturation was 96% on 4L. Evaluation included a CXR that was read as consolidative-like opacities throughout both lungs. Pt with known significant ILD. Her WBC count was normal. Procalcitonin 0.1. Lactic acid 2.3. NTProBNP elevated at 21,639. BUN 58. Creatinine 2.8. Troponin I 315. Covid-19 negative. She was given 80mg IV lasix in the ED and admitted. During the first night of her hospitalization, her manual blood pressure readings were inconsistent so an arterial line was placed. She required no pressors to support her BP and the manual and arterial line BP readings became for consistnet and the art line was d/c'd. Dr Saunders consulted and evaluated the patient. She recommended continuing outpt antibiotic and to initiate a long steroid taper. Her troponin levels trended downward. Her creatinine improved to her baseline range. She has a f/u scheduled with Dr Saunders as well as with [facility] pulmonary ILD specialist. Home Meds and New Rx's Prescriptions: New guaifenesin [Mucinex] 600 mg Tablet Extended Release 12hr 600 mg PO BID Qty: 0 RF: 0 amoxicillin-pot clavulanate 875-125 mg tablet 1 tab PO BID Qty: 10 RF: 0 Ubrelvy 100 mg tablet 100 mg PO ONCE Qty: 7 RF: 0 prednisone 10 mg tablet See Rx Instructions .ROUTE .COMPLEX Qty: 150 RF: 0 Continued lisinopril 10 mg tablet 10 mg PO DAILY RF: 0 furosemide 80 mg tablet 80 mg PO BID RF: 0 albuterol sulfate 90 mcg/actuation aerosol powdr breath activated 2 inh inhalation Q4H PRN (Reason: shortness of breath or wheezing) Qty: 1 RF: 8 cyclobenzaprine 10 mg tablet 10 mg PO PRN RF: 0 sertraline 100 mg tablet 150 mg PO HS RF: 0 topiramate 25 mg tablet 50 mg PO HS RF: 0 cholecalciferol (vitamin D3) [Vitamin D3] 1,000 unit Capsule 1,000 unit PO DAILY RF: 0 amitriptyline 50 mg Tablet 50 mg PO HS RF: 0 levalbuterol HCl [Xopenex] 0.63 mg/3 mL solution for nebulization 0.63 mg inhalation Q4H PRN PRNQty: 72 RF: 0 aspirin 81 mg Tablet,Delayed Release (Dr/Ec) 81 mg PO DAILY Qty: 30 RF: 0 melatonin 10 mg capsule 10 mg PO HS PRNQty: 30 RF: 0 pantoprazole 40 mg tablet,delayed release (DR/EC) 40 mg PO BID RF: 0 citalopram 20 mg tablet 20 mg PO DAILY AM RF: 0 fluticasone propion-salmeterol [Advair Diskus] 250-50 mcg/dose blister with device 2 inh INHALATION BID RF: 0 cetirizine 10 mg tablet 10 mg PO DAILY RF: 0 sulfamethoxazole-trimethoprim 800-160 mg tablet 1 tab PO DAILY RF: 0 lorazepam 0.5 mg tablet 0.5 mg PO BID PRN (Reason: Panic Attack(S)) RF: 0 Trelegy Ellipta 200-62.5-25 mcg Blister With Device 1 inh INHALATION Q24H RF: 0 Ofev 150 mg capsule 150 mg PO Q12H Qty: 0 RF: 0 Discontinued montelukast 10 mg tablet 10 mg PO DAILY RF: 0 rizatriptan 5 mg tablet See Rx Instructions PO .COMPLEX RF: 0 mycophenolate mofetil 500 mg tablet 500 mg PO BID RF: 0 Discharge Instructions Activity:: Activity as Tolerated Equipment/Supplies:: No Equipment Needed Diet:: Resume usual home diet Discharge Orders Discharge Orders: Discharge Order (Routine); Ordered 09/24/21 Ordered By: Joe Amos Discharge Data Discharge Date/Time-TO BE ENTERED AT DEPARTURE: 09/24/21 11:27 DS: Summary Time Spent with Patient providing and/or coordinating discharge services: Greater than 30 minutes Status at Discharge Functional status at discharge: independent ambulation Overall status at discharge: patient is progressing back to baseline Mental Status: mental status grossly normal Speech and Movement: speech and movement normal Mood: congruent mood Affect: normal affect Exam Const General: cooperative and no acute distress Nutritional Appearance: obese Orientation: alert and oriented x3 Eyes General: appearance normal, both eyes and all related structures Sclera: sclerae normal Neck Neck: full ROM and no JVD Resp Effort & Inspection: normal respiratory effort Auscultation: diminished lung sounds and other (crackles throughout. ) Cardio Rate: regular rate Rhythm: regular rhythm Heart Sounds: S1 normal and S2 normal GI Inspection: obesity Palpation: soft and nontender Skin General skin exam: no rashes or lesions noted Neuro Cranial Nerves: facial strength normal Cognition: normal cognition Speech: speech normal Extrem General: no pedal edema and no calf tenderness Psych Mental Status: mental status grossly normal Speech and Movement: speech and movement normal Mood: congruent mood Affect: normal affect DS: Data Vitals/I&O Vitals and I&O: Vital Signs Temperature 36.6 C 09/24/21 08:18 Temperature Source Temporal Artery Scan 09/24/21 08:18 Pulse 92 H 09/24/21 08:18 Pulse 83 09/24/21 08:01 Respiratory Rate 27 H 09/24/21 08:18 Respiratory Effort Labored 09/24/21 08:18 Respiratory Depth Shallow 09/24/21 08:18 Respiratory Pattern Tachypnea 09/24/21 08:18 Blood Pressure 138/57 L 09/24/21 08:18 Blood Pressure Mean 84 09/24/21 08:18 Blood Pressure Position Sitting 09/24/21 08:18 Pulse Oximetry 96 09/24/21 08:18 Oxygen Delivery Method Nasal Cannula 09/24/21 08:18 Oxygen Flow Rate 3 09/24/21 04:10 Fraction of Inspired Oxygen (FIO2) 33 09/23/21 16:25 Pain Level 0 09/24/21 08:18 Comment 09/22/21 19:50 Intake & Output 09/23/21 09/23/21 09/24/21 11:59 23:59 11:59 Intake Total 840 / 2920 2080 / 2920 360 / 360 Output Total 1050 / 2225 1175 / 2225 1600 / 1600 Balance -210 / 695 905 / 695 -1240 / -1240 Weight 107.6 kg 106 kg Intake: IV 100 / 250 150 / 250 Oral 740 / 2670 1930 / 2670 360 / 360 Output: Urine 1050 / 2225 1175 / 2225 1600 / 1600 Other: Urine Color Yellow Yellow Yellow Urine Appearance Cloudy Clear Clear Urine Odor Strong Normal Comment Pt. has Adames cath in place adames catheter intact and draining adames catheter intact and draining Stool Size Moderate Voiding Methods Indwelling Catheter Indwelling Catheter Data Completed and Pending Labs on day of discharge: Labs from last 24 hours 09/24/21 09/24/21 09/24/21 06:20 06:20 06:20 WBC 8.94 D RBC 3.67 L Hgb 9.6 L Hct 31.5 L MCV 85.8 MCH 26.2 L MCHC 30.5 L RDW 14.9 H Plt Count 370 MPV 10.1 Sodium 138 Potassium 3.3 L Chloride 102 Carbon Dioxide 26.6 Anion Gap 9.4 BUN 43 H Creatinine 1.3 H Estimated GFR/1.73 m2 42.85 Glucose 93 D Calcium 9.2 Procalcitonin < 0.1 PFSH All Active Problems Acute and chronic respiratory failure (Acute) Hypokalemia (Acute) Chronic respiratory failure with hypoxia (Acute) Claustrophobia (Acute) Interstitial pneumonia with autoimmune features (Acute) ANNALISE (acute kidney injury) (Acute) TSH (thyroid-stimulating hormone deficiency) (Chronic) Obesity, morbid, BMI 40.0-49.9 (Chronic) Moderate aortic regurgitation (Acute) Tricuspid regurgitation (Acute) Pulmonary hypertension (Chronic) NSTEMI (non-ST elevated myocardial infarction) (Acute) Discharge planning issues (Acute) DVT prophylaxis (Acute) Demand ischemia (Acute) Hyperparathyroidism (Acute) Adjustment disorder (Acute) Hypothyroid (Chronic) Hypoxemia (Acute) Elevated troponin (Acute) Migraine (Chronic) Pedal edema (Acute) Malabsorption (Acute) Heartburn (Acute) Medical History Acute respiratory failure with hypoxia Cervical cancer Closed head injury Current smoker Dehydration Diarrhea Hypokalemia Hypotension Hypotension Intermittent asthma Interstitial lung disease Syncope and collapse Tobacco dependence Surgical History History of gastric bypass Family History Other Current smoker Social History Smoking/Tobacco Use Status: Former Tobacco Use Quit Date: 01/26/21 Smoking risk assessment performed?: Yes Alcohol Intake: current Alcohol Intake frequency: a few times a week Drug use: Rarely Substance use type: marijuana Do you feel safe at home: Yes Do you feel safe in your relationship?: Yes
[2021-09-24] MEDS: Ketorolac 30 MG/ML VIAL IVP (11:01)
--- NOTE | 2021-09-24 11:03 | PDOC.CMDIS ---
- If Service Date Differs Date of service: 09/24/21 Time of Service: 11:23 LACE Index Scoring Tool - Questions: Length of Stay (in days): 2 Acuity (Admit via E.D.?): Yes Comorbidities: Any Tumor E.D. Visits: 5 - Answers: Total Score: 11 Risk of Readmission: High Risk Care Management Discharge Reason for Hospitalization: Congestive Heart Failure. Discharge Plan: Marian will discharge home with no new services when medically cleared by provider. She will resume home O2, and continue oral antibiotics. She will follow up with her PCP as well as pulmonology and her discharge plan of care as directed. She will be transported home by her via private vehicle when ready. Patient/Family Education Needs: Review discharge instructions, discuss Ask Me Three.
== END 2021-09-24 11:27 | disposition home or self-care (01) | DRG 193 ==
LOC: ER 16:23 → ICU 17:48
PROVIDERS: Internal Medicine; Admitting Provider Family Medicine; Emergency Provider Emergency Medicine; PCP Family Medicine; Visit Provider Family Medicine
DX: J18.9 Pneumonia, unspecified organism (principal); J96.21 Acute and chronic respiratory failure with hypoxia; J44.0 Chronic obstructive pulmonary disease with (acute) lower respiratory infection; N17.9 Acute kidney failure, unspecified; Z68.41 Body mass index [BMI] 40.0-44.9, adult; I24.8 Other forms of acute ischemic heart disease; M35.89 Other specified systemic involvement of connective tissue; I50.9 Heart failure, unspecified; Z99.81 Dependence on supplemental oxygen; F17.210 Nicotine dependence, cigarettes, uncomplicated; E87.6 Hypokalemia; J84.89 Other specified interstitial pulmonary diseases; I95.9 Hypotension, unspecified; E66.01 Morbid (severe) obesity due to excess calories; I27.20 Pulmonary hypertension, unspecified; I25.2 Old myocardial infarction; E21.3 Hyperparathyroidism, unspecified; E03.9 Hypothyroidism, unspecified; I08.2 Rheumatic disorders of both aortic and tricuspid valves; J45.30 Mild persistent asthma, uncomplicated
CPT/HCPCS: 36620; 36415; 80048; 80053; 84145; 85027; 87637; 93005; 93306; 94640; 96361; 96365; 96366; 96375; 99284; 99285; 71045; 83605; 83735; 83880; 84484; 85025; 85730; 93010; 94667; 99223; 99225; 99233; J0696; J1644; J1885; J1940; J2270; J2930; J3480; J3490; J7512; J7613; J7614; J7620

== ENCOUNTER 2021-10-19 14:06 | Outpatient (REF) | payer MEDICAID, SELFPAY ==
[2021-10-19 16:16] LABS: Albumin 3.5 g/dL (3.4-5.0); Anion Gap 12.8 mmol/L (3-11); BUN 17 mg/dL (7-18); CO2 25.2 mmol/L (21.0-32.0); CREATININE 1.2 mg/dL (0.55-1.02); Calcium 9.1 mg/dL (8.5-10.1); Chloride 100 mmol/L (98-107); Estimated GFR 46.99 (mL/min/1.73m2); Glucose 129 mg/dL (74-106); Magnesium 2.1 mg/dL (1.8-2.4); Potassium 4.3 mmol/L (3.5-5.1); Sodium 138 mmol/L (136-145)
[2021-10-22 06:25] LABS: Vitamin D 25 Total 64.5 ng/mL (30-100)
== END 2021-10-19 14:07 | disposition home or self-care (01) ==
LOC: NCHCN 14:06
PROVIDERS: PCP Family Medicine; Visit Provider Family Medicine
DX: K90.9 Intestinal malabsorption, unspecified (principal); E21.3 Hyperparathyroidism, unspecified
CPT/HCPCS: 80048; 82306; 82040; 83735

== ENCOUNTER 2021-10-22 04:14 | Outpatient (CLI) | payer MEDICAID, SELFPAY ==
[2021-10-23 02:10] LABS: COVID-19 RT-PCR UVMMC Result Negative (Negative)
== END 2021-10-22 04:15 | disposition home or self-care (01) ==
LOC: LBO 04:14
PROVIDERS: PCP Family Medicine; Visit Provider Student in an Organized Health Care Education/Training Program
DX: Z20.822 Contact with and (suspected) exposure to COVID-19 (principal)
CPT/HCPCS: U0003

== ENCOUNTER 2021-10-24 01:46 | Outpatient (RCR) | payer MEDICAID, SELFPAY | END 2021-11-15 23:59 | disposition home or self-care (01) | LOC: INF 01:46 | PROVIDERS: PCP Family Medicine; Visit Provider Student in an Organized Health Care Education/Training Program | DX: Z92.25 Personal history of immunosuppression therapy (principal) | CPT/HCPCS: 96372; Q0221 ==

== ENCOUNTER 2022-01-01 17:06 | Outpatient (REF) | payer MEDICAID, SELFPAY ==
[2022-01-01 19:30] LABS: ALT 20 U/L (14-59); AST 17 U/L (15-37); Alkaline Phosphatase 76 U/L (46-116); Anion Gap 10.9 mmol/L (3-11); BUN 8 mg/dL (7-18); Bilirubin, Total 0.3 mg/dL (0.2-1.0); CO2 27.1 mmol/L (21.0-32.0); CREATININE 0.8 mg/dL (0.55-1.02); Calcium 8.4 mg/dL (8.5-10.1); Chloride 103 mmol/L (98-107); Glucose 95 mg/dL (74-106); Potassium 3.2 mmol/L (3.5-5.1); Sodium 141 mmol/L (136-145)
== END 2022-01-01 17:07 | disposition home or self-care (01) ==
LOC: LBN 17:06
PROVIDERS: PCP Family Medicine; Visit Provider Student in an Organized Health Care Education/Training Program
DX: J84.89 Other specified interstitial pulmonary diseases (principal)
CPT/HCPCS: 80053

== ENCOUNTER 2022-01-28 13:01 | Outpatient (REF) | payer MEDICAID, SELFPAY ==
[2022-01-28 14:22] LABS: HCT 40.6 % (36.0-46.0); HGB 12.5 g/dL (11.2-15.7); MCH 25.8 pg (27.0-33.0); MCHC 30.8 % (32.0-36.0); MCV 84 fL (80-95); RBC 4.85 10^6/uL (3.93-5.22); RDW 14.9 % (11.7-14.6); RDW-SD 45.4 fL; WBC 8.26 10^3/uL (4.4-10.8)
[2022-01-28 14:23] LABS: Abs Immature Grans 0.04 10^3/uL (0.0-0.06); Absolute Basophil Count 0.04 10^3/uL (0.0-0.2); Absolute Eosinophil Count 0.29 10^3/uL (0.0-0.7); Absolute Lymphocyte Count 1.52 10^3/uL (1.2-3.4); Absolute Monocyte Count 0.41 10^3/uL (0.1-0.8); Absolute Neutrophil Count 5.96 10^3/uL (1.2-6.7); Basophils % 0.5; Eosinophils % 3.5; Immature Grans % 0.5; Lymphocytes % 18.4; MPV 11.8 fL (8.0-11.0); Neutrophils % 72.1; Platelet Count 304 10^3/uL (130-400)
[2022-01-30 10:02] LABS: IgE 49 IU/mL (<158)
[2022-01-30 13:01] LABS: Aspergillus Fumigatus IgE <0.35 kU/L; Cedar, IgE <0.35 kU/L; Cladosporium IgE <0.35 kU/L; Cockroach IgE <0.35 kU/L; Cottonwood IgE <0.35 kU/L; D Pteronyssinus IgE 4.55 kU/L; Douglas Fir, IgE <0.35 kU/L; Elm IgE <0.35 kU/L; Giant Ragweed IgE <0.35 kU/L; Goldenrod IgE <0.35 kU/L; House Dust Panel 6.49 kU/L; Oak IgE <0.35 kU/L; Silver Birch IgE <0.35 kU/L; Timothy Grass IgE <0.35 kU/L
[2022-01-30 13:20] LABS: Botrytis Cinerea IgE <0.35 kU/L
[2022-02-04 17:39] LABS: CLASS 0; Cedar Red IgE <0.10 kU/L (<0.35)
== END 2022-01-28 13:02 | disposition home or self-care (01) ==
LOC: LBN 13:01
PROVIDERS: PCP Family Medicine; Visit Provider Student in an Organized Health Care Education/Training Program
DX: J45.30 Mild persistent asthma, uncomplicated (principal); Z01.82 Encounter for allergy testing
CPT/HCPCS: 86003; 82785; 85025

== ENCOUNTER 2022-06-14 17:14 | Outpatient (REF) | payer MEDICAID, SELFPAY ==
[2022-06-14 17:58] LABS: Abs Immature Grans 0.04 10^3/uL (0.0-0.06); Absolute Basophil Count 0.03 10^3/uL (0.0-0.2); Absolute Eosinophil Count 0.13 10^3/uL (0.0-0.7); Absolute Lymphocyte Count 1.62 10^3/uL (1.2-3.4); Absolute Monocyte Count 0.43 10^3/uL (0.1-0.8); Absolute Neutrophil Count 6.01 10^3/uL (1.2-6.7); Basophils % 0.4; Eosinophils % 1.6; HCT 40.2 % (36.0-46.0); HGB 12.7 g/dL (11.2-15.7); Immature Grans % 0.5; Lymphocytes % 19.6; MCH 26.8 pg (27.0-33.0); MCHC 31.6 % (32.0-36.0); MCV 85 fL (80-95); MPV 10.4 fL (8.0-11.0); Monocytes % 5.2; Neutrophils % 72.7; Platelet Count 356 10^3/uL (130-400); RBC 4.73 10^6/uL (3.93-5.22); RDW 14.4 % (11.7-14.6); RDW-SD 44.2 fL; WBC 8.26 10^3/uL (4.4-10.8)
[2022-06-14 18:25] LABS: ALT 10 U/L (14-59); AST 14 U/L (15-37); Albumin 3.4 g/dL (3.4-5.0); Alkaline Phosphatase 88 U/L (46-116); BUN 16 mg/dL (7-18); Bilirubin, Total 0.4 mg/dL (0.2-1.0); CO2 28.6 mmol/L (21.0-32.0); CREATININE 1.3 mg/dL (0.55-1.02); Calcium 9.5 mg/dL (8.5-10.1); Chloride 98 mmol/L (98-107); Estimated GFR 48.87 (mL/min/1.73m2); Glucose 105 mg/dL (74-106); Sodium 139 mmol/L (136-145); TSH (W/Ref FT4) 2.37 uIU/mL (0.36-3.74); Total Protein 8.2 g/dL (6.4-8.2)
[2022-06-14 18:26] LABS: Hemoglobin A1C 5.3 % (<5.7)
[2022-06-14 18:27] LABS: Anion Gap 12.4 mmol/L (3-11)
== END 2022-06-14 17:15 | disposition home or self-care (01) ==
LOC: NCHCN 17:14
PROVIDERS: PCP Family Medicine; Visit Provider Family Medicine
DX: E03.9 Hypothyroidism, unspecified (principal); R63.4 Abnormal weight loss; M54.59 Other low back pain
CPT/HCPCS: 80053; 83036; 84443; 85025

== ENCOUNTER → 2022-07-26 00:45 | Outpatient (CLI) | payer MEDICAID, SELFPAY ==
--- NOTE | 2022-07-26 | DI.RAD_ITS ---
Exam(s) XR THORACIC SPINE COMPLETE EXAM: XR THORACIC SPINE COMPLETE CLINICAL HISTORY: BACK PAIN, M54.9. TECHNIQUE: 2D digital imaging was performed of the thoracic spine. Views were obtained. AP, swimm er's and lateral views were obtained. COMPARISON: No exams were available for comparison FINDINGS: BONES: There is no fracture or destructive lesion. There is small endplate osteophytes present throug hout the thoracic spine. DISKS:Alignment is within normal limits. Interverebral disc spaces are maintained. SOFT TISSUE: Chronic interstitial disease is seen in the lungs. IMPRESSION: Mild degenerative changes in the thoracic spine. DATA REPOSITORY: RADIATION DOSE DELIVERED:
--- NOTE | 2022-07-26 | DI.RAD_ITS ---
Exam(s) XR LUMBAR SPINE COMPLETE EXAM: XR LUMBAR SPINE COMPLETE CLINICAL HISTORY: BACK PAIN, M54.9. TECHNIQUE: 2D digital imaging was performed of the lumbar spine. Five images were obtained. AP, la teral, right oblique, left oblique and L5-S1 spot views were obtained. COMPARISON: No exams were available for comparison FINDINGS: BONES: No fracture or destructive lesion. Vertebral bodies are unremarkable. There are degenerative t he facets at L5-S1. DISKS: Intervertebral disc spaces are maintained. ALIGNMENT: Lumbar spinal alignment is within normal limits. No spondylolysis or spondylolisthesis. SOFT TISSUE: There are surgical clips in the right upper quadrant of the abdomen which may reflect pr ior cholecystectomy. There is an IUD in the pelvis. IMPRESSION: Mild degenerative changes in the lumbar spine. DATA REPOSITORY: RADIATION DOSE DELIVERED:
--- NOTE | 2022-07-26 15:00 | DI.MAMMO_ITS ---
Exam(s) MAMMO SCREENING EXAM: MAMMO SCREENING CLINICAL HISTORY: SCREENING, Z00.00,[facility] TECHNIQUE: Bilateral full field digital CC and MLO mammographic images were obtained with 3D tomosyn thesis and utilizing computer aided detection (CAD). COMPARISON: Available for comparison. FINDINGS: Masses/Architectural Distortion: The looks to be a new nodule 4 cm from the nipple on the left MLO vi ew. It measures 9 mm. Microcalcifications: No suspicious pleomorphic-type are seen. Skin Thickening/Nipple Retraction: None. IMPRESSION: 1. New central left breast nodule. 2. Spot compression views requested for further evaluation. Limited left breast ultrasound may be in dicated at that time. BI-RADS Category 0 - Assessment Incomplete: Need additional imaging evaluation Breast Density - Category B - Scattered areas of fibroglandular density Breast density category C or D implies that the patient has dense breast tissue. Dense breast tissue is very common and is not abnormal but dense breast tissue can make it harder to find cancer on a ma mmogram. Also, dense breast tissue may increase their breast cancer risk. This information about the result of the mammogram report was provided to the patient to raise their awareness. Use this report when you speak with the patient about their risks for breast cancer, which includes their family hist ory. At that time, you may recommend for more screening tests (Ultrasound or MRI) as they might be us eful based on their risk. A negative radiographic report should not delay biopsy if a dominant or clinically suspicious mass is present. Up to ten percent of cancers are not identified on mammography. A negative report may reinforce clinical impression. Adenosis and dense breasts may obscure an underlying neoplasm. False positive reports average 6 to 10%. Patient will receive a letter notifying them of these results.
== END ==
PROVIDERS: PCP Family Medicine; Visit Provider Family Medicine
DX: Z12.31 Encounter for screening mammogram for malignant neoplasm of breast (principal); R92.8 Other abnormal and inconclusive findings on diagnostic imaging of breast; M47.814 Spondylosis without myelopathy or radiculopathy, thoracic region; M47.816 Spondylosis without myelopathy or radiculopathy, lumbar region
CPT/HCPCS: 77063; 77067; 72072; 72110

== ENCOUNTER → 2022-08-05 01:19 | Outpatient (CLI) | payer MEDICAID, SELFPAY ==
--- NOTE | 2022-08-05 | DI.US_ITS ---
Exam(s) MG MAMMO SCREEN CALL BACK UNI US BREAST LT LIMITED EXAM: MG MAMMO SCREEN CALL BACK UNI CLINICAL HISTORY: F/U MAMMO,R92.8,NEW LT BREAST NODULE. TECHNIQUE: Craniocaudal and mediolateral oblique spot compression digital Mammography views of the l eftbreast with Tomosynthesis and left breast ultrasound. COMPARISON: MG DIGITAL BREAST ELEN SCREENING from 10/15/2016 MG MG MAMMO SCREENING from 03/23/2020 MG MG MAMMO SCREENING from 07/26/2022 US US BREAST LT LIMITED from 08/05/2022 FINDINGS: Mammography/Tomosynthesis: Masses/Architectural Distortion: Persistent circumscribed nodule upper outer quadrant. Microcalcifictions: No suspicious pleomorphic-type are seen. Skin Thickening/Nipple Retraction: None. Left breast US: Echotexture: Normal appearance of the glandular tissue. Shadowing: No suspicious foci. Cyst: 4 millimeters cyst 11 o'clock position 3 cm from the nipple. 6 millimeter cyst 1 o'clock position 2 cm from the nipple. 4 millimeters cyst 3 o'clock position 3 cm from the nipple. Solid lesions: 10 x 4 x 8 millimeter circumscribed nodule 2 o'clock position 1 cm from the nipple wit h a central fatty hilum which has the appearance of a lymph node. Ductal dilation: None. IMPRESSION: 1. No evidence of malignancy is noted. 2. Six-month follow-up left mammogram and ultrasound requested.. 3. The findings were discussed with the patient on the date of the examination. BI-RADS Category 3 - 6 month - Probably Benign Finding: Recommend follow-up mammography in 6 months Breast Density - Category B - Scattered areas of fibroglandular density A negative radiographic report should not delay biopsy if a dominant or clinically suspicious mass is present. Up to ten percent of cancers are not identified on mammography. A negative report may reinforce clinical impression. Adenosis and dense breasts may obscure an underlying neoplasm. False positive reports average 6 to 10%. Patient will receive a letter notifying them of these results.
== END ==
PROVIDERS: PCP Family Medicine; Visit Provider Family Medicine
DX: Z12.31 Encounter for screening mammogram for malignant neoplasm of breast (principal); R92.8 Other abnormal and inconclusive findings on diagnostic imaging of breast; N63.21 Unspecified lump in the left breast, upper outer quadrant; N60.11 Diffuse cystic mastopathy of right breast; R59.0 Localized enlarged lymph nodes
CPT/HCPCS: 76642; 77063; 77067

== ENCOUNTER 2022-09-03 15:26 | Outpatient (REF) | payer MEDICAID, SELFPAY ==
[2022-09-03 19:07] LABS: ALT 9 U/L (14-59); AST 17 U/L (15-37); Albumin 3.2 g/dL (3.4-5.0); Alkaline Phosphatase 92 U/L (46-116); BUN 13 mg/dL (7-18); Bilirubin, Total 0.4 mg/dL (0.2-1.0); CREATININE 1.5 mg/dL (0.55-1.02); Calcium 9.1 mg/dL (8.5-10.1); Chloride 98 mmol/L (98-107); Estimated GFR 41.16 (mL/min/1.73m2); Glucose 97 mg/dL (74-106); Potassium 3.1 mmol/L (3.5-5.1); Sodium 136 mmol/L (136-145); Total Protein 7.7 g/dL (6.4-8.2)
== END 2022-09-03 15:27 | disposition home or self-care (01) ==
LOC: NCHCN 15:26
PROVIDERS: PCP Family Medicine; Visit Provider Family Medicine
DX: E87.6 Hypokalemia (principal); R25.1 Tremor, unspecified; Z12.11 Encounter for screening for malignant neoplasm of colon
CPT/HCPCS: 80053; 83735

== ENCOUNTER 2022-10-07 01:05 | Outpatient (CLI) | payer MEDICAID, SELFPAY ==
--- NOTE | 2022-10-07 08:15 | DI.CT_ITS ---
Exam(s) CT CHEST WO EXAM: CT CHEST WO CLINICAL HISTORY: f/u progression of ILD,interstitial pneumonia,j84.9. TECHNIQUE: Imaging protocol: Axial computed tomography images were obtained and coronal and sagittal reformatted images were created and reviewed. CONTRAST MATERIAL: Noncontrast COMPARISON: CT CT CHEST WO from 09/10/2021 FINDINGS: Pulmonary parenchyma: No consolidation. No nodules. Emphysema: None. Tracheobronchial tree: No mucous plugging. No bronchiectasis . Interstitial changes: Severe bilateral interstitial changes, greatest in the anterior upper lobes and lung bases. Findings appear stable from prior. Pleura: No effusion or pneumothorax. Heart: The heart is mildly dilated. The coronary arteries show mildcalcifications. Aorta: Thoracic aorta non-dilated. Mildatherosclerotic changes. Stable prominence of pulmonary arteries consistent with pulmonary hypertension. Lymph nodes: No enlarged lymph nodes. Bones: Mild degenerative changes are seen. No evidence of compression fracture. Upper abdomen: Moderate-sized hiatal hernia. Suture material at fundus of stomach. IMPRESSION: Stable appearance of severe interstitial changes. No acute infiltrates. RADIATION DOSE DELIVERED: 427.53mGy.cm Total DLP 427.53mGy.cm Total DLP DATA REPOSITORY: All CT scans at this facility are submitted to the National Radiology Data Registry (NRDR) Dose Index Registry (DIR) with the [employer] (A[employer]). RADIATION OPTIMIZATION: All CT scans at this facility use at least one of these dose optimization te chniques: automated exposure control; mA and/or kV adjustment per patient size (includes targeted exa ms where dose is matched to clinical indication); or iterative reconstruction.
== END 2022-10-07 01:25 ==
LOC: DI 01:06
PROVIDERS: PCP Family Medicine; Visit Provider Student in an Organized Health Care Education/Training Program
DX: J84.9 Interstitial pulmonary disease, unspecified (principal)
CPT/HCPCS: 71250

== ENCOUNTER 2022-12-26 01:14 | Outpatient (CLI) | payer MEDICAID, SELFPAY ==
--- NOTE | 2022-12-26 13:45 | DI.US_ITS ---
Exam(s) US PELVIS EXAM: US PELVIS CLINICAL HISTORY: PELVIC PAIN, R10.2, LOWER ABD PAIN AND 20 LB WT LOSS,MOTHER WITH OVARIAN CA TECHNIQUE: Ultrasound of the pelvis was performed transabdominally. Patient apparently declined tra nsvaginal study.. COMPARISON: No exams were available for comparison FINDINGS: UTERUS: Nongravid and anteverted, measuring Measures 6.5 cm length x 3 cm AP x 5.6 cm wide. There is a small posterior myometrial fibroid measuring 1.4 x 1.1cm. Endometrial thickness measures 2 mm. An IUD in the endometrial canal CERVIX: RIGHT OVARY: Measures 1 1 x 1.2 x 0.9 cm No significant cysts nor masses evident in the right ovary. LEFT OVARY: Not seen on this transabdominal pelvic ultrasound study CUL-DE-SAC: No free fluid evident. IMPRESSION: 1. IUD is in the uterine endometrial cavity. 2. Small posterior myometrial fibroid measuring 11 x 14 mm 3. Right ovary unremarkable. Left ovary not seen. DATA REPOSITORY:
== END 2022-12-26 01:34 ==
LOC: DI 01:14
PROVIDERS: PCP Family Medicine; Visit Provider Family Medicine
DX: R10.2 Pelvic and perineal pain (principal); Z80.41 Family history of malignant neoplasm of ovary
CPT/HCPCS: 76856

== ENCOUNTER 2023-05-14 14:03 | Outpatient (REF) | payer MEDICAID, SELFPAY ==
[2023-05-14 16:27] LABS: Abs Immature Grans 0.02 10^3/uL (0.0-0.06); Absolute Basophil Count 0.03 10^3/uL (0.0-0.2); Absolute Eosinophil Count 0.11 10^3/uL (0.0-0.7); Absolute Lymphocyte Count 1.38 10^3/uL (1.2-3.4); Absolute Monocyte Count 0.32 10^3/uL (0.1-0.8); Absolute Neutrophil Count 3.75 10^3/uL (1.2-6.7); Basophils % 0.5; HCT 35.7 % (36.0-46.0); HGB 10.8 g/dL (11.2-15.7); Immature Grans % 0.4; Lymphocytes % 24.6; MCH 24.9 pg (27.0-33.0); MCHC 30.3 % (32.0-36.0); MCV 82 fL (80-95); Monocytes % 5.7; Neutrophils % 66.8; Platelet Count 285 10^3/uL (130-400); RBC 4.34 10^6/uL (3.93-5.22); RDW 14.5 % (11.7-14.6); RDW-SD 43.1 fL; WBC 5.61 10^3/uL (4.4-10.8)
[2023-05-14 17:04] LABS: ALT 16 U/L (14-59); AST 14 U/L (15-37); Albumin 3.1 g/dL (3.4-5.0); Alkaline Phosphatase 99 U/L (46-116); Anion Gap 8.1 mmol/L (3-11); BUN 18 mg/dL (7-18); Bilirubin, Total 0.2 mg/dL (0.2-1.0); CO2 27.9 mmol/L (21.0-32.0); Calcium 9.4 mg/dL (8.5-10.1); Chloride 107 mmol/L (98-107); Estimated GFR 66.53 (mL/min/1.73m2); Glucose 89 mg/dL (74-106); Lipase 35 U/L (16-77); Potassium 4.2 mmol/L (3.5-5.1); Sodium 143 mmol/L (136-145); TSH (W/Ref FT4) 1.53 uIU/mL (0.36-3.74); Total Protein 7.6 g/dL (6.4-8.2)
[2023-05-14 18:27] LABS: Vitamin B12 230 pg/mL (193-986)
== END 2023-05-14 14:04 | disposition home or self-care (01) ==
LOC: NCHCN 14:03
PROVIDERS: PCP Family Medicine; Visit Provider Family Medicine
DX: E03.9 Hypothyroidism, unspecified (principal); R10.13 Epigastric pain; E21.3 Hyperparathyroidism, unspecified; N28.9 Disorder of kidney and ureter, unspecified; Z98.84 Bariatric surgery status; Z86.39 Personal history of other endocrine, nutritional and metabolic disease
CPT/HCPCS: 80053; 83690; 82607; 84443; 85025

== ENCOUNTER → 2023-06-24 00:20 | Outpatient (CLI) | payer MEDICAID, SELFPAY ==
--- NOTE | 2023-06-24 | DI.MAMMO_ITS ---
Exam(s) US BREAST LT COMPLETE US BREAST RT COMPLETE MG MAMMO DIAGNOSTIC BI EXAM: MG MAMMO DIAGNOSTIC BI AND BILATERAL COMPLETE BREAST ULTRASOUND CLINICAL HISTORY: DIAGNOSTIC, F/U ABNL MAMMO, R92.8. TECHNIQUE: BOTH CC AND MLO mammographic images OF BOTH BREASTS were obtained with 3D tomosynthesis t echnique and utilizing computer aided detection (CAD). Also performed additional spot compression 3D cc views of both breasts. BILATERAL COMPLETE BREAST ULTRASOUND performed, including all 4 quadrants of both breasts as well as both axillary regions. COMPARISON: Prior mammograms were reviewed, the most recent being July 2022. Left breast ultras ound at that time was also reviewed.. FINDINGS: DIAGNOSTIC BILATERAL MAMMOGRAM: In the left breast previously described new 9 x 5 mm nodule appears stable mammographically, again lo cated approximately 3.5 cm in from the nipple on the MLO view, lateral of center on the MLO view. In the right breast there is a new nodular density seen at approximately 12 o'clock position measurin g approximately 7 x 6 mm located 3 cm in from the nipple on the CC view. Additional spot compression view performed today renders this asymmetric density-possible nodule somewhat equivocal. It has the appearance of a probable benign intramammary lymph node or conglomeration of microcysts on the non s pot compression mammographic views and appears to be at 12 o'clock position on the mammogram. There are no malignant-appearing microcalcification groups in either breast. There is no new architectural distortion or skin thickening-retraction. We proceeded to bilateral breast ultrasound... BILATERAL COMPLETE BREAST ULTRASOUND: LEFT BREAST ULTRASOUND: At the 2-3 a small hemorrhagic 4 millimeter microcyst at 5 o'clock position o'clock position the prev iously described 10 x 4 x 8 mm wider than taller well-circumscribed solid nodule is again noted, exhi biting slightly increased through transmission with no associated areas of decreased through transmis ángel. This finding corresponds to the nodule on the mammogram and is unchanged in size and configura tion from the ultrasound examination of July 2022, having the appearance of probable benign intra mammary lymph node. Additional ultrasound findings in the left breast include a benign 4 millimeter microcyst at the 12 o 'clock position, and a a benign 5 millimeter microcyst 5 o'clock position., Scanning of the left axilla is negative for adenopathy. BREAST ULTRASOUND: There is no focal ultrasound finding at the 12 o'clock position to correspond to the benign-appearing new nodule on mammogram, this being further evidence that is most probably benign intramammary lymph node. However, at the 9 o'clock position there are 2 findings. First leak, there is a 6 x 4 mm microcyst. In addition, adjacent to this is a wider than taller well-defined elliptical 10 by a 4 mm nodule wit h slightly increased through transmission which is either a hemorrhagic microcyst or fibroadenoma. I t is not seen on 3D mammography. There are no other focal ultrasound findings in all 4 quadrants of the right breast and scanning of t he right axilla is negative for adenopathy. IMPRESSION: 1. Stable appearance of the nodule described in left breast on the mammogram of July 2022 as well as stable appearance of this nodule on ultrasound examination, unchanged in months. This is probabl y a benign intramammary lymph node. Other findings in left breast are all benign microcysts. 2. New right breast nodule on mammogram (12 o'clock position) which is most probably benign intramam perry lymph node, given its absence of visualization ultrasound and its appearance on mammography. 3. Right breast ultrasound findings at 9 o'clock position (there has never been a prior right breast ultrasound) which is either hemorrhagic microcyst or fibroadenoma measuring 10 x 4 mm. This is not appreciated on 3D mammography. Appropriate follow-up is repeat bilateral mammogram and bilateral ultrasound in [address] ability of the described bilateral findings. Patient was made aware of required follow-up prior to leaving the department today. BI-RADS Category 3 - 6 month - Probably Benign Finding: Recommend follow-up mammography in 6 months Breast Density - Category C - Heterogeneously dense Breast density Category C or D implies that the patient has dense breast tissue. Dense breast tissue can make it harder to find cancer on a mammogram. Dense breast tissue is also associated with an incr eased risk of breast cancer. This information about the result of the mammogram report was provided to the patient to raise their awareness. Use this report when you speak with the patient about their risks for breast cancer, which includes their family history. At that time, you may recommend additional screening tests (Ultrasoun d or MRI) as these tests may add significant information. A negative radiographic report should not delay biopsy if a dominant or clinically suspicious mass is present. Up to ten percent of cancers are not identified on mammography. A negative report may reinforce clinical impression. Adenosis and dense breasts may obscure an underlying neoplasm. False positive reports average 6 to 10%. Patient will receive a letter notifying them of these results.
== END ==
PROVIDERS: PCP Family Medicine; Visit Provider Family Medicine
DX: N60.12 Diffuse cystic mastopathy of left breast (principal); N63.25 Unspecified lump in the left breast, overlapping quadrants; N63.11 Unspecified lump in the right breast, upper outer quadrant; R92.333 Mammographic heterogeneous density, bilateral breasts
CPT/HCPCS: 76642; 77062; 77066; G0279

== ENCOUNTER 2023-08-12 04:06 | Outpatient (CLI) | payer MEDICAID, SELFPAY ==
[2023-08-12 15:27] LABS: Abs Immature Grans 0.02 10^3/uL (0.0-0.06); Absolute Basophil Count 0.03 10^3/uL (0.0-0.2); Absolute Eosinophil Count 0.26 10^3/uL (0.0-0.7); Absolute Lymphocyte Count 2.18 10^3/uL (1.2-3.4); Absolute Monocyte Count 0.53 10^3/uL (0.1-0.8); Absolute Neutrophil Count 4.03 10^3/uL (1.2-6.7); Basophils % 0.4; Eosinophils % 3.7; HGB 11.7 g/dL (11.2-15.7); Immature Grans % 0.3; Lymphocytes % 30.9; MCH 25.4 pg (27.0-33.0); MCV 85 fL (80-95); MPV 9.6 fL (8.0-11.0); Monocytes % 7.5; Neutrophils % 57.2; Platelet Count 245 10^3/uL (130-400); RDW-SD 46.1 fL; WBC 7.05 10^3/uL (4.4-10.8)
[2023-08-12 17:21] LABS: ALT 23 U/L (14-59); AST 14 U/L (15-37); Alkaline Phosphatase 96 U/L (46-116); Anion Gap 5.9 mmol/L (3-11); BUN 15 mg/dL (7-18); Bilirubin, Total 0.2 mg/dL (0.2-1.0); CO2 27.1 mmol/L (21.0-32.0); CREATININE 1.1 mg/dL (0.55-1.02); Calcium 9.1 mg/dL (8.5-10.1); Chloride 108 mmol/L (98-107); Estimated GFR 59.34 (mL/min/1.73m2); Glucose 101 mg/dL (74-106); Sodium 141 mmol/L (136-145); Total Protein 7.3 g/dL (6.4-8.2)
== END 2023-08-12 04:07 | disposition home or self-care (01) ==
LOC: LBO 04:06
PROVIDERS: PCP Family Medicine; Visit Provider Physician Assistant Surgical
DX: J84.9 Interstitial pulmonary disease, unspecified (principal)
CPT/HCPCS: 36415; 80053; 85025

== ENCOUNTER 2023-10-06 16:13 | Outpatient (REF) | payer MEDICAID, SELFPAY ==
--- NOTE | 2023-10-06 11:10 | PAPFT_PTH ---
PATIENT: Betzaida Clement LOC: [facility] U#:[id number] AGE/SX: 53/F ROOM: RE10/06/[address]: Max Hart : 1970 BED: DIS: 10/06/2023 SPEC #: [id number] RECD: 10/06/23 17:28 STATUS: [place] REQ #: [id number] MEHNAZ: 10/06/23 11:[address]: Max Hart DEPT: [facility] Cytology RECD BY: Lisbeth Aguilar Tissues: 1 - CX/ENDOCX FOR PAP SMEARS Procedures: PAP THIN PREP/UVM Screening HPV DNA PROBE Comments: [id number] (CHLAMYDIA/GC)
[2023-10-07 14:12] LABS: Chlamydia Result Negative (Negative); GC Result Negative (Negative)
== END 2023-10-06 16:14 | disposition home or self-care (01) ==
LOC: LBN 16:13
PROVIDERS: PCP Family Medicine; Visit Provider Family Medicine
DX: Z12.4 Encounter for screening for malignant neoplasm of cervix (principal); Z01.419 Encounter for gynecological examination (general) (routine) without abnormal findings
CPT/HCPCS: 87491; 87591; 88142; 87624

== ENCOUNTER 2023-12-17 15:39 | Outpatient (REF) | payer MEDICAID, SELFPAY ==
[2023-12-17 12:38] LABS: Abs Immature Grans 0.01 10^3/uL (0.0-0.06); Absolute Basophil Count 0.04 10^3/uL (0.0-0.2); Absolute Eosinophil Count 0.13 10^3/uL (0.0-0.7); Absolute Lymphocyte Count 1.13 10^3/uL (1.2-3.4); Absolute Monocyte Count 0.38 10^3/uL (0.1-0.8); Absolute Neutrophil Count 4.22 10^3/uL (1.2-6.7); Basophils % 0.7 %; Eosinophils % 2.2 %; HGB 12.5 g/dL (11.2-15.7); Immature Grans % 0.2 %; Lymphocytes % 19.1 %; MCH 26.8 pg (27.0-33.0); MCHC 31.3 % (32.0-36.0); MCV 86 fL (80-95); MPV 10.3 fL (8.0-11.0); Monocytes % 6.4 %; Neutrophils % 71.4 %; Platelet Count 210 10^3/uL (130-400); RBC 4.66 10^6/uL (3.93-5.22); RDW 13.2 % (11.7-14.6); RDW-SD 40.9 fL; WBC 5.91 10^3/uL (4.4-10.8)
[2023-12-17 12:54] LABS: ALT 28 U/L (14-59); AST 30 U/L (15-37); Albumin 3.4 g/dL (3.4-5.0); Alkaline Phosphatase 79 U/L (46-116); Anion Gap 11.9 mmol/L (3-11); BUN 15 mg/dL (7-18); Bilirubin, Total 0.5 mg/dL (0.2-1.0); CO2 21.1 mmol/L (21.0-32.0); CREATININE 0.9 mg/dL (0.55-1.02); Calcium 8.6 mg/dL (8.5-10.1); Chloride 108 mmol/L (98-107); Glucose 97 mg/dL (74-106); Sodium 141 mmol/L (136-145); Total Protein 7.1 g/dL (6.4-8.2)
== END 2023-12-17 15:40 | disposition home or self-care (01) ==
LOC: LBN 15:39
PROVIDERS: PCP Family Medicine; Visit Provider Physician Assistant Surgical
DX: J84.89 Other specified interstitial pulmonary diseases (principal)
CPT/HCPCS: 80053; 85025

== ENCOUNTER 2023-12-23 05:52 | Outpatient (CLI) | payer MEDICAID, SELFPAY ==
[2023-12-23] MEDS: Levalbuterol HFA 15 GM INH 4 PUFF IH (14:05)
[2023-12-23] MEDS: Inhaler, Assist Device 1 EACH MC (14:06)
--- NOTE | 2023-12-26 15:10 | W.PFT ---
Date of service: 12/23/23 Time of Service: 13:02 Pulmonary Function Test Result Indications: ILD Interpretation Spirometry: No airflow limitation. There is restrictive spirometry. No bronchodilator response. Lung Volumes: Moderate restrictive lung disease Diffusion Capacity: Reduced diffusion Airway Pressure: Normal airways resistance Impression Moderate restrictive lung disease with a decreased diffusion Clinical Correlation therefore is recommended.
--- NOTE | 2023-12-29 09:13 | RT.PO.N_ITS ---
Date of service: 12/24/23 Time of Service: 01:11 Nocturnal Oximetry Note: Overnight Oximetry Amount of time analyzed: 7 hours 10 minutes, on room air Number of minutes under 88%: 16.1 NICO: 3.5 Appearance of oxygen saturation pattern: Some sharp decreases which may repres ent JACQUELINE. Recommendation: Start 2LPM O2 and retest Jena Saunders MD Pulmonary & Critical Care Medicine
== END 2023-12-23 05:53 | disposition home or self-care (01) ==
LOC: RT 05:52
PROVIDERS: PCP Family Medicine; Visit Provider Physician Assistant Surgical
DX: J84.9 Interstitial pulmonary disease, unspecified (principal)
CPT/HCPCS: 94060; 94726; 94729; 94762

== ENCOUNTER 2024-01-19 05:19 | Outpatient (CLI) | payer MEDICAID, SELFPAY | END 2024-01-19 05:20 | disposition home or self-care (01) | LOC: RT 05:20 | PROVIDERS: PCP Student in an Organized Health Care Education/Training Program; Visit Provider Physician Assistant Surgical | DX: J84.9 Interstitial pulmonary disease, unspecified (principal) | CPT/HCPCS: 94762 ==

== ENCOUNTER 2024-03-18 16:14 | Outpatient (REF) | payer MEDICAID, SELFPAY ==
[2024-03-18 14:05] LABS: ALT 18 U/L (14-59); AST 12 U/L (15-37); Albumin 2.8 g/dL (3.4-5.0); Alkaline Phosphatase 61 U/L (46-116); Anion Gap 6.6 mmol/L (3-11); BUN 14 mg/dL (7-18); Bilirubin, Total 0.35 mg/dL (0.2-1.0); CO2 29.4 mmol/L (21.0-32.0); Calcium 8.4 mg/dL (8.5-10.1); Chloride 108 mmol/L (98-107); Estimated GFR 66.53 (mL/min/1.73m2); Glucose 113 mg/dL (74-106); Potassium 4.2 mmol/L (3.5-5.1); Sodium 144 mmol/L (136-145); Total Protein 6.7 g/dL (6.4-8.2)
== END 2024-03-18 16:15 | disposition home or self-care (01) ==
LOC: LBN 16:14
PROVIDERS: PCP Student in an Organized Health Care Education/Training Program; Visit Provider Physician Assistant Surgical
DX: J84.89 Other specified interstitial pulmonary diseases (principal)
CPT/HCPCS: 80053

== ENCOUNTER 2024-04-07 23:41 | Outpatient (REF) | payer MEDICAID, SELFPAY ==
[2024-04-07 20:54] LABS: TSH (W/Ref FT4) 3.35 uIU/mL (0.36-3.74)
== END 2024-04-07 23:42 | disposition home or self-care (01) ==
LOC: NCHCN 23:41
PROVIDERS: PCP Student in an Organized Health Care Education/Training Program; Visit Provider Student in an Organized Health Care Education/Training Program
DX: E03.9 Hypothyroidism, unspecified (principal)
CPT/HCPCS: 84443

== ENCOUNTER 2024-04-22 03:49 | Outpatient (CLI) | payer MEDICAID, SELFPAY ==
--- NOTE | 2024-04-23 13:20 | RT.PO.E_ITS ---
Date of service: 04/23/24 Time of Service: 13:30 6 Minute Walk Test Note: Ambulatory oximetry report Diagnosis: Chronic respiratory failure with hypoxemia Ordering provider: KEON Hung Conditions of test: Test done at [facility] 04/22/2024 at 1456 hrs. The test was done on room air, then supplemental oxygen at 2 L/min. Data: The patient completed 6 minutes of ambulation. Initial SpO2 at baseline was 95% with a pulse of 88. Respiratory rate was 12/m in. Minimum oxygen saturation of 86% and a pulse of 108/min was noted 5 minutes 30 seconds of ambulation, upon which 2 L of oxygen was applied. During a 2-minute recovery, on 2 L of oxygen, saturation improved from 89% to 94%. Pulse decreased from a maximum of 111/min to 77/min. Distance: 600 feet. Number of stops: 1 due to shortness of breath. She stopped for 60 seconds. Impression: Markedly decreased exercise tolerance. The patient does not meet Medicare standards for home supplemental oxygen based on this test alone, for the testing with overnight oximetry on room air would be necessary to qualify her for supplemental oxygen. Recommendations: She should pace herself during exercise to minimize the chance of hypoxia. During pulmonary rehabilitation, staff may apply supplemental oxy gen to keep saturation at or above 88%. Ba Vargas MD [facility] Pulmonary critical care medicine
--- NOTE | 2024-04-28 20:53 | W.NOCTURNAL ---
Date of service: 04/22/24 Time of Service: 23:54 Nocturnal Oximetry Note: Study: Overnight oximetry on 4 L/min without CPAP or BiPAP. Indication: Evaluate adequacy of nocturnal oxygen dose on 4 L/min Ordering provider: KEON Hung Conditions of test: Test done by [facility] with home oximetry.? Pulse oximetry measured SpO2 and heart rate. Desaturation events were defined as drop in SpO2 by 4% for a minimum duration of 10 seconds. Results: 1. Minimum oxygen saturation on 4 L/min nasal O2 was 74% at 05 53 hrs. 2. Time spent with saturation less than 88% was 38.5 minutes. 3. The maximum single time with saturation less than 88% was 296 seconds at 05 53 hrs. 4. Average pulse was 58 bpm, high pulse was not measured due to artifact. 5. Review of the histogram tracings indicated a good quality test. 6. Oxygen desaturation and tachycardia events were clustered around 2 times at 0200 hrs. and 0550 hrs., suggesting possible REM related oxygen desaturation. 7. The technical quality of this test was adequate for clinical decision making. Impression: 1.? Two discrete periods of severe, prolonged and clinically significant oxygen desaturation while on 4 LPM O2 were noted, suggesting REM related oxygen desaturations. 2.? 4 L/min supplemental oxygen is not sufficient to provide adequate oxygenation during sleep for this patient.. 3. Due to the high probability of sleep apnea, a split-night and/or diagnostic polysomnography is recommended to rule out clinically significant sleep apnea which would be more optimally treated with CPAP or other noninvasive ventilation, plus or minus oxygen to be determined at the CPAP titration. Ba Vargas MD [facility] Pulmonary & Critical Care Medicine
== END 2024-04-22 03:50 | disposition home or self-care (01) ==
PROVIDERS: PCP Student in an Organized Health Care Education/Training Program; Visit Provider Physician Assistant Surgical
DX: J96.91 Respiratory failure, unspecified with hypoxia (principal)
CPT/HCPCS: 00123; 94618

== ENCOUNTER 2024-10-07 11:48 | Emergency (ER) | payer MEDICAID, SELFPAY ==
[2024-10-07] VITALS (102 sets, daily range): BP systolic 101–149; BP diastolic 48–79; PULSE 69–101; RESP 15–46; TEMP 36.6; O2SAT 82–100
[2024-10-07 13:17] LABS: BE (Venous) 4 mmol/L (-2-3); HCO3 (Venous) 29 mmol/L (23-28); O2 Sat (Venous) 66 %; TCO2 (Venous) 27 mmol/L (24-29); pCO2 (Venous) 51 mmHg (41-51); pH (Venous) 7.37 (7.31-7.41); pO2 (Venous) 37 mmHg
[2024-10-07 13:19] LABS: Abs Immature Grans 0.06 10^3/uL (0.0-0.06); Absolute Basophil Count 0.04 10^3/uL (0.0-0.2); Absolute Eosinophil Count 0.35 10^3/uL (0.0-0.7); Absolute Lymphocyte Count 1.06 10^3/uL (1.2-3.4); Absolute Monocyte Count 0.48 10^3/uL (0.1-0.8); Absolute Neutrophil Count 6.14 10^3/uL (1.2-6.7); Basophils % 0.5 %; Eosinophils % 4.3 %; HCT 35.5 % (36.0-46.0); HGB 10.6 g/dL (11.2-15.7); Immature Grans % 0.7 %; MCHC 29.9 % (32.0-36.0); MCV 87 fL (80-95); MPV 8.9 fL (8.0-11.0); Monocytes % 5.9 %; Neutrophils % 75.6 %; Platelet Count 328 10^3/uL (130-400); RBC 4.07 10^6/uL (3.93-5.22); RDW 13.7 % (11.7-14.6); WBC 8.13 10^3/uL (4.4-10.8)
[2024-10-07] MEDS: methylPREDNISolone SUCC 125 MG VIAL IVP (13:36)
--- NOTE | 2024-10-07 13:43 | DI.RAD_ITS ---
Exam(s) XR PORTABLE CHEST AP EXAM: XR PORTABLE CHEST AP CLINICAL HISTORY: SOB TECHNIQUE: 2D digital imaging was performed of the chest. One image was obtained. An AP view was ob tained. COMPARISON: CR,XR XR PORTABLE CHEST AP from 09/22/[address] CHEST WO from 10/07/2022 FINDINGS: MEDIASTINUM: Normal. HEART: Cardiomegaly. PULMONARY VASCULATURE: Prominence of the pulmonary vasculature suggesting pulmonary venous congestion . LUNGS: There is a diffuse pulmonary fibrosis again seen. There is a slight increase in the interstit ial markings particularly in the right lung compared to the prior examination. This may represent a superimposed pneumonia or interstitial edema. PLEURAL SPACE: No pleural effusion or pneumothorax. BONE:Within normal limits for the patient's age. OTHER FINDINGS:Normal. IMPRESSION: 1. There is a background diffuse pulmonary fibrosis. 2. Cardiomegaly and pulmonary venous congestion. Slight increase in the interstitial markings compar ed to prior examinations. These findings suggest fluid overload/CHF. DATA REPOSITORY: RADIATION DOSE DELIVERED:
[2024-10-07 13:55] LABS: ALT 7 U/L (14-59); AST 16 U/L (15-37); Albumin 2.6 g/dL (3.4-5.0); Alkaline Phosphatase 80 U/L (46-116); Anion Gap 6.6 mmol/L (3-11); BUN 11 mg/dL (7-18); Bilirubin, Total 0.28 mg/dL (0.2-1.0); CO2 28.4 mmol/L (21.0-32.0); COVID-19 PCR Negative (Negative); CREATININE 0.9 mg/dL (0.55-1.02); Calcium 8.8 mg/dL (8.5-10.1); Chloride 107 mmol/L (98-107); Estimated GFR 75.03 (mL/min/1.73m2); Glucose 96 mg/dL (74-106); Influenza A PCR Negative (Negative); Influenza B PCR Negative (Negative); NT-proBNP 4430 pg/mL (<300); Potassium 4.3 mmol/L (3.5-5.1); RSV PCR Negative (Negative); Sodium 142 mmol/L (136-145); Total Protein 7.9 g/dL (6.4-8.2); Troponin I 31 ng/L (<or=51)
[2024-10-07 14:05] LABS: Source Nasopharynx
[2024-10-07 14:48] LABS: Troponin I 30 ng/L (<or=51)
--- NOTE | 2024-10-07 15:50 | ED.GENADUL_ITS ---
Discharge Plan Disposition Patient Disposition: Home Condition: Stable Discharge Details Clinical Impression: Pulmonary hypertension, Cough, Exposure to the flu Primary Care Provider: Harry Means ED Provider: Zach Onofre Home Meds and New Rx's Prescriptions: New prednisone 20 mg tablet 40 mg PO DAILY 4 Days Qty: 8 0RF oseltamivir [Tamiflu] 75 mg capsule 75 mg PO DAILY 10 Days Qty: 10 0RF No Action levalbuterol HCl [Xopenex] 0.63 mg/3 mL solution for nebulization 0.63 mg inhalation Q4H PRN PRN (Reason: shortness of breath or wheezing) Qty: 90 12RF omeprazole 40 mg capsule,delayed release(DR/EC) 40 mg PO DAILY fluticasone propionate [Flonase Allergy Relief] 50 mcg/actuation spray,suspension 2 spray intranasal DAILY Qty: 16 12RF Rx Instructions: administer into each nostril potassium chloride 20 mEq tablet extended release 20 meq PO DAILY Qty: 30 4RF topiramate 100 mg tablet 100 mg PO BID furosemide 80 mg tablet 40 mg PO DAILY midodrine 5 mg tablet 2.5 mg PO TID Rx Instructions: do not give last dose of day after 6PM or within 4 hrs of bedtime alprazolam 0.5 mg tablet 0.5 mg PO ONCE PRN (Reason: anxiety) Qty: 1 0RF Rx Instructions: Take one tablet 30 minutes prior to PFT. Trelegy Ellipta 200-62.5-25 mcg blister with device 1 inh INHALATION Q24H Qty: 60 12RF albuterol sulfate [Ventolin HFA] 90 mcg/actuation HFA aerosol inhaler 2 puff inhalation Q6H PRN (Reason: shortness of breath or wheezing) Qty: 8.5 12RF azithromycin 250 mg tablet 250 mg PO DAILY Qty: 30 12RF fluticasone propion-salmeterol [Advair Diskus] 250-50 mcg/dose blister with device 1 inh inhalation BID budesonide-formoterol [Symbicort] 160-4.5 mcg/actuation HFA aerosol inhaler 2 puff inhalation BID Qty: 10.2 3RF Incruse Ellipta 62.5 mcg/actuation blister with device 1 inh inhalation DAILY Qty: 30 3RF ipratropium-albuterol 0.5 mg-3 mg(2.5 mg base)/3 mL solution for nebulization 3 ml inhalation QID PRN (Reason: wheezing) Qty: 180 12RF Emgality Pen 120 mg/mL pen injector 120 mg subcut QMONTH Qty: 3 3RF lorazepam 2 mg tablet 2 mg PO BID PRN (Reason: anxiety) Qty: 20 0RF polyethylene glycol 3350 17 gram/dose powder 238 g PO ONCE Qty: 238 0RF Rx Instructions: take per colonoscopy instructions bisacodyl [Dulcolax (bisacodyl)] 5 mg tablet,delayed release (DR/EC) 5 mg PO ONCE Qty: 4 0RF Rx Instructions: take per colonoscopy instructions Ofev 100 mg capsule 100 mg PO Q12H Qty: 90 12RF Rx Instructions: Take 1 tab daily for 7 days and then 1 tab twice a day aripiprazole 15 mg tablet 15 mg PO DAILY duloxetine 60 mg capsule,delayed release(DR/EC) 60 mg PO BID budesonide 32 mcg/actuation spray,non-aerosol 1 spray intranasal DAILY Rx Instructions: administer into each nostril cetirizine [Allergy Relief (cetirizine)] 10 mg tablet 10 mg PO DAILY PRN ondansetron 4 mg tablet,disintegrating 4 mg PO Q8H trazodone 50 mg tablet 100 mg PO QHS Anoro Ellipta 62.5-25 mcg/actuation blister with device 1 inh inhalation DAILY Qty: 60 6RF Spiriva Respimat 2.5 mcg/actuation mist 2 puff inhalation DAILY Qty: 4 12RF cholecalciferol (vitamin D3) [Vitamin D3] 1,000 unit Capsule 1,000 unit PO DAILY aspirin 81 mg Tablet,Delayed Release (Dr/Ec) 81 mg PO DAILY Qty: 30 0RF Discharge Instructions Additional Instructions: Blood work and chest x-ray today do not reveal a significant abnormality. Will continue steroids for the next few days. Make sure to continue your Lasix as well as your breathing treatments daily Given your recent influenza exposure, will treat you with Tamiflu prophylaxis Please follow-up with pulmonology as scheduled. Please return to the emergency department with fever or worsening shortness of breath, increased oxygen requirement or change in mucus production HPI General Date/Time Provider Initiated Documentation: 10/07/24 11:57 . Limitations to Documentation: no limitations . Information obtained by: patient . HPI Narrative: 54-year-old female with past medical history of interstitial lung disease, pulmonary hypertension, chronic respiratory failure with 2 L oxygen dependence presents for evaluation of shortness of breath and cough. She reports the symptoms have been worsening for about the last 2 weeks. She reports that she has had a recent exposure to influenza. She states that she is tested herself for COVID several times without testing positive. She states that she is normally on 2 L of oxygen but today increased it to 3 L and states that her shortness of breath and hypoxia worsen when she is ambulatory. She denies any pain in her chest. Related Data Home Medications ?Medication ?Instructions ?Recorded ?Confirmed cholecalciferol (vitamin D3) 25 1,000 unit PO DAILY 05/06/19 07/08/24 mcg (1,000 unit) capsule (Vitamin D3) aspirin 81 mg tablet,delayed 81 mg PO DAILY #30 tabs 02/07/21 07/08/24 release levalbuterol HCl 0.63 mg/3 mL 0.63 mg (3 mL) inhalation Q4H PRN 01/01/22 03/18/24 solution for nebulization (Xopenex) PRN shortness of breath or wheezing #90 mL fluticasone propionate 50 2 spray intranasal DAILY #16 grams 07/22/22 07/08/24 mcg/actuation nasal spray,suspension (Flonase Allergy Relief) omeprazole 40 mg capsule,delayed 40 mg PO DAILY 07/22/22 07/08/24 release potassium chloride 20 mEq 20 meq PO DAILY #30 tabs 07/22/22 07/08/24 tablet,extended release topiramate 100 mg tablet 100 mg PO BID 09/17/22 12/17/23 nintedanib 100 mg capsule (Ofev) 100 mg PO Q12H #90 caps 11/04/22 03/18/24 furosemide 80 mg tablet 40 mg PO DAILY 11/18/22 07/08/24 midodrine 5 mg tablet 2.5 mg PO TID 11/18/22 07/08/24 galcanezumab-gnlm 120 mg/mL 120 mg subcut QMONTH #3 mL 03/17/23 06/25/23 subcutaneous pen injector (Emgality Pen) lorazepam 2 mg tablet 2 mg PO BID PRN anxiety #20 tabs 04/24/23 03/18/24 aripiprazole 15 mg tablet 15 mg PO DAILY 05/30/23 12/17/23 budesonide 32 mcg/actuation nasal 1 spray intranasal DAILY 05/30/23 07/08/24 spray cetirizine 10 mg tablet (Allergy 10 mg PO DAILY PRN 05/30/23 07/08/24 Relief (cetirizine)) duloxetine 60 mg capsule,delayed 60 mg PO BID 05/30/23 07/08/24 release ondansetron 4 mg disintegrating 4 mg PO Q8H 05/30/23 07/08/24 tablet trazodone 50 mg tablet 100 mg PO QHS 05/30/23 07/08/24 bisacodyl 5 mg tablet,delayed 5 mg PO ONCE colonscopy bowel prep 06/25/23 12/17/23 release (Dulcolax (bisacodyl)) #4 tabs polyethylene glycol 3350 17 238 g PO ONCE colonoscopy prep 06/25/23 07/08/24 gram/dose oral powder #238 grams umeclidinium 62.5 mcg-vilanterol 1 inh inhalation DAILY #60 ea 08/05/23 12/17/23 25 mcg/actuation powdr for inhalation (Anoro Ellipta) alprazolam 0.5 mg tablet 0.5 mg PO ONCE PRN anxiety #1 tab 12/22/23 07/08/24 albuterol sulfate 90 mcg/actuation 2 puff inhalation Q6H PRN 03/18/24 07/08/24 aerosol inhaler (Ventolin HFA) shortness of breath or wheezing #8.5 grams azithromycin 250 mg tablet 250 mg PO DAILY #30 tabs 03/18/24 07/08/24 fluticasone fur. 200 mcg-umeclid 1 inh inhalation Q24H #60 ea 03/18/24 03/18/24 62.5 mcg-vilant 25 mcg inhalat.powder (Trelegy Ellipta) budesonide-formoterol HFA 160 2 puff inhalation BID #10.2 grams 07/08/24 07/08/24 mcg-4.5 mcg/actuation aerosol inhaler (Symbicort) fluticasone 250 mcg-salmeterol 50 1 inh inhalation BID 07/08/24 07/08/24 mcg/dose blistr powdr for inhalation (Advair Diskus) ipratropium 0.5 mg-albuterol 3 mg 3 ml inhalation QID PRN wheezing 07/08/24 07/08/24 (2.5 mg base)/3 mL nebulization #180 mL soln umeclidinium 62.5 mcg/actuation 1 inh inhalation DAILY #30 ea 07/08/24 07/08/24 blister powder for inhalation (Incruse Ellipta) tiotropium bromide 2.5 2 puff inhalation DAILY #4 grams 07/28/24 mcg/actuation mist for inhalation (Spiriva Respimat) oseltamivir 75 mg capsule (Tamiflu) 75 mg PO DAILY 10 days #10 caps 10/07/24 prednisone 20 mg tablet 40 mg (2 x 20 mg) PO DAILY 4 days 10/07/24 #8 tabs Previous Rx's ?Medication ?Instructions ?Recorded aspirin 81 mg tablet,delayed 81 mg PO DAILY #30 tabs 02/07/21 release levalbuterol HCl 0.63 mg/3 mL 0.63 mg (3 mL) inhalation Q4H PRN 01/01/22 solution for nebulization (Xopenex) PRN shortness of breath or wheezing #90 mL fluticasone propionate 50 2 spray intranasal DAILY #16 grams 07/22/22 mcg/actuation nasal spray,suspension (Flonase Allergy Relief) potassium chloride 20 mEq 20 meq PO DAILY #30 tabs 07/22/22 tablet,extended release nintedanib 100 mg capsule (Ofev) 100 mg PO Q12H #90 caps 11/04/22 galcanezumab-gnlm 120 mg/mL 120 mg subcut QMONTH #3 mL 03/17/23 subcutaneous pen injector (Emgality Pen) lorazepam 2 mg tablet 2 mg PO BID PRN anxiety #20 tabs 04/24/23 bisacodyl 5 mg tablet,delayed 5 mg PO ONCE colonscopy bowel prep 06/25/23 release (Dulcolax (bisacodyl)) #4 tabs polyethylene glycol 3350 17 238 g PO ONCE colonoscopy prep 06/25/23 gram/dose oral powder #238 grams umeclidinium 62.5 mcg-vilanterol 1 inh inhalation DAILY #60 ea 08/05/23 25 mcg/actuation powdr for inhalation (Anoro Ellipta) alprazolam 0.5 mg tablet 0.5 mg PO ONCE PRN anxiety #1 tab 12/22/23 albuterol sulfate 90 mcg/actuation 2 puff inhalation Q6H PRN 03/18/24 aerosol inhaler (Ventolin HFA) shortness of breath or wheezing #8.5 grams azithromycin 250 mg tablet 250 mg PO DAILY #30 tabs 03/18/24 fluticasone fur. 200 mcg-umeclid 1 inh inhalation Q24H #60 ea 03/18/24 62.5 mcg-vilant 25 mcg inhalat.powder (Trelegy Ellipta) budesonide-formoterol HFA 160 2 puff inhalation BID #10.2 grams 07/08/24 mcg-4.5 mcg/actuation aerosol inhaler (Symbicort) ipratropium 0.5 mg-albuterol 3 mg 3 ml inhalation QID PRN wheezing 07/08/24 (2.5 mg base)/3 mL nebulization #180 mL soln umeclidinium 62.5 mcg/actuation 1 inh inhalation DAILY #30 ea 07/08/24 blister powder for inhalation (Incruse Ellipta) tiotropium bromide 2.5 2 puff inhalation DAILY #4 grams 07/28/24 mcg/actuation mist for inhalation (Spiriva Respimat) oseltamivir 75 mg capsule (Tamiflu) 75 mg PO DAILY 10 days #10 caps 10/07/24 prednisone 20 mg tablet 40 mg (2 x 20 mg) PO DAILY 4 days 10/07/24 #8 tabs Allergies Allergy/AdvReac Type Severity Reaction Status Date / Time mycophenolate mofetil (From AdvReac Intermediate Diarrhea Verified 10/07/24 12:08 CellCept) with hypokalemia environmental AdvReac Mild Other (See Uncoded 10/07/24 12:08 Comment) General Stated Complaint: SOB RUTH ANN: 3 Exam Narrative Exam Narrative: Review of Systems: All systems reviewed & are unremarkable except as noted in HPI and below Well-developed, no acute distress NCAT No tachycardia, no murmur No increased work of breathing, speaking in full and complete sentences, saturation normal on 2 L nasal cannula, coarse breath sounds diffusely Nondistended abdomen Extremities w/o edema Course Vital Signs Vital signs: Vital Signs Temperature 36.6 C 10/07/24 12:00 Pulse 98 H 10/07/24 12:00 Respiratory Rate 20 10/07/24 12:00 Blood Pressure 101/66 10/07/24 12:00 Pulse Oximetry 82 L 10/07/24 12:00 Temperature 36.6 C 10/07/24 12:00 Temperature Source Oral 10/07/24 12:00 Pulse 78 10/07/24 14:59 Respiratory Rate 32 H 10/07/24 14:34 Blood Pressure 130/65 10/07/24 15:08 Blood Pressure Position Sitting 10/07/24 12:00 Pulse Oximetry 96 10/07/24 14:59 Oxygen Delivery Method Nasal Cannula 10/07/24 12:00 Oxygen Flow Rate 3 10/07/24 12:00 Pain Level 10 10/07/24 12:00 Lab/Test Results Lab/Test Results: Laboratory Tests Range/Units 10/07/24 10/07/24 13:11 14:16 WBC (4.4-10.8) 10^3/uL 8.13 RBC (3.93-5.22) 10^6/uL 4.07 Hgb (11.2-15.7) g/dL 10.6 L Hct (36.0-46.0) % 35.5 L MCV (80-95) fL 87 MCH (27.0-33.0) pg 26.0 L MCHC (32.0-36.0) % 29.9 L RDW (11.7-14.6) % 13.7 Plt Count (130-400) 10^3/uL 328 MPV (8.0-11.0) fL 8.9 Immature Gran % % 0.7 Neutrophils % % 75.6 Lymphocytes % % 13.0 Monocytes % % 5.9 Eosinophils % % 4.3 Basophils % % 0.5 Nucleated RBC % (0.0-0.3) % 0.0 Absolute Neutrophils (1.2-6.7) 10^3/uL 6.14 Absolute Lymphocytes (1.2-3.4) 10^3/uL 1.06 L Absolute Monocytes (0.1-0.8) 10^3/uL 0.48 Absolute Eosinophils (0.0-0.7) 10^3/uL 0.35 Absolute Basophils (0.0-0.2) 10^3/uL 0.04 VBG pH (7.31-7.41) 7.37 VBG pCO2 (41-51) mmHg 51 VBG pO2 mmHg 37 VBG HCO3 (23-28) mmol/L 29 H VBG Total CO2 (24-29) mmol/L 27 VBG O2 Saturation % 66 VBG Base Excess (-2-3) mmol/L 4 H Sodium (136-145) mmol/L 142 Potassium (3.5-5.1) mmol/L 4.3 Chloride (98-107) mmol/L 107 Carbon Dioxide (21.0-32.0) mmol/L 28.4 Anion Gap (3-11) mmol/L 6.6 BUN (7-18) mg/dL 11 Creatinine (0.55-1.02) mg/dL 0.9 Est GFR (CKD-EPI 2020) (mL/min/1.73m2) 75.03 Glucose (74-106) mg/dL 96 Calcium (8.5-10.1) mg/dL 8.8 Magnesium (1.8-2.4) mg/dL 2.0 Total Bilirubin (0.2-1.0) mg/dL 0.28 AST (15-37) U/L 16 ALT (14-59) U/L 7 L Alkaline Phosphatase (46-116) U/L 80 Troponin I (<or=51) ng/L 31 30 NT-Pro-B Natriuret Pep (<300) pg/mL 4430 H Total Protein (6.4-8.2) g/dL 7.9 Albumin (3.4-5.0) g/dL 2.6 L COVID-19 Source Nasopharynx SARS-CoV-2 (PCR) (Negative) Negative Influenza Type A (PCR) (Negative) Negative Influenza Type B (PCR) (Negative) Negative RSV (PCR) (Negative) Negative Medical Decision Making Emergent evaluation of cough and shortness of breath. Patient has significant pulmonary disease with chronic oxygen dependence. At this time she has no signs or symptoms concerning for acute respiratory failure she is not requiring additional oxygenation greater than her baseline. She is afebrile. She has had influenza exposure. Initial differential includes worsening of baseline disease, acute on chronic failure, viral illness, pneumonia. Lab work was obtained, there is no leukocytosis or anemia. No significant electrolyte derangement. Her VBG does not indicate derangement or acute respiratory failure. Her viral testing is all negative. Cardiac enzymes not elevated and her BNP is only slightly elevated. Her chest x-ray was reviewed and there is no sign there of focal consolidation, pneumonia, pleural effusion. There is some mild cardiomegaly and pulmonary edema. The patient is on Lasix. Recommended that she continue taking this. Given that she is at her baseline oxygen levels, I recommend she continue this and I do not feel further emergent workup or hospitalization is indicated. Given her multiple comorbidities and recent influenza exposure will treat with prophylactic Tamiflu. Will do a 5-day steroid burst. First dose given in the emergency department. Patient has close pulmonary follow-up. Strict return precautions advised. Quality:SDOH Health Related Social Needs: No Data to Display PFSH All Active Problems (Updated 10/07/24 @ 14:49 by Zach Onofre MD) Exposure to the flu (Acute) Cough (Acute) Screen for colon cancer (Acute) Migraine headache with aura (Acute) Syncope (Chronic) Orthostatic hypotension (Acute) Acute and chronic respiratory failure (Acute) Hypokalemia (Acute) Chronic respiratory failure with hypoxia (Acute) Claustrophobia (Acute) Interstitial pneumonia with autoimmune features (Acute) TSH (thyroid-stimulating hormone deficiency) (Chronic) Obesity, morbid, BMI 40.0-49.9 (Chronic) Moderate aortic regurgitation (Acute) Tricuspid regurgitation (Acute) Pulmonary hypertension (Chronic) Hyperparathyroidism (Acute) Adjustment disorder (Acute) Hypothyroid (Chronic) Hypoxemia (Acute) Pedal edema (Acute) Malabsorption (Acute) Heartburn (Acute) Medical History (Updated 10/07/24 @ 14:49 by Zach Onofre MD) Hypoxia Cor pulmonale Cervical radiculopathy Epigastric pain Renal insufficiency Hypotension Diarrhea Current smoker Hypotension Dehydration Closed head injury Syncope and collapse Hypokalemia Acute respiratory failure with hypoxia Interstitial lung disease Intermittent asthma Tobacco dependence Cervical cancer Surgical History S/P tonsillectomy S/P section History of gastric bypass Family History Other Cancer Current smoker Social History Smoking/Tobacco Use Status: Current every day Tobacco Type: e-cigarettes Smoking risk assessment performed?: Yes Alcohol Intake: current Alcohol Intake frequency: a few times a week Drug use: Rarely Substance use type: marijuana Household members: spouse Number of Children: 3 current occupation: Retired Do you feel safe at home: Yes Do you feel safe in your relationship?: Yes
== END 2024-10-07 16:45 | disposition home or self-care (01) ==
PROVIDERS: Emergency Provider Emergency Medicine; PCP Student in an Organized Health Care Education/Training Program
DX: J84.10 Pulmonary fibrosis, unspecified (principal); Z98.84 Bariatric surgery status; Z99.81 Dependence on supplemental oxygen; I27.20 Pulmonary hypertension, unspecified; R05.9 Cough, unspecified
CPT/HCPCS: 36415; 80053; 82805; 87637; 96374; 99284; 71045; 83735; 83880; 84484; 85025; J2919

== ENCOUNTER 2024-12-01 15:09 | Outpatient (REF) | payer MEDICAID, SELFPAY ==
[2024-12-01 15:36] LABS: Abs Immature Grans 0.04 10^3/uL (0.0-0.06); Absolute Basophil Count 0.06 10^3/uL (0.0-0.2); Absolute Eosinophil Count 0.25 10^3/uL (0.0-0.7); Absolute Lymphocyte Count 1.38 10^3/uL (1.2-3.4); Absolute Monocyte Count 0.65 10^3/uL (0.1-0.8); Absolute Neutrophil Count 7.74 10^3/uL (1.2-6.7); Basophils % 0.6 %; Eosinophils % 2.5 %; HCT 38.9 % (36.0-46.0); HGB 11.7 g/dL (11.2-15.7); Immature Grans % 0.4 %; Lymphocytes % 13.6 %; MCH 25.9 pg (27.0-33.0); MCHC 30.1 % (32.0-36.0); MCV 86 fL (80-95); MPV 9.9 fL (8.0-11.0); Monocytes % 6.4 %; Neutrophils % 76.5 %; Platelet Count 305 10^3/uL (130-400); RBC 4.51 10^6/uL (3.93-5.22); RDW 13.2 % (11.7-14.6); RDW-SD 41.5 fL; WBC 10.12 10^3/uL (4.4-10.8)
[2024-12-01 15:54] LABS: ALT 11 U/L (14-59); AST 17 U/L (15-37); Alkaline Phosphatase 75 U/L (46-116); Anion Gap 6.2 mmol/L (3-11); BUN 12 mg/dL (7-18); Bilirubin, Total 0.4 mg/dL (0.2-1.0); CO2 31.8 mmol/L (21.0-32.0); CREATININE 0.9 mg/dL (0.55-1.02); Calcium 9.2 mg/dL (8.5-10.1); Chloride 101 mmol/L (98-107); Estimated GFR 75.03 (mL/min/1.73m2); Glucose 97 mg/dL (74-106); NT-proBNP 1682 pg/mL (<300); Potassium 4.2 mmol/L (3.5-5.1); Sodium 139 mmol/L (136-145); Total Protein 7.4 g/dL (6.4-8.2)
== END 2024-12-01 15:10 | disposition home or self-care (01) ==
LOC: LBN 15:09
PROVIDERS: PCP Student in an Organized Health Care Education/Training Program; Visit Provider Physician Assistant Surgical
DX: J96.11 Chronic respiratory failure with hypoxia (principal); J84.9 Interstitial pulmonary disease, unspecified; I27.20 Pulmonary hypertension, unspecified; J45.30 Mild persistent asthma, uncomplicated
CPT/HCPCS: 80053; 83880; 85025

== ENCOUNTER 2024-12-30 10:56 | Inpatient (IN) | payer MEDICAID, SELFPAY ==
[2024-12-30] VITALS (94 sets, daily range): BP systolic 88–125; BP diastolic 36–95; PULSE 89–156; RESP 17–45; TEMP 35.6–36.2; O2SAT 82–99
--- NOTE | 2024-12-30 10:45 | RT.EKG_ITS ---
APPROVED REPORT Exam: Resting ECG Reason for Exam: respiratory distress Patient Location: E HR:135 bpm ECG Measurements Heart Rate 135 AXIS TX 131 P 30 QRSd 83 QRS 96 QT 279 T -21 QTc 419 Conclusion Sinus tachycardia, rate 135 No interval abnormalities No STEMI V6 not available
--- NOTE | 2024-12-30 11:00 | DI.RAD_ITS ---
Exam(s) XR PORTABLE CHEST AP EXAM: XR PORTABLE CHEST AP CLINICAL HISTORY: SOB TECHNIQUE: 2D digital imaging was performed of the chest. One image was obtained. An AP view was ob tained. COMPARISON: CR XR CHEST 2V PA LATERAL from 02/23/2021 CR,XR XR PORTABLE CHEST AP from 09/22/[address] CHEST WO from 10/07/2022 CR XR PORTABLE CHEST AP from 10/07/2024 FINDINGS: MEDIASTINUM: Normal. HEART: Stable cardiomegaly. PULMONARY VASCULATURE: Normal. LUNGS: The patient has a diffuse underlying interstitial lung disease. The pulmonary findings appear s stable compared to 10/07/2024. This again is more prominent when compared to prior examinations and a superimposed edema or pneumonia should be considered. PLEURAL SPACE: No pleural effusion or pneumothorax. BONE:Within normal limits for the patient's age. OTHER FINDINGS:Normal. IMPRESSION: 1. Chronic interstitial lung disease. 2. Question of a superimposed interstitial edema or pneumonia should be considered. Please correlate clinically. DATA REPOSITORY: RADIATION DOSE DELIVERED:
[2024-12-30 11:18] LABS: BE (Venous) 3 mmol/L (-2-3); HCO3 (Venous) 28 mmol/L (23-28); O2 Sat (Venous) 55 %; TCO2 (Venous) 26 mmol/L (24-29); pCO2 (Venous) 43 mmHg (41-51); pH (Venous) 7.42 (7.31-7.41); pO2 (Venous) 33 mmHg
[2024-12-30 11:21] LABS: Abs Immature Grans 0.03 10^3/uL (0.0-0.06); Absolute Basophil Count 0.07 10^3/uL (0.0-0.2); Absolute Eosinophil Count 0.25 10^3/uL (0.0-0.7); Absolute Monocyte Count 0.46 10^3/uL (0.1-0.8); Basophils % 0.6 %; Eosinophils % 2.2 %; HCT 39.9 % (36.0-46.0); HGB 12.2 g/dL (11.2-15.7); Immature Grans % 0.3 %; Lymphocytes % 11.6 %; MCH 26.1 pg (27.0-33.0); MCHC 30.6 % (32.0-36.0); MCV 85 fL (80-95); MPV 9.7 fL (8.0-11.0); Monocytes % 4.1 %; Neutrophils % 81.2 %; Platelet Count 385 10^3/uL (130-400); RBC 4.67 10^6/uL (3.93-5.22); RDW 13.6 % (11.7-14.6); RDW-SD 41.4 fL; WBC 11.21 10^3/uL (4.4-10.8)
[2024-12-30] MEDS: LORazepam 1 MG TAB PO (11:26)
[2024-12-30] MEDS: methylPREDNISolone SUCC 125 MG VIAL IVP (11:27)
--- NOTE | 2024-12-30 11:49 | W.ED.GENAD ---
Discharge Plan Disposition Patient Disposition: Admit to [facility] Condition: Stable Discharge Details Chief Complaint: RespSymp Clinical Impression: Acute and chronic respiratory failure, Pulmonary hypertension, Tricuspid regurgitation, Moderate aortic regurgitation, Interstitial pneumonia with autoimmune features, Pulmonary edema Primary Care Provider: Harry Means ED Provider: Cindy Garcia Home Meds and New Rx's Prescriptions: No Action omeprazole 40 mg capsule,delayed release(DR/EC) 40 mg PO DAILY fluticasone propionate [Flonase Allergy Relief] 50 mcg/actuation spray,suspension 2 spray intranasal DAILY Qty: 16 12RF Rx Instructions: administer into each nostril potassium chloride 20 mEq tablet extended release 20 meq PO DAILY Qty: 30 4RF topiramate 100 mg tablet 100 mg PO BID furosemide 80 mg tablet 40 mg PO DAILY midodrine 5 mg tablet 2.5 mg PO TID Rx Instructions: do not give last dose of day after 6PM or within 4 hrs of bedtime alprazolam 0.5 mg tablet 0.5 mg PO ONCE PRN (Reason: anxiety) Qty: 1 0RF Rx Instructions: Take one tablet 30 minutes prior to PFT. albuterol sulfate [Ventolin HFA] 90 mcg/actuation HFA aerosol inhaler 2 puff inhalation Q6H PRN (Reason: shortness of breath or wheezing) Qty: 8.5 12RF ipratropium-albuterol 0.5 mg-3 mg(2.5 mg base)/3 mL solution for nebulization 3 ml inhalation QID PRN (Reason: wheezing) Qty: 180 12RF azithromycin 250 mg tablet 250 mg PO DAILY Qty: 30 12RF budesonide-formoterol [Symbicort] 160-4.5 mcg/actuation HFA aerosol inhaler 2 puff inhalation BID Qty: 10.2 12RF Incruse Ellipta 62.5 mcg/actuation blister with device 1 inh inhalation DAILY Qty: 30 12RF Ofev 100 mg capsule 100 mg PO Q12H Qty: 60 12RF Emgality Pen 120 mg/mL pen injector 120 mg subcut QMONTH Qty: 3 3RF lorazepam 2 mg tablet 2 mg PO BID PRN (Reason: anxiety) Qty: 20 0RF furosemide [Lasix] 20 mg tablet 40 mg PO DAILY aripiprazole 15 mg tablet 15 mg PO DAILY duloxetine 60 mg capsule,delayed release(DR/EC) 60 mg PO BID cetirizine [Allergy Relief (cetirizine)] 10 mg tablet 10 mg PO DAILY PRN ondansetron 4 mg tablet,disintegrating 4 mg PO Q8H trazodone 50 mg tablet 100 mg PO QHS cholecalciferol (vitamin D3) [Vitamin D3] 1,000 unit Capsule 1,000 unit PO DAILY aspirin 81 mg Tablet,Delayed Release (Dr/Ec) 81 mg PO DAILY Qty: 30 0RF HPI General Mode of arrival: EMS. Date/Time Provider Initiated Documentation: 12/30/24 11:10. Limitations to Documentation: no limitations. Information obtained by: patient, EMS and old records reviewed. HPI Narrative: This is a 54-year-old female patient with a past medical history significant for chronic respiratory failure due to interstitial/autoimmune pneumonia, pulmonary hypertension, and history of heart failure with fluid overload, presenting for evaluation of hypoxia. The patient reports that she has felt like her breathing has been worse for the last 3 days, have not improved with her home nebulizer treatments, and she feels short of breath despite wearing her 4 L of oxygen at baseline. She presented to the clinic today and they noted her to be hypoxic down to the high 50s and low 70%. She was transported to our facility by EMS. The patient has not had recent fevers, cough, or other changes in her health. She feels a tightness in her chest when she is breathing but denies pain in her chest. She states that she has noted increasing swelling in her periphery, specifically her lower legs, states that she skipped her Lasix this morning in anticipation of her appointment. Related Data Home Medications ?Medication ?Instructions ?Recorded ?Confirmed cholecalciferol (vitamin D3) 25 1,000 unit PO DAILY 05/06/19 12/30/24 mcg (1,000 unit) capsule (Vitamin D3) aspirin 81 mg tablet,delayed 81 mg PO DAILY #30 tabs 02/07/21 12/30/24 release fluticasone propionate 50 2 spray intranasal DAILY #16 grams 07/22/22 12/30/24 mcg/actuation nasal spray,suspension (Flonase Allergy Relief) omeprazole 40 mg capsule,delayed 40 mg PO DAILY 07/22/22 12/30/24 release potassium chloride 20 mEq 20 meq PO DAILY #30 tabs 07/22/22 12/30/24 tablet,extended release topiramate 100 mg tablet 100 mg PO BID 09/17/22 12/30/24 furosemide 80 mg tablet 40 mg PO DAILY 11/18/22 12/01/24 midodrine 5 mg tablet 2.5 mg PO TID 11/18/22 12/30/24 galcanezumab-gnlm 120 mg/mL 120 mg subcut QMONTH #3 mL 03/17/23 12/30/24 subcutaneous pen injector (Emgality Pen) lorazepam 2 mg tablet 2 mg PO BID PRN anxiety #20 tabs 04/24/23 12/30/24 aripiprazole 15 mg tablet 15 mg PO DAILY 05/30/23 12/30/24 cetirizine 10 mg tablet (Allergy 10 mg PO DAILY PRN 05/30/23 12/30/24 Relief (cetirizine)) duloxetine 60 mg capsule,delayed 60 mg PO BID 05/30/23 12/30/24 release ondansetron 4 mg disintegrating 4 mg PO Q8H 05/30/23 12/30/24 tablet trazodone 50 mg tablet 100 mg PO QHS 05/30/23 12/30/24 alprazolam 0.5 mg tablet 0.5 mg PO ONCE PRN anxiety #1 tab 12/22/23 12/30/24 albuterol sulfate 90 mcg/actuation 2 puff inhalation Q6H PRN 03/18/24 12/30/24 aerosol inhaler (Ventolin HFA) shortness of breath or wheezing #8.5 grams ipratropium 0.5 mg-albuterol 3 mg 3 ml inhalation QID PRN wheezing 07/08/24 12/30/24 (2.5 mg base)/3 mL nebulization #180 mL soln azithromycin 250 mg tablet 250 mg PO DAILY #30 tabs 10/18/24 12/30/24 budesonide-formoterol HFA 160 2 puff inhalation BID #10.2 grams 10/18/24 12/30/24 mcg-4.5 mcg/actuation aerosol inhaler (Symbicort) nintedanib 100 mg capsule (Ofev) 100 mg PO Q12H #60 caps 10/18/24 12/30/24 umeclidinium 62.5 mcg/actuation 1 inh inhalation DAILY #30 ea 10/18/24 12/30/24 blister powder for inhalation (Incruse Ellipta) furosemide 20 mg tablet (Lasix) 40 mg PO DAILY 12/01/24 12/30/24 Previous Rx's ?Medication ?Instructions ?Recorded aspirin 81 mg tablet,delayed 81 mg PO DAILY #30 tabs 02/07/21 release fluticasone propionate 50 2 spray intranasal DAILY #16 grams 07/22/22 mcg/actuation nasal spray,suspension (Flonase Allergy Relief) potassium chloride 20 mEq 20 meq PO DAILY #30 tabs 07/22/22 tablet,extended release galcanezumab-gnlm 120 mg/mL 120 mg subcut QMONTH #3 mL 03/17/23 subcutaneous pen injector (Emgality Pen) lorazepam 2 mg tablet 2 mg PO BID PRN anxiety #20 tabs 04/24/23 alprazolam 0.5 mg tablet 0.5 mg PO ONCE PRN anxiety #1 tab 12/22/23 albuterol sulfate 90 mcg/actuation 2 puff inhalation Q6H PRN 03/18/24 aerosol inhaler (Ventolin HFA) shortness of breath or wheezing #8.5 grams ipratropium 0.5 mg-albuterol 3 mg 3 ml inhalation QID PRN wheezing 07/08/24 (2.5 mg base)/3 mL nebulization #180 mL soln azithromycin 250 mg tablet 250 mg PO DAILY #30 tabs 10/18/24 budesonide-formoterol HFA 160 2 puff inhalation BID #10.2 grams 10/18/24 mcg-4.5 mcg/actuation aerosol inhaler (Symbicort) nintedanib 100 mg capsule (Ofev) 100 mg PO Q12H #60 caps 10/18/24 umeclidinium 62.5 mcg/actuation 1 inh inhalation DAILY #30 ea 10/18/24 blister powder for inhalation (Incruse Ellipta) Allergies Allergy/AdvReac Type Severity Reaction Status Date / Time mycophenolate mofetil (From AdvReac Intermediate Diarrhea Verified 12/01/24 13:58 CellCept) with hypokalemia environmental AdvReac Mild Other (See Uncoded 12/01/24 13:58 Comment) General Stated Complaint: RespSymp RUTH ANN: 2 Exam Narrative Exam Narrative: Gen: Awake and alert, in notable respiratory distress HEENT: Non-icteric sclera Neck: Supple Lungs: Tachypnea appreciated, increased respiratory distress, bilateral crackles more pronounced at the bases CV: Appears well perfused, heart with tachycardic rate but regular rhythm, strong distal pulses Abdomen: Non-distended MSK: Moves 4 extremities without apparent limitation in ROM. 1+ bilateral peripheral edema noted to the proximal shins Skin: Visualized skin without rashes, cyanosis. Neuro: Normal Gait, no obvious focal deficits or facial asymmetry. Speaks in full, clear sentences. Psych: Appropriate for situation. Course Vital Signs Vital signs: Vital Signs Pulse 136 H 12/30/24 10:56 Respiratory Rate 40 H 12/30/24 10:56 Blood Pressure 106/36 L 12/30/24 10:56 Pulse Oximetry 82 L 12/30/24 10:56 Pulse 136 H 12/30/24 10:56 Respiratory Rate 40 H 12/30/24 10:56 Blood Pressure 106/36 L 12/30/24 10:56 Pulse Oximetry 91 L 12/30/24 11:05 Oxygen Delivery Method OxyMask 12/30/24 11:05 Oxygen Flow Rate 5 12/30/24 11:05 Lab/Test Results Lab/Test Results: Laboratory Tests Range/Units 12/30/24 11:11 WBC (4.4-10.8) 10^3/uL 11.21 H RBC (3.93-5.22) 10^6/uL 4.67 Hgb (11.2-15.7) g/dL 12.2 Hct (36.0-46.0) % 39.9 MCV (80-95) fL 85 MCH (27.0-33.0) pg 26.1 L MCHC (32.0-36.0) % 30.6 L RDW (11.7-14.6) % 13.6 Plt Count (130-400) 10^3/uL 385 MPV (8.0-11.0) fL 9.7 Immature Gran % % 0.3 Neutrophils % % 81.2 Lymphocytes % % 11.6 Monocytes % % 4.1 Eosinophils % % 2.2 Basophils % % 0.6 Nucleated RBC % (0.0-0.3) % 0.0 Absolute Neutrophils (1.2-6.7) 10^3/uL 9.10 H Absolute Lymphocytes (1.2-3.4) 10^3/uL 1.30 Absolute Monocytes (0.1-0.8) 10^3/uL 0.46 Absolute Eosinophils (0.0-0.7) 10^3/uL 0.25 Absolute Basophils (0.0-0.2) 10^3/uL 0.07 VBG pH (7.31-7.41) 7.42 H VBG pCO2 (41-51) mmHg 43 VBG pO2 mmHg 33 VBG HCO3 (23-28) mmol/L 28 VBG Total CO2 (24-29) mmol/L 26 VBG O2 Saturation % 55 VBG Base Excess (-2-3) mmol/L 3 Sodium Cancelled Potassium Cancelled Chloride Cancelled Carbon Dioxide Cancelled Anion Gap Cancelled BUN Cancelled Creatinine Cancelled Est GFR (CKD-EPI 2020) Cancelled Glucose Cancelled Calcium Cancelled Magnesium Cancelled Total Bilirubin Cancelled AST Cancelled ALT Cancelled Alkaline Phosphatase Cancelled Troponin I Cancelled NT-Pro-B Natriuret Pep Cancelled Total Protein Cancelled Albumin Cancelled Medical Decision Making This is a 54-year-old female patient presenting for evaluation of shortness of breath and hypoxia. Differential includes but is not limited to acute on chronic exacerbation of hypoxic respiratory failure, exacerbation of interstitial lung disease, COPD exacerbation, heart failure exacerbation and fluid overload. I considered cardiac abnormalities including ACS and arrhythmia. Pulmonary embolism was considered. The patient has never required noninvasive positive pressure nor intubation but would be amenable to those interventions if they were required. We were able to get her oxygen up to an appropriate level with 6 L by simple mask. A bedside ultrasound performed as noted below does show some moderate LV dysfunction and dilation of the right heart. We obtained an EKG which shows a sinus tachycardia without evidence of ischemia. Will obtain an x-ray of the chest, laboratory studies to include CBC, CMP, magnesium, troponin, BNP, and D-dimer. Given her history of autoimmune interstitial lung disease I did provide her with 125 mg of Solu-Medrol. - I reviewed the patient's laboratory studies, which reveal a white blood cell count of 11, no anemia or thrombocytopenia. Chemistry panel without electrolyte derangements, creatinine at 1.3 which is very slightly above her baseline, no evidence of liver dysfunction. VBG obtained without acidosis or hypercarbia, BNP is significantly elevated at 21,000 well above her baseline. Her troponin is also slightly elevated to 68 then 61 on our 1 hour recheck. D-dimer is noted to be 951, below the cutoff for further workup per years criteria. Chest x-ray reveals diffuse interstitial changes somewhat worsened from prior concerning for superimposed pulmonary edema. The patient was provided with 40 mg of Lasix and was able to put out urine after that intervention. I feel that given her increasing oxygen requirement and need for careful diuresis in the setting of her history of pulmonary hypertension she would benefit from admission to our ICU for ongoing treatment. The patient was graciously accepted by the hospitalist service for admission. I did provide her with her home medication topiramate for migraine headaches. She was transferred from our department without incident. Cindy Garcia MD Medical Records Medical records reviewed: Yes I reviewed the patient's medical records. Lab Data Lab results reviewed: Yes I reviewed the patient's lab results. Quality:SDME Health Related Social Needs: No Data to Display Critical Care Time Critical Care Time Critical Care Time: Yes Total Critical Care Time: 40 Attestation: Upon my evaluation, this patient had a high probability of imminent or life-threatening deterioration due to hypoxic respiratory failure, pulmonary edema, which required my direct attention, intervention, and personal management. I have personally provided 40 minutes of critical care time exclusive of time spent on separately billable procedures. Time includes review of laboratory data, radiology results, discussion with consultants, and monitoring for potential decompensation. Interventions were performed as documented above. Cindy Garcia MD [facility] All Active Problems (Updated 12/30/24 @ 14:25 by Cindy Garcia MD) Pulmonary edema (Acute) Screen for colon cancer (Acute) Migraine headache with aura (Acute) Syncope (Chronic) Orthostatic hypotension (Acute) Acute and chronic respiratory failure (Acute) Hypokalemia (Acute) Chronic respiratory failure with hypoxia (Acute) Claustrophobia (Acute) Interstitial pneumonia with autoimmune features (Acute) TSH (thyroid-stimulating hormone deficiency) (Chronic) Obesity, morbid, BMI 40.0-49.9 (Chronic) Moderate aortic regurgitation (Acute) Tricuspid regurgitation (Acute) Pulmonary hypertension (Chronic) Hyperparathyroidism (Acute) Adjustment disorder (Acute) Hypothyroid (Chronic) Hypoxemia (Acute) Pedal edema (Acute) Malabsorption (Acute) Heartburn (Acute) Medical History (Updated 12/30/24 @ 14:25 by Cindy Garcia MD) Hypoxia Cor pulmonale Cervical radiculopathy Epigastric pain Renal insufficiency Hypotension Diarrhea Current smoker Hypotension Dehydration Closed head injury Syncope and collapse Hypokalemia Acute respiratory failure with hypoxia Interstitial lung disease Intermittent asthma Tobacco dependence Cervical cancer Surgical History S/P tonsillectomy S/P section History of gastric bypass Family History Other Cancer Current smoker Social History Smoking/Tobacco Use Status: Current every day Tobacco Type: e-cigarettes Smoking risk assessment performed?: Yes Alcohol Intake: current Alcohol Intake frequency: a few times a week Drug use: Rarely Substance use type: marijuana Household members: spouse Number of Children: 3 current occupation: Retired Do you feel safe at home: Yes Do you feel safe in your relationship?: Yes POCUS Exam (ED) Limited Cardiac Exam DATE OF EXAM: 12/30/24 TIME OF EXAM: 11:00 PROVIDER THAT PERFORMED THE STUDY: Cindy Garcia REASON FOR EXAM: Dyspnea and Hypoxia VISUALIZED STRUCTURES: Four Chambers, Aortic valve, Mitral valve, Interventricular septum and IVC VIEW OBTAINED: Apical 4-Chamber, Parasternal long-axis, Parasternal short-axis, Subxiphoid and Other (B/L lung apices) PERTINENT FINDINGS/IMPRESSION: IVC inspiratory collapsability (less than 50%), LV dysfunction :mild and RV dilation; No pericardial effusion Exam complete
[2024-12-30 11:50] LABS: D-Dimer 951 ng/mlFEU (<500)
[2024-12-30] MEDS: Furosemide 40 MG/4 ML VIAL IVP (12:29)
[2024-12-30 12:49] LABS: ALT 23 U/L (14-59); AST 52 U/L (15-37); Albumin 2.8 g/dL (3.4-5.0); Alkaline Phosphatase 83 U/L (46-116); Anion Gap 5.9 mmol/L (3-11); BUN 20 mg/dL (7-18); Bilirubin, Total 0.7 mg/dL (0.2-1.0); CO2 30.1 mmol/L (21.0-32.0); CREATININE 1.3 mg/dL (0.55-1.02); Calcium 9.3 mg/dL (8.5-10.1); Chloride 102 mmol/L (98-107); Estimated GFR 48.26 (mL/min/1.73m2); Glucose 118 mg/dL (74-106); Magnesium 2.2 mg/dL (1.8-2.4); NT-proBNP 21102 pg/mL (<300); Potassium 4.2 mmol/L (3.5-5.1); Sodium 138 mmol/L (136-145); Total Protein 8.2 g/dL (6.4-8.2)
[2024-12-30 12:50] LABS: Troponin I 68 ng/L (<or=51)
[2024-12-30] MEDS: Topiramate 100 MG TAB PO ×2 (13:54→20:05)
[2024-12-30 14:13] LABS: Troponin I 71 ng/L (<or=51)
[2024-12-30] MEDS: Enoxaparin 40 MG/0.4 ML SYR SC (15:21)
[2024-12-30] MEDS: Ondansetron O.D.T. 4 MG TABEF PO ×2 (15:22→22:50)
--- NOTE | 2024-12-30 16:38 | HPE_ITS ---
Date of service: 12/30/24 Time of Service: 15:38 Assessment and Plan Assessment and plan (1) Interstitial pneumonia with autoimmune features: Status: Acute Assessment and plan: This appears to be primarily an exacerbation of her ILD, possibly related to viral illness. Given IV solumedrol, continue steroids and bronchodilators. No focal pneumonia, continue azithromycin that is chronic (2) Acute on chronic hypoxic respiratory failure: Status: Acute Assessment and plan: Oxygen need was progressing per November pulmonology note from 2L to 4L prior to this exacerbation. Current O2 need with mask slightly above her baseline. No CO2 retention on VBG. However, she continues to be quite tachypeneic. Will give prn morphine for comfort. Monitor closely in ICU for now. Given overall picture and d-dimer, CTA not done, reconsider CT if not imrpoving. (3) CHF (congestive heart failure): Status: Ruled-out Assessment and plan: BNaP up from baseline, imaging suggested some degree of fluid overload, but current overall exam not impressive for fluid overload. Continue furosemide daily She also has pulmonary HTN and valvular disease. Get echo results from recent [facility] hospitalization. We don't need another echo if we can get this. (4) ANNALISE (acute kidney injury): Status: Resolved Assessment and plan: MIld with Cr up 1.3 from 0.9. There may be element of venous congestion, she is diuesing. Follow. (5) Tobacco dependence: Assessment and plan: States no longer smoking, encourage cessation. (6) Elevated troponin: Status: Resolved Assessment and plan: Mild elevation, not dynamic on first two, 3rd is due. EKG reassuring, no chest pain. Likely stress a/w hypoxia, follow, monitor telemetry. (7) Obesity (BMI 30.0-34.9): Assessment and plan: She has had significant weight loss over the past several years, encouraged (8) DVT prophylaxis: Status: Acute Assessment and plan: enoxaparin History of Present Illness History of Present Illness Chief Complaint: SOB Narrative: 54 yo F with insterstitial pneumonia with autoimmune features, asthma, pulmonary HTN on 4 liters oxygen via [facility] who presented with 3 days of worsening shortness of breath. She first felt some runny nose and itchy eyes a week ago. Then dry cough started. 3 days ago, she started to notice she was having more trouble breathing, chest tighter. She used her nebulizer and inhalers more frequently, but the SOB worsened. Finally she went to her PCP today who noted her oxygen saturation was in the 60-70s on her 4 liters and called EMS. Cough is mostly dry. No hemoptysis. No fever/chills. No chest pain. Runny nose has gotten better. Throat is a little sore. She is still eating and drinking, no GI/ symptoms. She was admitted at [facility] 2 months ago with something similar, diagnosed with pneumonia and CHF. She is living in a motel fdc in [place] now, people smoke outside. She has been taking her medications regularly, but did skip her furosemide this morning because she was traveling to see her PCP and didn't want to have to urinate so much. She hasn't had recent weight gain/swelling. She was given 125mg solumedrol and 40mg IV furosemide. She is urinating a lot now. Review of Systems All systems reviewed & are unremarkable except as noted in HPI and below Constitutional Constitutional: Reports headache(s) (frontal for the past 3 days, a little better now) ENT Ears, Nose, Mouth, and Throat: Reports headache(s) (frontal for the past 3 days, a little better now) Neurologic Neurologic: Reports headache(s) (frontal for the past 3 days, a little better now) [facility] All Active Problems (Updated 12/30/24 @ 17:12 by Max Hrat) DVT prophylaxis (Acute) Acute on chronic hypoxic respiratory failure (Acute) Pulmonary edema (Acute) Screen for colon cancer (Acute) Migraine headache with aura (Acute) Syncope (Chronic) Orthostatic hypotension (Acute) Hypokalemia (Acute) Chronic respiratory failure with hypoxia (Acute) Claustrophobia (Acute) Interstitial pneumonia with autoimmune features (Acute) TSH (thyroid-stimulating hormone deficiency) (Chronic) Moderate aortic regurgitation (Acute) Tricuspid regurgitation (Acute) Pulmonary hypertension (Chronic) Pedal edema (Acute) Malabsorption (Acute) Adjustment disorder (Acute) Hyperparathyroidism (Acute) Hypothyroid (Chronic) Heartburn (Acute) Medical History (Updated 12/30/24 @ 17:12 by Max Hart) Obesity (BMI 30.0-34.9) Cor pulmonale Cervical radiculopathy Epigastric pain Renal insufficiency Hypotension Diarrhea Current smoker Hypotension Dehydration Closed head injury Syncope and collapse Hypokalemia Acute respiratory failure with hypoxia Interstitial lung disease Intermittent asthma Tobacco dependence Cervical cancer Surgical History S/P tonsillectomy S/P section History of gastric bypass Family History Other Cancer Current smoker Social History (Updated 12/30/24 @ 16:48 by Max Hart) Smoking/Tobacco Use Status: Current every day Tobacco Type: e-cigarettes Smoking risk assessment performed?: Yes Alcohol Intake: current Alcohol Intake frequency: a few times a week Drug use: Rarely Substance use type: marijuana Housing: homeless Number of Children: 3 current occupation: Retired Do you feel safe at home: Yes Do you feel safe in your relationship?: Yes Meds Allergies and Home Medications Allergies Allergy/AdvReac Type Severity Reaction Status Date / Time mycophenolate mofetil (From AdvReac Intermediate Diarrhea Verified 12/01/24 13:58 CellCept) with hypokalemia environmental AdvReac Mild Other (See Uncoded 12/01/24 13:58 Comment) Home Medications ?Medication ?Instructions ?Recorded ?Confirmed ?Type cholecalciferol (vitamin D3) 25 1,000 unit PO DAILY 05/06/19 12/30/24 History mcg (1,000 unit) capsule (Vitamin D3) aspirin 81 mg tablet,delayed 81 mg PO DAILY #30 tabs 02/07/21 12/30/24 Rx release omeprazole 40 mg capsule,delayed 40 mg PO DAILY 07/22/22 12/30/24 History release potassium chloride 20 mEq 20 meq PO DAILY #30 tabs 07/22/22 12/30/24 Rx tablet,extended release topiramate 100 mg tablet 100 mg PO BID 09/17/22 12/30/24 History midodrine 5 mg tablet 2.5 mg PO TID 11/18/22 12/30/24 History galcanezumab-gnlm 120 mg/mL 120 mg subcut QMONTH #3 mL 03/17/23 12/30/24 Rx subcutaneous pen injector (Emgality Pen) lorazepam 2 mg tablet 2 mg PO BID PRN anxiety #20 tabs 04/24/23 12/30/24 Rx aripiprazole 15 mg tablet 15 mg PO DAILY 05/30/23 12/30/24 History cetirizine 10 mg tablet (Allergy 10 mg PO DAILY PRN 05/30/23 12/30/24 History Relief (cetirizine)) duloxetine 60 mg capsule,delayed 60 mg PO BID 05/30/23 12/30/24 History release ondansetron 4 mg disintegrating 4 mg PO Q8H 05/30/23 12/30/24 History tablet alprazolam 0.5 mg tablet 0.5 mg PO ONCE PRN anxiety #1 tab 12/22/23 12/30/24 Rx albuterol sulfate 90 mcg/actuation 2 puff inhalation Q6H PRN 03/18/24 12/30/24 Rx aerosol inhaler (Ventolin HFA) shortness of breath or wheezing #8.5 grams ipratropium 0.5 mg-albuterol 3 mg 3 ml inhalation QID PRN wheezing 07/08/24 12/30/24 Rx (2.5 mg base)/3 mL nebulization #180 mL soln azithromycin 250 mg tablet 250 mg PO DAILY #30 tabs 10/18/24 12/30/24 Rx budesonide-formoterol HFA 160 2 puff inhalation BID #10.2 grams 10/18/24 12/30/24 Rx mcg-4.5 mcg/actuation aerosol inhaler (Symbicort) nintedanib 100 mg capsule (Ofev) 100 mg PO Q12H #60 caps 10/18/24 12/30/24 Rx umeclidinium 62.5 mcg/actuation 1 inh inhalation DAILY #30 ea 10/18/24 12/30/24 Rx blister powder for inhalation (Incruse Ellipta) famotidine 20 mg tablet 20 mg PO DAILY 12/30/24 12/30/24 History furosemide 40 mg tablet 40 mg PO DAILY 12/30/24 12/30/24 History tiotropium bromide 2.5 2 puff inhalation DAILY 12/30/24 12/30/24 History mcg/actuation mist for inhalation (Spiriva Respimat) trazodone 100 mg tablet 100 mg PO HS 12/30/24 12/30/24 History Exam Narrative Exam Narrative: GEN: Alert and oriented x 4, pleasant and cooperative, gives linear history. Tachypeneic at rest, but able to speak in full sentences. HEENT: Head atraumatic. Conjunctiva clear, no icterus. PEERL, EOMI. no rhinorrhea or sinus tenderness. MMM, geographic tongue, OP benign. Neck is supple with no masses or lymphadenopathy, trachea midline LUNGS: Dry sounding crackles in bilateral bases, slight expiratory wheezes. Tachypeneic as above, but not tripoding or using accessory muscles. CV: RRR with no murmurs, gallops, or rubs. No elevation JVP. ABD: active bowel sounds, soft, nontender and nondistended. No masses. EXT: no cyanosis, clubbing, or pitting edema. Legs not tender. MSK: No joint redness or swelling NEURO: CN 2-12 grossly intact. Normal movement of 4 extremities. Normal speech and coordination. No tremor SKIN: No rashes or open wounds. PSYCH: Somewhat anxious mood and affect, normal thought process, no SI. Results Imaging Chest x-ray: report reviewed ( Chronic interstitial lung disease. 2. Question of a superimposed interstitial edema or pneumonia should be considered. Please correlate clinically. ) and image reviewed EKG: report reviewed and image reviewed (sinus tachycardia, no ischemic ST-T abnormalities (no V6)) L abs 12/30/24 11:11 12/30/24 12:17 Labs: Laboratory Results - last 24 hr 12/30/24 12/30/24 12/30/24 11:11 12:17 13:37 WBC 11.21 H RBC 4.67 Hgb 12.2 Hct 39.9 MCV 85 MCH 26.1 L MCHC 30.6 L RDW 13.6 Plt Count 385 MPV 9.7 Immature Gran % 0.3 Neutrophils % 81.2 Lymphocytes % 11.6 Monocytes % 4.1 Eosinophils % 2.2 Basophils % 0.6 Nucleated RBC % 0.0 Absolute Neutrophils 9.10 H Absolute Lymphocytes 1.30 Absolute Monocytes 0.46 Absolute Eosinophils 0.25 Absolute Basophils 0.07 D-Dimer 951 H VBG pH 7.42 H VBG pCO2 43 VBG pO2 33 VBG HCO3 28 VBG Total CO2 26 VBG O2 Saturation 55 VBG Base Excess 3 Sodium Cancelled 138 Potassium Cancelled 4.2 Chloride Cancelled 102 Carbon Dioxide Cancelled 30.1 Anion Gap Cancelled 5.9 BUN Cancelled 20 H Creatinine Cancelled 1.3 H Est GFR (CKD-EPI 2020) Cancelled 48.26 Glucose Cancelled 118 H Calcium Cancelled 9.3 Magnesium Cancelled 2.2 Total Bilirubin Cancelled 0.7 AST Cancelled 52 H ALT Cancelled 23 Alkaline Phosphatase Cancelled 83 Troponin I Cancelled 68 H* 71 H* NT-Pro-B Natriuret Pep Cancelled H Total Protein Cancelled 8.2 Albumin Cancelled 2.8 L Last Vital Signs Temp 36.1 C L 12/30/24 14:45 Pulse 120 H 12/30/24 13:46 Resp 20 12/30/24 13:46 BP 106/36 L 12/30/24 10:56 Pulse Ox 92 12/30/24 14:45 Time Spent Time spent with Patient: >75 minutes Time was spent: preparing to see the patient(eg.review tests), obtaining and/or reviewing separately otained hiistory, ordering medications,tests, procedures, referring, communicating with other health senior resident care director, indepentently interpreting results, counseling the patient and care coordination
[2024-12-30] MEDS: MORPHine 2 MG/ML SYR IVP (17:28)
[2024-12-30] MEDS: Midodrine 2.5 MG TAB PO (17:29)
[2024-12-30 17:31] LABS: Troponin I 73 ng/L (<or=51)
[2024-12-30] MEDS: traZODone 50 MG TAB 100 MG PO (20:05)
[2024-12-30] MEDS: DULoxetine 20 MG CAP 60 MG PO (20:05)
[2024-12-30] MEDS: Normal Saline Flush 10 ML SYR IVP (20:06)
[2024-12-30] MEDS: Budesonide/Formoterol 160/4.5 6 GM 60 PUFF INH IH (20:30)
[2024-12-31] VITALS (50 sets, daily range): BP systolic 74–119; BP diastolic 40–108; PULSE 82–109; RESP 18–38; TEMP 35.6–36.9; O2SAT 83–100
--- NOTE | 2024-12-31 | DI.US_ITS ---
APPROVED REPORT EXAM: Comprehensive 2D, Doppler, and color-flow Echocardiogram Patient Location: In-Patient Room/Bed: [address] Maintainer: Reddy Pacheco RDCS (AE) Indications: CHF Other Information Study Quality: Adequate Conclusion Normal left ventricular wall thickness and chamber size. Ejection fraction is 55 to 60%. Diastolic septal flattening suggests right ventricular pressure overload The right ventricle is dilated and hypocontractile. Right atrium is severely enlarged Normal left atrial size Aortic valve is trileaflet with moderate regurgitation Normal tricuspid valve with severe regurgitation. Estimated right ventricular systolic pressure is 6 2 mmHg Normal pulmonic valve with severe regurgitation Ascending aorta measures 3.64 cm Wall motion Left Ventricle The left ventricle is normal size. The left ventricular systolic function is normal. The left ventric ular ejection fraction is within the normal range. There is normal left ventricular wall thickness. F lattened septum consistent with right ventricular volume overload. There is no ventricular septal def ect visualized. LVEF is 55-60%. Right Ventricle Right ventricle is dilated. Right ventricle is moderately hypokinetic. Atria The left atrium size is normal. Right atrium is severely dilated. The interatrial septum is intact wi th no evidence for an atrial septal defect. Aortic Valve The aortic valve is normal in structure. Aortic valve is trileaflet. There is no aortic valvular sten osis. Moderate aortic regurgitation. Mitral Valve The mitral valve is normal in structure. No evidence of mitral valve stenosis. Trace mitral regurgita tion. Tricuspid Valve The tricuspid valve is normal in structure. There is no tricuspid valve stenosis. Severe tricuspid re gurgitation. The RVSP is 62.3 mmHg. Pulmonic Valve The pulmonary valve is normal in structure. There is no pulmonic valvular stenosis. Severe pulmonic r egurgitation. Great Vessels The aortic root is normal in size. The ascending aorta is mildly dilated. Aortic arch is normal in ca liber. The IVC collapses <50% with inspiration. Pericardium Trace pericardial effusion. 2D Dimensions IVSD d PLAX 1.04 cm F: 0.6-1.0 Ao Root d 2.97 cm F: 2.7 - 3.3 LVPW d PLAX 1.00 cm F: 0.6 - 1.0 Ao Asc Diam d 3.64 cm F: 2.3 - 3.1 LVID d PLAX 4.71 cm F: 3.8 - 5.2 IVC Diam exp d SLAX 2.5 cm LVDs 3.62 cm F: 2.2 - 3.5 LV EF Teichholz 46.2 % FS 23.02 % LV EDV (Teich) 102.6 mL LV ESV (Teich) 55.2 mL Stroke Vol Index (Teich) 26.47 M-Mode TAPSE 1.87 cm (M/F) >1.7 Auto EF LV EDV A4C 69.7 mL LV EDV A2C 93.7 mL LV EDV BP 84.1 mL LV ESV A4C 36.5 mL LV ESV A2C 50.5 mL LV ESV BP 43.2 mL LVEF(%) A4C 47.6 % LVEF(%) A2C 46.1 % LVEF(%) BP 48.6 % LV SV A4C 33.2 ml LV SV A2C 43.2 ml LV SV BP 40.9 ml LV CO A4C 3.5 L/min LV CO A2C 4.4 L/min LV CO BP 4.0 L/min HR A4C 106.83 BPM HR A2C 102.28 BPM LV EDV Index (BP) LA Volume LA Length A4C 5.6 cm LA Length A2C 4.2 cm LA Area A4C s 7.55 cm2 LA Area A2C s 7.75 cm2 LA Vol A4C A-L 8.65 mL LA Vol A2C A-L 12.19 mL LA Vol Biplane A-L 11.9 mL LA Vol/BSA A4C A-L LA Vol/BSA A2C A-L LA Vol/BSA BP A-L 6.6 mL/m2 LA Vol A4C MOD 8.4 mL LA Vol A2C MOD 12.6 mL LA Vol BP MOD 11.8 mL RA Volume RA Area A4C 16.8 cm2 RA ESV A4C (A-L) 47.0mL RA Vol/BSA A4C A-L RA Length A4C 5.1 cm RA ESV A4C (MOD) 44.6mL LV Diastology MV E' medial 0.043 (>0.07 m/s) MV E Vmax 0.41 (0.4-1.3 m/s) MV E/E' MED 9.36 (<14) MV A Vmax 0.55 (0.4-1.3 m/s) MV E' lateral 0.075 (>0.1 m/s) E/A Ratio 0.7 MV E/E' LAT 5.43 (<14) MV E' Average 0.059 m/s MV E/E'(average) 6.88 Aortic Valve AoV Vmax 1.59 m/s LVOT Vmax 1.39 m/s AoV Peak Grad 49.9 mmHg LVOT Peak Grad 7.7 mmHg AoV Area (Vmax) 2.12 cm2 LVOT VTI 0.189 m AoV VTI 0.249 m LVOT Mean Grad 3.4 mmHg AoV Mean Rafael. 1.20 m/s LVOT SV 45.84 mL AoV Mean Grad 6.3 mmHg LVOT Diam s 1.75 cm AoV Area (VTI) 1.84 cm2 AV Regurg Peak Gr. 10.13 mmHg Velocity Ratio 0.87 AR Decel [place] 2.7m/sec2 AR DT 1755 msec AR PHT 509 msec AR Vmax 4.74 m/s Mitral Valve MV DT 137 (160-240 msec) Tricuspid Valve RA Pressure 8.00 mmHg TR Vmax 3.68 m/s TR Peak Grad 54.2 mmHg RVSP (TR) 62.3 mmHg
[2024-12-31 05:53] LABS: Abs Immature Grans 0.04 10^3/uL (0.0-0.06); Absolute Basophil Count 0.02 10^3/uL (0.0-0.2); Absolute Eosinophil Count 0.01 10^3/uL (0.0-0.7); Absolute Lymphocyte Count 1.56 10^3/uL (1.2-3.4); Absolute Monocyte Count 0.42 10^3/uL (0.1-0.8); Absolute Neutrophil Count 4.93 10^3/uL (1.2-6.7); Basophils % 0.3 %; Eosinophils % 0.1 %; HCT 36.1 % (36.0-46.0); HGB 10.8 g/dL (11.2-15.7); Immature Grans % 0.6 %; Lymphocytes % 22.3 %; MCH 25.7 pg (27.0-33.0); MCHC 29.9 % (32.0-36.0); MCV 86 fL (80-95); Neutrophils % 70.7 %; Nucleated RBC 0.3 % (0.0-0.3); Platelet Count 325 10^3/uL (130-400); RDW 13.5 % (11.7-14.6); RDW-SD 41.1 fL; WBC 6.98 10^3/uL (4.4-10.8)
[2024-12-31] MEDS: Ondansetron O.D.T. 4 MG TABEF PO ×3 (06:02→22:10)
[2024-12-31] MEDS: MORPHine 2 MG/ML SYR IVP ×3 (06:02→18:22)
[2024-12-31 06:10] LABS: ALT 66 U/L (14-59); AST 76 U/L (15-37); Albumin 2.6 g/dL (3.4-5.0); Alkaline Phosphatase 83 U/L (46-116); Anion Gap 5.1 mmol/L (3-11); BUN 29 mg/dL (7-18); Bilirubin, Total 0.4 mg/dL (0.2-1.0); CO2 31.9 mmol/L (21.0-32.0); CREATININE 1.6 mg/dL (0.55-1.02); Calcium 9.2 mg/dL (8.5-10.1); Chloride 100 mmol/L (98-107); Estimated GFR 37.62 (mL/min/1.73m2); Glucose 114 mg/dL (74-106); Potassium 4.8 mmol/L (3.5-5.1); Sodium 137 mmol/L (136-145); Total Protein 7.9 g/dL (6.4-8.2)
[2024-12-31] MEDS: DULoxetine 20 MG CAP 60 MG PO ×2 (08:02→20:27)
[2024-12-31] MEDS: Cholecalciferol (Vitamin D3) 1,000 UNIT TAB 1000 UNITS PO (08:03)
[2024-12-31] MEDS: Aspirin E.C. 81 MG TABEC PO (08:03)
[2024-12-31] MEDS: Potassium Chloride 20 MEQ TABCR PO (08:03)
[2024-12-31] MEDS: Topiramate 100 MG TAB PO ×2 (08:03→20:27)
[2024-12-31] MEDS: Azithromycin 250 MG TAB PO (08:03)
[2024-12-31] MEDS: predniSONE 20 MG TAB 40 MG PO (08:03)
[2024-12-31] MEDS: Omeprazole 20 MG CAPCR 40 MG PO (08:04)
[2024-12-31] MEDS: ARIPiprazole 15 MG TAB PO (08:04)
[2024-12-31] MEDS: Midodrine 2.5 MG TAB PO ×3 (08:04→18:13)
[2024-12-31] MEDS: Furosemide 40 MG/4 ML VIAL IVP (08:05)
[2024-12-31] MEDS: Normal Saline Flush 10 ML SYR IVP ×4 (08:05→20:27)
[2024-12-31] MEDS: Umeclidinium 7 CAP INHALER 1 CAP IH (08:24)
[2024-12-31] MEDS: Budesonide/Formoterol 160/4.5 6 GM 60 PUFF INH IH ×2 (08:24→19:16)
--- NOTE | 2024-12-31 08:59 | PDOC.CMIN ---
Date of service: 12/31/24 Time of Service: 08:59 Care Management Initial Assmt Initial Assessment Reason for Hospitalization: interstitial pneumonia Functional Status/Living Situation Patient Presentation: Marian presented to the ED yesterday morning with c/o increased shortness of breath and increased peripheral edema. She had been to her PCP earlier in the day, and was sent to the ED secondary to having O2 sats down to the high 50's. She was transported from the clinic to the ED via EMS. Marian has ILD and is on 4L O2 at baseline, which she was wearing at her PCP office. Marian was sitting up in the bed when CM met with her today. She was very pleasant and agreeable to talking. She stated that she can barely walk because she is so short of breath. She is agreeable to a PT consult, and the provider was asked to order this. Marian was noted to be on 5Lnc O2. Marian is presently living in a hotel in [place]. She is on a voucher until the end of January, then she will need to start paying. She feels she can afford this, but it will make things very tight. She is currently working with Dana at [facility] for housing. She is also working with the community health team and chronic healthcare applications analyst at her PCP office. She feels well supported in the community at this time, and denied any further community needs. Marian stated that she utilizes [facility] for all her rides. She has no family or real friends that support her. Town of Residence: [place] - living in a hotel/custodial Significant Other/Family: Out of area (sister, Molly and son, Delvis) Natural Supports: none, really. Employment Status: Disabled Instrumental Activities of Daily Living (ADLs): Independent Medications Medication Management: No Issues/Barriers identified Advance Directives Advance Directives: Do you have an Advance Directive: N 02/07/21 10:45 AD On File at [facility]: N 02/07/21 10:45 Date Asked 12/30/24 12/30/24 12:38 AD Date Reviewed COLST On File at [facility] No 12/30/24 12:38 COLST Date Scanned Code Status Resuscitation Status Full Code Portal Pt does not currently have a portal and education provided: Yes Insurance Coverage/Financial Issues Insurance: Medicaid of [place] Financial Issues: Budget is tight Care Team Visit Care Team Role Provider Type Harry Means Primary Care Provider NON-[facility] STAFF PHYSICIAN Cindy Garcia MD Emergency Provider [facility] STAFF PHYSICIAN Max Hart Admit Provider [facility] STAFF PHYSICIAN Attending Provider Other: Christy Dillon- pulmonology Discharge Potential Discharge Needs: PT Evaluation, PCP F/U Appt and Other (has a pulmonology visit scheduled for 01/18.) Anticipated Barriers to Discharge: None Identified Patient/Family Education Needs: Review discharge instructions, discuss Ask Me Three Transportation: [facility]: [facility] Plan: Anticipate that Betzaida will discharge with new services through [place] [facility] SN, PT and WOOD FINISHER.. She will f/u with her PCP and her commercial drone pilot (appt on 01/18) and continue per her plan of care. Marian will require [facility] transportation. She did come in with her own O2. CM will continue to follow. Social Determinants of Health Screening Social Determinants of health last assessed in clinic: 12/31/24 Will the Patient Participate in the Screening?: Yes Do you worry about having a steady place to live?: no Problems where you live: no known problems In the past 12 months, have you had to go without electric, gas, oil or water in your home?: yes 1. Within the past 12 months, we worried whether our food would run out before we got money to buy more.: Sometimes true 2. Within the past 12 months, the food we bought just didn't last and we didn't have money to get more.: Sometimes true (Marian is connected with [facility]. Denies any real needs at this time.) Has lack of transportation kept you from medical appointments or from doing things needed for daily living?: yes Has anyone in your life made you feel unsafe or unsupported?: yes How often does anyone, including family and friends, physically hurt you?: Never How often does anyone, including family and friends, insult or talk down to you?: Never How often does anyone, including family and friends, threaten you with harm?: Never How often does anyone, including family and friends, scream or curse at you?: Never [facility] Safety total score: 4 How hard is it for you to pay for the very basics like food, housing, medical care, and heating? Would you say it is:: Not hard at all Do you want help finding or keeping work or a job?: I do not need or want help If for any reason you need help with day-to-day activities such as bathing, preparing meals, shopping, managing finances, etc., do you get the help you need?: I could use a little more help How often do you feel lonely or isolated from those around you?: Sometimes Do you speak a language other than [place] at home?: Yes Does the patient want assistance with any of the above?: Yes Health Related Social Needs Health related social needs: food insecurity (Z59.41), transportation insecurity (Z59.82), material hardship(utilities) (Z59.12), problems with daily activities (Z73.9), feeling lonely/isolated (Z60.8) and education (Z55.6) Health related social needs details: patient currently homeless, living at [facility], feels safe at current location, would like help with needs. PFSH All Active Problems (Updated 12/30/24 @ 17:12 by Max Hart) DVT prophylaxis (Acute) Acute on chronic hypoxic respiratory failure (Acute) Pulmonary edema (Acute) Screen for colon cancer (Acute) Migraine headache with aura (Acute) Syncope (Chronic) Orthostatic hypotension (Acute) Hypokalemia (Acute) Chronic respiratory failure with hypoxia (Acute) Claustrophobia (Acute) Interstitial pneumonia with autoimmune features (Acute) TSH (thyroid-stimulating hormone deficiency) (Chronic) Moderate aortic regurgitation (Acute) Tricuspid regurgitation (Acute) Pulmonary hypertension (Chronic) Hyperparathyroidism (Acute) Adjustment disorder (Acute) Hypothyroid (Chronic) Pedal edema (Acute) Malabsorption (Acute) Heartburn (Acute) Medical History (Updated 12/30/24 @ 17:12 by Max Hart) Obesity (BMI 30.0-34.9) Cor pulmonale Cervical radiculopathy Epigastric pain Renal insufficiency Hypotension Diarrhea Current smoker Hypotension Dehydration Closed head injury Syncope and collapse Hypokalemia Acute respiratory failure with hypoxia Interstitial lung disease Intermittent asthma Tobacco dependence Cervical cancer Surgical History S/P tonsillectomy S/P section History of gastric bypass Family History Other Cancer Current smoker Social History (Updated 12/30/24 @ 16:48 by Max Hart) Smoking/Tobacco Use Status: Current every day Tobacco Type: e-cigarettes Smoking risk assessment performed?: Yes Alcohol Intake: current Alcohol Intake frequency: a few times a week Drug use: Rarely Substance use type: marijuana Housing: homeless Number of Children: 3 current occupation: Retired Do you feel safe at home: Yes Do you feel safe in your relationship?: Yes Readmission Within the Past 30 Days Yes or No: No Anticipated HH Services Anticipated HH Services at Discharge [facility] ([facility]) Services Needed (SN, PT/OT, WOOD FINISHER).
[2024-12-31] MEDS: Famotidine 20 MG TAB PO (11:27)
[2024-12-31] MEDS: Normal Saline 500 ML 999 ML IV (11:55)
[2024-12-31] MEDS: SUMAtriptan 50 MG TAB PO (12:43)
--- NOTE | 2024-12-31 13:10 | PGE_ITS ---
Date of Service Date of service: 12/31/24 Time of Service: 13:11 Assessment and Plan Assessment and plan (1) Interstitial pneumonia with autoimmune features: Status: Acute Assessment and plan: This appears to be primarily an exacerbation of her ILD, possibly related to viral illness. Given IV solumedrol, continue steroids and bronchodilators. No focal pneumonia, continue azithromycin that is chronic (2) Acute on chronic hypoxic respiratory failure: Status: Acute Assessment and plan: Oxygen need was progressing per November pulmonology note from 2L to 4L prior to this exacerbation. Current O2 need with mask slightly above her baseline. No CO2 retention on VBG. However, she continues to be quite tachypeneic. Will give prn morphine for comfort. Monitor closely in ICU for now. Given overall picture and d-dimer, CTA not done, reconsider CT if not imrpoving. (3) CHF (congestive heart failure): Status: Ruled-out Assessment and plan: BNaP up from baseline, imaging suggested some degree of fluid overload, but current overall exam not impressive for fluid overload. Continue furosemide daily She also has pulmonary HTN and valvular disease. Get echo results from recent [facility] hospitalization. We don't need another echo if we can get this. (4) ANNALISE (acute kidney injury): Status: Resolved Assessment and plan: MIld with Cr up 1.3 from 0.9. There may be element of venous congestion, she is diuesing. Follow. (5) Tobacco dependence: Assessment and plan: States no longer smoking, encourage cessation. (6) Elevated troponin: Status: Resolved Assessment and plan: Mild elevation, not dynamic on first two, 3rd is due. EKG reassuring, no chest pain. Likely stress a/w hypoxia, follow, monitor telemetry. (7) Obesity (BMI 30.0-34.9): Assessment and plan: She has had significant weight loss over the past several years, encouraged (8) DVT prophylaxis: Status: Acute Assessment and plan: enoxaparin (9) Migraine: Status: Chronic Assessment and plan: added imitrex, monitor for improvement Subjective Subjective Interval history since last seen: Pt does complaint of an occipital headache that radiates to her eyes bilat. Also c/o phono/photo phobia and states that this presentation is similar to her prior migraine attacks Exam Narrative Exam Narrative: GEN: Alert and oriented x 4, pleasant and cooperative, gives linear history. Tachypeneic at rest, but able to speak in full sentences. HEENT: Head atraumatic. Conjunctiva clear, no icterus. PEERL, EOMI. no rhinorrhea or sinus tenderness. MMM, geographic tongue, OP benign. Neck is supple with no masses or lymphadenopathy, trachea midline LUNGS: Dry sounding crackles in bilateral bases, slight expiratory wheezes. Tachypeneic as above, but not tripoding or using accessory muscles. CV: RRR with no murmurs, gallops, or rubs. No elevation JVP. ABD: active bowel sounds, soft, nontender and nondistended. No masses. EXT: no cyanosis, clubbing, or pitting edema. Legs not tender. MSK: No joint redness or swelling NEURO: CN 2-12 grossly intact. Normal movement of 4 extremities. Normal speech and coordination. No tremor SKIN: No rashes or open wounds. PSYCH: Somewhat anxious mood and affect, normal thought process, no SI. Objective Last Vital Signs Temp 36.9 C 12/31/24 08:35 Pulse 103 H 12/31/24 11:17 Resp 28 H 12/31/24 11:17 BP 93/67 L 12/31/24 11:30 Pulse Ox 89 L 12/31/24 11:17 Laboratory Results - last 24 hr 12/30/24 12/30/24 12/31/24 13:37 17:00 05:20 WBC 6.98 RBC 4.20 Hgb 10.8 L Hct 36.1 MCV 86 MCH 25.7 L MCHC 29.9 L RDW 13.5 Plt Count 325 MPV 10.0 Immature Gran % 0.6 Neutrophils % 70.7 Lymphocytes % 22.3 Monocytes % 6.0 Eosinophils % 0.1 Basophils % 0.3 Nucleated RBC % 0.3 Absolute Neutrophils 4.93 Absolute Lymphocytes 1.56 Absolute Monocytes 0.42 Absolute Eosinophils 0.01 Absolute Basophils 0.02 Sodium 137 Potassium 4.8 Chloride 100 Carbon Dioxide 31.9 Anion Gap 5.1 BUN 29 H Creatinine 1.6 H Est GFR (CKD-EPI 2020) 37.62 Glucose 114 H Calcium 9.2 Total Bilirubin 0.4 AST 76 H ALT 66 H Alkaline Phosphatase 83 Troponin I 71 H* 73 H* Total Protein 7.9 Albumin 2.6 L Time Spent with Patient Time Spent with Patient: 25-34 minutes Time was spent: preparing to see the patient(eg.review tests), obtaining and/or reviewing separately otained hiistory, ordering medications,tests, procedures, referring, communicating with other health career transition specialist, indepentently interpreting results, counseling the patient and care coordination
--- NOTE | 2024-12-31 13:56 | PHA.REVIEW2 ---
Pharmacy Admission Review Admission Clinical Review Admission Pharmacy Review: DVT prophylaxis (Acute) Acute on chronic hypoxic respiratory failure (Acute) Interstitial pneumonia with autoimmune features (Acute) mycophenolate mofetil (From CellCept) Adverse Reaction (Intermediate, Verified 12/01/24 13:58) Diarrhea with hypokalemia environmental Adverse Reaction (Mild, Uncoded 12/01/24 13:58) Other (See Comment) Resuscitation Status Full Code Height 5 ft 2 in Weight 75.7 kg Pharmacy Admission Review Renal Dosing Renal Dosing: BUN 29 mg/dL (7-18) H 12/31/24 05:20 Creatinine 1.6 mg/dL (0.55-1.02) H 12/31/24 05:20 Medications needing adjustments: Reviewed Anticoagulation Anticoagulation: Hgb 10.8 g/dL (11.2-15.7) L 12/31/24 05:20 Hct 36.1 % (36.0-46.0) 12/31/24 05:20 Plt Count 325 10^3/uL (130-400) 12/31/24 05:20 Creatinine 1.6 mg/dL (0.55-1.02) H 12/31/24 05:20 DVT Prophylaxis: Reviewed Opiate Usage Evaluate Pain Scale/Pains Meds: Reviewed Scheduled Bowel Reg ordered if on Opiates?: No Relevant Labs Relevant Labs: Sodium 137 mmol/L (136-145) 12/31/24 05:20 Potassium 4.8 mmol/L (3.5-5.1) 12/31/24 05:20 Chloride 100 mmol/L (98-107) 12/31/24 05:20 Magnesium 2.2 mg/dL (1.8-2.4) 12/30/24 12:17 Electrolytes, C-Reactive P, ESR: Reviewed DM Control DM Control: Reviewed Cardiac Review Cardiac Review: Troponin I 73 ng/L (<or=51) H* 12/30/24 17:00 NT-Pro-B Natriuret Pep 59529 pg/mL (<300) H 12/30/24 12:17 BP, HR, EF%: Reviewed QTc Review QTc: N/A IV to PO Switch IV Medications: Intervened (will recommend iv to po lasix) Home Meds Home Med List reviewed: Reviewed Relevent Home Meds Not ordered & why?: all home meds ordered. recommended to d/c prn ativan & xanax because they were one time/old orders. also recommended to d/c spiriva because confirmed with outpatient personnel associate pt should not be on spiriva (on incruse instead). Cancelled order for home Ofev because no one can bring in for patient to take. Current Meds Current Medication Order Review: Reviewed Pharmacy Antibiotic Review Comments: no abx
[2024-12-31] MEDS: Enoxaparin 40 MG/0.4 ML SYR SC (14:04)
--- NOTE | 2024-12-31 14:17 | CHAPLAIN ---
Betzaida was sitting up in bed when I visited. She was very pleasant. She told me that today is her youngest son's birthday, he's 34, and that the both nearly when he was born so they have a special blunt. He lives [place]. Betzaida called him this morning to sing happy birthday to him. Her other two children live in [place]. Betzaida is originally from there. She said she moved to [place] for a marriage that didn't work out. According to Care Management notes Betzaida is working with community services for housing and other supports but doesn't have immediate family or friends nearby for support.
[2024-12-31 14:25] LABS: Bilirubin Negative (Negative); Blood Negative (Negative); Clarity Clear (Clear); Glucose Negative (Negative); Ketones Negative (Negative); Leukocyte Esterase Negative (Negative); Nitrite Negative (Negative); Specific Gravity 1.015 (1.005-1.025); pH 5.5 (5-8)
[2024-12-31] MEDS: traZODone 50 MG TAB 100 MG PO (20:27)
[2025-01-01] VITALS (37 sets, daily range): BP systolic 91–128; BP diastolic 59–106; PULSE 83–105; RESP 3–35; TEMP 35.7–36.8; O2SAT 75–100
[2025-01-01] MEDS: MORPHine 2 MG/ML SYR IVP ×5 (00:50→18:16)
[2025-01-01] MEDS: Ondansetron O.D.T. 4 MG TABEF PO ×3 (06:07→21:10)
[2025-01-01] MEDS: Normal Saline Flush 10 ML SYR IVP ×4 (07:40→21:12)
[2025-01-01] MEDS: Potassium Chloride 20 MEQ TABCR PO (07:49)
[2025-01-01] MEDS: DULoxetine 20 MG CAP 60 MG PO ×2 (07:49→21:10)
[2025-01-01] MEDS: Aspirin E.C. 81 MG TABEC PO (07:49)
[2025-01-01] MEDS: Midodrine 2.5 MG TAB PO ×3 (07:49→18:16)
[2025-01-01] MEDS: Azithromycin 250 MG TAB PO (07:49)
[2025-01-01] MEDS: Cholecalciferol (Vitamin D3) 1,000 UNIT TAB 1000 UNITS PO (07:49)
[2025-01-01] MEDS: predniSONE 20 MG TAB 40 MG PO (07:49)
[2025-01-01] MEDS: Omeprazole 20 MG CAPCR 40 MG PO (07:49)
[2025-01-01] MEDS: ARIPiprazole 15 MG TAB PO (07:49)
[2025-01-01] MEDS: Topiramate 100 MG TAB PO ×2 (07:49→21:09)
[2025-01-01] MEDS: Furosemide 40 MG/4 ML VIAL IVP (08:01)
[2025-01-01] MEDS: Budesonide/Formoterol 160/4.5 6 GM 60 PUFF INH IH ×2 (08:32→19:42)
[2025-01-01] MEDS: Umeclidinium 7 CAP INHALER 1 CAP IH (08:32)
[2025-01-01] MEDS: Albuterol/Ipratropium 3 ML UPD VIAL IH (11:17)
[2025-01-01] MEDS: Famotidine 20 MG TAB PO (12:11)
--- NOTE | 2025-01-01 12:18 | W.PM.PROGNOT ---
Date of Service Date of service: 01/01/25 Time of Service: 12:18 Assessment and Plan Assessment and plan (1) Interstitial pneumonia with autoimmune features: Status: Acute Assessment and plan: This appears to be primarily an exacerbation of her ILD, possibly related to viral illness. Given IV solumedrol, continue steroids and bronchodilators. No focal pneumonia, continue azithromycin that is chronic 01/01/25 VSS with O2 requirement back to baseline (2) Acute on chronic hypoxic respiratory failure: Status: Acute Assessment and plan: Oxygen need was progressing per November pulmonology note from 2L to 4L prior to this exacerbation. Current O2 need with mask slightly above her baseline. No CO2 retention on VBG. However, she continues to be quite tachypeneic. Will give prn morphine for comfort. Monitor closely in ICU for now. Given overall picture and d-dimer, CTA not done, reconsider CT if not imrpoving. 01/01/25 Pt continues to improve, cw medical management (3) CHF (congestive heart failure): Status: Ruled-out Assessment and plan: BNaP up from baseline, imaging suggested some degree of fluid overload, but current overall exam not impressive for fluid overload. Continue furosemide daily She also has pulmonary HTN and valvular disease. Get echo results from recent [facility] hospitalization. We don't need another echo if we can get this. 01/01/25 Echo shows ef at 55%/BONNIE/TR/PVR/RV dilation. RV systolic pressure at 62 indicating severe pulmonary htn (4) ANNALISE (acute kidney injury): Status: Resolved Assessment and plan: MIld with Cr up 1.3 from 0.9. There may be element of venous congestion, she is diuesing. Follow. 01/01/25 Recheck CMP in am (5) Tobacco dependence: Assessment and plan: States no longer smoking, encourage cessation. (6) Elevated troponin: Status: Resolved Assessment and plan: Mild elevation, not dynamic on first two, 3rd is due. EKG reassuring, no chest pain. Likely stress a/w hypoxia, follow, monitor telemetry. (7) Obesity (BMI 30.0-34.9): Assessment and plan: She has had significant weight loss over the past several years, encouraged (8) DVT prophylaxis: Status: Acute Assessment and plan: enoxaparin (9) Migraine: Status: Chronic Assessment and plan: added imitrex, monitor for improvement (10) Flank pain: Status: Acute Assessment and plan: concern for renal calculi, will check UA for hematuria. Does Subjective Subjective Interval history since last seen: Pt seen and examined in her room this am. Complains of abdominal pain and some right flank pain. Pain does not radiate. Pt does not have history of renal calculi Exam Narrative Exam Narrative: GEN: Alert and oriented x 4, pleasant and cooperative, gives linear history. Tachypeneic at rest, but able to speak in full sentences. HEENT: Head atraumatic. Conjunctiva clear, no icterus. PEERL, EOMI. no rhinorrhea or sinus tenderness. MMM, geographic tongue, OP benign. Neck is supple with no masses or lymphadenopathy, trachea midline LUNGS: Dry sounding crackles in bilateral bases, slight expiratory wheezes. Tachypeneic as above, but not tripoding or using accessory muscles. CV: RRR with no murmurs, gallops, or rubs. No elevation JVP. ABD: active bowel sounds, soft, nontender and nondistended. No masses. EXT: no cyanosis, clubbing, or pitting edema. Legs not tender. MSK: No joint redness or swelling NEURO: CN 2-12 grossly intact. Normal movement of 4 extremities. Normal speech and coordination. No tremor SKIN: No rashes or open wounds. PSYCH: Somewhat anxious mood and affect, normal thought process, no SI. Objective Last Vital Signs Temp 36.8 C 01/01/25 07:35 Pulse 98 H 01/01/25 11:25 Resp 24 01/01/25 11:25 BP 100/64 01/01/25 10:01 Pulse Ox 98 01/01/25 11:25 Laboratory Results - last 24 hr 12/31/24 14:16 Urine Color Yellow Urine Clarity Clear Urine pH 5.5 Ur Specific [place] 1.015 Urine Protein Negative Urine Ketones Negative Urine Blood Negative Urine Nitrite Negative Urine Bilirubin Negative Urine Urobilinogen 2.0 H Ur Leukocyte Esterase Negative Urine Glucose Negative Time Spent with Patient Time Spent with Patient: 25-34 minutes Time was spent: preparing to see the patient(eg.review tests), obtaining and/or reviewing separately otained hiistory, ordering medications,tests, procedures, referring, communicating with other health long term care phlebotomist, indepentently interpreting results, counseling the patient and care coordination
[2025-01-01 12:22] LABS: Bilirubin Negative (Negative); Blood Negative (Negative); Clarity Clear (Clear); Glucose Negative (Negative); Ketones Negative (Negative); Leukocyte Esterase Negative (Negative); Nitrite Negative (Negative); Urobilinogen 0.2 mg/dL (Up to 0.2); pH 5.5 (5-8)
[2025-01-01] MEDS: Enoxaparin 40 MG/0.4 ML SYR SC (13:15)
--- NOTE | 2025-01-01 14:30 | DI.RAD_ITS ---
Exam(s) XR ABDOMEN FLAT UPRIGHT EXAM: 2D digital imaging was performed. CLINICAL HISTORY: pain. COMPARISON: CR XR PORTABLE CHEST AP from 12/30/2024 TECHNIQUE: Supine and upright views of the abdomen was performed. Three images were obtained. FINDINGS: LUNG BASES: There again seen diffuse interstitial fibrotic changes in the lung bases. BOWEL GAS PATTERN: Nondistended. There is stool seen throughout the colon suggesting constipation. FREE AIR: None. CALCIFICATIONS: No radiopaque calcifications. OSSEOUS STRUCTURES: Normal for age. OTHER FINDINGS: There are surgical clips in the right upper quadrant of the abdomen which may reflect prior cholecystectomy. There is an IUD in the pelvis. IMPRESSION: Constipation. DATA REPOSITORY: RADIATION DOSE DELIVERED:
[2025-01-01] MEDS: Polyethylene Glycol 3350 17 GM PACKET PO (21:07)
[2025-01-01] MEDS: traZODone 50 MG TAB 100 MG PO (21:09)
[2025-01-01] MEDS: Bisacodyl 5 MG TABEC PO (21:10)
[2025-01-01] MEDS: Docusate Sodium 100 MG CAP PO (21:10)
[2025-01-02] VITALS (13 sets, daily range): BP systolic 95–114; BP diastolic 58–76; PULSE 80–115; RESP 17–28; TEMP 36–36.6; O2SAT 92–100
[2025-01-02] MEDS: MORPHine 2 MG/ML SYR IVP ×5 (00:56→18:54)
[2025-01-02] MEDS: Normal Saline Flush 10 ML SYR IVP ×3 (00:57→19:58)
--- NOTE | 2025-01-02 05:15 | RT.EKG_ITS ---
APPROVED REPORT Exam: Resting ECG Reason for Exam: Chest Pain Patient Location: I HR:87 bpm ECG Measurements Heart Rate 87 AXIS VT 149 P 25 QRSd 93 QRS -2 QT 337 T -25 QTc 406 Conclusion Sinus rhythm...normal P axis, V-rate 50- 99 Abnormal R-wave progression, late transition...QRS area<0 in V5/V6 Nonspecific repol abnormality, diffuse leads...ST dep, T flat/neg, ant/lat/inf
[2025-01-02 05:53] LABS: Abs Immature Grans 0.09 10^3/uL (0.0-0.06); Absolute Basophil Count 0.05 10^3/uL (0.0-0.2); Absolute Eosinophil Count 0.03 10^3/uL (0.0-0.7); Absolute Lymphocyte Count 1.96 10^3/uL (1.2-3.4); Absolute Monocyte Count 0.59 10^3/uL (0.1-0.8); Absolute Neutrophil Count 4.89 10^3/uL (1.2-6.7); Basophils % 0.7 %; Eosinophils % 0.4 %; HCT 33.9 % (36.0-46.0); HGB 10.2 g/dL (11.2-15.7); Immature Grans % 1.2 %; Lymphocytes % 25.8 %; MCH 26.1 pg (27.0-33.0); MCHC 30.1 % (32.0-36.0); MCV 87 fL (80-95); MPV 9.8 fL (8.0-11.0); Monocytes % 7.8 %; Neutrophils % 64.1 %; Nucleated RBC 1.3 % (0.0-0.3); Platelet Count 315 10^3/uL (130-400); RBC 3.91 10^6/uL (3.93-5.22); RDW 13.6 % (11.7-14.6); RDW-SD 41.6 fL; WBC 7.61 10^3/uL (4.4-10.8)
[2025-01-02] MEDS: Ondansetron O.D.T. 4 MG TABEF PO ×3 (06:02→21:35)
[2025-01-02 06:26] LABS: ALT 234 U/L (14-59); AST 209 U/L (15-37); Albumin 2.6 g/dL (3.4-5.0); Alkaline Phosphatase 83 U/L (46-116); BUN 41 mg/dL (7-18); Bilirubin, Total 0.3 mg/dL (0.2-1.0); CREATININE 1.5 mg/dL (0.55-1.02); Calcium 8.7 mg/dL (8.5-10.1); Chloride 101 mmol/L (98-107); Estimated GFR 40.65 (mL/min/1.73m2); Glucose 93 mg/dL (74-106); Potassium 4.3 mmol/L (3.5-5.1); Sodium 137 mmol/L (136-145); Total Protein 7.3 g/dL (6.4-8.2); Troponin I 18 ng/L (<or=51)
[2025-01-02] MEDS: Polyethylene Glycol 3350 17 GM PACKET PO ×2 (08:09→19:57)
[2025-01-02] MEDS: Omeprazole 20 MG CAPCR 40 MG PO (08:11)
[2025-01-02] MEDS: Azithromycin 250 MG TAB PO (08:12)
[2025-01-02] MEDS: DULoxetine 20 MG CAP 60 MG PO ×2 (08:12→19:58)
[2025-01-02] MEDS: Aspirin E.C. 81 MG TABEC PO (08:12)
[2025-01-02] MEDS: Potassium Chloride 20 MEQ TABCR PO (08:13)
[2025-01-02] MEDS: Midodrine 2.5 MG TAB PO ×3 (08:13→17:31)
[2025-01-02] MEDS: Docusate Sodium 100 MG CAP PO ×2 (08:13→19:58)
[2025-01-02] MEDS: ARIPiprazole 15 MG TAB PO (08:13)
[2025-01-02] MEDS: Cholecalciferol (Vitamin D3) 1,000 UNIT TAB 1000 UNITS PO (08:13)
[2025-01-02] MEDS: Topiramate 100 MG TAB PO (08:13)
[2025-01-02] MEDS: predniSONE 20 MG TAB 40 MG PO (08:14)
[2025-01-02] MEDS: Furosemide 40 MG/4 ML VIAL IVP (08:15)
[2025-01-02] MEDS: Budesonide/Formoterol 160/4.5 6 GM 60 PUFF INH IH ×2 (08:20→19:54)
[2025-01-02] MEDS: Umeclidinium 7 CAP INHALER 1 CAP IH (08:21)
--- NOTE | 2025-01-02 09:45 | W.PC.ACHO ---
Registration Status: Primary Language: Preferred Language: ED Information & Data Chief Complaint RespSymp 12/30/24 12:18 Chief Complaint RespSymp 12/30/24 11:49 Triage Note Patient complaining of SOB. 12/30/24 10:56 O2 70's on 4lpm. EMS placed patient on [employer] via [facility] Medical / Surgical History (Last Updated 12/30/24 @ 17:01 by Max Hart) Obesity (BMI 30.0-34.9) Cor pulmonale Cervical radiculopathy Epigastric pain Renal insufficiency Hypotension Diarrhea Current smoker Hypotension Dehydration Closed head injury Syncope and collapse Hypokalemia Acute respiratory failure with hypoxia Interstitial lung disease Intermittent asthma Tobacco dependence Cervical cancer (Last Reviewed 12/30/24 @ 16:47 by Max Hart) S/P tonsillectomy S/P section History of gastric bypass Most Recent Vital Signs Temperature 36.4 C L 01/02/25 05:19 Temperature Source Temporal Artery Scan 01/01/25 23:20 Pulse 86 01/02/25 06:00 Pulse 86 01/02/25 06:00 Respiratory Rate 17 01/02/25 06:00 Respiratory Effort Short of Breath 01/02/25 05:19 Respiratory Depth Normal 12/30/24 14:58 Respiratory Pattern Tachypnea 12/30/24 14:45 Blood Pressure 97/75 L 01/02/25 05:40 Blood Pressure Mean 83 01/02/25 05:40 Pulse Oximetry 96 01/02/25 08:23 Oxygen Delivery Method Nasal Cannula 01/02/25 08:23 Oxygen Flow Rate 4 01/02/25 08:23 Pain Level 5 01/02/25 05:38 Comment obtained manual r/t repeated low readings on cachorro monitor 01/01/25 17:52 Allergies mycophenolate mofetil (From CellCept) Adverse Reaction (Intermediate, Verified 12/01/24 13:58) Diarrhea with hypokalemia environmental Adverse Reaction (Mild, Uncoded 12/01/24 13:58) Other (See Comment) Precautions Isolation Standard precaution 12/30/24 12:18 Active Medications Generic Name Dose Route Start Last Admin Trade Name Freq PRN Reason Stop Dose Admin Albuterol/Ipratropium 3 ml 12/30/24 15:02 01/01/25 11:17 Albuterol/Ipratropium 3 Ml Upd Vial IH 3 ml QID PRN PRN Administration wheezing Aripiprazole 15 mg 12/31/24 08:30 01/02/25 08:13 Aripiprazole 15 Mg Tab PO 15 mg DAILY ANASTASIA Administration Aspirin 81 mg 12/31/24 08:30 01/02/25 08:12 Aspirin E.C. 81 Mg Tabec PO 81 mg DAILY ANASTASIA Administration Azithromycin 250 mg 12/31/24 08:30 01/02/25 08:12 Azithromycin 250 Mg Tab PO 250 mg DAILY ANASTASIA Administration Bisacodyl 5 mg 01/01/25 20:33 01/01/25 21:10 Bisacodyl 5 Mg Tabec PO 5 mg DAILY PRN PRN Administration Budesonide/Formoterol Fumarate 2 puff 12/30/24 20:00 01/02/25 08:20 Budesonide/Formoterol 160/4.5 6 Gm 60 Puff Inh IH 2 puffs BID ANASTASIA Administration Cholecalciferol 1,000 units 12/31/24 08:30 01/02/25 08:13 Cholecalciferol (Vitamin D3) 1,000 Unit Tab PO 1,000 units DAILY ANASTASIA Administration Docusate Sodium 100 mg 01/02/25 08:30 01/02/25 08:13 Docusate Sodium 100 Mg Cap PO 100 mg BID ANASTASIA Administration Duloxetine HCl 60 mg 12/30/24 20:00 01/02/25 08:12 Duloxetine 20 Mg Cap PO 60 mg BID ANASTASIA Administration Enoxaparin Sodium 40 mg 12/30/24 14:00 01/01/25 13:15 Enoxaparin 40 Mg/0.4 Ml Syr SC 40 mg Q24H ANASTASIA Administration Famotidine 20 mg 12/31/24 12:00 01/01/25 12:11 Famotidine 20 Mg Tab PO 20 mg DAILY@1200 ANASTASIA Administration Furosemide 40 mg 12/31/24 08:30 01/02/25 08:15 Furosemide 40 Mg/4 Ml Vial IVP 40 mg DAILY ANASTASIA Administration Midodrine 2.5 mg 12/30/24 18:00 01/02/25 08:13 Midodrine 2.5 Mg Tab PO 2.5 mg TID@0800,1200,1800 ANASTASIA Administration Morphine Sulfate 2 mg 12/30/24 16:10 01/02/25 09:00 Morphine 2 Mg/Ml Syr IVP 2 mg Q3H PRN PRN Administration Omeprazole 40 mg 12/31/24 07:30 01/02/25 08:11 Omeprazole 20 Mg Capcr PO 40 mg DAILY@0730 ANASTASIA Administration Ondansetron HCl 4 mg 12/30/24 14:00 01/02/25 06:02 Ondansetron O.D.T. 4 Mg Tabef PO 4 mg Q8H ANASTASIA Administration Pt's Own Nintedanib 1 each 12/30/24 20:00 12/31/24 10:23 [Ofev] 100 Mg PO Not Given Capsule Q12H ANASTASIA Polyethylene Glycol 17 gm 01/02/25 08:30 01/02/25 08:09 Polyethylene Glycol 3350 17 Gm Packet PO 17 gm BID ANASTASIA Administration Potassium Chloride 20 meq 12/31/24 08:30 01/02/25 08:13 Potassium Chloride 20 Meq Tabcr PO 20 meq DAILY ANASTASIA Administration Prednisone 40 mg 12/31/24 08:30 01/02/25 08:14 Prednisone 20 Mg Tab PO 40 mg DAILY ANASTASIA Administration Sodium Chloride 0 ml 12/30/24 11:10 01/02/25 00:57 Normal Saline Flush 10 Ml Syr IVP 10 ml PRN PRN Administration Sodium Chloride 0 ml 12/30/24 20:00 01/02/25 08:16 Normal Saline Flush 10 Ml Syr IVP 20 ml BID ANASTASIA Administration Topiramate 100 mg 12/30/24 20:00 01/02/25 08:13 Topiramate 100 Mg Tab PO 100 mg BID ANASTASIA Administration Trazodone HCl 100 mg 12/30/24 20:00 01/01/25 21:09 Trazodone 50 Mg Tab PO 100 mg HS ANASTASIA Administration Umeclidinium [place] 1 cap 12/31/24 08:30 01/02/25 08:21 Umeclidinium 7 Cap Inhaler IH 1 inh DAILY ANASTASIA Administration IV IV Catheter Type [Right Wrist] Saline Lock IV Catheter Type [Right Peripheral IV Antecubital] IV Catheter Gauge [Right Wrist 20 ] IV Catheter Gauge [Right 18 Antecubital] Diagnostics 01/02/25 01/01/25 Range/Units 05:35 10:30 WBC 7.61 (4.4-10.8) 10^3/uL RBC 3.91 L (3.93-5.22) 10^6/uL Hgb 10.2 L (11.2-15.7) g/dL Hct 33.9 L (36.0-46.0) % MCV 87 (80-95) fL MCH 26.1 L (27.0-33.0) pg MCHC 30.1 L (32.0-36.0) % RDW 13.6 (11.7-14.6) % Plt Count 315 (130-400) 10^3/uL MPV 9.8 (8.0-11.0) fL Immature Gran % 1.2 % Neutrophils % 64.1 % Lymphocytes % 25.8 % Monocytes % 7.8 % Eosinophils % 0.4 % Basophils % 0.7 % Nucleated RBC % 1.3 H (0.0-0.3) % Absolute Neutrophils 4.89 (1.2-6.7) 10^3/uL Absolute Lymphocytes 1.96 (1.2-3.4) 10^3/uL Absolute Monocytes 0.59 (0.1-0.8) 10^3/uL Absolute Eosinophils 0.03 (0.0-0.7) 10^3/uL Absolute Basophils 0.05 (0.0-0.2) 10^3/uL Sodium 137 (136-145) mmol/L Potassium 4.3 (3.5-5.1) mmol/L Chloride 101 (98-107) mmol/L Carbon Dioxide 32.0 (21.0-32.0) mmol/L Anion Gap 4.0 (3-11) mmol/L BUN 41 H (7-18) mg/dL Creatinine 1.5 H (0.55-1.02) mg/dL Est GFR (CKD-EPI 2020) 40.65 (mL/min/1.73m2) Glucose 93 (74-106) mg/dL Calcium 8.7 (8.5-10.1) mg/dL Total Bilirubin 0.3 (0.2-1.0) mg/dL AST 209 H (15-37) U/L ALT 234 H (14-59) U/L Alkaline Phosphatase 83 (46-116) U/L Troponin I 18 (<or=51) ng/L Total Protein 7.3 (6.4-8.2) g/dL Albumin 2.6 L (3.4-5.0) g/dL Urine Color Yellow (Yellow) Urine Clarity Clear (Clear) Urine pH 5.5 (5-8) Ur Specific [place] 1.010 (1.005-1.025) Urine Protein Negative (Neg-Trace) mg/dL Urine Ketones Negative (Negative) mg/dL Urine Blood Negative (Negative) Urine Nitrite Negative (Negative) Urine Bilirubin Negative (Negative) Urine Urobilinogen 0.2 (Up to 0.2) mg/dL Ur Leukocyte Esterase Negative (Negative) Urine Glucose Negative (Negative) mg/dL Intake and Output - 24 Hour Total 12/30/24 10:25 thru 01/02/25 02:05 Intake Total 5160 Output Total 4400 Balance 760 Weight 77.2 kg Intake: IV 1010 Oral 4150 Output: Urine 4400 Other: Urine Color Yellow Urine Appearance Clear Urine Odor Normal Falls Risk Assessment History of Falls Previous History 12/30/24 14:45 Contributing Factors No Factors 12/30/24 14:45 Ambulatory Aids Independent 12/30/24 14:45 Tubes/Lines W/no contributing factors 12/30/24 14:45 Gait Evaluation No gait disturbance 12/30/24 14:45 Fall Total Score 12/30/24 14:45 Level of Risk Moderate Risk 12/30/24 14:45 Problems (Last Updated 12/30/24 @ 17:01 by Max Hart) Flank pain (Acute) Migraine (Chronic) DVT prophylaxis (Acute) Acute on chronic hypoxic respiratory failure (Acute) Interstitial pneumonia with autoimmune features (Acute) v v v v v v v v v Sending and/or Receiving Nurses: Please use comment section below to note any information pertinent to the patient hand-off not included above. Information / Comments: Report received from: maria luz
[2025-01-02] MEDS: Famotidine 20 MG TAB PO (11:11)
--- NOTE | 2025-01-02 12:55 | PGE_ITS ---
Date of Service Date of service: 01/02/25 Time of Service: 12:55 Assessment and Plan Assessment and plan (1) Transaminitis: Status: Acute Assessment and plan: Exact etiology is unknown. Meds do not seem to be the culprit. Will check acute hep panel (2) Melena: Status: Acute Assessment and plan: not a formal diagnosis but an elevated bun/cr ratio as well as an elevated retic count with anemia. If pt does have melenic stools, will consult GS for recommendations on treatment plan. Currently on PPI (3) Moderate aortic regurgitation: Status: Acute Assessment and plan: stable, echo 12/31/24 Conclusion Normal left ventricular wall thickness and chamber size. Ejection fraction is 55 to 60%. Diastolic septal flattening suggests right ventricular pressure overload The right ventricle is dilated and hypocontractile. Right atrium is severely enlarged Normal left atrial size Aortic valve is trileaflet with moderate regurgitation Normal tricuspid valve with severe regurgitation. Estimated right ventricular systolic pressure is 62 mmHg Normal pulmonic valve with severe regurgitation Ascending aorta measures 3.64 cm (4) Pulmonary hypertension: Status: Chronic Assessment and plan: Recommend continuing evaluation and treatment by pulm/cc (5) Migraine: Status: Chronic Assessment and plan: resolved (6) Interstitial pneumonia with autoimmune features: Status: Acute Assessment and plan: cw abx (zithromax) and prednisone (7) Tobacco dependence: Assessment and plan: Recommend complete cessation Subjective Subjective Interval history since last seen: Pt states that she feels better from a respiratory perspective. Pt denies ever having a colonoscopy or endoscopy. Pt states that she has not had a BM in three days Exam Narrative Exam Narrative: NCAT MMM EOMI PERRLA NO LAD NO JVD RRR NO MRG CTAB NO AMU SOFT MILD DISTENTION BSAX4 NO CCE BILAT AAOX3 Objective Last Vital Signs Temp 36 C L 01/02/25 10:06 Pulse 115 H 01/02/25 10:06 Resp 28 H 01/02/25 10:06 BP 100/58 L 01/02/25 10:06 Pulse Ox 93 01/02/25 10:06 Laboratory Results - last 24 hr 01/02/25 05:35 WBC 7.61 RBC 3.91 L Hgb 10.2 L Hct 33.9 L MCV 87 MCH 26.1 L MCHC 30.1 L RDW 13.6 Plt Count 315 MPV 9.8 Immature Gran % 1.2 Neutrophils % 64.1 Lymphocytes % 25.8 Monocytes % 7.8 Eosinophils % 0.4 Basophils % 0.7 Nucleated RBC % 1.3 H Absolute Neutrophils 4.89 Absolute Lymphocytes 1.96 Absolute Monocytes 0.59 Absolute Eosinophils 0.03 Absolute Basophils 0.05 Sodium 137 Potassium 4.3 Chloride 101 Carbon Dioxide 32.0 Anion Gap 4.0 BUN 41 H Creatinine 1.5 H Est GFR (CKD-EPI 2020) 40.65 Glucose 93 Calcium 8.7 Total Bilirubin 0.3 AST 209 H ALT 234 H Alkaline Phosphatase 83 Troponin I 18 Total Protein 7.3 Albumin 2.6 L Time Spent with Patient Time Spent with Patient: 25-34 minutes Time was spent: preparing to see the patient(eg.review tests), obtaining and/or reviewing separately otained hiistory, ordering medications,tests, procedures, referring, communicating with other health clinical care leader, indepentently interpreting results, counseling the patient and care coordination
[2025-01-02] MEDS: Enoxaparin 40 MG/0.4 ML SYR SC (13:46)
[2025-01-02] MEDS: Magnesium Citrate 300 ML BTL 150 ML PO (18:25)
[2025-01-02] MEDS: traZODone 50 MG TAB 100 MG PO (19:58)
[2025-01-02] MEDS: Topiramate 50 MG TAB 100 MG PO (19:58)
[2025-01-03] VITALS (9 sets, daily range): BP systolic 98–117; BP diastolic 60–79; PULSE 74–116; RESP 18–32; TEMP 36–36.1; O2SAT 93–100
[2025-01-03] MEDS: Ondansetron O.D.T. 4 MG TABEF PO ×3 (05:31→21:50)
[2025-01-03] MEDS: MORPHine 2 MG/ML SYR IVP ×3 (05:47→12:36)
[2025-01-03] MEDS: Normal Saline Flush 10 ML SYR IVP ×3 (05:47→20:17)
[2025-01-03 07:02] LABS: Abs Immature Grans 0.09 10^3/uL (0.0-0.06); Absolute Basophil Count 0.07 10^3/uL (0.0-0.2); Absolute Eosinophil Count 0.13 10^3/uL (0.0-0.7); Absolute Lymphocyte Count 2.59 10^3/uL (1.2-3.4); Absolute Monocyte Count 0.79 10^3/uL (0.1-0.8); Absolute Neutrophil Count 6.74 10^3/uL (1.2-6.7); Basophils % 0.7 %; Eosinophils % 1.2 %; HCT 34.2 % (36.0-46.0); HGB 10.4 g/dL (11.2-15.7); Immature Grans % 0.9 %; Lymphocytes % 24.9 %; MCH 26.5 pg (27.0-33.0); MCHC 30.4 % (32.0-36.0); MCV 87 fL (80-95); MPV 9.5 fL (8.0-11.0); Monocytes % 7.6 %; Neutrophils % 64.7 %; Platelet Count 350 10^3/uL (130-400); RBC 3.93 10^6/uL (3.93-5.22); RDW 13.7 % (11.7-14.6); RDW-SD 41.6 fL; WBC 10.41 10^3/uL (4.4-10.8)
[2025-01-03 07:21] LABS: ALT 255 U/L (14-59); AST 151 U/L (15-37); Albumin 2.8 g/dL (3.4-5.0); Alkaline Phosphatase 85 U/L (46-116); BUN 37 mg/dL (7-18); Bilirubin, Total 0.5 mg/dL (0.2-1.0); CREATININE 1.5 mg/dL (0.55-1.02); Calcium 8.8 mg/dL (8.5-10.1); Chloride 98 mmol/L (98-107); Estimated GFR 40.65 (mL/min/1.73m2); Glucose 93 mg/dL (74-106); Potassium 4.7 mmol/L (3.5-5.1); Sodium 136 mmol/L (136-145); Total Protein 7.6 g/dL (6.4-8.2)
[2025-01-03] MEDS: Topiramate 50 MG TAB 100 MG PO ×2 (08:20→20:17)
[2025-01-03] MEDS: Aspirin E.C. 81 MG TABEC PO (08:20)
[2025-01-03] MEDS: Furosemide 40 MG/4 ML VIAL IVP (08:20)
[2025-01-03] MEDS: Omeprazole 20 MG CAPCR 40 MG PO (08:20)
[2025-01-03] MEDS: Polyethylene Glycol 3350 17 GM PACKET PO ×2 (08:20→20:16)
[2025-01-03] MEDS: ARIPiprazole 5 MG TAB 15 MG PO (08:20)
[2025-01-03] MEDS: DULoxetine 20 MG CAP 60 MG PO ×2 (08:20→20:17)
[2025-01-03] MEDS: Cholecalciferol (Vitamin D3) 1,000 UNIT TAB 1000 UNITS PO (08:21)
[2025-01-03] MEDS: predniSONE 20 MG TAB 40 MG PO (08:21)
[2025-01-03] MEDS: Midodrine 2.5 MG TAB PO ×3 (08:21→16:45)
[2025-01-03] MEDS: Potassium Chloride 20 MEQ TABCR PO (08:21)
[2025-01-03] MEDS: Azithromycin 250 MG TAB PO (08:21)
[2025-01-03] MEDS: Docusate Sodium 100 MG CAP PO ×2 (08:21→20:17)
[2025-01-03] MEDS: Budesonide/Formoterol 160/4.5 6 GM 60 PUFF INH IH ×2 (08:28→20:02)
[2025-01-03] MEDS: Umeclidinium 7 CAP INHALER 1 CAP IH (08:29)
[2025-01-03] MEDS: Famotidine 20 MG TAB PO (11:12)
[2025-01-03] MEDS: Enoxaparin 40 MG/0.4 ML SYR SC (13:42)
--- NOTE | 2025-01-03 15:08 | CMPROGNOTE_ITS ---
Date of service: 01/03/25 Time of Service: 15:09 Care Management Progress Note Progress Note Text Progress Note Text: Marian was sitting up in the bed when CM met with her today. She was noted to be breathing very fast. She was unable to eat most of her lunch. She stated to CM that she doesn't think that she can live like this much longer. Every breath is an effort. She was scared. Marian needed some personal support and was holding 's hand. Marian doesn't think that she can care for herself at home like this, but she doesn't want to go to rehab, because she is afraid that she will lose her housing. has requested both PT and Palliative consults from her provider. Discharge Potential Discharge Needs: PCP F/U Appt and Other (Pulmonology visit scheduled for 01/18/25) Anticipated Barriers to Discharge: Medical Status Patient/Family Education Needs: Review discharge instructions, discuss Ask Me Three Transportation: [facility] Plan: Anticipate that Betzaida will discharge with new services through [facility] , PT/OT and JOB LITHOGRAPHER.. 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 Marian will require [facility] transportation. She did come in with her own O2. [facility] will continue to follow. Social Determinants of Health Screening Social Determinants of health last assessed in clinic: 01/03/25 Will the Patient Participate in the Screening?: Yes Do you worry about having a steady place to live?: no Problems where you live: no known problems In the past 12 months, have you had to go without electric, gas, oil or water in your home?: yes 1. Within the past 12 months, we worried whether our food would run out before we got money to buy more.: Don't know/refused 2. Within the past 12 months, the food we bought just didn't last and we didn't have money to get more.: Don't know/refused Has lack of transportation kept you from medical appointments or from doing things needed for daily living?: yes Has anyone in your life made you feel unsafe or unsupported?: yes How often does anyone, including family and friends, physically hurt you?: Never How often does anyone, including family and friends, insult or talk down to you?: Never How often does anyone, including family and friends, threaten you with harm?: Never How often does anyone, including family and friends, scream or curse at you?: Never HRSN Safety total score: 4 How hard is it for you to pay for the very basics like food, housing, medical care, and heating? Would you say it is:: Not hard at all Do you want help finding or keeping work or a job?: I do not need or want help If for any reason you need help with day-to-day activities such as bathing, preparing meals, shopping, managing finances, etc., do you get the help you need?: I could use a little more help How often do you feel lonely or isolated from those around you?: Sometimes Do you speak a language other than Persian at home?: Yes Does the patient want assistance with any of the above?: Yes Health Related Social Needs Health related social needs: transportation insecurity (Z59.82), material hardship(utilities) (Z59.12), problems with daily activities (Z73.9), feeling lonely/isolated (Z60.8) and education (Z55.6) Health related social needs details: patient currently homeless, living at [facility] in [place], feels safe at current location, would like help with needs.
--- NOTE | 2025-01-03 16:19 | PGE_ITS ---
Date of Service Date of service: 01/03/25 Time of Service: 16:19 Assessment and Plan Assessment and plan (1) Transaminitis: Status: Acute Assessment and plan: Exact etiology is unknown. Meds do not seem to be the culprit. Will check acute hep panel 01/03/25 improved w/o interventions. Acute hep panel pending. Recheck in am. (2) Melena: Status: Acute Assessment and plan: not a formal diagnosis but an elevated bun/cr ratio as well as an elevated retic count with anemia. If pt does have melenic stools, will consult GS for recommendations on treatment plan. Currently on PPI 01/03/25 Did d/w GS. Does not appear acute and can follow up in the outpatient setting Hg is stable (3) Moderate aortic regurgitation: Status: Acute Assessment and plan: stable, echo 12/31/24 Conclusion Normal left ventricular wall thickness and chamber size. Ejection fraction is 55 to 60%. Diastolic septal flattening suggests right ventricular pressure overload The right ventricle is dilated and hypocontractile. Right atrium is severely enlarged Normal left atrial size Aortic valve is trileaflet with moderate regurgitation Normal tricuspid valve with severe regurgitation. Estimated right ventricular systolic pressure is 62 mmHg Normal pulmonic valve with severe regurgitation Ascending aorta measures 3.64 cm (4) Pulmonary hypertension: Status: Chronic Assessment and plan: Recommend continuing evaluation and treatment by pulm/cc (5) Migraine: Status: Chronic Assessment and plan: resolved (6) Interstitial pneumonia with autoimmune features: Status: Acute Assessment and plan: cw abx (zithromax) and prednisone (7) Tobacco dependence: Assessment and plan: Recommend complete cessation Subjective Subjective Interval history since last seen: Pt is significantly more sob this am and is anxious to go home by herself. Doesn't feel ready Exam Narrative Exam Narrative: NCAT MMM EOMI PERRLA NO LAD NO JVD RRR NO MRG CTAB NO AMU SOFT MILD DISTENTION BSAX4 NO CCE BILAT AAOX3 face mask in place with updraft Objective Last Vital Signs Temp 36.1 C L 01/03/25 07:46 Pulse 116 H 01/03/25 13:42 Resp 32 H 01/03/25 13:42 BP 98/60 L 01/03/25 07:46 Pulse Ox 93 01/03/25 13:24 Laboratory Results - last 24 hr 01/03/25 06:50 WBC 10.41 RBC 3.93 Hgb 10.4 L Hct 34.2 L MCV 87 MCH 26.5 L MCHC 30.4 L RDW 13.7 Plt Count 350 MPV 9.5 Immature Gran % 0.9 Neutrophils % 64.7 Lymphocytes % 24.9 Monocytes % 7.6 Eosinophils % 1.2 Basophils % 0.7 Nucleated RBC % 2.0 H Absolute Neutrophils 6.74 H Absolute Lymphocytes 2.59 Absolute Monocytes 0.79 Absolute Eosinophils 0.13 Absolute Basophils 0.07 Sodium 136 Potassium 4.7 Chloride 98 Carbon Dioxide 34.0 H Anion Gap 4.0 BUN 37 H Creatinine 1.5 H Est GFR (CKD-EPI 2020) 40.65 Glucose 93 Calcium 8.8 Total Bilirubin 0.5 AST 151 H ALT 255 H Alkaline Phosphatase 85 Total Protein 7.6 Albumin 2.8 L Time Spent with Patient Time Spent with Patient: <25 minutes Time was spent: preparing to see the patient(eg.review tests), obtaining and/or reviewing separately otained hiistory, ordering medications,tests, procedures, referring, communicating with other health administrator health care facility, indepentently interpreting results, counseling the patient and care coordination
[2025-01-03] MEDS: Methylnaltrexone 12 MG/0.6 ML VIAL 6 MG SC (16:44)
[2025-01-03] MEDS: traZODone 50 MG TAB 100 MG PO (20:17)
--- NOTE | 2025-01-04 | DI.CT_ITS ---
Exam(s) CT ABDOMEN PELVIS W EXAM: CT ABDOMEN PELVIS W CLINICAL HISTORY: transaminitis and pain. TECHNIQUE: Imaging Protocol: Axial computed tomography images with coronal and sagittal reformatted images were created and reviewed CONTRAST MATERIAL: Intravenous: Omnipaque 350 Contrast volume:75 ml Oral: no COMPARISON: CT CT CHEST PE CTA from 01/31/[address] CHEST WO from 10/07/2022 CR XR PORTABLE CHEST AP from 12/30/2024 CR XR ABDOMEN FLAT UPRIGHT from 01/01/2025 FINDINGS: ABDOMEN and PELVIS: Lung Bases: The heart is enlarged. There is a moderate-sized hiatal hernia which contains fluid. Foy rgical clips are noted at the stomach. There is severe underlying fibrotic changes with honeycombing . Mild traction bronchiectasis. The findings appear more severe when compared with the previous exa m. No definite focal consolidation. Liver: The liver is enlarged at 21 cm in length. No suspicious mass. The hepatic veins are not yet opacified. Passive venous congestion should be considered. Gallbladder and biliary tract: Cholecystectomy. No biliary dilation. Pancreas: Normal density. No abnormal calcifications or inflammatory process. No evidence of mass. Spleen: Normal. Kidneys: Normal size, contour and axis. No radiodense stones. No obstructive uropathy. No suspicious masses seen. Adrenal glands: No masses seen. Vasculature: Abdominal aorta non-dilated. Soft tissues: Mild diffuse edema in the subcutaneous fat. Small fatty containing umbilical hernia. Dehiscence of the anterior abdominal wall. Bladder: No gross wall thickening. No calculi.No focal mass. Bowel: Moderate size hiatal hernia which contains fluid. Surgical clips and sutures at the stomach. Parent gastric bypass. Similar appearance to prior. No obstruction. No bowel wall thickening. Ap pendix normal. Peritoneal cavity: No ascites. No focal collection. No mesenteric inflammatory response. No free air . Bones: Unremarkable for age. Reproductive organs: Unremarkable. IUD. Lymph nodes: No pathologically enlarged lymph nodes. IMPRESSION:: Enlarged liver. The hepatic veins are not yet opacified. Past hepatic venous congesti on should be considered. The heart is enlarged. There are severe changes of pulmonary fibrosis. Moderate size hiatal hernia and prior gastric bypass surgery. RADIATION DOSE DELIVERED: 603.3mGy.cm Total DLP DATA REPOSITORY: All CT scans at this facility are submitted to the National Radiology Data Registry (NRDR) Dose Index Registry (DIR) with the [employer] ([employer]). RADIATION OPTIMIZATION: All CT scans at this facility use at least one of these dose optimization te chniques: automated exposure control; mA and/or kV adjustment per patient size (includes targeted exa ms where dose is matched to clinical indication); or iterative reconstruction.
[2025-01-04 01:40] VITALS: RESP 20
[2025-01-04] MEDS: Ondansetron O.D.T. 4 MG TABEF PO ×3 (05:49→21:52)
--- NOTE | 2025-01-04 05:57 | NUR.NOTE ---
Nursing Note: after pt got back into bed and PUBLIC HEALTH DOCTOR left the pt's room she asked this nurse do you have any heroin you can get me? this nurse asked the pt I'm sorry, I don't think I heard you. What did you say?, Pt asked Do you have any heroin? This nurse told the pt I did not and if there was anything else I could do for her this morning. Provider notified.
[2025-01-04 07:10] LABS: Abs Immature Grans 0.08 10^3/uL (0.0-0.06); Absolute Basophil Count 0.04 10^3/uL (0.0-0.2); Absolute Eosinophil Count 0.04 10^3/uL (0.0-0.7); Absolute Monocyte Count 0.39 10^3/uL (0.1-0.8); Absolute Neutrophil Count 3.56 10^3/uL (1.2-6.7); Basophils % 0.6 %; Eosinophils % 0.6 %; HCT 34.6 % (36.0-46.0); HGB 10.7 g/dL (11.2-15.7); Immature Grans % 1.3 %; Lymphocytes % 34.9 %; MCH 26.4 pg (27.0-33.0); MCHC 30.9 % (32.0-36.0); MCV 85 fL (80-95); MPV 9.7 fL (8.0-11.0); Monocytes % 6.2 %; Neutrophils % 56.4 %; Nucleated RBC 2.2 % (0.0-0.3); Platelet Count 313 10^3/uL (130-400); RBC 4.05 10^6/uL (3.93-5.22); RDW 14.2 % (11.7-14.6); RDW-SD 41.8 fL; WBC 6.31 10^3/uL (4.4-10.8)
[2025-01-04 07:28] LABS: Albumin 2.7 g/dL (3.4-5.0); Alkaline Phosphatase 117 U/L (46-116); Anion Gap 2.8 mmol/L (3-11); BUN 40 mg/dL (7-18); Bilirubin, Total 0.7 mg/dL (0.2-1.0); CO2 33.2 mmol/L (21.0-32.0); CREATININE 1.4 mg/dL (0.55-1.02); Calcium 8.7 mg/dL (8.5-10.1); Chloride 98 mmol/L (98-107); Estimated GFR 44.16 (mL/min/1.73m2); Glucose 92 mg/dL (74-106); Potassium 4.6 mmol/L (3.5-5.1); Sodium 134 mmol/L (136-145); Total Protein 7.2 g/dL (6.4-8.2)
[2025-01-04 07:33] LABS: AST 1576 U/L (15-37)
[2025-01-04 07:34] VITALS: BP 102/68; PULSE 84; RESP 18; TEMP 36.8; O2SAT 97
[2025-01-04 07:51] LABS: ALT 1223 U/L (14-59)
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
[2025-01-04] MEDS: Potassium Chloride 20 MEQ TABCR PO (08:27)
[2025-01-04] MEDS: Midodrine 2.5 MG TAB PO ×3 (08:28→17:57)
[2025-01-04] MEDS: Cholecalciferol (Vitamin D3) 1,000 UNIT TAB 1000 UNITS PO (08:28)
[2025-01-04] MEDS: Aspirin E.C. 81 MG TABEC PO (08:28)
[2025-01-04] MEDS: DULoxetine 20 MG CAP 60 MG PO ×2 (08:28→19:36)
[2025-01-04] MEDS: Azithromycin 250 MG TAB PO (08:28)
[2025-01-04] MEDS: Topiramate 50 MG TAB 100 MG PO ×2 (08:28→19:37)
[2025-01-04] MEDS: Docusate Sodium 100 MG CAP PO ×2 (08:28→19:37)
[2025-01-04] MEDS: Polyethylene Glycol 3350 17 GM PACKET PO ×2 (08:28→19:37)
[2025-01-04] MEDS: ARIPiprazole 5 MG TAB 15 MG PO (08:29)
[2025-01-04] MEDS: predniSONE 20 MG TAB 40 MG PO (08:29)
[2025-01-04] MEDS: Omeprazole 20 MG CAPCR 40 MG PO (08:29)
--- NOTE | 2025-01-04 09:02 | CMPROGNOTE_ITS ---
Date of service: 01/04/25 Time of Service: 09:03 Care Management Progress Note Progress Note Text Progress Note Text: Marian appears to be breathing a bit better today. Her VS were good overnight. She slept well. Her last Morphine dose was given 12:36 yesterday. She will be transitioned to oral morphine in preparation of her discharge home. Palliative consult was done today. Marian named her son, Delvis, as her HCA. Delvis lives in [place], but he talks with his mom daily. Marian looks and feels a lot better today. She was very pleasant in our interaction. She is on the first floor of the hotel, so steps are not an issue. She declined MOW today, but did accept a referral to [place] [facility] to help with errands. CM sent the referral. She again is declining rehab, due to fear of losing her housing. She feels she will be able to manage in her room. She has made a couple of friends at the hotel that have been helping her with rides. Discharge Potential Discharge Needs: PT Evaluation, PCP F/U Appt and Other (pulmonology scheduled on 01/18) Anticipated Barriers to Discharge: None Identified and Medical Status Patient/Family Education Needs: Review discharge instructions, discuss Ask Me Three Transportation: [facility] Transportation: Private [facility] Plan: Anticipate that Marian will discharge with new services through [facility] of SN, PT/OT and INSURANCE POLICY ISSUE CLERK.. She will f/u with her PCP and her credit relationship manager (appt on 01/18) and continue per her plan of care. Marian will require [facility] transportation. She did come in with her own O2. CM will continue to follow and to update the plan as needed. Social Determinants of Health Screening Social Determinants of health last assessed in clinic: 01/04/25 Will the Patient Participate in the Screening?: Yes Do you worry about having a steady place to live?: no Problems where you live: no known problems In the past 12 months, have you had to go without electric, gas, oil or water in your home?: yes 1. Within the past 12 months, we worried whether our food would run out before we got money to buy more.: Don't know/refused 2. Within the past 12 months, the food we bought just didn't last and we didn't have money to get more.: Don't know/refused Has lack of transportation kept you from medical appointments or from doing things needed for daily living?: yes Has anyone in your life made you feel unsafe or unsupported?: yes How often does anyone, including family and friends, physically hurt you?: Never How often does anyone, including family and friends, insult or talk down to you?: Never How often does anyone, including family and friends, threaten you with harm?: Never How often does anyone, including family and friends, scream or curse at you?: Never HRSN Safety total score: 4 How hard is it for you to pay for the very basics like food, housing, medical care, and heating? Would you say it is:: Not hard at all Do you want help finding or keeping work or a job?: I do not need or want help If for any reason you need help with day-to-day activities such as bathing, preparing meals, shopping, managing finances, etc., do you get the help you need?: I could use a little more help How often do you feel lonely or isolated from those around you?: Sometimes Do you speak a language other than Macedonian at home?: Yes Does the patient want assistance with any of the above?: Yes Health Related Social Needs Health related social needs: transportation insecurity (Z59.82), material hardship(utilities) (Z59.12), problems with daily activities (Z73.9), feeling lonely/isolated (Z60.8) and education (Z55.6) Health related social needs details: patient currently homeless, living at [facility], feels safe at current location, would like help with needs. Anticipated HH Services Anticipated HH Services at Discharge A ([facility]) Services Needed (SN, PT/OT, INSURANCE POLICY ISSUE CLERK).
[2025-01-04] MEDS: Normal Saline Flush 10 ML SYR IVP ×6 (09:15→23:44)
[2025-01-04] MEDS: Budesonide/Formoterol 160/4.5 6 GM 60 PUFF INH IH ×2 (10:08→20:05)
[2025-01-04] MEDS: Umeclidinium 7 CAP INHALER 1 CAP IH (10:08)
[2025-01-04 10:10] VITALS: O2SAT 94
[2025-01-04] MEDS: Furosemide 40 MG/4 ML VIAL IVP (10:14)
[2025-01-04 10:30] LABS: Hepatitis A Antibody IgM Negative (Negative); Hepatitis B Core Antibody Negative (Negative); Hepatitis B surface Ag Negative (Negative); Hepatitis C Ab w Rflx HCV PCR Negative (Negative)
[2025-01-04 10:58] LABS: *AMPHETAMINES SCREEN URINE Negative (Negative); *BARBITURATES SCREEN URINE Negative (Negative); *BENZODIAZEPINES SCREEN URINE Negative (Negative); Cannabinoids THC Positive (Negative); Cocaine Screen,Urine Negative (Negative); METHADONE URINE SCREEN Negative (Negative); OPIATES URINE SCREEN Positive (Negative)
[2025-01-04 11:00] LABS: Tricyclic Antidepressants Negative (Negative)
[2025-01-04 12:07] VITALS: BP 96/66; PULSE 106; RESP 24; O2SAT 91
[2025-01-04] MEDS: Famotidine 20 MG TAB PO (12:09)
[2025-01-04] MEDS: Enoxaparin 40 MG/0.4 ML SYR SC (14:15)
[2025-01-04] MEDS: Normal Saline - Diluent 50 ML VIAL IJ (15:37)
[2025-01-04] MEDS: Omnipaque 350 MG/ML 100 ML BTL 75 ML IJ (15:38)
--- NOTE | 2025-01-04 16:55 | CHAPLAIN ---
Betzaida was sitting up in bed when I visited. She remembered that we'd met last week. She said she's fine and didn't seem interest in further conversation. Betzaida said she's in touch with family, but didn't identifiy who that was. She's currently living in a hotel with a voucher to stay there through the end of January.
[2025-01-04 17:58] VITALS: BP 109/75; PULSE 89; RESP 22; TEMP 36.6; O2SAT 95
[2025-01-04] MEDS: traZODone 50 MG TAB 100 MG PO (19:37)
--- NOTE | 2025-01-04 21:35 | W.PM.PROGNOT ---
Date of Service Date of service: 01/04/25 Time of Service: 21:35 Assessment and Plan Assessment and plan (1) Transaminitis: Status: Acute Assessment and plan: Exact etiology is unknown. Meds do not seem to be the culprit. Will check acute hep panel 01/03/25 improved w/o interventions. Acute hep panel pending. Recheck in am. 01/04/25 LFT's did elevate today. Hep panel pending. Ct abd/pelvis ordered. Concern for autoimmune hepatitis? (2) Melena: Status: Acute Assessment and plan: not a formal diagnosis but an elevated bun/cr ratio as well as an elevated retic count with anemia. If pt does have melenic stools, will consult GS for recommendations on treatment plan. Currently on PPI 01/03/25 Did d/w GS. Does not appear acute and can follow up in the outpatient setting Hg is stable (3) Moderate aortic regurgitation: Status: Acute Assessment and plan: stable, echo 12/31/24 Conclusion Normal left ventricular wall thickness and chamber size. Ejection fraction is 55 to 60%. Diastolic septal flattening suggests right ventricular pressure overload The right ventricle is dilated and hypocontractile. Right atrium is severely enlarged Normal left atrial size Aortic valve is trileaflet with moderate regurgitation Normal tricuspid valve with severe regurgitation. Estimated right ventricular systolic pressure is 62 mmHg Normal pulmonic valve with severe regurgitation Ascending aorta measures 3.64 cm (4) Pulmonary hypertension: Status: Chronic Assessment and plan: Recommend continuing evaluation and treatment by pulm/cc (5) Migraine: Status: Chronic Assessment and plan: resolved (6) Interstitial pneumonia with autoimmune features: Status: Acute Assessment and plan: cw abx (zithromax) and prednisone (7) Tobacco dependence: Assessment and plan: Recommend complete cessation Subjective Subjective Interval history since last seen: PT states that she has never had problems with elevated liver enzymes in the past. Does not complain of abd pain Exam Narrative Exam Narrative: NCAT MMM EOMI PERRLA NO LAD NO JVD RRR NO MRG CTAB NO AMU SOFT MILD DISTENTION BSAX4 NO CCE BILAT AAOX3 face mask in place with updraft Objective Last Vital Signs Temp 36.6 C 01/04/25 17:58 Pulse 89 01/04/25 17:58 Resp 22 01/04/25 17:58 BP 109/75 01/04/25 17:58 Pulse Ox 95 01/04/25 17:58 Laboratory Results - last 24 hr 01/03/25 01/04/25 01/04/25 06:50 06:53 10:30 WBC 6.31 RBC 4.05 Hgb 10.7 L Hct 34.6 L MCV 85 MCH 26.4 L MCHC 30.9 L RDW 14.2 Plt Count 313 MPV 9.7 Immature Gran % 1.3 Neutrophils % 56.4 Lymphocytes % 34.9 Monocytes % 6.2 Eosinophils % 0.6 Basophils % 0.6 Nucleated RBC % 2.2 H Absolute Neutrophils 3.56 Absolute Lymphocytes 2.20 Absolute Monocytes 0.39 Absolute Eosinophils 0.04 Absolute Basophils 0.04 Sodium 134 L Potassium 4.6 Chloride 98 Carbon Dioxide 33.2 H Anion Gap 2.8 L BUN 40 H Creatinine 1.4 H Est GFR (CKD-EPI 2020) 44.16 Glucose 92 Calcium 8.7 Total Bilirubin 0.7 AST 1576 H ALT 1223 H Alkaline Phosphatase 117 H Total Protein 7.2 Albumin 2.7 L Urine Opiates Screen Positive A Urine Methadone Screen Negative Ur Barbiturates Screen Negative Ur Tricyclics Screen Negative Ur Amphetamines Screen Negative U Benzodiazepines Scrn Negative Urine Cocaine Screen Negative Ur THC Screen Positive A Hepatitis A IgM Ab Negative Hep Bs Antigen Negative Hep B Core Total Ab Negative Hepatitis C Antibody Negative Time Spent with Patient Time Spent with Patient: 35-49 minutes Time was spent: preparing to see the patient(eg.review tests), obtaining and/or reviewing separately otained hiistory, ordering medications,tests, procedures, referring, communicating with other health home care physical therapist, indepentently interpreting results, counseling the patient and care coordination
[2025-01-04 22:07] VITALS: BP 120/76; PULSE 84; RESP 22; TEMP 36.4; O2SAT 93
[2025-01-04] MEDS: MORPHine 2 MG/ML SYR IVP (23:43)
[2025-01-05] MEDS: Ondansetron O.D.T. 4 MG TABEF PO (06:18)
[2025-01-05 06:59] LABS: Abs Immature Grans 0.05 10^3/uL (0.0-0.06); Absolute Basophil Count 0.03 10^3/uL (0.0-0.2); Absolute Eosinophil Count 0.05 10^3/uL (0.0-0.7); Absolute Lymphocyte Count 2.07 10^3/uL (1.2-3.4); Absolute Monocyte Count 0.42 10^3/uL (0.1-0.8); Basophils % 0.5 %; Eosinophils % 0.8 %; HCT 32.3 % (36.0-46.0); HGB 9.7 g/dL (11.2-15.7); Immature Grans % 0.8 %; Lymphocytes % 31.7 %; MCH 26.1 pg (27.0-33.0); MCV 87 fL (80-95); MPV 9.4 fL (8.0-11.0); Monocytes % 6.4 %; Neutrophils % 59.8 %; Nucleated RBC 0.9 % (0.0-0.3); Platelet Count 307 10^3/uL (130-400); RBC 3.72 10^6/uL (3.93-5.22); RDW 14.2 % (11.7-14.6); RDW-SD 43.6 fL; WBC 6.52 10^3/uL (4.4-10.8)
[2025-01-05 07:28] LABS: AST 602 U/L (15-37); Albumin 2.4 g/dL (3.4-5.0); Alkaline Phosphatase 104 U/L (46-116); Anion Gap 0.9 mmol/L (3-11); BUN 33 mg/dL (7-18); Bilirubin, Total 0.6 mg/dL (0.2-1.0); CO2 36.1 mmol/L (21.0-32.0); CREATININE 1.3 mg/dL (0.55-1.02); Calcium 8.7 mg/dL (8.5-10.1); Chloride 102 mmol/L (98-107); Estimated GFR 48.26 (mL/min/1.73m2); Glucose 78 mg/dL (74-106); Potassium 4.2 mmol/L (3.5-5.1); Sodium 139 mmol/L (136-145); Total Protein 6.8 g/dL (6.4-8.2)
[2025-01-05 07:43] LABS: ALT 1063 U/L (14-59)
[2025-01-05 07:54] VITALS: BP 104/66; PULSE 78; RESP 18; TEMP 36.2; O2SAT 97
[2025-01-05 08:50] VITALS: O2SAT 91
[2025-01-05] MEDS: MORPHine 2 MG/ML SYR IVP (08:52)
[2025-01-05] MEDS: Polyethylene Glycol 3350 17 GM PACKET PO ×2 (08:52→20:52)
[2025-01-05] MEDS: Normal Saline Flush 10 ML SYR IVP ×2 (08:53→20:53)
[2025-01-05] MEDS: DULoxetine 20 MG CAP 60 MG PO ×2 (08:53→20:52)
[2025-01-05] MEDS: Omeprazole 20 MG CAPCR 40 MG PO (08:53)
[2025-01-05] MEDS: Topiramate 50 MG TAB 100 MG PO ×2 (08:53→20:52)
[2025-01-05] MEDS: Furosemide 40 MG/4 ML VIAL IVP (08:53)
[2025-01-05] MEDS: ARIPiprazole 5 MG TAB 15 MG PO (08:53)
[2025-01-05] MEDS: Aspirin E.C. 81 MG TABEC PO (08:53)
[2025-01-05] MEDS: predniSONE 20 MG TAB 40 MG PO (08:54)
[2025-01-05] MEDS: Potassium Chloride 20 MEQ TABCR PO (08:54)
[2025-01-05] MEDS: Docusate Sodium 100 MG CAP PO ×2 (08:54→20:52)
[2025-01-05] MEDS: Azithromycin 250 MG TAB PO (08:54)
[2025-01-05] MEDS: Midodrine 2.5 MG TAB PO ×3 (08:54→17:28)
[2025-01-05] MEDS: Budesonide/Formoterol 160/4.5 6 GM 60 PUFF INH IH ×2 (08:54→20:04)
[2025-01-05] MEDS: Cholecalciferol (Vitamin D3) 1,000 UNIT TAB 1000 UNITS PO (08:54)
[2025-01-05] MEDS: Umeclidinium 7 CAP INHALER 1 CAP IH (08:55)
[2025-01-05] MEDS: Famotidine 20 MG TAB PO (11:16)
--- NOTE | 2025-01-05 12:51 | W.PM.PROGNOT ---
Date of Service Date of service: 01/05/25 Time of Service: 12:51 Assessment and Plan Assessment and plan (1) Acute on chronic hypoxic respiratory failure: Status: Acute Assessment and plan: -Oxygen need was progressing per November pulmonology note from 2L to 4L prior to this exacerbation. 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 She is looking forward to working with PT, and is also happy to hear that her LFTs have improved. Exam Narrative Exam Narrative: chronically ill female appering older then stated age in no acute dsitress, AOx4, 4L NC in place, heart RRR, lungs CTAB, abdomen soft, non-tender, non-distended Objective Last Vital Signs Temp 97.2 F L 01/05/25 07:54 Pulse 78 01/05/25 07:54 Resp 18 01/05/25 07:54 BP 104/66 01/05/25 07:54 Pulse Ox 91 L 01/05/25 08:50 Laboratory Results - last 24 hr 01/05/25 06:13 WBC 6.52 RBC 3.72 L Hgb 9.7 L Hct 32.3 L MCV 87 MCH 26.1 L MCHC 30.0 L RDW 14.2 Plt Count 307 MPV 9.4 Immature Gran % 0.8 Neutrophils % 59.8 Lymphocytes % 31.7 Monocytes % 6.4 Eosinophils % 0.8 Basophils % 0.5 Nucleated RBC % 0.9 H Absolute Neutrophils 3.90 Absolute Lymphocytes 2.07 Absolute Monocytes 0.42 Absolute Eosinophils 0.05 Absolute Basophils 0.03 Sodium 139 Potassium 4.2 Chloride 102 Carbon Dioxide 36.1 H Anion Gap 0.9 L BUN 33 H Creatinine 1.3 H Est GFR (CKD-EPI 2020) 48.26 Glucose 78 Calcium 8.7 Total Bilirubin 0.6 AST 602 H ALT 1063 H Alkaline Phosphatase 104 Total Protein 6.8 Albumin 2.4 L Time Spent with Patient Time Spent with Patient: >50 minutes Time was spent: preparing to see the patient(eg.review tests), obtaining and/or reviewing separately otained hiistory, ordering medications,tests, procedures, referring, communicating with other health nanny caregiver, indepentently interpreting results, counseling the patient and care coordination
[2025-01-05] MEDS: Enoxaparin 40 MG/0.4 ML SYR SC (12:59)
[2025-01-05] MEDS: Bisacodyl 10 MG SUPP PR (13:00)
--- NOTE | 2025-01-05 16:36 | PDOC.CMPRO ---
Care Management Progress Note Progress Note Text Progress Note Text: Marian was sitting up in the bed when CM met with her today. She was pleasant and offered a quick smile. She looked well. She was breathing easy, and she was on her baseline of 4L nc O2. PT was ordered for Marian today, but she had not worked with them at the time of our visit. She stated that she is happy to work with them. She has not really been up and out of bed at all this admission. Marian is using the bedside commode, but it has been pushed away from her bed a bit and she is taking a few steps. Marian is aware that she will likely be discharged in the next day or 2. Discharge Potential Discharge Needs: PT Evaluation, PCP F/U Appt and Other (pulmonology on 01/18) Anticipated Barriers to Discharge: None Identified Patient/Family Education Needs: Review discharge instructions, discuss Ask Me Three Transportation: Private vehicle Plan: Anticipate that Marian will discharge with new services through [place] of , PT/OT and REFUELING RAMP ATTENDANT.. She will f/u with her PCP and her professor of communication and writing (appt on 01/18) and continue per her plan of care. Marian will require [facility] transportation. She did come in with her own O2. CM will continue to follow and to update the plan as needed. Social Determinants of Health Screening Social Determinants of health last assessed in clinic: 01/05/25 Will the Patient Participate in the Screening?: Yes Do you worry about having a steady place to live?: no Problems where you live: no known problems In the past 12 months, have you had to go without electric, gas, oil or water in your home?: yes 1. Within the past 12 months, we worried whether our food would run out before we got money to buy more.: Sometimes true 2. Within the past 12 months, the food we bought just didn't last and we didn't have money to get more.: Sometimes true Has lack of transportation kept you from medical appointments or from doing things needed for daily living?: yes Has anyone in your life made you feel unsafe or unsupported?: yes How often does anyone, including family and friends, physically hurt you?: Never How often does anyone, including family and friends, insult or talk down to you?: Never How often does anyone, including family and friends, threaten you with harm?: Never How often does anyone, including family and friends, scream or curse at you?: Never HRSN Safety total score: 4 How hard is it for you to pay for the very basics like food, housing, medical care, and heating? Would you say it is:: Not hard at all Do you want help finding or keeping work or a job?: I do not need or want help If for any reason you need help with day-to-day activities such as bathing, preparing meals, shopping, managing finances, etc., do you get the help you need?: I could use a little more help How often do you feel lonely or isolated from those around you?: Sometimes Do you speak a language other than Samoan at home?: Yes Does the patient want assistance with any of the above?: Yes Health Related Social Needs Health related social needs: food insecurity (Z59.41), transportation insecurity (Z59.82), material hardship(utilities) (Z59.12), problems with daily activities (Z73.9), feeling lonely/isolated (Z60.8) and education (Z55.6) Health related social needs details: patient currently homeless, living at [facility] in [place], feels safe at current location, would like help with needs.
[2025-01-05 19:15] VITALS: BP 100/59; PULSE 72; RESP 22; TEMP 36; O2SAT 99
[2025-01-05] MEDS: traZODone 50 MG TAB 100 MG PO (20:51)
[2025-01-06] MEDS: Budesonide/Formoterol 160/4.5 6 GM 60 PUFF INH IH ×2 (06:12→20:17)
[2025-01-06] MEDS: Umeclidinium 7 CAP INHALER 1 CAP IH (06:13)
[2025-01-06 07:28] LABS: ALT 848 U/L (14-59); AST 290 U/L (15-37); Albumin 2.4 g/dL (3.4-5.0); Alkaline Phosphatase 97 U/L (46-116); Anion Gap -0.6 mmol/L (3-11); BUN 22 mg/dL (7-18); Bilirubin, Total 0.7 mg/dL (0.2-1.0); CO2 37.6 mmol/L (21.0-32.0); CREATININE 1.2 mg/dL (0.55-1.02); Calcium 8.9 mg/dL (8.5-10.1); Chloride 102 mmol/L (98-107); Estimated GFR 53.13 (mL/min/1.73m2); Glucose 80 mg/dL (74-106); Potassium 3.8 mmol/L (3.5-5.1); Sodium 139 mmol/L (136-145); Total Protein 6.8 g/dL (6.4-8.2)
[2025-01-06 07:52] VITALS: BP 94/60; PULSE 82; RESP 18; TEMP 36.2; O2SAT 99
[2025-01-06] MEDS: Midodrine 2.5 MG TAB PO ×3 (07:54→17:59)
[2025-01-06] MEDS: Omeprazole 20 MG CAPCR 40 MG PO (07:54)
[2025-01-06 09:24] VITALS: O2SAT 94
[2025-01-06] MEDS: Cholecalciferol (Vitamin D3) 1,000 UNIT TAB 1000 UNITS PO (09:57)
[2025-01-06] MEDS: ARIPiprazole 5 MG TAB 15 MG PO (09:57)
[2025-01-06] MEDS: Topiramate 50 MG TAB 100 MG PO ×2 (09:57→19:36)
[2025-01-06] MEDS: Docusate Sodium 100 MG CAP PO ×2 (09:57→19:36)
[2025-01-06] MEDS: predniSONE 20 MG TAB 40 MG PO (09:57)
[2025-01-06] MEDS: Azithromycin 250 MG TAB PO (09:57)
[2025-01-06] MEDS: Potassium Chloride 20 MEQ TABCR PO (09:57)
[2025-01-06] MEDS: DULoxetine 20 MG CAP 60 MG PO ×2 (09:58→19:36)
[2025-01-06] MEDS: Aspirin E.C. 81 MG TABEC PO (09:58)
[2025-01-06] MEDS: Normal Saline Flush 10 ML SYR IVP ×4 (10:02→19:37)
[2025-01-06] MEDS: Furosemide 40 MG/4 ML VIAL IVP (10:02)
--- NOTE | 2025-01-06 10:59 | PT.INIE ---
PT Notes Visit Reasons: Acute hypoxic respiratory failure, CHF, ILD, tropo Physical Therapy Inpatient Initial Evaluation Date:01/06/2025 Referring Doctor: Dr Damon PT Orders: PT CONSULT: PT eval and treat Precautions: Standard, fall, O2 continuous currently at 4 L via nasal cannula, IV access Patient Profile/Admitting Diagnosis: Pt is a 54 yo female presented to ED with increased SOB. Pt diagnosed with Interstitial Pneumonia with Autoimmune features, Acute on chronic hypoxic respiratory failure, CHF ANNALISE , elevated Troponins. Pt referred to PT for assessment in anticipation of discharge. PMHX: DVT prophylaxis (Acute) Acute on chronic hypoxic respiratory failure (Acute) Pulmonary edema (Acute) Screen for colon cancer (Acute) Migraine headache with aura (Acute) Syncope (Chronic) Orthostatic hypotension (Acute) Hypokalemia (Acute) Chronic respiratory failure with hypoxia (Acute) Claustrophobia (Acute) Interstitial pneumonia with autoimmune features (Acute) TSH (thyroid-stimulating hormone deficiency) (Chronic) Moderate aortic regurgitation (Acute) Tricuspid regurgitation (Acute) Pulmonary hypertension (Chronic) Pedal edema (Acute) Malabsorption (Acute) Adjustment disorder (Acute) Hyperparathyroidism (Acute) Hypothyroid (Chronic) Heartburn (Acute) Medical History (Updated 12/30/24 @ 17:12 by Max Hart) Obesity (BMI 30.0-34.9) Cor pulmonale Cervical radiculopathy Epigastric pain Renal insufficiency Hypotension Diarrhea Current smoker Hypotension Dehydration Closed head injury Syncope and collapse Hypokalemia Acute respiratory failure with hypoxia Interstitial lung disease Intermittent asthma Tobacco dependence Cervical cancer Surgical History S/P tonsillectomy S/P section History of gastric bypass Social History/Home Situation: Pt resides in motel/ fci at this time . She has no steps to enter. She was ambulating without AD independently though notes she felt unsteady. Pt independent ADL, shopping she utilizes iiko scooter once in the market. Equipment Owned/DME: oxygen through [employer] concentrator and a portable concentrator, Issued and fitted for FWW from [facility]. Subjective: Pt reports she is feeling better. She reports when she gets SOB she has a pressure sensation in her chest and she knows she has to sit down and rest. Objective: [] General Observation: female semireclined in chair with oxygen at 4L/min Mental Status: Alert Oriented x 4 able to follow instructions, agreeable to participate in assessment Pain: denies Vitals: sat: 93% at rest on 4L/min, with activity 78%; recovered in 2.5mins to 92% ( pt noted with cold hands and nail [place] citizen on all fingers) ROM: [] BUE: WNL BLE: WNL Strength: [] Right Upper Extremity: 5/5 Left Upper Extremity: 5/5 Right Lower Extremity: 4/5 Left Lower Extremity: 4/5 Sensation: intact Bed Mobility/Transfers: [] Supine to sit independent Sit to stand independent without AD; supervision with cues to push up from chair with FWW Stand to sit independent without AD; Supervision with cues to reach back when FWW present Bed to chair Supervision with and without FWW Gait:amb with FWW 30 feet reciprocal pattern Balance: [] Static Sitting: Normal Dynamic Sitting: Normal Static Standing: Good Dynamic Standing: Fair Special Tests: [] Mobility Limitations Standardized Measure [] [facility] AM-PAC 6 clicks Basic Mobility Inpatient Short Form: [] Raw Score: 23 CMS Score: 11.20% Informed Consent/Education: Patient instructed in purpose of PT consult. Assessment: Pt is 54yo female with significant pulmonary comorbidities. She demonstrates poor breath control technique including poor pursed lip breathing. Pt tendency to hold breath then exhale through mouth. Pt with cold extremities and nail [place] citizen on fingers may contribute to readings. Pt with no cyanosis noted during episode of desaturation. Pt noted slight pressure in chest prior to sit rest. She requires increased time to recover due to poor technique. Patient presents with clinical signs and symptoms consistent with current/admitting diagnoses that have resulted to mobility limitations, gait instability, generalized weakness, and impairment of motor control as demonstrated by the following impairment level findings: 1. Decreased strength to BLE major muscle groups 2. Impaired standing balance 3. Impaired functional activity tolerance 4. Impaired breath control/pacing technique to keep sats >88% 5. Oxygen dependent Impairments are contributing to the following functional limitations: 1. Inability to safely ambulate without assistive device 2. Increase completion time for mobility ADL performance 3. Increased fall risk Patient is assessed as a moderate complexity based on the following: History:54-year-old female with impairment level findings, functional limitations, and past medical history as indicated above Examination: Demonstrable impairment in strength, balance, and mobility level with underlying impairments and functional limitations as documented above Presentation: evolving Decision Making:moderate Goals: 1. Independent ambulation with FWW maintaining saturations > 88% on 4L/min 2. demonstrate effective PLB/ pacing during functional tasks to sustain sats >88% 3. independent transfers with FWW 4. demonstrate safe hand placement with FWW during transfers Plan of Care/Treatment Plan: 1-2x/day, 7 days/week x 1 week. Plan of care has been reviewed with the INSTALLATION AND REPAIR TECHNICIAN providing the service under Physical Therapy direction. Initiate Physical Therapy intervention for strengthening, bed mobility, transfers, gait, balance training, use of assistive device. DISCHARGE RECOMMENDATIONS: Home with HHPT, [facility] or Pulmonary Rehab TREATMENT CODE/TIME: 86403,[id number]/ [id number] Thank you for the opportunity to participate in the care of this patient. Diane Elliott PT [facility]
[2025-01-06] MEDS: Polyethylene Glycol 3350 17 GM PACKET PO ×2 (11:11→19:35)
[2025-01-06 12:25] VITALS: BP 83/58; PULSE 96; RESP 18; O2SAT 91
[2025-01-06] MEDS: Famotidine 20 MG TAB PO (12:28)
--- NOTE | 2025-01-06 12:48 | CMPROGNOTE_ITS ---
Date of service: 01/06/25 Time of Service: 12:48 Care Management Progress Note Progress Note Text Progress Note Text: Marian was sitting up in the bedside chair when CM met with her today. She looked the best she's been. She stated that she walked with PT, and was issued a FWW to take home. She stated that she felt a lot steadier with the walker, than without, and is happy to have it. Marian had a desat to the 70s while ambulating with PT, while on her baseline of 4L. She was ordered for an exercise tolerance test with RT, she desatted and will be kept another day. Marian has not heard from the [facility] yet. CM gave her their brochure, and encouraged her to call on Friday if she has not heard from them by then. Marian was very pleasant and appreciative. Discharge Potential Discharge Needs: PCP F/U Appt and Other Anticipated Barriers to Discharge: None Identified Patient/Family Education Needs: Review discharge instructions, discuss Ask Me T hree Transportation: [facility] Transportation: Private [facility] Plan: Anticipate that Marian will discharge with new services through [place] of , PT/OT and MOLECULAR BIOLOGY PROFESSOR.. She will f/u with her PCP on 01/26 at 10:40 and her hand sign writer on 01/18 (call is out to confirm the time) and continue per her plan of care. Marian will require [facility] transportation. She did come in with her own O2. CM will continue to follow and to update the plan as needed. Social Determinants of Health Screening Social Determinants of health last assessed in clinic: 01/06/25 Will the Patient Participate in the Screening?: Yes Do you worry about having a steady place to live?: no Problems where you live: no known problems In the past 12 months, have you had to go without electric, gas, oil or water in your home?: yes 1. Within the past 12 months, we worried whether our food would run out before we got money to buy more.: Sometimes true 2. Within the past 12 months, the food we bought just didn't last and we didn't have money to get more.: Don't know/refused Has lack of transportation kept you from medical appointments or from doing things needed for daily living?: yes Has anyone in your life made you feel unsafe or unsupported?: yes How often does anyone, including family and friends, physically hurt you?: Never How often does anyone, including family and friends, insult or talk down to you?: Never How often does anyone, including family and friends, threaten you with harm?: Never How often does anyone, including family and friends, scream or curse at you?: Never HRSN Safety total score: 4 How hard is it for you to pay for the very basics like food, housing, medical care, and heating? Would you say it is:: Not hard at all Do you want help finding or keeping work or a job?: I do not need or want help If for any reason you need help with day-to-day activities such as bathing, preparing meals, shopping, managing finances, etc., do you get the help you need?: I could use a little more help How often do you feel lonely or isolated from those around you?: Sometimes Do you speak a language other than Icelandic at home?: Yes Does the patient want assistance with any of the above?: Yes Health Related Social Needs Health related social needs: food insecurity (Z59.41), transportation insecurity (Z59.82), material hardship(utilities) (Z59.12), problems with daily activities (Z73.9), feeling lonely/isolated (Z60.8) and education (Z55.6) Health related social needs details: patient currently homeless, living at [facility], feels safe at current location, would like help with needs.
[2025-01-06] MEDS: Enoxaparin 40 MG/0.4 ML SYR SC (14:13)
--- NOTE | 2025-01-06 15:00 | PGE_ITS ---
Date of Service Date of service: 01/06/25 Time of Service: 15:01 Assessment and Plan Assessment and plan (1) Acute on chronic hypoxic respiratory failure: Status: Acute Assessment and plan: -Oxygen need was progressing per November pulmonology note from 2L to 4L prior to this exacerbation. 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 She stated that she walked more with RT then she would at home, and did feel a little short of breath but recovered at rest. Exam Narrative Exam Narrative: chronically ill female appering older then stated age in no acute dsitress, AOx4, 4L NC in place, heart RRR, lungs CTAB, abdomen soft, non-tender, non- distended Objective Last Vital Signs Temp 97.2 F L 01/06/25 07:52 Pulse 96 H 01/06/25 12:25 Resp 18 01/06/25 12:25 BP 83/58 L 01/06/25 12:25 Pulse Ox 91 L 01/06/25 12:25 Laboratory Results - last 24 hr 01/06/25 06:27 Sodium 139 Potassium 3.8 Chloride 102 Carbon Dioxide 37.6 H Anion Gap -0.6 L BUN 22 H Creatinine 1.2 H Est GFR (CKD-EPI 2020) 53.13 Glucose 80 Calcium 8.9 Total Bilirubin 0.7 AST 290 H ALT 848 H Alkaline Phosphatase 97 Total Protein 6.8 Albumin 2.4 L Time Spent with Patient Time Spent with Patient: >50 minutes Time was spent: preparing to see the patient(eg.review tests), obtaining and/or reviewing separately otained hiistory, ordering medications,tests, procedures, referring, communicating with other health healthcare advisory services manager, indepentently interpreting results, counseling the patient and care coordination
[2025-01-06] MEDS: oxyCODONE 5 MG TAB PO (15:56)
--- NOTE | 2025-01-06 17:27 | RESPIRATORY ---
01/06/2025 Pt taken on a short walk around her room to assess O2 requirements. Pt extremely difficult to get accurate SPO2. Pt was placed on 6L during ambulation and desaturated into the 70%s at the end of her walk. Pt needed to sit down so test was ended and patient recovered after a few minutes.
[2025-01-06 17:56] VITALS: BP 93/52; PULSE 94; RESP 20; O2SAT 98
[2025-01-06] MEDS: traZODone 50 MG TAB 100 MG PO (19:36)
[2025-01-06 23:01] VITALS: BP 92/51; PULSE 80; RESP 19; TEMP 36.6; O2SAT 98
[2025-01-07] MEDS: oxyCODONE 5 MG TAB PO (07:33)
[2025-01-07] MEDS: Budesonide/Formoterol 160/4.5 6 GM 60 PUFF INH IH (07:44)
[2025-01-07 07:46] VITALS: O2SAT 96
[2025-01-07 08:03] VITALS: BP 91/52; PULSE 78; RESP 19; TEMP 36; O2SAT 98
[2025-01-07] MEDS: predniSONE 20 MG TAB 40 MG PO (08:16)
[2025-01-07] MEDS: Midodrine 2.5 MG TAB PO (08:17)
[2025-01-07] MEDS: Cholecalciferol (Vitamin D3) 1,000 UNIT TAB 1000 UNITS PO (08:17)
[2025-01-07] MEDS: Aspirin E.C. 81 MG TABEC PO (08:18)
[2025-01-07] MEDS: Omeprazole 20 MG CAPCR 40 MG PO (08:18)
[2025-01-07] MEDS: Azithromycin 250 MG TAB PO (08:18)
[2025-01-07] MEDS: ARIPiprazole 5 MG TAB 15 MG PO (08:19)
[2025-01-07] MEDS: Topiramate 50 MG TAB 100 MG PO (08:20)
[2025-01-07] MEDS: Potassium Chloride 20 MEQ TABCR PO (08:20)
[2025-01-07] MEDS: Docusate Sodium 100 MG CAP PO (08:21)
[2025-01-07] MEDS: DULoxetine 20 MG CAP 60 MG PO (08:21)
[2025-01-07] MEDS: Polyethylene Glycol 3350 17 GM PACKET PO (08:22)
[2025-01-07] MEDS: Furosemide 40 MG/4 ML VIAL IVP (08:23)
[2025-01-07] MEDS: Normal Saline Flush 10 ML SYR IVP (08:24)
[2025-01-07 08:41] VITALS: O2SAT 97
--- NOTE | 2025-01-07 09:33 | PDOC.HHF2F_ITS ---
Home Health Referral Home Health Orders Clinical synopsis of why skilled professionals are needed: ILD with autoimmune features, increased LFTs suspecious for autoimmune hepatits, chronic hypoxic respiratory failure, pHTN Registered Nurse: Check all that apply Instruct on new or changed medication(s)/assess compliance: Ordered Physical Therapist: Check all that apply Increase strength & endurance for safe mobility at home: Ordered To design/establish home maintenance program: Ordered Fall reduction therapy program for patient with history of frequent falls: Ordered Home safety evaluation and teaching/gait training including stair management (if applicable): Ordered [facility]: Ordered Occupational Therapist: Evaluate and treat for patient unable to perform ADL/IADL/self-care: Ordered Upper extremity strengthening, range and motion: Ordered Operations Officer: Assist with community resources: Ordered Assist with manager long term care care planning: Ordered Encounter Date and Reason: I certify that a FTF encounter for this patient was performed on January 07, 2025 and that such encounter was related to the primary reason the patient requires home health services. The encounter was conducted in the following manner: * By me as the certifying physician, ALLIANCE CONSULTANT, PA or * By an inpatient physician, ALLIANCE CONSULTANT or PA during an inpatient stay who communicated findings to me, Certification And Authentication I certify that I composed the above information based on my clinical judgment relating to this patient's medical condition and, if applicable, clinical findings communicated to me by the NPP or inpatient physician who performed the FTF encounter. Name of Provider that will be monitoring home health services: Harry Means
--- NOTE | 2025-01-07 09:38 | W.PM.DS.N ---
Date of service: 01/07/25 Time of Service: 09:38 DS: Diagnosis Discharge Diagnosis (1) Acute on chronic hypoxic respiratory failure: Status: Acute (2) Interstitial pneumonia with autoimmune features: Status: Acute (3) Transaminitis: Status: Acute (4) Moderate aortic regurgitation: Status: Acute (5) Pulmonary hypertension: Status: Chronic (6) Migraine: Status: Chronic (7) Tobacco dependence: Discharge Plan Disposition Patient Disposition: Home W/Home Health Services Condition: Good Discharge Details Reason For Visit: Acute hypoxic respiratory failure, CHF, ILD, tropo Admit Date/Time: 12/30/24 13:12 Admit Provider: Max Hart Attending Provider: Max Hart Primary Care Provider: Harry Means [facility] Course Hospital Course: Patient initially presented with signs and symptoms consistent with acute on chronic hypoxic respiratory failure in the setting of interstitial lung disease with autoimmune features. She required up to 10 L supplemental oxygen which improved with steroids and antibiotics. However, patient also had transient significant increase in her LFTs with her AST and ALT being as high as 1576 and 1223 respectively. However, no identifiable cause was found and LFTs improved on their own, leading to suspicion for autoimmune hepatitis. However, given the patient is back to her baseline oxygen requirement, it was determined that she was stable for discharge home with home health services. Home Meds and New Rx's Prescriptions: New prednisone 20 mg Tablet 40 mg PO DAILY 7 Days Qty: 14 0RF Continued omeprazole 40 mg capsule,delayed release(DR/EC) 40 mg PO DAILY potassium chloride 20 mEq tablet extended release 20 meq PO DAILY Qty: 30 4RF topiramate 100 mg tablet 100 mg PO BID midodrine 5 mg tablet 2.5 mg PO TID Rx Instructions: do not give last dose of day after 6PM or within 4 hrs of bedtime albuterol sulfate [Ventolin HFA] 90 mcg/actuation HFA aerosol inhaler 2 puff inhalation Q6H PRN (Reason: shortness of breath or wheezing) Qty: 8.5 12RF ipratropium-albuterol 0.5 mg-3 mg(2.5 mg base)/3 mL solution for nebulization 3 ml inhalation QID PRN (Reason: wheezing) Qty: 180 12RF azithromycin 250 mg tablet 250 mg PO DAILY Qty: 30 12RF budesonide-formoterol [Symbicort] 160-4.5 mcg/actuation HFA aerosol inhaler 2 puff inhalation BID Qty: 10.2 12RF Incruse Ellipta 62.5 mcg/actuation blister with device 1 inh inhalation DAILY Qty: 30 12RF Ofev 100 mg capsule 100 mg PO Q12H Qty: 60 12RF Emgality Pen 120 mg/mL pen injector 120 mg subcut QMONTH Qty: 3 3RF aripiprazole 15 mg tablet 15 mg PO DAILY duloxetine 60 mg capsule,delayed release(DR/EC) 60 mg PO BID cetirizine [Allergy Relief (cetirizine)] 10 mg tablet 10 mg PO DAILY PRN ondansetron 4 mg tablet,disintegrating 4 mg PO Q8H cholecalciferol (vitamin D3) [Vitamin D3] 1,000 unit Capsule 1,000 unit PO DAILY aspirin 81 mg Tablet,Delayed Release (Dr/Ec) 81 mg PO DAILY Qty: 30 0RF trazodone 100 mg tablet 100 mg PO HS Patient Comments: TAKE ONE TABLET BY MOUTH AT BEDTIME furosemide 40 mg tablet 40 mg PO DAILY Patient Comments: TAKE ONE TABLET BY MOUTH EVERY DAY famotidine 20 mg tablet 20 mg PO DAILY Patient Comments: TAKE ONE TABLET BY MOUTH EVERY DAY BEFORE LUNCH Discharge Instructions Referrals: Harry Means [Primary Care Provider] - 01/26/25 10:40 am (ALSO: Betzaida has a Mammogram @12:25 January 18 and pulmonology @2:45 January 18. ) Activity:: Activity as Tolerated Equipment/Supplies:: No Equipment Needed Diet:: As Tolerated Discharge Orders Discharge Orders: Discharge Order (Routine); Ordered 01/07/25 Ordered By: Angelito Damon DS: Summary Time Spent with Patient providing and/or coordinating discharge services: Greater than 30 minutes Status at Discharge Functional status at discharge: independent ambulation Overall status at discharge: patient is back to baseline Mental Status: mental status grossly normal Speech and Movement: speech and movement normal Mood: congruent mood Affect: normal affect Quality:SDOH Health Related Social Needs: Health related social needs food insecurity (Z59.41), transportation insecurity (Z59.82), material hardship(utilities) (Z59.12), problems with daily activities (Z73.9), feeling lonely/isolated (Z60.8), education (Z55.6) Health related social needs details patient currently homeless, living at [facility] in [place], feels safe at current location, would like help with needs. Health related social needs details: patient currently homeless, living at [facility] in [place], feels safe at current location, would like help with needs. Exam Narrative Exam Narrative: chronically ill female appering older then stated age in no acute dsitress, AOx4, 4L NC in place, heart RRR, lungs CTAB, abdomen soft, non-tender, non-distended Psych Mental Status: mental status grossly normal Speech and Movement: speech and movement normal Mood: congruent mood Affect: normal affect DS: Data Vitals/I&O Vitals and I&O: Vital Signs Temperature 96.8 F L 01/07/25 08:03 Temperature Source Temporal Artery Scan 01/07/25 08:03 Pulse 78 01/07/25 08:03 Pulse 86 01/02/25 06:00 Respiratory Rate 19 01/07/25 08:03 Respiratory Effort Short of Breath 01/02/25 05:19 Respiratory Depth Normal 12/30/24 14:58 Respiratory Pattern Tachypnea 12/30/24 14:45 Blood Pressure 91/52 L 01/07/25 08:03 Blood Pressure Mean 65 01/07/25 08:03 Pulse Oximetry 97 01/07/25 08:41 Oxygen Delivery Method Nasal Cannula 01/07/25 08:41 Oxygen Flow Rate 4 01/07/25 08:41 Pain Level 2 01/07/25 08:33 Comment RN Notified 01/07/25 08:03 Intake & Output 01/06/25 01/07/25 01/07/25 17:59 05:59 17:59 Intake Total 510 / 515 480 / 480 Output Total 1600 / 1600 400 / 2000 600 / 600 Balance -1595 / -1595 110 / -1485 -120 / -120 Weight 168 lb 10.458 oz 166 lb 10.711 oz Intake: IV Oral 500 / 500 480 / 480 Output: Urine 1600 / 1600 400 / 2000 600 / 600 Other: Urine Color Yellow Pale Pale Urine Appearance Clear Clear Clear Urine Odor Normal Normal Comment mixed with stool Unmeasured amount voided into commode. Stool Size Small Small Stool Characteristics Soft Soft Formed PFSH All Active Problems (Updated 01/04/25 @ 09:15 by Masha Gallegos MD) Advanced care planning/counseling discussion (Acute) Palliative care encounter (Acute) Melena (Acute) Transaminitis (Acute) Flank pain (Acute) Migraine (Chronic) DVT prophylaxis (Acute) Acute on chronic hypoxic respiratory failure (Acute) Pulmonary edema (Acute) Screen for colon cancer (Acute) Migraine headache with aura (Acute) Syncope (Chronic) Orthostatic hypotension (Acute) Hypokalemia (Acute) Chronic respiratory failure with hypoxia (Acute) Claustrophobia (Acute) Interstitial pneumonia with autoimmune features (Acute) TSH (thyroid-stimulating hormone deficiency) (Chronic) Moderate aortic regurgitation (Acute) Tricuspid regurgitation (Acute) Pulmonary hypertension (Chronic) Hyperparathyroidism (Acute) Adjustment disorder (Acute) Hypothyroid (Chronic) Pedal edema (Acute) Malabsorption (Acute) Heartburn (Acute) Medical History (Updated 01/04/25 @ 09:15 by Masha Gallegos MD) Obesity (BMI 30.0-34.9) Cor pulmonale Cervical radiculopathy Epigastric pain Renal insufficiency Hypotension Diarrhea Current smoker Hypotension Dehydration Closed head injury Syncope and collapse Hypokalemia Acute respiratory failure with hypoxia Interstitial lung disease Intermittent asthma Tobacco dependence Cervical cancer Surgical History S/P tonsillectomy S/P section History of gastric bypass Family History Other Cancer Current smoker Social History (Updated 12/30/24 @ 16:48 by Max Hart) Smoking/Tobacco Use Status: Current every day Tobacco Type: e-cigarettes Smoking risk assessment performed?: Yes Alcohol Intake: current Alcohol Intake frequency: a few times a week Drug use: Rarely Substance use type: marijuana Housing: homeless Number of Children: 3 current occupation: Retired Do you feel safe at home: Yes Do you feel safe in your relationship?: Yes Time Spent with Patient Time Spent with Patient: <45 minutes Time was spent: preparing to see the patient(eg.review tests), obtaining and/or reviewing separately otained hiistory, ordering medications,tests, procedures, referring, communicating with other health wound care coordinator, indepentently interpreting results, counseling the patient and care coordination
--- NOTE | 2025-01-07 10:22 | PTTR_ITS ---
PT Notes Visit Reasons: Acute hypoxic respiratory failure, CHF, ILD, tropo Inpatient Physical Therapy Treatment Note [facility] Date: 01/07/2025 PRECAUTIONS:Oxygen at 4L/Min via NC SUBJECTIVE:Pt teary as she states how wonderful and helpful all of the staff have been to her over the course of her stay. OBJECTIVE: Pt seated in chair with oxygen at 4L via NC no respiratory distress noted . Pt happy to be going home today ? PAIN: denies VITALS: ? Pre-Treatment: 93% on 4L/min difficult to get perfusion d/t nail macedonian and cold hands ? Post-Treatment:92% after 3 min rest Therapeutic Activities ([id number][]): Direct one-on-one instruction in dynamic activities to improve functional performance. ? BED MOBILITY/TRANSFERS? Rolling L/R: independent Supine-sit: independent ? Sit-supine: independent ? Sit-stand: independent ? Stand-sit: independent ? Bed-Chair: independent with and without AD ? Chair-bed: independent with and without AD - Facilitated safe and correct performance of level surface ambulation covering a distance of 35 feet x 2 and 60 feetx1 with sit rest between using use front wheeled walker with SBA and wheelchair follow for safety. Did not report of any increased pain. Denied headache, chest pain, and lightheadedness throughout activity. Minimal verbal cueing provided for breath control and pacing, directional changes. ASSESSMENT:?Pt demonstrate ability to increase distance of ambulation with FWW without reports of chest pressure. Pt continues with poor PLB technique at rest and during ambulation. Pt is a mouth breather and has difficulty coordinating PLB. Pt would benefit from continued pulmonary retraining program through [facility] or [facility] Re[facility] Program PLAN: Discharge to home with [facility] TREATMENT CODE/TIME: [id number]
--- NOTE | 2025-01-07 11:06 | PDOC.CMDIS ---
Date of service: 01/07/25 Time of Service: 11:06 LACE Index Scoring Tool Questions: Length of Stay (in days): 7 - 13 Was the patient admitted via the E.D.?: Yes Comorbidities: Chronic Pulmonary Disease and Any Tumor E.D. Visits: 2 Answers: Total Score: 15 Risk of Readmission: High Risk Care Management Discharge Plan Reason for Hospitalization: Acute on chronic hypoxic respiratory failure, interstitial pneumonia Discharge Plan: Marian was discharged home earlier this morning with new services of Harpreet/Gen VILLALTA,PT, OT, and FACILITIES OPERATIONS TECHNICIAN. She was transported via [facility] private vehicle, as coordinated by CM. Marian was seen by [facility] yesterday, and they will continue to follow up with her. Marian will f/u with her PCP on 01/26, and with pulmonology on 01/18 (she also has a mammo on 01/18) and continue per her plan of care. Patient/Family Education Needs: Review of discharge instructions, activity, limitations, and discuss ask me 3. Services Needed at Discharge: Home Health Care Services (Francesca VILLALTA, PT, OT, FACILITIES OPERATIONS TECHNICIAN) and Oxygen Therapy (continued service) SDOH Health Related Social Needs: Health related social needs food insecurity (Z59.41), transportation insecurity (Z59.82), material hardship(utilities) (Z59.12), problems with daily activities (Z73.9), feeling lonely/isolated (Z60.8), education (Z55.6) Health related social needs details patient currently homeless, living at [facility], feels safe at current location, would like help with needs. Health related social needs details: patient currently homeless, living at [facility], feels safe at current location, would like help with needs.
--- NOTE | 2025-01-07 12:18 | NUR.NOTE ---
Nursing Note: Reviewed documentation by Libby Sosa, student [employer]KER. In agreement.
== END 2025-01-07 10:36 | disposition home health service (06) | DRG 196 ==
LOC: ER 14:25 → ICU 14:46 → MS 01-02 09:56
PROVIDERS: Family Medicine; Hospitalist; Admitting Provider Family Medicine; Emergency Provider Emergency Medicine; PCP Student in an Organized Health Care Education/Training Program; Responsible Provider Family Medicine; Visit Provider Family Medicine
DX: J84.89 Other specified interstitial pulmonary diseases (principal); J96.21 Acute and chronic respiratory failure with hypoxia; N17.9 Acute kidney failure, unspecified; M35.89 Other specified systemic involvement of connective tissue; K92.1 Melena; Z59.01 Sheltered homelessness; I50.9 Heart failure, unspecified; F17.210 Nicotine dependence, cigarettes, uncomplicated; E66.811 Obesity, class 1; Z68.30 Body mass index [BMI] 30.0-30.9, adult; R74.01 Elevation of levels of liver transaminase levels; I08.2 Rheumatic disorders of both aortic and tricuspid valves; I27.20 Pulmonary hypertension, unspecified; Z99.81 Dependence on supplemental oxygen; G43.109 Migraine with aura, not intractable, without status migrainosus; I95.1 Orthostatic hypotension; E21.3 Hyperparathyroidism, unspecified; M54.12 Radiculopathy, cervical region; F17.290 Nicotine dependence, other tobacco product, uncomplicated; J45.20 Mild intermittent asthma, uncomplicated; R74.8 Abnormal levels of other serum enzymes; Z79.899 Other long term (current) drug therapy; D64.9 Anemia, unspecified; K75.4 Autoimmune hepatitis
CPT/HCPCS: 00123; 36415; 80053; 80307; 82805; 86704; 86709; 86803; 87340; 93005; 93308; 94640; 94761; 96374; 96375; 97162; 97530; 99291; J1650; 71045; 74019; 74177; 81003; 83735; 83880; 84484; 85025; 85379; 93010; 93306; 94664; 94760; 99223; 99231; 99232; 99233; 99239; J1938; J2212; J2270; J2919; J3490; J7512; J7620

== ENCOUNTER 2025-03-31 15:47 | Outpatient (REF) | payer MEDICAID, SELFPAY ==
[2025-03-31 13:16] LABS: Abs Immature Grans 0.19 10^3/uL (0.0-0.06); HCT 40.9 % (36.0-46.0); HGB 12.3 g/dL (11.2-15.7); Immature Grans % 1.9 %; MCH 26.2 pg (27.0-33.0); MCHC 30.1 % (32.0-36.0); MCV 87 fL (80-95); MPV 9.4 fL (8.0-11.0); Platelet Count 286 10^3/uL (130-400); RBC 4.69 10^6/uL (3.93-5.22); RDW 14.5 % (11.7-14.6); RDW-SD 46.0 fL; WBC 10.09 10^3/uL (4.4-10.8)
[2025-03-31 15:33] LABS: ALT 32 U/L (14-59); AST 22 U/L (15-37); Albumin 2.7 g/dL (3.4-5.0); Alkaline Phosphatase 71 U/L (46-116); Anion Gap 3.8 mmol/L (3-11); BUN 17 mg/dL (7-18); Bilirubin, Total 0.2 mg/dL (0.2-1.0); CO2 35.2 mmol/L (21.0-32.0); Calcium 8.7 mg/dL (8.5-10.1); Chloride 99 mmol/L (98-107); Estimated GFR 85.89 (mL/min/1.73m2); Glucose 123 mg/dL (74-106); Potassium 4.6 mmol/L (3.5-5.1); Sodium 138 mmol/L (136-145); Total Protein 6.3 g/dL (6.4-8.2)
== END 2025-03-31 15:48 | disposition home or self-care (01) ==
LOC: LBN 15:47
PROVIDERS: PCP Student in an Organized Health Care Education/Training Program; Visit Provider Internal Medicine Pulmonary Disease
DX: J84.9 Interstitial pulmonary disease, unspecified (principal)
CPT/HCPCS: 80053; 85025